=== PATIENT | male | born 1940 | race Caucasian/White ===

== ENCOUNTER 2020-01-05 09:49 | Outpatient (CLI) | payer MEDICARE, BC, SELFPAY ==
--- NOTE | ~2020-01-05 | XR_ITS ---
XR_[id number]_CR DATE: 01/05/2020 11:32 INDICATION: Cervical spondylosis with radiculopathy TECHNIQUE: AP and lateral views COMPARISON: 08/28/2019 MRI cervical spine FINDINGS: There is 3 mm anterolisthesis at C4-5, new finding since 08/28/2019. Moderate loss of interspace height at C3-4. Severe degenerative disc disease at C5-6 Interbody spinal fusion at C6-7. No fracture or prevertebral soft tissue swelling. There is degenerative change at the apophyseal joints throughout the cervical spine and uncovertebral joint spurring in the mid and lower cervical spine. IMPRESSION: New 3 mm anterolisthesis at C4-5 since 08/28/2019 Interbody spinal fusion at C6-7 Degenerative changes, including severe degenerative disc disease at C5-6, moderate degenerative disea se at C3-4, degenerative change at the apophyseal and uncovertebral joints Reviewed, dictated and finalized at Location [facility]. Reviewed, dictated and finalized at location B. IMPRESSION: New 3 mm anterolisthesis at C4-5 since 08/28/2019 Interbody spinal fusion at C6-7 Degenerative changes, including severe degenerative disc disease at C5-6, moder ate degenerative disease at C3-4, degenerative change at the apophyseal and unc overtebral joints
--- NOTE | ~2020-01-05 | XR_ITS ---
XR lumbar spine min 4V DATE: 01/05/2020 11:32 INDICATION: Low back pain. History of multiple surgeries. TECHNIQUE: AP, lateral, bilateral oblique and coned lateral lumbosacral views COMPARISON: 08/08/2017 lumbar spine FINDINGS: Pedicle screws are noted bilaterally at L2-L5. 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 Diffuse osteopenia. No fracture or bone destruction is evident. The sacroiliac joints are intact. Status post bilateral total hip arthroplasty. Extensive calcification of the abdominal aorta and iliac arteries, without evidence of aneurysm. IMPRESSION: No significant change since 08/08/2017 Reviewed, dictated and finalized at location B.
--- NOTE | 2020-01-05 11:00 | NEURO_ITS ---
Patient Number: [id number] Impression: # Complains of right upper extremity pain. # Subtle right Carpal Tunnel Syndrome. # Subtle right ulnar neuropathy across the elbow. # Normal needle/EMG exam. # Clinical correlation recommended. Nerve Conduction Studies Anti Sensory Summary Table Stim Site NR Peak (ms) P-T Amp (?V) Site1 Site2 Delta-P (ms) Dist (cm) Rajan (m/s) Right Median Anti Sensory (2-3nd Digit) Wrist 3.5 20.4 Wrist 2-3nd Digit 3.5 14.0 40 Wrist 3.5 29.5 Wrist 2-3nd Digit 3.5 14.0 40 Right Radial Anti Sensory (Base 1st Digit) Wrist 2.5 17.7 Wrist Base 1st Digit 2.5 0.0 Right Ulnar Anti Sensory (5th Digit) Wrist 2.9 10.5 Wrist 5th Digit 2.9 14.0 48 Motor Summary Table Stim Site NR Onset (ms) O-P Amp (mV) Site1 Site2 Delta-0 (ms) Dist (cm) Rajan (m/s) Right Median Motor (Abd Poll Brev) Wrist 3.7 3.0 Elbow Wrist 4.6 27.0 59 Elbow 8.3 2.7 Right Ulnar Motor (Abd Dig Minimi) Wrist 2.3 8.6 A Elbow Wrist 5.7 29.0 51 A Elbow 8.0 7.0 B Elbow Wrist 4.0 23.0 58 B Elbow 6.3 1.3 F Wave Studies NR F-Lat (ms) L-R F-Lat (ms) Right Median (Mrkrs) (Abd Poll Brev) 25.44 Right Ulnar (Mrkrs) (Abd Dig Min) 24.21 EMG Side Muscle Nerve Root Ins Act Fibs Amp Dur Recrt Comment Right 1stDorInt Ulnar C8-T1 Nml Nml Nml Nml Nml Right Ext Indicis Radial (Post Int) C7-8 Nml Nml Nml Nml Nml Right Ext Digitorum Radial (Post Int) C7-8 Nml Nml Nml Nml Nml Right BrachioRad Radial C5-6 Nml Nml Nml Nml Nml Right PronatorTeres Median C6-7 Nml Nml Nml Nml Nml Right Abd Poll Brev Median C8-T1 Nml Nml Nml Nml Nml MTDD
== END 2020-01-05 09:50 | disposition home or self-care (01) ==
PROVIDERS: PCP Family Medicine; Visit Provider Neurological Surgery
DX: M47.22 Other spondylosis with radiculopathy, cervical region (principal); M43.12 Spondylolisthesis, cervical region; Z98.1 Arthrodesis status; M50.322 Other cervical disc degeneration at C5-C6 level; G56.01 Carpal tunnel syndrome, right upper limb; G56.21 Lesion of ulnar nerve, right upper limb
CPT/HCPCS: 72040; 72110; 95886; 95909

== ENCOUNTER 2020-07-01 04:27 | Inpatient (IN) | payer MEDICARE, BC, SELFPAY ==
[2020-07-01] VITALS (46 sets, daily range): BP systolic 121–167; BP diastolic 57–83; PULSE 72–97; RESP 13–26; TEMP 35.8–36.7; O2SAT 92–100; BMI 33.8
--- NOTE | 2020-07-01 | ECHO_ITS ---
Patient Info Name: Alec Tapia Age: 79 years : 1940 Gender: Male Ht: 66 in Wt: 211 lbs BSA: 2.15 m2 HR: 85 bpm BP: 159 / 77 mmHg Heart Rhythm: Sinus Rhythm Technical Quality: Good Exam Date: 07/01/2020 11:06 AM Exam Location: [facility] Patient Status: Inpatient Admit Date: 07/01/2020 Staff Ordering Physician: Dom Sheikh MD Warehouse Unloader: Stewart Rodriges RDCS Attending Provider: Hiwot Bond PA-C Referring Physician: Aguilar ORTIZ; Exam Type: CA echo doppler color flow Study Info Indications R07.9 - Chest pain, unspecified Complete two-dimensional, color flow and Doppler transthoracic echocardiogram is performed. History/Risk Factors Elevated trops; chest pain, TAVR, anemia, CHF, CAD/OH, CKD3, HTN, DM2. Summary 1. Complete two-dimensional, color flow and Doppler transthoracic echocardiogram is performed. 2. There is moderate concentric increased left ventricular wall thickness. 3. Left ventricular chamber dimension is normal. 4. Biplane ejection fraction 67%. 5. There is no regurgitation of the TAVR aortic valve. 6. TAVR prosthesis appears to be functioning well valve area is 1.7 cm2 by Doppler. 7. Left atrial chamber dimension is moderately enlarged. Left Ventricle Left ventricular chamber dimension is normal. There is moderate concentric increased left ventricular wall thickness. The left ventricular diastolic function is grade I diastolic dysfunction. Biplane ejection fraction 67%. Right Ventricle Right ventricular chamber dimension is normal. Left Atria Left atrial chamber dimension is moderately enlarged. Right Atria Right atrial chamber dimension is normal. Aortic Valve There is no regurgitation of the TAVR aortic valve. TAVR prosthesis appears to be functioning well valve area is 1.7 cm2 by Doppler. Pulmonic Valve The pulmonic valve is not well visualized. Mitral Valve The mitral valve has normal leaflets. There is mild to moderate mitral valve regurgitation. The mitral valve annulus is mildly calcified. Tricuspid Valve The tricuspid valve leaflets are normal. There is mild tricuspid valve regurgitation. Pericardium/Pleural The pericardium appears normal. Aorta The aortic root size at the sinus of Valsalva is normal. Left Ventricular Outflow Tract Name Value Normal LVOT 2D LVOT Diameter 1.9 cm LVOT Doppler LVOT Peak Gradient 9 mmHg LVOT Mean Gradient 6 mmHg LVOT VTI 31 cm LVOT VTI/AV VTI Ratio 0.6 LVOT Stroke Volume 90 ml LVOT CO 7.9 l/min LVOT CI 3.7 l/min/m2 Mitral Valve Name Value Normal MV Doppler MV Peak Gradient 2 mmHg
--- NOTE | ~2020-07-01 | XR_ITS ---
XR chest 2V 07/01/2020 04:47 Indication: Chest pain Procedure: AP and lateral views of the chest Comparison: Comparison to multiple prior studies sequentially, with oldest reviewed study dated 02/02. Findings: Borderline heart size. Bibasilar airspace disease may represent atelectasis and/or pneumoni a. There is a vascular stent overlying the heart. No significant pleural effusion, edema or pneumotho rax. Impression: 1: Bibasilar infiltrates, atelectasis versus pneumonia. Reviewed, dictated and finalized at location A. Impression: 1: Bibasilar infiltrates, atelectasis versus pneumonia.
--- NOTE | ~2020-07-01 | XR_ITS ---
EXAMINATION: XR chest 1V portable EXAM DATE: 07/01/2020 10:53 INDICATION: Shortness of breath. TECHNIQUE: Portable AP frontal chest x-ray was obtained. Comparison is made to prior examination from 07/01/2020. FINDINGS: There is aortic arteriosclerosis. Cardiac valve replacement. Patchy bilateral acute airspac e disease edema or infection. Please clinically correlate. Appearance is not definitely changed nisha red to prior study. There is no pneumothorax suspected. There are no pleural effusions. There are bon y degenerative changes. IMPRESSION: 1. Patchy ill-defined bilateral edema or infection, clinical correlation. Reviewed, dictated and finalized at location B.
--- NOTE | ~2020-07-01 | XR_ITS ---
XR chest 1V portable 07/03/2020 05:56 Indication: Shortness of breath Procedure: AP portable chest Comparison: Comparison to multiple prior studies sequentially, with oldest reviewed study dated 02/2018. Findings: Heart size normal. No focal air space disease, pulmonary edema, pleural effusion or suspect ed pneumothorax. Interval resolution of interstitial edema. Impression: 1: No acute cardiopulmonary disease. Reviewed, dictated and finalized at location A. Impression: 1: No acute cardiopulmonary disease.
--- NOTE | 2020-07-01 04:24 | ED.CHESTPAIN ---
HPI - Chest Pain General Chief Complaint: Chest Pain Stated Complaint: chest pain Source: patient and EMS Mode of arrival: EMS Limitations: no limitations History of Present Illness HPI narrative: Patient is an 79-year-old male with a history of NIDDM, CKD III, aortic valve replacement, OR, 4 stents who presents to the emergency department for evaluation of chest pain. Patient was at home when chest pain awakened him from sleep, described as sharp, stabbing in nature in the center of his chest with radiation to the left shoulder. No ripping or tearing sensation to the flanks. No back pain. No associated nausea or vomiting. Patient did have associated shortness of breath, patient took 2 nitroglycerin at home which resolved his symptoms. Patient was given additional aspirin by EMS, otherwise was transported to our facility hemodynamically stable and asymptomatic. Patient denies any dark or tarry stools at the time of my assessment. I state that he appears pale to me, patient states that he does not have any numbness or weakness. He denies any dark or tarry stools. He denies lightheadedness or dizziness. He is taking aspirin and denies taking any other blood thinning medication. He follows with Dr. Jacobs. Related Data Home Medications Medication Instructions Recorded Confirmed aspirin 81 mg tablet,delayed 81 mg PO DAILY 08/18/19 06/01/20 release blood sugar diagnostic #10 each 08/18/19 06/01/20 cholecalciferol (vitamin D3) 125 5,000 unit PO DAILY 08/18/19 06/01/20 mcg (5,000 unit) tablet cyanocobalamin (vitamin B-12) 50 50 mcg PO DAILY 08/18/19 06/01/20 mcg lozenges lancets 28 gauge #25 each 08/18/19 06/01/20 primidone 50 mg tablet 100 mg PO BID tablet 08/18/19 06/01/20 timolol maleate 0.25 % eye drops 1 drop EACH EYE Q12H 10/28/19 06/01/20 vitamin B complex 1 tablet PO DAILY 10/28/19 06/01/20 Allergies Allergy/AdvReac Type Severity Reaction Status Date / Time acetaminophen Allergy Unknown Other Verified 06/21/20 11:15 MUSCLE RELAXERS Allergy Severe PARALYSES Uncoded 06/21/20 11:15 DIAPHRAGM Contrast Media Allergy Unknown Hives / Uncoded 06/21/20 11:15 Red Face Review of Systems Review of Systems: Narrative: CONSTITUTIONAL: Denies fever, chills, or sweats. CARDIOVASCULAR: Denies current chest pain, palpitations or edema RESPIRATORY: Denies cough or dyspnea. GASTROINTESTINAL: Denies abdominal pain, nausea, vomiting, or diarrhea. GENITOURINARY: Denies dysuria or hematuria. SKIN: Denies rash or itching. MUSCULOSKELETAL: Denies back pain, joint pain, or myalgia. NEUROLOGIC: Denies headache, numbness, or weakness. FOR[facility]LY [facility], [facility] Past Medical History Medical History Afib Anemia Anxiety Atherosclerotic heart disease of [place] coronary artery without angina pectoris Benign prostatic hyperplasia with lower urinary tract symptoms CAD (coronary artery disease) CHF (congestive heart failure) Chronic kidney disease, stage III (moderate) Diverticulosis DM renal manif type II Essential tremor Gallbladder disease Glaucoma Hemorrhoids HLD (hyperlipidemia) Hy ht/kd NOS I-IV w/o hf Hypertensive heart disease without heart failure Idiopathic peripheral neuropathy Insomnia Mixed hyperlipidemia Myocardial infarct Nonrheumatic aortic valve stenosis MARI (obstructive sleep apnea) Pneumonia PVD (peripheral vascular disease) Shingles Skin cancer Sleep apnea Ulcer Surgical History Surgical History (Updated 10/19/19 @ 12:38 by Raquel Stiles) History of appendectomy History of coronary artery stent placement x4 History of hemorrhoidectomy History of lumbar surgery History of tonsillectomy S/P TAVR (transcatheter aortic valve replacement) Status post total hip replacement, bilateral Social History Social History Years smoked: 23 Smoking status: Former smoker Tobacco type: cigarettes and pipe Secon
--- NOTE | 2020-07-01 04:29 | ECG_ITS ---
Measurements Intervals [place] Rate: 97 P: [place]: 0 QRS: 9 QRSD: 104 T: 29 QT: 342 QTc: 435 Interpretive Statements SINUS RHYTHM WITH FIRST DEGREE AV BLOCK BASELINE ARTIFACT- I, II, III, AVR, AVL, AVF, V1-V6 ABNORMAL ECG Electronically Signed On 07-01-2020 7:01:34 CDT by Zachery Curtis D.O.
[2020-07-01 04:43] LABS: Basophils Percent Auto 0.2 % (0.2-1.2); Eosinophils Percent Auto 0.2 % (0-4.4); Hematocrit 22.7 % (42.0-52.0); Immature Granulocyte Absolute 0.05 K/mm3 (0.00-0.031); Immature Granulocyte Percent A 0.6 % (0-0.5); Lymphocytes Absolute Auto 1.15 K/mm3 (0.9-3.2); Lymphocytes Percent Auto 14.1 % (18.3-44.2); Mean Corpuscular HGB Conc 28.6 g/dl (32-36); Mean Corpuscular Hemoglobin 22.6 pg (26-34); Mean Corpuscular Volume 78.8 fl (80-100); Mean Platelet Volume 9.5 fl (7.4-10.4); Monocytes Absolute Auto 0.5 K/mm3 (0.1-0.6); Monocytes Percent Auto 5.9 % (2.6-8.5); Neutrophils Absolute Auto 6.5 K/mm3 (1.3-6.7); Platelet Count Result 344 k/mm3 (150-375); Red Blood Count 2.88 M/mm3 (4.6-6.20); Red Cell Distribution Width 18.4 % (11.5-14.5); White Blood Count 8.2 K/mm3 (4.5-10.0)
[2020-07-01 04:55] LABS: Anion Gap 8 mmol/L (8-16); Blood Urea Nitrogen 57 mg/dL (9-20); Calcium 9.8 mg/dL (8.4-10.2); Carbon Dioxide 25 mmol/L (22-30); Chloride 106 mmol/L (98-107); Estimated Glomerular Filt Rate 42; Glucose 148 mg/dL (75-110); INR 1.1; Potassium 4.9 mmol/L (3.4-5.0); Prothrombin Time 14.1 Seconds (11.1-14.7); Sodium 139 mmol/L (137-145)
[2020-07-01 04:56] LABS: Partial Thromboplastin Time 25.8 SECONDS (22.3-36.8)
[2020-07-01 05:09] LABS: Hemoglobin 6.5 g/dL (14.0-18.0)
[2020-07-01 05:10] LABS: Platelet Estimate Adequate (Adequate)
[2020-07-01 05:11] LABS: Anisocytosis 1+ (NORMAL); Hypochromasia 1+ (NORMAL)
[2020-07-01 05:19] LABS: Troponin I 0.059 ng/mL (0.000-0.034)
[2020-07-01 06:18] LABS: NT Pro B Type Natriuretic Pept 901 PG/ML (5-100)
[2020-07-01] MEDS: SODIUM CHLORIDE 0.9% IV 250 ML 30 ML IV CONT (07:30)
[2020-07-01] MEDS: TUBING, BLOOD SET 1 EACH XX (07:31)
--- NOTE | 2020-07-01 07:57 | PC.NURSE ---
Pt is tolerating blood transfusion well. No reaction noted. VSS.
[2020-07-01 08:00] LABS: Troponin I 0.063 ng/mL (0.000-0.034)
[2020-07-01 08:16] LABS: Iron 29 ug/dL (49-181)
--- NOTE | 2020-07-01 08:18 | ADMGEN ---
This patient, Alec Tapia, was admitted to IMU Room 231-01. Patient/family oriented to hospital policies and general routines including ID bracelet, bed and alarms, visiting hours, pain management, procedures, bathroom and other care routines, personal items, smoking policy, room service/diet, and visiting hours. Valuables list has been completed. Information on how to activate the Rapid Response Team has been discussed. Patient/Family are encouraged to report perceived risks to care and to ask questions if they do not understand what they are told or what they should do.
[2020-07-01 08:25] LABS: Percent Iron Saturation 5 % (20-50)
[2020-07-01 08:32] LABS: Alanine Aminotransferase 20 U/L (4-50); Albumin Level 3.8 g/dL (3.5-5.1); Alkaline Phosphatase 37 U/L (38-126); Anion Gap 7 mmol/L (8-16); Aspartate Amino Transferase 30 U/L (17-59); Bilirubin,Total 0.2 mg/dL (0.2-1.3); Blood Urea Nitrogen 54 mg/dL (9-20); Calcium 9.5 mg/dL (8.4-10.2); Carbon Dioxide 23 mmol/L (22-30); Chloride 108 mmol/L (98-107); Estimated Glomerular Filt Rate 45; Glucose 90 mg/dL (75-110); Lactate Dehydrogenase 462 U/L (313-618); Sodium 138 mmol/L (137-145); Transferrin 361 mg/dL (206-381)
[2020-07-01 08:51] LABS: Ferritin 8.89 ng/mL (11.1-264)
--- NOTE | 2020-07-01 09:22 | PM.CNCAR ---
Assessment and Plan Assessment and plan (1) Elevated troponin: Code(s): R79.89 - Other specified abnormal findings of blood chemistry Status: Acute Assessment and Plan: troponin is likely secondary to severe anemia in the setting of known coronary disease. Will continue to trend troponins. P.r.n. nitroglycerin. Transfuse at least 2 units of packed red blood cells. Repeat H& H at noon. GI consultation is requested and likely going for endoscopy today. 2D echocardiogram Doppler will be ordered. Hold aspirin for now till after endoscopy then resume at 81 mg p.o. daily (2) Chest pain: Qualifiers: Chest pain type: other chest pain Qualified Code(s): R07.89 - Other chest pain Code(s): R07.9 - Chest pain, unspecified Status: Acute Assessment and Plan: This is anginal pain and much worse than his typical stable angina that he has during episodes when she is carrying objects or walking up down steps. Likely exacerbated by his severe anemia. (3) CAD (coronary artery disease): Code(s): I25.10 - Atherosclerotic heart disease of [place] coronary artery without angina pectoris Status: Acute Assessment and Plan: As detailed above. Continue his home drug regimen including statin, Zetia, fenofibrate, furosemide, lisinopril. No beta ryan given his history of complete heart block following TAVR. (4) History of transcatheter aortic valve replacement (TAVR): Code(s): Z95.2 - Presence of prosthetic heart valve Status: Acute Assessment and Plan: previously function normally (5) Anemia: Qualifiers: Anemia type: unspecified type Qualified Code(s): D64.9 - Anemia, unspecified Code(s): D64.9 - Anemia, unspecified Status: Acute Assessment and Plan: severe and of new onset. GI has been consult. will give him a dose of furosemide 20 mg IV x1 after his transfusion History of Present Illness History of Present Illness Consult date/time: 07/01/20 09:22 Requesting physician: Ashely Ratliff MD Consult reason: chest pain Reason For Visit: chest pain,anemia,elevated troponin Narrative: Reason for consultation: Chest pain, elevated troponins Date of service 07/01/2020 History: Patient is a very pleasant 79 year old male patient of Dr. Jacobs who has a history of coronary disease. He sustained a non ST elevation myocardial infarction in 2005 and had stents placed to the LAD and RCA. He had 2 more stents to the RCA and May of 2018 during a workup for severe aortic stenosis. He did undergo a TAVR in July 2018. He was known to have transient complete heart block after his TAVR. He did have a most recent telephone visit with Dr. perea from in January 2015. At that time he describes shortness of breath and slight chest tightness when carrying packages up and down some steps. That is is known stable angina. He states that about a month or so ago he has noticed some black stools. Black stools lasted for 1-2 weeks. His stools at this point are normal in color. Interestingly, he did break on to some hives recently and has been put on some steroids per Dr. Luis. Yesterday morning he developed some chest pain which is typical of his angina but a little worse. It was significant enough for him to take a nitroglycerin. Nitroglycerin resolved his pain. Pain lasted about 5-10 minutes. Yesterday evening had another episode in which he took a nitroglycerin. He went to bed last night but then woke up at about 3-330 this morning with much more significant /severe chest pain. He took 2 sublingual nitroglycerin without relief. EMS was called and he was given some baby aspirin. He was brought to the emergency room and gradually over about a 2 hour time frame his symptoms subsided. In the ER he was found to be severely anemic with a hemoglobin of 6.5. Previous hemoglobin in October of this year shows a hemoglobin above 10. Chest
[2020-07-01] MEDS: FUROSEMIDE INJ 40 MG/4 ML VIAL 20 MG IV PUSH (10:02)
--- NOTE | 2020-07-01 10:10 | PM.IMHP ---
H&P: HPI History of Present Illness Date/Time: 07/01/20 10:10 Chief complaint: chest pain,anemia,elevated troponin Narrative: Alec Tapia is a 79 year old male multiple medical problems including CAD s/p PCI with 4 stents, HfpEF, T2DM, MARI on BiPAP at night, aortic stenosis s/p TAVR 07/2018, BPH, CKD stage III, HLD, HTN, rosacea on chronic doxycycline who presented to the emergency department via EMS for the evaluation of chest pain. He reports that he had one episode of chest pain with activity yesterday morning which was relieved with 1 nitroglycerin. He had another episode earlier in the evening which was relieved with nitroglycerin. Those episodes lasted 5-10 minutes. Later that night, he was awakened from sleep with sharp, stabbing, and heavy chest pain in the mid chest with radiation to the left shoulder and neck. He took 2 nitroglycerin without relief and called EMS. He reports increased dyspnea with exertion over the past several months. He had very dark stool for 1-2 weeks approximately 1 month ago. He was taking iron at that time. He denies recent melena or hematochezia. He has hemorrhoids which bleed intermittently, requiring him to wear pads, but he reports no significant hemorrhoidal bleeding recently. His last colonoscopy was 7 years ago and unremarkable with no polyps or other abnormalities. He reports the onset of hives and itching 10 days ago. He saw his PCP who prescribed medrol dose pack. Itching improved but returned so he started prednisone 2 days ago. He denies abdominal pain, nausea, and vomiting. He denies headaches, dizziness, and lightheadedness. He denies PND and orthopnea. He reports no significant lower extremity edema. He denies hematuria. He has BPH with urinary incontinence. Initial workup in the emergency department included EKG sinus rhythm, 1st degree AV block, and no evidence of acute ischemia, troponin 0.059, 0.063, and 0.068, BNP 901, Hb 6.5, Hct 22.7, RBC 2.88, WBC 8.2, MCV 78.8, Cr 1.5, BUN 54, and CXR with bibasilar infiltrates suggestive of atelectasis vs. pneumonia. I went to reassess the patient and he was in respiratory distress. STAT CXR demonstrated interval development of pulmonary edema following blood transfusion. Troponin was 0.068. EKG was repeated and showed LV hypertrophy and ST-T change. He received IV lasix with excellent urine output and dyspnea improved. Review of Systems Review of Systems: Narrative: Constitutional: Denies fever, chills, fatigue, and appetite change. Reports weight gain since COVID because he has not been as active. Eyes: Denies vision change. No additional eye complaints. ENT: Denies change in hearing, nasal congestion, dysphagia, odynophagia, and sore throat. Cardiovascular: As above. Respiratory: Reports dyspnea with exertion. Denies cough. Gastrointestinal: Denies abdominal pain, nausea, and vomiting. Reports hx of dark stool but no acute melena or hematochezia. Genitourinary: Reports urinary frequency/incontinence, worse at night. Denies hematuria and dysuria. Musculoskeletal: Denies joint pain and swelling. Denies muscle cramps and weakness. Skin: Denies lesions and wounds. Neurologic: Denies focal weakness, paresthesias, confusion, headaches, and speech change. Psychiatric: Reports anxiety and takes diazepam PRN. Hematologic: Denies easy bruising and bleeding. All systems reviewed & are unremarkable except as noted in HPI and below PMFSH Past Medical History Medical History (Updated 07/01/20 @ 14:45 by Hiwot Bond PA-C) Afib Anemia Anxiety Atherosclerotic heart disease of [place] coronary artery without angina pectoris Benign prostatic hyperplasia with lower urinary tract symptoms CAD (coronary artery disease) CHF (congestive heart failure) Chronic kidney disease, stage III (moderate) Diverticulosis DM renal manif type II Essential tremor Gallbladder disease GIB (gastrointestinal bleeding) Glaucoma Hemorrhoids History of transcatheter aortic valve
--- NOTE | 2020-07-01 10:34 | ECG_ITS ---
Measurements Intervals [place] Rate: 83 P: 91 [place]: 257 QRS: -12 QRSD: 125 T: 78 QT: 368 QTc: 433 Interpretive Statements SINUS RHYTHM WITH FIRST DEGREE AV BLOCK LEFT VENTRICULAR HYPERTROPHY AND ST-T CHANGE BASELINE ARTIFACT- V4 ABNORMAL ECG Electronically Signed On 07-01-2020 10:55:48 CDT by Zachery Curtis D.O.
[2020-07-01 10:45] LABS: Vitamin B12 > 1000.0 pg/mL (239-931)
[2020-07-01] MEDS: FUROSEMIDE INJ 40 MG/4 ML VIAL IV PUSH ×2 (10:45→23:02)
[2020-07-01 10:47] LABS: Troponin I 0.068 ng/mL (0.000-0.034)
[2020-07-01] MEDS: ALBUTEROL SULFATE NEB 2.5 MG/0.5 ML INH INHALATION (10:48)
[2020-07-01 10:53] LABS: Alveolar/Arterial O2 Gradient 65.5 mmHg; Fractional Inspired Oxygen 28 %; HCO3 ABG 22.6 mEq/l (22.0-26.0); Oxygen Content ABG 11.2 %vol (16.0-22.0); Oxygen Saturation ABG 95.6 % (95.0-100.0); Oxyhemoglobin 93.4 % THb (90.0-100.0); PCO2 ABG 43.1 mmHg (35.0-45.0); PO2 ABG 83.3 mmHg (80.0-100.0); PO2 FiO2 Ratio Arterial Blood 2.98 %; Total Hemoglobin 8.4 g/dL (12.0-18.0); pH ABG 7.338 (7.350-7.450)
[2020-07-01 10:54] LABS: Device NASAL CANNULA; Modified Allen's Test Pass; Site Drawn RIGHT RADIAL
[2020-07-01 11:01] LABS: Hematocrit 25.8 % (42.0-52.0); Hemoglobin 7.4 g/dL (14.0-18.0)
[2020-07-01 11:47] LABS: Glucose Point of Care 78 (65-105)
--- NOTE | 2020-07-01 12:10 | WPDANESEPPF ---
Anes - Initial Pre Proc Eval Procedure: Operation Date: 07/01/20 14:00 Proposed Procedures p Esophagogastroduodenoscopy - Vamshi Estrada MD Date/Time: 07/01/20 12:10 Surgeon: Hiwot Bond PA-C Pre Op Diagnosis: chest pain,anemia,elevated troponin Patient Data Age: 79 Gender: M Height: 5 ft 6 in Weight: 95.2 kg Last Vital Signs Temp 96.9 F L 07/01/20 08:00 Pulse 83 07/01/20 10:53 Resp 20 07/01/20 10:53 BP 159/77 H 07/01/20 08:00 Pulse Ox 98 07/01/20 10:54 Allergies Allergy/AdvReac Type Severity Reaction Status Date / Time acetaminophen Allergy Unknown Other Verified 07/01/20 08:29 MUSCLE RELAXERS Allergy Severe PARALYSES Uncoded 07/01/20 08:29 DIAPHRAGM Contrast Media Allergy Unknown Hives / Uncoded 07/01/20 08:29 Red Face Home Medications Medication Instructions Recorded Confirmed Type aspirin 81 mg tablet,delayed 81 mg PO DAILY 08/18/19 07/01/20 History release blood sugar diagnostic #10 each 08/18/19 07/01/20 History cholecalciferol (vitamin D3) 125 5,000 unit PO DAILY 08/18/19 07/01/20 History mcg (5,000 unit) tablet furosemide 40 mg tablet 20 mg PO QAM #45 tablet 08/18/19 07/01/20 Rx lancets 28 gauge #25 each 08/18/19 07/01/20 History lisinopril 10 mg tablet 10 mg PO DAILY #90 tablet 08/18/19 07/01/20 Rx potassium citrate 10 mEq (1,080 10 meq PO BID #180 tablet 08/18/19 07/01/20 Rx mg) tablet,extended release primidone 50 mg tablet 50 mg PO BID tablet 08/18/19 07/01/20 History timolol maleate 0.25 % eye drops 1 drop EACH EYE Q12H 10/28/19 07/01/20 History vitamin B complex 1 tablet PO DAILY 10/28/19 07/01/20 History fenofibrate 160 mg tablet 160 mg PO DAILY #90 tablet 11/05/19 07/01/20 Rx ezetimibe 10 mg tablet 10 mg PO DAILY #90 tablet 11/09/19 07/01/20 Rx atorvastatin 40 mg tablet 40 mg PO DAILY #90 tablet 12/25/19 07/01/20 Rx azelastine 0.15 % (205.5 mcg) 2 spray NASAL BID #30 ml 02/04/20 07/01/20 Rx nasal spray doxycycline hyclate 100 mg capsule 100 mg PO DAILY #90 cap 05/19/20 07/01/20 Rx tramadol 50 mg tablet 50 mg PO Q6H PRN #60 tablet 06/03/20 07/01/20 Rx diazepam 10 mg PO DAILY PRN 07/01/20 07/01/20 History diclofenac-lidocaine 1 applic TOPICAL HS 07/01/20 07/01/20 History duloxetine 60 mg PO DAILY 07/01/20 07/01/20 History gabapentin 400 mg PO QID 07/01/20 07/01/20 History glimepiride 0.5 mg PO DAILY 07/01/20 07/01/20 History ketoconazole 1 applic TOPICAL DAILY 07/01/20 07/01/20 History loperamide 2 mg PO Q6H PRN 07/01/20 07/01/20 History melatonin 10 mg PO HS PRN 07/01/20 07/01/20 History tamsulosin 0.4 mg PO DAILY 07/01/20 07/01/20 History trazodone 50 mg PO DAILY 07/01/20 07/01/20 History Laboratory Tests 07/01/20 07/01/20 07/01/20 04:36 04:36 04:36 WBC 8.2 K/mm3 K/mm3 (4.5-10.0) RBC 2.88 M/mm3 L M/mm3 (4.6-6.20) Hgb 6.5 g/dL L* D g/dL (14.0-18.0) Hct 22.7 % L % (42.0-52.0) MCV 78.8 fl L fl (80-100) MCH 22.6 pg L pg (26-34) MCHC 28.6 g/dl L g/dl (32-36) RDW 18.4 % H % (11.5-14.5) Plt Count 344 k/mm3 k/mm3 (150-375) MPV 9.5 fl fl (7.4-10.4) Immature Gran % (Auto) 0.6 % H % (0-0.5) Neut % (Auto) 79.0 % H % (45.5-73.1) Lymph % (Auto) 14.1 % L % (18.3-44.2) Day % (Auto) 5.9 % % (2.6-8.5) Eos % (Auto) 0.2 % % (0-4.4) Baso % (Auto) 0.2 % % (0.2-1.2) Lymph # (Auto) 1.15 K/mm3 K/mm3 (0.9-3.2) Day # (Auto) 0.5 K/mm3 K/mm3 (0.1-0.6) Eos # (Auto) 0.0 K/mm3 K/mm3 (0-0.3) Baso # (Auto) 0.0 K/mm3 K/mm3 (0.0-0.1) Abs Immat Gran (auto) 0.05 K/mm3 H K/mm3 (0.00-0.031) Absolute Neuts (auto) 6.5 K/mm3 K/mm3 (1.3-6.7) Absolute Nucleated RBC 0.0 K/mm3 K/mm3 (0.0-0.012) Nucleated RBC % 0.0 % % (0.0-0.2) Platelet Estimate Adequate (Adequate) Hypochr
[2020-07-01 12:16] LABS: Folic Acid 5.1 ng/mL (2.76->20)
[2020-07-01] MEDS: SODIUM CHLORIDE 0.9% IV 500 ML 30 ML IV CONT (12:21)
--- NOTE | 2020-07-01 12:22 | SUR.PREOP ---
TRANSFERED FROM 231 VIA STRETCHER WITH TELEMETRY TO ENDOSCOPY ROOM 5, NC A 2L/NC, SIDDIQUI DRAINING CLEAR STRAW COLORED URINE TO BEDSIDE DRAIN. PT STATES SOB IS MUCH BETTER, LUNGS SOUND OF FEW CRACKLES, WITH AIR EXCHANGE HEARD IN ALL LOBES.
[2020-07-01] MEDS: BENZOCAINE (*SP) 60 ML SPRAY CAN (HURRICAINE) 1 SPRAY MUCOUS MEM (12:24)
[2020-07-01] MEDS: ATORVASTATIN 40 MG TABLET PO (13:31)
[2020-07-01] MEDS: TAMSULOSIN HCL 0.4 MG CAPSULE PO (13:31)
[2020-07-01] MEDS: CHOLECALCIFEROL 1,000 UNITS TABLET 5000 UNITS PO (13:31)
[2020-07-01] MEDS: VITAMIN B COMPLEX CAPSULE 1 CAP PO (13:31)
[2020-07-01] MEDS: GABAPENTIN 400 MG CAPSULE PO ×3 (13:32→19:46)
[2020-07-01] MEDS: EZETIMIBE 10 MG TABLET PO (13:32)
[2020-07-01] MEDS: DULoxetine HCL 60 MG CAPSULE.DR PO (13:32)
[2020-07-01] MEDS: FENOFIBRATE 160 MG TABLET PO (13:32)
[2020-07-01] MEDS: PRIMIDONE 50 MG TABLET PO ×2 (13:32→19:46)
--- NOTE | 2020-07-01 13:37 | WPDGICN ---
Assessment and Plan Assessment and plan (1) Symptomatic anemia: Code(s): D64.9 - Anemia, unspecified Status: Acute Assessment and Plan: will proceed with EGD, he is not using ppi at home (2) GIB (gastrointestinal bleeding): Code(s): K92.2 - Gastrointestinal hemorrhage, unspecified Status: Acute Assessment and Plan: he mentioned dark stools about 2 weeks ago, ? melena and now with anemia. PPI for now and EGD today (3) Chest pain: Qualifiers: Chest pain type: other chest pain Qualified Code(s): R07.89 - Other chest pain Code(s): R07.9 - Chest pain, unspecified Status: Acute Assessment and Plan: maybe exacerbated by anemia but cardiology on board. (4) Elevated troponin: Code(s): R79.89 - Other specified abnormal findings of blood chemistry Status: Acute (5) Type 2 diabetes, controlled, with neuropathy: Code(s): E11.40 - Type 2 diabetes mellitus with diabetic neuropathy, unspecified Status: Acute (6) CKD (chronic kidney disease) stage 3, GFR 30-59 ml/min: Code(s): N18.3 - Chronic kidney disease, stage 3 (moderate) Status: Acute Assessment and Plan: creatinine at baseline. GI Consult Note Consult date/time: 07/01/20 10:00 Reason for consult: symptomatic anemia HPI: Alec Tapia is a 79 year old male with multiple medical problems CAD s/p PCI with 4 stents not longer taking plavix only baby aspirin,T2DM, MARI on BiPAP at night, aortic stenosis s/p TAVR 07/2018, BPH, CKD stage III, HLD, HTN, rosacea on chronic doxycycline and chronic anemia (last hb ~10) who was brought by EMS for evaluation of new onset of chest pain, stabbing sensation. He took NTG with some relief. About 2 weeks ago had dark stools but now resolved, in fact denies GIB. Blood work found hb 6.5 and admitted to floor, also given one unit of PRBC. No more chest pain. Had troponin 0.06. He had colonoscopy and EGD by Dr Stoner about 7 years ago with no major findings. Review of Systems Constitutional: Constitutional: Denies headache(s) and Denies weakness Eyes: Eyes: Denies blurry vision ENT: Reports Normal hearing present, Denies headache(s) and Denies neck pain Cardiovascular: Cardiovascular: Reports chest pain and Denies dyspnea Respiratory: Respiratory: Reports dyspnea on exertion Gastrointestinal: Gastrointestinal: Reports no additional gastrointestinal complaints and Denies abdominal pain Genitourinary: Genitourinary: Denies dysuria Musculoskeletal: Musculoskeletal: Denies neck pain Integumentary/Breasts: Skin/Breast: Denies dry skin Neurologic: Reports Normal hearing present, Denies headache(s) and Denies weakness Psychiatric: Psychiatric: Denies anxiety Endocrine: Endocrine: Denies change in body appearance Hematologic/Lymphatic: Hematologic/Lymphatic: Denies easy bleeding Allergic/Immunologic: Allergic/Immunologic: Denies urticaria PMFSH Past Medical History Medical History (Updated 07/01/20 @ 13:41 by Vamshi Estrada MD) Afib Anemia Anxiety Atherosclerotic heart disease of [place] coronary artery without angina pectoris Benign prostatic hyperplasia with lower urinary tract symptoms CAD (coronary artery disease) CHF (congestive heart failure) Chronic kidney disease, stage III (moderate) Diverticulosis DM renal manif type II Essential tremor Gallbladder disease GIB (gastrointestinal bleeding) Glaucoma Hemorrhoids History of transcatheter aortic valve replacement (TAVR) HLD (hyperlipidemia) Hy ht/kd NOS I-IV w/o hf Hypertensive heart disease without heart failure Idiopathic peripheral neuropathy Insomnia Mixed hyperlipidemia Myocardial infarct Nonrheumatic aortic valve stenosis MARI (obstructive sleep apnea) Pneumonia PVD (peripheral vascular disease) Shingles Skin cancer Sleep apnea Symptomatic anemia Ulcer Surgical History Surgical History (Reviewed 07/01/20 @ 11:42 by Hiwot Bond
[2020-07-01] MEDS: DOXYCYCLINE HYCLATE 100 MG TABLET PO (14:19)
[2020-07-01] MEDS: lisinopriL 10 MG TABLET PO (14:19)
[2020-07-01 16:35] LABS: Hematocrit 24.6 % (42.0-52.0); Hemoglobin 7.4 g/dL (14.0-18.0)
[2020-07-01] MEDS: AZELASTINE HCL NASAL 0.1% 137 MCG/SPR 30 ML BTL 2 SPRAY NASAL (16:39)
[2020-07-01] MEDS: FERROUS SULFATE 324 MG TABLET PO (16:40)
[2020-07-01] MEDS: POTASSIUM CHLORIDE 10 MEQ TABLET.ER PO (16:41)
[2020-07-01 17:21] LABS: Glucose Point of Care 86 (65-105)
[2020-07-01] MEDS: PANTOPRAZOLE 40 MG TABLET PO (19:46)
[2020-07-01 20:33] LABS: Glucose Point of Care 113 (65-105)
[2020-07-01 23:44] LABS: Hematocrit 28.2 % (42.0-52.0); Hemoglobin 8.7 g/dL (14.0-18.0)
[2020-07-01] MEDS: diazePAM (*CRX) 10 MG TABLET PO (23:57)
[2020-07-01] MEDS: MELATONIN 5 MG TABLET 10 MG PO (23:57)
[2020-07-02] VITALS (20 sets, daily range): BP systolic 86–131; BP diastolic 55–75; PULSE 90–122; RESP 18–20; TEMP 35.5–36.3; O2SAT 97–100
[2020-07-02 03:53] LABS: Basophils Percent Auto 0.3 % (0.2-1.2); Eosinophils Absolute Auto 0.3 K/mm3 (0-0.3); Eosinophils Percent Auto 2.8 % (0-4.4); Hematocrit 31.1 % (42.0-52.0); Hemoglobin 9.5 g/dL (14.0-18.0); Immature Granulocyte Absolute 0.05 K/mm3 (0.00-0.031); Immature Granulocyte Percent A 0.5 % (0-0.5); Lymphocytes Absolute Auto 1.33 K/mm3 (0.9-3.2); Lymphocytes Percent Auto 14.1 % (18.3-44.2); Mean Corpuscular HGB Conc 30.5 g/dl (32-36); Mean Corpuscular Hemoglobin 24.5 pg (26-34); Mean Corpuscular Volume 80.4 fl (80-100); Mean Platelet Volume 9.1 fl (7.4-10.4); Monocytes Absolute Auto 0.8 K/mm3 (0.1-0.6); Monocytes Percent Auto 8.1 % (2.6-8.5); Neutrophils Percent Auto 74.2 % (45.5-73.1); Nucleated Red Blood Cells Perc 0.2 % (0.0-0.2); Platelet Count Result 318 k/mm3 (150-375); Red Blood Count 3.87 M/mm3 (4.6-6.20); Red Cell Distribution Width 18.3 % (11.5-14.5); White Blood Count 9.5 K/mm3 (4.5-10.0)
[2020-07-02 04:10] LABS: Anion Gap 8 mmol/L (8-16); Blood Urea Nitrogen 48 mg/dL (9-20); Calcium 10.2 mg/dL (8.4-10.2); Carbon Dioxide 30 mmol/L (22-30); Chloride 99 mmol/L (98-107); Estimated CRCL calculation 33 ml/min; Estimated Glomerular Filt Rate 39; Glucose 108 mg/dL (75-110); Potassium 4.4 mmol/L (3.4-5.0); Sodium 137 mmol/L (137-145)
[2020-07-02] MEDS: CHOLECALCIFEROL 1,000 UNITS TABLET 5000 UNITS PO (08:19)
[2020-07-02] MEDS: ASPIRIN 81 MG ENTERIC TABLET PO (08:19)
[2020-07-02] MEDS: POTASSIUM CHLORIDE 10 MEQ TABLET.ER PO ×2 (08:19→16:47)
[2020-07-02] MEDS: EZETIMIBE 10 MG TABLET PO (08:19)
[2020-07-02] MEDS: PANTOPRAZOLE 40 MG TABLET PO ×2 (08:19→20:32)
[2020-07-02] MEDS: AZELASTINE HCL NASAL 0.1% 137 MCG/SPR 30 ML BTL 2 SPRAY NASAL ×2 (08:19→16:46)
[2020-07-02] MEDS: GABAPENTIN 400 MG CAPSULE PO ×4 (08:19→20:32)
[2020-07-02] MEDS: FERROUS SULFATE 324 MG TABLET PO ×2 (08:19→16:47)
[2020-07-02] MEDS: FUROSEMIDE INJ 40 MG/4 ML VIAL 20 MG IV PUSH (08:20)
[2020-07-02] MEDS: PRIMIDONE 50 MG TABLET PO ×2 (08:20→20:32)
[2020-07-02] MEDS: DULoxetine HCL 60 MG CAPSULE.DR PO (08:20)
[2020-07-02] MEDS: ATORVASTATIN 40 MG TABLET PO (08:20)
[2020-07-02] MEDS: TAMSULOSIN HCL 0.4 MG CAPSULE PO (08:20)
[2020-07-02] MEDS: lisinopriL 10 MG TABLET PO (08:20)
[2020-07-02] MEDS: FENOFIBRATE 160 MG TABLET PO (08:20)
[2020-07-02] MEDS: VITAMIN B COMPLEX CAPSULE 1 CAP PO (08:20)
[2020-07-02 09:30] LABS: Glucose Point of Care 103 (65-105)
[2020-07-02 09:39] LABS: Hematocrit 31.3 % (42.0-52.0); Hemoglobin 9.6 g/dL (14.0-18.0)
[2020-07-02] MEDS: DOXYCYCLINE HYCLATE 100 MG TABLET PO (09:41)
--- NOTE | 2020-07-02 10:56 | WPDANESPN ---
Anes - Prog Note Post-Op Date/Time: 07/02/20 10:56 Cardiovascular status: normal Respiratory status: normal Airway patency: baseline Mental status: baseline Post-Op hydration status: normal Vital Signs: Last Vital Signs Temp 35.9 C L 07/02/20 07:55 Pulse 122 H 07/02/20 10:06 Resp 20 07/02/20 07:55 BP 113/75 07/02/20 07:55 Pulse Ox 100 07/02/20 07:55 Pain Score (VAS): 0/0 I/O: Intake & Output 07/01/20 07/02/20 07/02/20 23:59 07:59 15:59 Intake Total 920 500 480 Output Total 7129 2740 1100 Balance -3130 -950 -620 Laboratory Tests 07/02/20 09:28 07/02/20 03:41 07/01/20 07/01/20 07/01/20 05:30 07:29 10:44 WBC RBC Hgb 7.4 L Hct 25.8 L MCV MCH MCHC RDW Plt Count MPV Immature Gran % (Auto) Neut % (Auto) Lymph % (Auto) [place] % (Auto) Eos % (Auto) Baso % (Auto) Lymph # (Auto) [place] # (Auto) Eos # (Auto) Baso # (Auto) Abs Immat Gran (auto) Absolute Neuts (auto) Absolute Nucleated RBC Nucleated RBC % Sodium Potassium Chloride Carbon Dioxide Anion Gap BUN Creatinine Estim Creat Clear Calc Estimated GFR Glucose POC Capillary Glucose Calcium Magnesium Folate 5.1 Blood Type B Positive Antibody Screen Negative Crossmatch See Detail 07/01/20 07/01/20 07/01/20 11:45 16:27 16:27 WBC RBC Hgb 7.4 L Hct 24.6 L MCV MCH MCHC RDW Plt Count MPV Immature Gran % (Auto) Neut % (Auto) Lymph % (Auto) [place] % (Auto) Eos % (Auto) Baso % (Auto) Lymph # (Auto) [place] # (Auto) Eos # (Auto) Baso # (Auto) Abs Immat Gran (auto) Absolute Neuts (auto) Absolute Nucleated RBC Nucleated RBC % Sodium Potassium 4.0 Chloride Carbon Dioxide Anion Gap BUN Creatinine Estim Creat Clear Calc Estimated GFR Glucose POC Capillary Glucose 78 Calcium Magnesium Folate Blood Type Antibody Screen Crossmatch 09/07/01/20 07/01/20 16:27 16:43 20:25 WBC RBC Hgb Hct MCV MCH MCHC RDW Plt Count MPV Immature Gran % (Auto) Neut % (Auto) Lymph % (Auto) [place] % (Auto) Eos % (Auto) Baso % (Auto) Lymph # (Auto) [place] # (Auto) Eos # (Auto) Baso # (Auto) Abs Immat Gran (auto) Absolute Neuts (auto) Absolute Nucleated RBC Nucleated RBC % Sodium Potassium Chloride Carbon Dioxide Anion Gap BUN Creatinine Estim Creat Clear Calc Estimated GFR Glucose POC Capillary Glucose 86 113 H Calcium Magnesium 2.0 Folate Blood Type Antibody Screen Crossmatch 07/01/20 07/02/20 07/02/20 23:24 03:41 03:41 WBC 9.5 RBC 3.87 L Hgb 8.7 L 9.5 L Hct 28.2 L 31.1 L MCV 80.4 MCH 24.5 L D MCHC 30.5 L RDW 18.3 H Plt Count 318 MPV 9.1 Immature Gran % (Auto) 0.5 Neut % (Auto) 74.2 H Lymph % (Auto) 14.1 L [place] % (Auto) 8.1 Eos % (Auto) 2.8 Baso % (Auto) 0.3 Lymph # (Auto) 1.33 [place] # (Auto) 0.8 H Eos # (Auto) 0.3 Baso # (Auto) 0.0 Abs Immat Gran (auto) 0.05 H Absolute Neuts (auto) 7.0 H Absolute Nucleated RBC 0.0 Nucleated RBC % 0.2 Sodium 137 Potassium 4.4 Chloride 99 Carbon Dioxide 30 Anion Gap 8 BUN 48 H Creatinine 1.70 H Estim Creat Clear Calc 33 Estimated GFR 39 L Glucose 108 POC Capillary Glucose Calcium 10.2 Magnesium Folate Blood Type Antibody Screen Crossmatch 07/02/20 07/02/20 08:01 09:28 WBC RBC Hgb 9.6 L Hct 31.3 L MCV MCH MCHC RDW Plt Count MPV Immature Gran % (Auto) Neut % (Auto) Lymph % (Auto) [place] % (Auto) Eos % (Auto) Baso % (Auto) Lymph # (Auto) [place] # (Auto) Eos # (Auto) Baso # (Auto) Abs Immat Gran (auto) A
--- NOTE | 2020-07-02 11:39 | PM.IMPN ---
Progress Note: A&P Assessment and Plan (1) Chest pain: Qualifiers: Chest pain type: other chest pain Qualified Code(s): R07.89 - Other chest pain Code(s): R07.9 - Chest pain, unspecified Status: Acute Assessment and Plan: Chest pain is atypical. (2) Microcytic anemia: Code(s): D50.9 - Iron deficiency anemia, unspecified Status: Acute Assessment and Plan: Hb 6.5 and Hct 22.7 Sp blood transfusion SP EGD found to have gastric ulcer. (3) Pulmonary edema: Code(s): J81.1 - Chronic pulmonary edema Status: Acute Assessment and Plan: He developed dyspnea with hypoxia.Did well with IV lasix (4) Elevated troponin: Code(s): R79.89 - Other specified abnormal findings of blood chemistry Status: Acute Assessment and Plan: Cardiology is following. Likely secondary to profound anemia in the setting of known CAD and CKD III. Appreciate cardiology input. likely secondary to CHF excerbation (5) Type 2 diabetes mellitus with chronic kidney disease: Code(s): E11.22 - Type 2 diabetes mellitus with diabetic chronic kidney disease Status: Chronic Assessment and Plan: Blood sugars are well-controlled. Hold glimepiride. Continue ACHS glucose monitoring, hypoglycemia protocol, and low-dose sliding scale insulin. (6) CKD (chronic kidney disease) stage 3, GFR 30-59 ml/min: Code(s): N18.3 - Chronic kidney disease, stage 3 (moderate) Status: Acute Assessment and Plan: Cr is consistent with baseline. (7) CAD (coronary artery disease): Code(s): I25.10 - Atherosclerotic heart disease of [place] coronary artery without angina pectoris Status: Acute Assessment and Plan: Resume ASA EC 81mg following EGD if fine from a GI standpoint. (8) Hypertension: Code(s): I10 - Essential (primary) hypertension Status: Chronic Assessment and Plan: Chronic. Blood pressures were reviewed. (9) CHF (congestive heart failure): Code(s): I50.9 - Heart failure, unspecified Status: Chronic Assessment and Plan: He has known diastolic dysfunction. EF was preserved at 70% 03/04/20. Continue furosemide. F (10) Rosacea: Code(s): L71.9 - Rosacea, unspecified Status: Chronic Assessment and Plan: Chronic. Continue prior to admission doxycycline. (11) Benign prostatic hyperplasia with lower urinary tract symptoms: Code(s): N40.1 - Benign prostatic hyperplasia with lower urinary tract symptoms Status: Chronic Assessment and Plan: Chronic with no acute issues. Continue tamsulosin. (12) Anxiety: Code(s): F41.9 - Anxiety disorder, unspecified Status: Acute Assessment and Plan: Continue diazepam PRN. (13) HLD (hyperlipidemia): Code(s): E78.5 - Hyperlipidemia, unspecified Status: Chronic Assessment and Plan: LFTs were reviewed and are normal. Continue rosuvastatin. Subjective Date/time seen: 07/02/20 11:39 Interval history: 79 year old male multiple medical problems including CAD s/p PCI with 4 stents, HfpEF, T2DM, MARI on BiPAP at night, aortic stenosis s/p TAVR 07/2018, BPH, CKD stage III, HLD, HTN, rosacea on chronic doxycycline who presented to the emergency department via EMS for the evaluation of chest pain. Chest pain was more atypical secondary to severe anaemia, pt has had blood transfusion, and EGD already. Denies chest pain today Denies Abdominal discomfort. Review of Systems Review of Systems: All systems reviewed & are unremarkable except as noted in HPI and below Cardiovascular: Cardiovascular: Denies no additional cardiovascular complaints Respiratory: Respiratory: Denies no additional respiratory complaints Gastrointestinal: Gastrointestinal: Denies no additional gastrointestinal complaints Exam Narrative: Exam Narrative
--- NOTE | 2020-07-02 12:15 | WPDGIPROGNO ---
Progress Note: A&P Assessment and Plan (1) GIB (gastrointestinal bleeding): Code(s): K92.2 - Gastrointestinal hemorrhage, unspecified Status: Acute Assessment and Plan: egd yesterday with small gastric ulcers, non-bleeding. Bessy-test negative for H pylori continue with protonix bid tolerating diet and no more signs of bleeding (2) Symptomatic anemia: Code(s): D64.9 - Anemia, unspecified Status: Acute Assessment and Plan: hb responded after blood transfusion ok to continue with baby aspirin given heart disease and recent mild elevated troponin (3) Gastric ulcer: Code(s): K25.9 - Gastric ulcer, unspecified as acute or chronic, without hemorrhage or perforation Status: Acute (4) Type 2 diabetes, controlled, with neuropathy: Code(s): E11.40 - Type 2 diabetes mellitus with diabetic neuropathy, unspecified Status: Acute (5) CKD (chronic kidney disease) stage 3, GFR 30-59 ml/min: Code(s): N18.3 - Chronic kidney disease, stage 3 (moderate) Status: Acute Assessment and Plan: creatinine at baseline, by primary team (6) CHF (congestive heart failure): Code(s): I50.9 - Heart failure, unspecified Status: Chronic Assessment and Plan: pulmonary edeam resolved after treatment, no more chest pain or sob (7) Elevated troponin: Code(s): R79.89 - Other specified abnormal findings of blood chemistry Status: Acute Assessment and Plan: no more chest pain, cardiology on board (8) History of transcatheter aortic valve replacement (TAVR): Code(s): Z95.2 - Presence of prosthetic heart valve Status: Acute Subjective Date/time seen: 07/02/20 12:15 Interval history: no report of bleeding, doing well and walking in his room. No more chest pain or shortness of breath. Review of Systems Review of Systems: All systems reviewed & are unremarkable except as noted in HPI and below Exam Const: General: comfortable and no acute distress HENMT: General nose exam: Normal nares present Eyes: General: appearance normal, both eyes and all related structures Neck: Neck: no JVD Resp: Auscultation: clear to auscultation bilaterally Cardio: Rate: regular rate Rhythm: regular rhythm GI: Inspection: non-distended GI Palp: Yes Soft to palpation and No Tenderness to palpation present (GI) Auscultation: normal bowel sounds Urinary Catheter: Urinary Catheter: patent and draining and urine clear Skin: General skin exam: pallor Neuro: General: gait normal Speech: normal speech Extrem: General: normal to inspection Psych: Mental Status: mental status grossly normal Objective Data Vital Signs Vital Signs: Vital Signs - 24 hr 07/01/20 12:35 07/01/20 12:45 07/01/20 12:55 Temperature Pulse Rate 84 80 78 Respiratory Rate 16 13 14 Blood Pressure 150/81 H 136/74 152/83 H Pulse Oximetry 94 99 100 07/01/20 13:00 07/01/20 14:24 07/01/20 16:00 Temperature Pulse Rate 77 92 93 Respiratory Rate 16 Blood Pressure 158/81 H Pulse Oximetry 100 07/01/20 16:46 07/01/20 17:40 07/01/20 17:59 Temperature 96.5 F L 97.0 F L 96.7 F L Pulse Rate 88 94 94 Respiratory Rate 16 18 20 Blood Pressure 122/59 L 139/69 121/63 Pulse Oximetry 99 100 99 07/01/20 18:21 07/01/20 19:59 07/01/20 20:00 Temperature 97.2 F L 97.2 F L Pulse Rate 94 95 91 Respiratory Rate 22 H 20 Blood Pressure 133/59 L 133/59 L Pulse Oximetry 99 97 07/01/20 20:59 07/01/20 21:44 07/01/20 21:48 Temperature 97.5 F L 97 F L Pulse Rate 79 80 Respiratory Rate 20 18 Blood Pressure 139/69 137/64 Pulse Oximetry 99 99 97 07/01/20 22:00 07/01/20 23:20 07/02/20 00:00 Temperature 97.3 F L Pulse Rate 93 91 91 Respiratory Rate 20 20 Blood Pressure 143/67 H Pulse Oximetry 97 97 07/02/20 01:58 07/02/20 03:42 07/02/20 04:00 Temperature 97 F L Pulse Rate 92 94 91 Respiratory Rate 18 18 Blood Pressure 131/69
[2020-07-02 13:01] LABS: Glucose Point of Care 124 (65-105)
[2020-07-02 16:43] LABS: Glucose Point of Care 102 (65-105)
[2020-07-02 20:39] LABS: Glucose Point of Care 157 (65-105)
[2020-07-03] VITALS (19 sets, daily range): BP systolic 100–135; BP diastolic 52–69; PULSE 79–115; RESP 16–22; TEMP 35.6–36; O2SAT 97–100
[2020-07-03 05:12] LABS: Hematocrit 30.8 % (42.0-52.0); Hemoglobin 9.5 g/dL (14.0-18.0); Mean Corpuscular HGB Conc 30.8 g/dl (32-36); Mean Corpuscular Hemoglobin 24.6 pg (26-34); Mean Corpuscular Volume 79.8 fl (80-100); Platelet Count Result 314 k/mm3 (150-375); Red Blood Count 3.86 M/mm3 (4.6-6.20); Red Cell Distribution Width 18.9 % (11.5-14.5); White Blood Count 8.1 K/mm3 (4.5-10.0)
[2020-07-03 05:34] LABS: Anion Gap 10 mmol/L (8-16); Blood Urea Nitrogen 64 mg/dL (9-20); Calcium 9.9 mg/dL (8.4-10.2); Carbon Dioxide 31 mmol/L (22-30); Chloride 101 mmol/L (98-107); Estimated CRCL calculation 27 ml/min; Estimated Glomerular Filt Rate 31; Glucose 109 mg/dL (75-110); Potassium 4.6 mmol/L (3.4-5.0); Sodium 142 mmol/L (137-145)
[2020-07-03 07:51] LABS: Glucose Point of Care 110 (65-105)
[2020-07-03] MEDS: AZELASTINE HCL NASAL 0.1% 137 MCG/SPR 30 ML BTL 2 SPRAY NASAL ×2 (08:37→17:29)
[2020-07-03] MEDS: ATORVASTATIN 40 MG TABLET PO (08:37)
[2020-07-03] MEDS: ASPIRIN 81 MG ENTERIC TABLET PO (08:37)
[2020-07-03] MEDS: DULoxetine HCL 60 MG CAPSULE.DR PO (08:38)
[2020-07-03] MEDS: CHOLECALCIFEROL 1,000 UNITS TABLET 5000 UNITS PO (08:38)
[2020-07-03] MEDS: POTASSIUM CHLORIDE 10 MEQ TABLET.ER PO ×2 (08:38→17:29)
[2020-07-03] MEDS: FERROUS SULFATE 324 MG TABLET PO ×2 (08:38→17:29)
[2020-07-03] MEDS: DOXYCYCLINE HYCLATE 100 MG TABLET PO (08:38)
[2020-07-03] MEDS: GABAPENTIN 400 MG CAPSULE PO ×3 (08:39→17:29)
[2020-07-03] MEDS: lisinopriL 10 MG TABLET PO (08:39)
[2020-07-03] MEDS: EZETIMIBE 10 MG TABLET PO (08:39)
[2020-07-03] MEDS: FENOFIBRATE 160 MG TABLET PO (08:39)
[2020-07-03] MEDS: TAMSULOSIN HCL 0.4 MG CAPSULE PO (08:41)
[2020-07-03] MEDS: PANTOPRAZOLE 40 MG TABLET PO (08:41)
[2020-07-03] MEDS: PRIMIDONE 50 MG TABLET PO (08:41)
[2020-07-03] MEDS: VITAMIN B COMPLEX CAPSULE 1 CAP PO (08:41)
--- NOTE | 2020-07-03 10:20 | WPDGIPROGNO ---
Progress Note: A&P Assessment and Plan (1) GIB (gastrointestinal bleeding): Code(s): K92.2 - Gastrointestinal hemorrhage, unspecified Status: Acute Assessment and Plan: small gastric ulcers, non-bleeding. Bessy-test negative for H pylori continue with protonix bid tolerating diet and no more signs of bleeding no objections to discharge by GI standpoint. (2) Symptomatic anemia: Code(s): D64.9 - Anemia, unspecified Status: Acute Assessment and Plan: hb responded after blood transfusion, stable since then ok to continue with baby aspirin given heart disease and recent mild elevated troponin (3) Gastric ulcer: Code(s): K25.9 - Gastric ulcer, unspecified as acute or chronic, without hemorrhage or perforation Status: Acute Assessment and Plan: H pylori negative (4) Type 2 diabetes, controlled, with neuropathy: Code(s): E11.40 - Type 2 diabetes mellitus with diabetic neuropathy, unspecified Status: Acute (5) CKD (chronic kidney disease) stage 3, GFR 30-59 ml/min: Code(s): N18.3 - Chronic kidney disease, stage 3 (moderate) Status: Acute Assessment and Plan: by primary team (6) CHF (congestive heart failure): Code(s): I50.9 - Heart failure, unspecified Status: Chronic Assessment and Plan: pulmonary edema was treated (7) Elevated troponin: Code(s): R79.89 - Other specified abnormal findings of blood chemistry Status: Acute Assessment and Plan: no more chest pain, cardiology on board (8) History of transcatheter aortic valve replacement (TAVR): Code(s): Z95.2 - Presence of prosthetic heart valve Status: Acute Subjective Date/time seen: 07/03/20 10:20 Interval history: tolerating diet, no abdominal pain or signs of bleeding. Review of Systems Review of Systems: All systems reviewed & are unremarkable except as noted in HPI and below Exam Const: General: comfortable and no acute distress HENMT: General nose exam: Normal nares present Eyes: General: appearance normal, both eyes and all related structures Neck: Neck: no JVD Resp: Auscultation: clear to auscultation bilaterally Cardio: Rate: regular rate Rhythm: regular rhythm GI: Inspection: non-distended GI Palp: Yes Soft to palpation and No Tenderness to palpation present (GI) Auscultation: normal bowel sounds Skin: General skin exam: no rashes or lesions noted and pallor Neuro: General: gait normal Speech: normal speech Extrem: General: normal to inspection Psych: Mental Status: mental status grossly normal Objective Data Vital Signs Vital Signs: Vital Signs - 24 hr 07/02/20 11:14 07/02/20 12:00 07/02/20 14:07 Temperature 96.5 F L Pulse Rate 114 H 109 H Respiratory Rate 20 Blood Pressure 113/74 Pulse Oximetry 98 100 07/02/20 16:00 07/02/20 16:33 07/02/20 18:20 Temperature 96.7 F L Pulse Rate 99 96 100 Respiratory Rate 20 Blood Pressure 110/64 Pulse Oximetry 100 07/02/20 19:05 07/02/20 20:00 07/02/20 20:31 Temperature 95.9 F L 97.2 F L Pulse Rate 108 H 97 97 Respiratory Rate 20 20 20 Blood Pressure 86/73 L 130/75 Pulse Oximetry 100 100 100 07/02/20 22:00 07/02/20 23:41 07/03/20 00:00 Temperature 97.3 F L Pulse Rate 109 H 102 H 95 Respiratory Rate 18 Blood Pressure 105/55 L Pulse Oximetry 97 07/03/20 01:45 07/03/20 04:00 07/03/20 06:00 Temperature 96.8 F L Pulse Rate 95 79 91 Respiratory Rate 22 H Blood Pressure 126/57 L Pulse Oximetry 97 07/03/20 08:00 07/03/20 08:29 07/03/20 10:02 Temperature 96.3 F L Pulse Rate 90 96 99 Respiratory Rate 20 Blood Pressure 135/69 Pulse Oximetry 98 Intake/Output Intake/Output: Intake & Output 06/30/20 07/01/20 07/02/20 07/03/20 23:59 23:59 23:59 23:59 Intake Total 1440 3646 240 Output Total 1401 2521 1000 Mmucgxr -4175 -1189 -760 Meds/Results Medications: Active Medicati
[2020-07-03 12:17] LABS: Glucose Point of Care 158 (65-105)
--- NOTE | 2020-07-03 15:22 | PM.IMPN ---
Progress Note: A&P Assessment and Plan (1) Chest pain: Qualifiers: Chest pain type: other chest pain Qualified Code(s): R07.89 - Other chest pain Code(s): R07.9 - Chest pain, unspecified Status: Acute Assessment and Plan: Chest pain is atypical. [place] Dc today after ambulatory walk test (2) Microcytic anemia: Code(s): D50.9 - Iron deficiency anemia, unspecified Status: Acute Assessment and Plan: Hb 6.5 and Hct 22.7 Sp blood transfusion SP EGD found to have gastric ulcer. Hb is 9.5 today (3) Pulmonary edema: Code(s): J81.1 - Chronic pulmonary edema Status: Acute Assessment and Plan: He developed dyspnea with hypoxia.Did well with IV lasix stop iv lasix creat going up (4) Elevated troponin: Code(s): R79.89 - Other specified abnormal findings of blood chemistry Status: Acute Assessment and Plan: Cardiology is following. Likely secondary to profound anemia in the setting of known CAD and CKD III. Appreciate cardiology input. likely secondary to CHF excerbation (5) Type 2 diabetes mellitus with chronic kidney disease: Code(s): E11.22 - Type 2 diabetes mellitus with diabetic chronic kidney disease Status: Chronic Assessment and Plan: Blood sugars are well-controlled. Hold glimepiride. Continue ACHS glucose monitoring, hypoglycemia protocol, and low-dose sliding scale insulin. (6) CKD (chronic kidney disease) stage 3, GFR 30-59 ml/min: Code(s): N18.3 - Chronic kidney disease, stage 3 (moderate) Status: Acute Assessment and Plan: Cr has worsened slightly secondaryto iv diuretics (7) CAD (coronary artery disease): Code(s): I25.10 - Atherosclerotic heart disease of [place] coronary artery without angina pectoris Status: Acute Assessment and Plan: Resume ASA EC 81mg following EGD if fine from a GI standpoint. (8) Hypertension: Code(s): I10 - Essential (primary) hypertension Status: Chronic Assessment and Plan: Chronic. Blood pressures were reviewed. (9) CHF (congestive heart failure): Code(s): I50.9 - Heart failure, unspecified Status: Chronic Assessment and Plan: He has known diastolic dysfunction. EF was preserved at 70% 03/04/20. Continue furosemide orally (10) Rosacea: Code(s): L71.9 - Rosacea, unspecified Status: Chronic Assessment and Plan: Chronic. Continue prior to admission doxycycline. (11) Benign prostatic hyperplasia with lower urinary tract symptoms: Code(s): N40.1 - Benign prostatic hyperplasia with lower urinary tract symptoms Status: Chronic Assessment and Plan: Chronic with no acute issues. Continue tamsulosin. (12) Anxiety: Code(s): F41.9 - Anxiety disorder, unspecified Status: Acute Assessment and Plan: Continue diazepam PRN. (13) HLD (hyperlipidemia): Code(s): E78.5 - Hyperlipidemia, unspecified Status: Chronic Assessment and Plan: LFTs were reviewed and are normal. Continue rosuvastatin. Subjective Date/time seen: 07/03/20 15:22 Interval history: 79 year old male with medical problems including CAD s/p PCI with 4 stents, HfpEF, T2DM, MARI on BiPAP at night, aortic stenosis s/p TAVR 07/2018, BPH, CKD stage III, HLD, HTN, presented to the emergency department for chest pain. Chest pain was more atypical secondary to severe anaemia, pt has had blood transfusion, and EGD already. Denies chest pain today Denies Abdominal discomfort. Pts Bun and creat seems to have worsened ? secondary to diuresis, Hb was 6 on admission. Pt is having some desaturation on walking. Will order ambulatory oxygen test. Review of Systems Review of Systems: All systems reviewed & are unremarkable except as noted in HPI and below Respiratory: Respiratory: Denies chest congestion and Re
--- NOTE | 2020-07-03 16:58 | HOMEO2EVAL ---
Home Oxygen Evaluation RC: Home Oxygen (O2) Evaluation Start: 07/03/20 15:28 Freq: ONCE Status: Active Protocol: RPE Activity Type Activity Date Activity User E-Sign Co-Sign Detail Recorded Client Recorded Date Recorded By Document 07/03/20 16:30 RES [email or web address] 07/03/20 16:51 RES Document 07/03/20 16:33 RES [email or web address] 07/03/20 16:58 RES Document 07/03/20 16:34 RES [email or web address] 07/03/20 16:58 RES Document 07/03/20 16:35 RES [email or web address] 07/03/20 16:58 RES Document 07/03/20 16:37 RES [email or web address] 07/03/20 16:58 RES Document 07/03/20 16:39 RES [email or web address] 07/03/20 16:58 RES Document 07/03/20 16:41 RES [email or web address] 07/03/20 16:58 RES 07/03/20 07/03/20 07/03/20 16:30 16:33 16:34 Home O2 Evaluation Test Phase Resting Resting Exercise Oxygen Delivery Nasal Cannula Room Air Room Air Oxygen Flow Rate (L/min) 2 Fraction of Inspired Oxygen (%) 28 21 21 Pulse Oximetry (90-100 %) 100 100 99 Pulse Rate (60-100 beats/min) 93 95 101 H Activity Tolerance Good Good Good Rate of Perceived Exertion (PE) 6 Very, very 6 Very, very 6 Very, very light light light Home Oxygen Evaluation Comments pt was found on Pt is sitting 2lpm sats of on room air for 100%, pt then 3min. his sats placed on room are 100%. pt air and sats stated he has still 100%. pt not been SOB. stated he has not been SOB. Treatment Charges O2 Evaluation 07/03/20 07/03/20 07/03/20 16:35 16:37 16:39 Home O2 Evaluation Test Phase Exercise Exercise Exercise Oxygen Delivery Room Air Room Air Room Air Oxygen Flow Rate (L/min) Fraction of Inspired Oxygen (%) 21 21 21 Pulse Oximetry (90-100 %) 97 98 97 Pulse Rate (60-100 beats/min) 101 H 108 H 111 H Activity Tolerance Good Good Good Rate of Perceived Exertion (PE) 6 Very, very 6 Very, very 6 Very, very light light light Home Oxygen Evaluation Comments pt stated he pt walked up still feels and down the fine and not hallway 2 times SOB at this and stated he time still feels fine. he is not SOB at this time Treatment Charges 07/03/20 16:41 Home O2 Evaluation Test Phase Resting Oxygen Delivery Room Air Oxygen Flow Rate (L/min) Fraction of Inspired Oxygen (%) 21 Pulse Oximetry (90-100 %) 100 Pulse Rate (60-100 beats/min) 115 H Activity Tolerance Good Rate of Perceived Exertion (PE) 6 Very, very light Home Oxygen Evaluation Comments Treatment Charges
[2020-07-03 16:59] LABS: Glucose Point of Care 91 (65-105)
--- NOTE | 2020-07-03 16:59 | PCRCNOTE ---
PT home O2 eval is complete. Patient does not require home oxygen.
--- NOTE | 2020-07-03 16:59 | PM.DS ---
DS: Admitting Diagnosis Admitting Diagnosis Admitting Diagnosis: chest pain,anemia,elevated troponin 79 year old male with medical problems including CAD s/p PCI with 4 stents, HfpEF, T2DM, MARI on BiPAP at night, aortic stenosis s/p TAVR 07/2018, BPH, CKD stage III, HLD, HTN, presented to the emergency department for chest pain. Chest pain was more atypical secondary to severe anaemia, pt has had blood transfusion, and EGD already. Denies chest pain today Denies Abdominal discomfort. Pts Bun and creat seems to have worsened ? secondary to diuresis, Hb was 6 on admission. Pt is having some desaturation on walking. Will order ambulatory oxygen test. Pt passed oxygen assessment. DS: Discharge Diagnosis Discharge Diagnosis (1) Chest pain: Qualifiers: Chest pain type: other chest pain Qualified Code(s): R07.89 - Other chest pain Code(s): R07.9 - Chest pain, unspecified Status: Acute Assessment and Plan: Chest pain is atypical. Hopegul Dc today after ambulatory walk test (2) Microcytic anemia: Code(s): D50.9 - Iron deficiency anemia, unspecified Status: Acute Assessment and Plan: Hb 6.5 and Hct 22.7 Sp blood transfusion SP EGD found to have gastric ulcer. Hb is 9.5 today (3) Pulmonary edema: Code(s): J81.1 - Chronic pulmonary edema Status: Acute Assessment and Plan: He developed dyspnea with hypoxia.Did well with IV lasix stop iv lasix creat going up (4) Elevated troponin: Code(s): R79.89 - Other specified abnormal findings of blood chemistry Status: Acute Assessment and Plan: Cardiology is following. Likely secondary to profound anemia in the setting of known CAD and CKD III. Appreciate cardiology input. likely secondary to CHF excerbation (5) Type 2 diabetes mellitus with chronic kidney disease: Code(s): E11.22 - Type 2 diabetes mellitus with diabetic chronic kidney disease Status: Chronic Assessment and Plan: Blood sugars are well-controlled. Hold glimepiride. Continue ACHS glucose monitoring, hypoglycemia protocol, and low-dose sliding scale insulin. (6) CKD (chronic kidney disease) stage 3, GFR 30-59 ml/min: Code(s): N18.3 - Chronic kidney disease, stage 3 (moderate) Status: Acute Assessment and Plan: Cr has worsened slightly secondaryto iv diuretics (7) CAD (coronary artery disease): Code(s): I25.10 - Atherosclerotic heart disease of [place] coronary artery without angina pectoris Status: Acute Assessment and Plan: Resume ASA EC 81mg following EGD if fine from a GI standpoint. (8) Hypertension: Code(s): I10 - Essential (primary) hypertension Status: Chronic Assessment and Plan: Chronic. Blood pressures were reviewed. (9) CHF (congestive heart failure): Code(s): I50.9 - Heart failure, unspecified Status: Chronic Assessment and Plan: He has known diastolic dysfunction. EF was preserved at 70% 03/04/20. Continue furosemide orally (10) Rosacea: Code(s): L71.9 - Rosacea, unspecified Status: Chronic Assessment and Plan: Chronic. Continue prior to admission doxycycline. (11) Benign prostatic hyperplasia with lower urinary tract symptoms: Code(s): N40.1 - Benign prostatic hyperplasia with lower urinary tract symptoms Status: Chronic Assessment and Plan: Chronic with no acute issues. Continue tamsulosin. (12) Anxiety: Code(s): F41.9 - Anxiety disorder, unspecified Status: Acute Assessment and Plan: Continue diazepam PRN. (13) HLD (hyperlipidemia): Code(s): E78.5 - Hyperlipidemia, unspecified Status: Chronic Assessment and Plan: LFTs were reviewed and are normal. Continue rosuvastatin. DS: Summary Time Spent with Patient Time attestation: Total time spent providing and/or coordinat
[2020-07-06 14:18] LABS: Haptoglobin 189 mg/dL (43-212)
== END 2020-07-03 18:12 | disposition home or self-care (01) | DRG 812 ==
LOC: ANHED 06:29 → ANHIMU 06:29
PROVIDERS: Internal Medicine Gastroenterology; Physician Assistant; Admitting Provider Family Medicine; Emergency Provider Emergency Medicine; PCP Family Medicine; Visit Provider Family Medicine
PROC: 0DJ08ZZ Inspection of Upper Intestinal Tract, Via Natural or Artificial Opening Endoscopic (ICD-10-PCS; CPT 43235; principal; 2020-07-01 14:00)
DX: D50.9 Iron deficiency anemia, unspecified (principal); I13.0 Hypertensive heart and chronic kidney disease with heart failure and stage 1 through stage 4 chronic kidney disease, or unspecified chronic kidney disease; I50.32 Chronic diastolic (congestive) heart failure; J81.1 Chronic pulmonary edema; K92.2 Gastrointestinal hemorrhage, unspecified; R07.89 Other chest pain; D63.1 Anemia in chronic kidney disease; K25.9 Gastric ulcer, unspecified as acute or chronic, without hemorrhage or perforation; E11.22 Type 2 diabetes mellitus with diabetic chronic kidney disease; N18.3 Chronic kidney disease, stage 3 (moderate); I25.10 Atherosclerotic heart disease of native coronary artery without angina pectoris; F41.9 Anxiety disorder, unspecified; L71.8 Other rosacea; N40.1 Benign prostatic hyperplasia with lower urinary tract symptoms; E78.5 Hyperlipidemia, unspecified; R79.89 Other specified abnormal findings of blood chemistry; R09.02 Hypoxemia; E11.39 Type 2 diabetes mellitus with other diabetic ophthalmic complication; G47.33 Obstructive sleep apnea (adult) (pediatric); E66.9 Obesity, unspecified; H42 Glaucoma in diseases classified elsewhere; E11.51 Type 2 diabetes mellitus with diabetic peripheral angiopathy without gangrene; E11.42 Type 2 diabetes mellitus with diabetic polyneuropathy; Z96.643 Presence of artificial hip joint, bilateral; Z87.891 Personal history of nicotine dependence; Z95.5 Presence of coronary angioplasty implant and graft; Z95.2 Presence of prosthetic heart valve; Z68.32 Body mass index [BMI] 32.0-32.9, adult; I25.2 Old myocardial infarction; Z79.82 Long term (current) use of aspirin; Z85.828 Personal history of other malignant neoplasm of skin
CPT/HCPCS: 36415; 36430; 36600; 71045; 71046; 80048; 80053; 82607; 82728; 82746; 82805; 83010; 83540; 83550; 83615; 83735; 83880; 84132; 84466; 84484; 85014; 85018; 85025; 85027; 85610; 85730; 86850; 86900; 86901; 86920; 87081; 88305; 93005; 93306; 94618; 94640; 96361; 96374; 96376; 99285; A9270; G0378; J1940; J2704; J7040; J7050; P9016

== ENCOUNTER 2020-08-02 15:43 | Outpatient (CLI) | payer MEDICARE, BC, SELFPAY ==
--- NOTE | ~2020-08-02 | XR_ITS ---
XR abdomen/kub 1V 08/02/2020 16:24 Indication: History of kidney stones. Abdominal pain. Procedure: KUB Comparison: 06/25/2008 Findings: There are pedicle screws at L2-L5. There are laminectomy changes at these levels. There are cholecystectomy clips. There are bilateral hip arthroplasties. No definite renal stones are identifi ed. Calcifications in the pelvis are believed to be phleboliths. Nonobstructive bowel gas pattern. Mo derate colonic fecal loading. Impression: 1: No acute abdominal abnormality. Reviewed, dictated and finalized at location A. Impression: 1: No acute abdominal abnormality.
[2020-08-02 16:11] LABS: Basophils Percent Auto 0.5 % (0.2-1.2); Eosinophils Absolute Auto 0.3 K/mm3 (0-0.3); Eosinophils Percent Auto 4.4 % (0-4.4); Hematocrit 32.9 % (42.0-52.0); Hemoglobin 10.1 g/dL (14.0-18.0); Immature Granulocyte Absolute 0.03 K/mm3 (0.00-0.031); Immature Granulocyte Percent A 0.5 % (0-0.5); Lymphocytes Absolute Auto 1.28 K/mm3 (0.9-3.2); Lymphocytes Percent Auto 19.5 % (18.3-44.2); Mean Corpuscular HGB Conc 30.7 g/dl (32-36); Mean Corpuscular Hemoglobin 26.1 pg (26-34); Mean Platelet Volume 9.9 fl (7.4-10.4); Monocytes Absolute Auto 0.7 K/mm3 (0.1-0.6); Monocytes Percent Auto 10.3 % (2.6-8.5); Neutrophils Absolute Auto 4.3 K/mm3 (1.3-6.7); Neutrophils Percent Auto 64.8 % (45.5-73.1); Platelet Count Result 208 k/mm3 (150-375); Red Blood Count 3.87 M/mm3 (4.6-6.20); Red Cell Distribution Width 23.2 % (11.5-14.5); White Blood Count 6.6 K/mm3 (4.5-10.0)
[2020-08-02 16:23] LABS: Alanine Aminotransferase 23 U/L (4-50); Albumin Level 4.4 g/dL (3.5-5.1); Alkaline Phosphatase 50 U/L (38-126); Amylase 109 U/L (30-110); Anion Gap 9 mmol/L (8-16); Aspartate Amino Transferase 43 U/L (17-59); Bilirubin,Total 0.3 mg/dL (0.2-1.3); Blood Urea Nitrogen 50 mg/dL (9-20); Calcium 10.3 mg/dL (8.4-10.2); Carbon Dioxide 28 mmol/L (22-30); Chloride 104 mmol/L (98-107); Estimated Glomerular Filt Rate 42; Glucose 93 mg/dL (75-110); Lipase 365 U/L (23-300); Potassium 4.5 mmol/L (3.4-5.0); Sodium 141 mmol/L (137-145)
[2020-08-02 16:32] LABS: Add Urine Microscopic? YES; Appearance Urine Clear (Clear); Bilirubin Urine Negative (Negative); Blood Urine Negative (Negative); Color Urine Straw (Yellow); Glucose Urine UA Negative (Negative); Ketones Urine Negative (Negative); Leukocyte Esterase Ur Trace LEU/UL (NEGATIVE); Mucus Urine Rare /lpf; Nitrate Urine Negative (Negative); Protein Urine Negative (Negative); RBC Urine 0-2 /hpf (0-2); Specific Grav Ur 1.014 (1.001-1.035); Urobilinogen Urine Negative mg/dL (<2.0); WBC Urine 16-20 /hpf (0-3)
== END 2020-08-02 15:44 | disposition home or self-care (01) ==
PROVIDERS: PCP Family Medicine; Visit Provider Family Medicine
DX: R10.9 Unspecified abdominal pain (principal)
CPT/HCPCS: 36415; 74018; 80053; 81001; 82150; 83690; 85025

== ENCOUNTER 2020-08-08 12:36 | Outpatient (CLI) | payer MEDICARE, BC, SELFPAY ==
[2020-08-08 13:32] LABS: Alanine Aminotransferase 22 U/L (4-50); Albumin Level 4.1 g/dL (3.5-5.1); Alkaline Phosphatase 47 U/L (38-126); Amylase 90 U/L (30-110); Anion Gap 5 mmol/L (8-16); Aspartate Amino Transferase 38 U/L (17-59); Bilirubin,Total 0.2 mg/dL (0.2-1.3); Blood Urea Nitrogen 47 mg/dL (9-20); Calcium 10.4 mg/dL (8.4-10.2); Carbon Dioxide 31 mmol/L (22-30); Chloride 102 mmol/L (98-107); Estimated Glomerular Filt Rate 42; Glucose 94 mg/dL (75-110); Lipase 266 U/L (23-300); Potassium 4.7 mmol/L (3.4-5.0); Sodium 138 mmol/L (137-145)
== END 2020-08-08 12:37 | disposition home or self-care (01) ==
LOC: ANHLAB 12:38
PROVIDERS: PCP Family Medicine; Visit Provider Family Medicine
DX: R10.9 Unspecified abdominal pain (principal)
CPT/HCPCS: 36415; 80053; 82150; 83690

== ENCOUNTER 2020-08-23 02:56 | Outpatient (CLI) | payer MEDICARE, BC, SELFPAY ==
[2020-08-23 19:47] LABS: SARS-CoV-2 RNA PCR Negative
== END 2020-08-23 02:57 | disposition home or self-care (01) ==
LOC: ANHCOVIDDT 02:56
PROVIDERS: PCP Family Medicine; Visit Provider Internal Medicine Gastroenterology
DX: Z01.812 Encounter for preprocedural laboratory examination (principal); Z20.828 Contact with and (suspected) exposure to other viral communicable diseases
CPT/HCPCS: 87635; C9803; U0003

== ENCOUNTER 2020-08-26 04:35 | Day surgery (SDC) | payer MEDICARE, BC, SELFPAY ==
[2020-08-22 14:30] VITALS: BMI 32.3
[2020-08-26] MEDS: LACTATED RINGERS 1,000 ML 150 ML IV CONT (12:27)
[2020-08-26] MEDS: GENTAMICIN 80MG/SOD CHL 50 ML 80 MG/50 ML BAG 100 MG IVPB (12:35)
--- NOTE | 2020-08-26 12:35 | WPDANESEPPF ---
Anes - Initial Pre Proc Eval Procedure: Operation Date: 08/26/20 13:45 Proposed Procedures p Esophagogastroduodenoscopy & Colonoscopy - Vamshi Estrada MD Date/Time: 08/26/20 12:35 Surgeon: Vamshi Estrada MD Pre Op Diagnosis: Gastic Ulcer Patient Data Age: 80 Gender: M Height: 1.68 m Weight: 91 kg Allergies Allergy/AdvReac Type Severity Reaction Status Date / Time acetaminophen Allergy Intermediate Anxiety Verified 08/26/20 12:23 MUSCLE RELAXERS Allergy Severe PARALYSES Uncoded 08/22/20 12:56 DIAPHRAGM Contrast Media Allergy Intermediate Hives / Uncoded 08/22/20 14:18 Red Face Home Medications Medication Instructions Recorded Confirmed Type blood sugar diagnostic #10 each 08/18/19 07/27/20 History cholecalciferol (vitamin D3) 125 5,000 unit PO DAILY 08/18/19 08/22/20 History mcg (5,000 unit) tablet furosemide 40 mg tablet 20 mg PO QAM #45 tablet 08/18/19 08/22/20 Rx lancets 28 gauge #25 each 08/18/19 07/27/20 History lisinopril 10 mg tablet 10 mg PO DAILY #90 tablet 08/18/19 08/22/20 Rx potassium citrate 10 mEq (1,080 10 meq PO BID #180 tablet 08/18/19 08/22/20 Rx mg) tablet,extended release primidone 50 mg tablet 100 mg PO BID tablet 08/18/19 08/22/20 History timolol maleate 0.25 % eye drops 1 drop EACH EYE Q12H 10/28/19 08/22/20 History vitamin B complex 1 tablet PO DAILY 10/28/19 08/22/20 History atorvastatin 40 mg tablet 40 mg PO DAILY #90 tablet 12/25/19 08/22/20 Rx azelastine 0.15 % (205.5 mcg) 2 spray NASAL BID #30 ml 02/04/20 08/22/20 Rx nasal spray duloxetine 20 mg PO BID 07/01/20 08/22/20 History loperamide 2 mg PO Q6H PRN 07/01/20 08/22/20 History melatonin 10 mg PO HS PRN 07/01/20 08/22/20 History tamsulosin 0.4 mg PO DAILY 07/01/20 08/22/20 History trazodone 50 mg PO HS 07/01/20 08/22/20 History diazepam 10 mg tablet 10 mg PO DAILY PRN #30 tablet 08/08/20 08/22/20 Rx tramadol 50 mg tablet 50 mg PO Q6H PRN #60 tablet 08/08/20 08/22/20 Rx clopidogrel 75 mg PO DAILY 08/22/20 08/22/20 History doxycycline hyclate 100 mg PO DAILY 08/22/20 08/22/20 History ezetimibe 10 mg PO DAILY 08/22/20 08/22/20 History fenofibrate 160 mg PO DAILY 08/22/20 08/22/20 History ferrous sulfate 324 mg PO BIDWM 08/22/20 08/22/20 History gabapentin 400 mg PO QID 08/22/20 08/22/20 History glimepiride 1 mg tablet 0.5 mg PO DAILY #45 tablet 08/22/20 08/22/20 Rx Patient hx anesthesia problems: none Family hx anesthesia problems: none PMFSH Past Medical History Medical History Afib Anemia Anxiety Atherosclerotic heart disease of [place] coronary artery without angina pectoris Benign prostatic hyperplasia with lower urinary tract symptoms CAD (coronary artery disease) CHF (congestive heart failure) Chronic kidney disease, stage III (moderate) Diarrhea Diverticulosis DM renal manif type II Essential tremor Gallbladder disease Gastric ulcer GIB (gastrointestinal bleeding) Glaucoma Hemorrhoids History of transcatheter aortic valve replacement (TAVR) HLD (hyperlipidemia) Hy ht/kd NOS I-IV w/o hf Hypertensive heart disease without heart failure Idiopathic peripheral neuropathy Insomnia Mixed hyperlipidemia Myocardial infarct Nonrheumatic aortic valve stenosis MARI (obstructive sleep apnea) Pneumonia PVD (peripheral vascular disease) Shingles Skin cancer Sleep apnea Symptomatic anemia Ulcer Surgical History Surgical History History of appendectomy History of coronary artery stent placement x4 History of hemorrhoidectomy History of lumbar surgery History of tonsillectomy Hx of cholecystectomy S/P TAVR (transcatheter aortic valve replacement) Status post total hip replacement, bilateral Family History Family History Grandparent Family history of tuberculosis Family history of alcoholism Carcinoma of colon F
[2020-08-26 12:48] VITALS: BP 114/58; PULSE 94; RESP 18; TEMP 36.3; O2SAT 98
[2020-08-26 12:54] LABS: Glucose Point of Care 99 (65-105)
[2020-08-26] MEDS: AMPICILLIN 2 GM/NS 100 ML 2 GM/100 ML BAG IVPB (13:00)
--- NOTE | 2020-08-26 13:12 | PM.HPGS ---
History of Present Illness History of Present Illness Consent: Risks, benefits, and alternatives have been discussed and questions answered. Patient agrees to proceed with procedure. Chief complaint: Gastic Ulcer Narrative: Alec Tapia is a 80 year old male with LOIS, abdominal pain and gastric ulcers Review of Systems Constitutional: Constitutional: Denies headache(s) and Denies weakness Eyes: Eyes: Denies blurry vision ENT: Reports Normal hearing present, Denies headache(s) and Denies neck pain Cardiovascular: Cardiovascular: Denies chest pain and Denies dyspnea Respiratory: Respiratory: Denies dyspnea Gastrointestinal: Gastrointestinal: Reports no additional gastrointestinal complaints Genitourinary: Genitourinary: Denies dysuria Musculoskeletal: Musculoskeletal: Denies neck pain Integumentary/Breasts: Skin/Breast: Denies dry skin Neurologic: Reports Normal hearing present, Denies headache(s) and Denies weakness Psychiatric: Psychiatric: Denies anxiety Endocrine: Endocrine: Denies change in body appearance Hematologic/Lymphatic: Hematologic/Lymphatic: Denies easy bleeding Allergic/Immunologic: Allergic/Immunologic: Denies urticaria PMFSH Past Medical History Medical History Afib Anemia Anxiety Atherosclerotic heart disease of [place] coronary artery without angina pectoris Benign prostatic hyperplasia with lower urinary tract symptoms CAD (coronary artery disease) CHF (congestive heart failure) Chronic kidney disease, stage III (moderate) Diarrhea Diverticulosis DM renal manif type II Essential tremor Gallbladder disease Gastric ulcer GIB (gastrointestinal bleeding) Glaucoma Hemorrhoids History of transcatheter aortic valve replacement (TAVR) HLD (hyperlipidemia) Hy ht/kd NOS I-IV w/o hf Hypertensive heart disease without heart failure Idiopathic peripheral neuropathy Insomnia Mixed hyperlipidemia Myocardial infarct Nonrheumatic aortic valve stenosis MARI (obstructive sleep apnea) Pneumonia PVD (peripheral vascular disease) Shingles Skin cancer Sleep apnea Symptomatic anemia Ulcer Surgical History Surgical History History of appendectomy History of coronary artery stent placement x4 History of hemorrhoidectomy History of lumbar surgery History of tonsillectomy Hx of cholecystectomy S/P TAVR (transcatheter aortic valve replacement) Status post total hip replacement, bilateral Family History Family History Grandparent Family history of tuberculosis Family history of alcoholism Carcinoma of colon Family history of dementia Mother Family history of glaucoma, Onset Age: 94 Family history of diabetes mellitus in first degree relative Family history of dementia, Onset Age: 94 Diabetes mellitus, Onset Age: 94 Family history of arthritis, Onset Age: 94 Father Carcinoma of colon Family history of kidney stones, Onset Age: 86 Family history of congestive heart failure, Onset Age: 86 Sibling Family history of kidney stones Family history of diabetes mellitus in first degree relative Family history of pancreatic cancer Other Asthma Family history of cardiovascular disease Family history of hearing loss Family history of osteoporosis Social History Social History Social History: Mr. Tapia lives at home with his in [place], [place]. 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 He wishes to be a full code and has designated his , Rosette Tapia, as his surrogate decision maker. He is a former 23 pack-year smoker and quit smoking in 1984. He reports infrequent social alcohol use and denies other illicit substance use. Smoking packs per day: 1 Smoking cigarettes per day: 20.0 Years smoked: 23 Smoking
[2020-08-26] MEDS: BENZOCAINE (*SP) 60 ML SPRAY CAN (HURRICAINE) 1 SPRAY MUCOUS MEM (13:16)
[2020-08-26 13:48] VITALS: BP 104/45; PULSE 76; RESP 22; O2SAT 100
[2020-08-26 13:58] VITALS: BP 133/61; PULSE 83; RESP 25; O2SAT 100
[2020-08-26 14:08] VITALS: BP 109/55; PULSE 84; RESP 25; O2SAT 100
== END 2020-08-26 14:39 | disposition home or self-care (01) ==
PROVIDERS: PCP Family Medicine; Visit Provider Internal Medicine Gastroenterology
PROC: 0DJ08ZZ Inspection of Upper Intestinal Tract, Via Natural or Artificial Opening Endoscopic (ICD-10-PCS; CPT 43235; principal; 2020-08-26 13:45)
DX: D50.0 Iron deficiency anemia secondary to blood loss (chronic) (principal); D12.2 Benign neoplasm of ascending colon; K57.30 Diverticulosis of large intestine without perforation or abscess without bleeding; K64.8 Other hemorrhoids; K29.50 Unspecified chronic gastritis without bleeding; K26.9 Duodenal ulcer, unspecified as acute or chronic, without hemorrhage or perforation; K29.80 Duodenitis without bleeding; I48.91 Unspecified atrial fibrillation; I13.0 Hypertensive heart and chronic kidney disease with heart failure and stage 1 through stage 4 chronic kidney disease, or unspecified chronic kidney disease; E11.22 Type 2 diabetes mellitus with diabetic chronic kidney disease; N18.30 Chronic kidney disease, stage 3 unspecified; I50.9 Heart failure, unspecified; E11.42 Type 2 diabetes mellitus with diabetic polyneuropathy; E78.5 Hyperlipidemia, unspecified; G47.33 Obstructive sleep apnea (adult) (pediatric); G25.0 Essential tremor; I25.2 Old myocardial infarction; E11.51 Type 2 diabetes mellitus with diabetic peripheral angiopathy without gangrene; N40.1 Benign prostatic hyperplasia with lower urinary tract symptoms; H40.9 Unspecified glaucoma; Z95.5 Presence of coronary angioplasty implant and graft; Z79.02 Long term (current) use of antithrombotics/antiplatelets; Z95.4 Presence of other heart-valve replacement; Z87.891 Personal history of nicotine dependence; E66.9 Obesity, unspecified; Z68.31 Body mass index [BMI] 31.0-31.9, adult; Z79.84 Long term (current) use of oral hypoglycemic drugs
CPT/HCPCS: 45385; 43239; 87081; 88305; J0290; J1580; J2704; J7120

== ENCOUNTER 2020-12-09 07:29 | Outpatient (CLI) | payer MEDICARE, BC, SELFPAY ==
--- NOTE | ~2020-12-09 | CT_ITS ---
EXAMINATION: CT diagnostic chest wo con EXAM DATE: 12/09/2020 07:52 INDICATION: Fracture of clavicle. TECHNIQUE: Spiral CT of the chest without contrast. Axial, coronal and sagittal images were reviewe d. Coronal maximum intensity pixel images of chest reviewed. The dose-length product (DLP) for this examination was 302.45 mGy-cm. The exposure was tailored according to patient size (auto mA exposur e control), and iterative reconstruction (ASIR) was used as additional dose reduction technique. Comp arison is made to prior examination from 12/17/2008. FINDINGS: Several small clusters of right middle lobe, lingular reticular nodular opacities likely p ostinfectious. There is stable 4 mm left lower lobe nodule on image 106, granuloma. Mild emphysema an d hyperinflation. Trace pericardial effusion. No pleural effusions. Tracheobronchial tree is patent . There is no mediastinal, hilar or axillary lymphadenopathy. There is no pneumothorax. Mild ca rdiomegaly.There is aortic valve replacement. There are dense coronary arteries, could be severe nico nary arterial sclerosis and/or coronary artery stent(s), which are difficult to distinguish due to ca rdiac motion on this non-gated exam. Correlate with cardiac history . Upper abdomen is unremarkable. There is thoracic spondylosis without osteoblastic or osteolytic lesions identified. There are n o acute fractures identified. Specifically, the clavicles are unremarkable aside from moderate acromi oclavicular osteoarthritis. IMPRESSION: 1. No acute cardiopulmonary findings or clavicular fracture. 2. Scattered postinfectious residua. 3. Mild emphysema and hyperinflation. Reviewed, dictated and finalized at location A. 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
== END 2020-12-09 07:30 | disposition home or self-care (01) ==
PROVIDERS: PCP Family Medicine; Visit Provider Orthopaedic Surgery
DX: S42.001A Fracture of unspecified part of right clavicle, initial encounter for closed fracture (principal); X58.XXXA Exposure to other specified factors, initial encounter; J43.9 Emphysema, unspecified; R91.8 Other nonspecific abnormal finding of lung field
CPT/HCPCS: 71250

== ENCOUNTER 2020-12-13 10:00 | Outpatient (CLI) | payer MEDICARE, BC, SELFPAY | END 2020-12-13 10:01 | disposition home or self-care (01) | LOC: ANHCOVIDVC 10:00 | PROVIDERS: PCP Family Medicine | DX: Z23 Encounter for immunization (principal) | CPT/HCPCS: 0001A; 91300 ==

== ENCOUNTER 2021-01-03 09:56 | Outpatient (CLI) | payer MEDICARE, BC, SELFPAY | END 2021-01-03 09:57 | disposition home or self-care (01) | LOC: ANHCOVIDVC 09:56 | PROVIDERS: PCP Family Medicine | DX: Z23 Encounter for immunization (principal) | CPT/HCPCS: 0002A; 91300 ==

== ENCOUNTER 2021-10-20 13:52 | Outpatient (CLI) | payer MEDICARE, BC, SELFPAY ==
--- NOTE | ~2021-10-20 | XR_ITS ---
EXAMINATION: XR lumbar spine 2-3V DATE: 10/20/2021 14:35 INDICATION: Right hip pain. Fall. TECHNIQUE: 3 views of lumbar spine were obtained. COMPARISON: Lumbar spine radiographs 08/08/2017, MRI 12/08/2018 FINDINGS: There is 3 degrees dextrocurvature of thoracolumbar spine. There is 3 mm retrolisthesis of L2 on L3 and 3 mm anterolisthesis of L4 on L5. There is mild chronic anterior wedging of L1 vertebral body. There are changes of posterior fusion procedure from L2 to L5 with pedicle screws. There is mi ldly decreased disc height at L1-L2 and L4-L5. There are endplate osteophytes at all levels there are bilateral hip arthroplasties. Surgical clips in the right upper quadrant are likely from cholecystec hua. IMPRESSION: 1. Mild lumbar spondylosis. 2. Posterior fusion procedure from L2 to L5. Reviewed, dictated and finalized at location B. TOSE LOADER
--- NOTE | ~2021-10-20 | XR_ITS ---
EXAMINATION: XR cervical spine 4-5V DATE: 10/20/2021 14:35 INDICATION: Neck pain. TECHNIQUE: 4 views of cervical spine were obtained. COMPARISON: Cervical spine radiograph 01/05/2020 FINDINGS: There is kyphosis of lower cervical spine. There is 14 degrees levoscoliosis of cervicothor acic spine. Vertebral body heights are normal. There is moderately decreased disc height at C3-C4, mi ldly decreased disc height at C4-C5, and severely decreased disc height at C5-C6 and C6-C7. There is interbody fusion at C6-C7. There is multilevel severe facet joint osteoarthritis bilaterally. There i s mild central canal stenosis at C3-C4, C4-C5, and C6-C7. No prevertebral soft tissue swelling. IMPRESSION: 1. Severe cervical spondylosis. 2. Cervicothoracic levoscoliosis. Reviewed, dictated and finalized at location B. ECTION MANAGER
--- NOTE | ~2021-10-20 | XR_ITS ---
EXAMINATION: XR femur RT min 2V DATE: 10/20/2021 14:35 INDICATION: Right hip pain. Fall. TECHNIQUE: 2 views of right femur on 4 radiographs were obtained. COMPARISON: None. FINDINGS: There is a total right hip arthroplasty in near-anatomic alignment. No periprosthetic lucen cy to suggest loosening or infection. There is periosteal reaction at the anterior cortex of proximal right femur. There are dystrophic calcifications in the soft tissues around right hip. There is mild tricompartmental osteoarthritis of right knee. No knee joint effusion. IMPRESSION: 1. Total right hip arthroplasty in near-anatomic alignment. Periosteal reaction of the anterior french x of proximal right femur adjacent to the femoral stem suggests a healing fracture. 2. Mild right knee osteoarthritis. Reviewed, dictated and finalized at location B. 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 Total right hip arthroplasty in near-anatomic alignment. Periosteal reaction of the anterior cortex of proximal right femur adjacent to the femoral stem olivera ggests a healing fracture. 2. Mild right knee osteoarthritis.
--- NOTE | ~2021-10-20 | XR_ITS ---
EXAMINATION: XR hip BI 2V w AP pelvis DATE: 10/20/2021 14:35 INDICATION: Right hip pain. Fall. TECHNIQUE: An anteroposterior view pelvis and 2 views of each hip on a total of 6 radiographs were ob tained. COMPARISON: CT abdomen and pelvis 01/31/2010 FINDINGS: There are bilateral total hip arthroplasties in near-anatomic alignment. No fracture. No pe riprosthetic lucency to suggest loosening or infection. There are dystrophic calcifications in the so ft tissues around right hip. There are changes of posterior fusion procedure in lumbar spine. There i s severe lumbar spondylosis. IMPRESSION: 1. Bilateral total hip arthroplasties in near-anatomic alignment. Reviewed, dictated and finalized at location B. 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
--- NOTE | ~2021-10-20 | XR_ITS ---
EXAMINATION: XR thoracic spine 2V DATE: 10/20/2021 14:34 INDICATION: Neck pain. TECHNIQUE: 2 views of thoracic spine were obtained. COMPARISON: Chest CT 12/09/2020 FINDINGS: There is 4 degrees dextrocurvature of thoracic spine. Vertebral body heights are normal. Th ere is mildly decreased disc height at multiple levels in lower thoracic spine. There are endplate os teophytes at all levels. There are bridging endplate osteophytes at multiple levels in the spine, con sistent with diffuse idiopathic skeletal hyperostosis (DISH). There are changes of aortic valve repla cement. There are changes of posterior fusion procedure in lumbar spine. IMPRESSION: 1. Mild thoracic spondylosis. 2. DISH. Reviewed, dictated and finalized at location B. [facility]
== END 2021-10-20 13:53 | disposition home or self-care (01) ==
PROVIDERS: PCP Family Medicine; Visit Provider Physician Assistant
DX: M25.559 Pain in unspecified hip (principal); R29.6 Repeated falls; M47.896 Other spondylosis, lumbar region; Z98.1 Arthrodesis status; M17.11 Unilateral primary osteoarthritis, right knee; M47.892 Other spondylosis, cervical region; M47.894 Other spondylosis, thoracic region; M48.14 Ankylosing hyperostosis [Forestier], thoracic region
CPT/HCPCS: 72050; 72070; 72100; 73521; 73552

== ENCOUNTER 2021-12-12 09:19 | Outpatient (CLI) | payer MEDICARE, BC, SELFPAY ==
--- NOTE | 2021-12-12 11:00 | NEURO_ITS ---
Impression: # Complains of numbness and balance difficulties. # Asymmetrical motor and sensory neuropathy. # Extra strength stimulation required to obtain the responses. # Neurogenic needle/EMG exam. # Higher involvement cannot be ruled out. Nerve Conduction Studies Anti Sensory Summary Table Stim Site NR Peak (ms) P-T Amp (?V) Site1 Site2 Delta-P (ms) Dist (cm) Rajan (m/s) Left Sup Fibular Anti Sensory (Ant Lat Mall) NO RESPONSE 14 cm NR 14 cm Ant Lat Mall 16.0 Right Sup Fibular Anti Sensory (Ant Lat Mall) 14 cm 3.9 4.3 14 cm Ant Lat Mall 3.9 16.0 41 Left Sural Anti Sensory (Lat Mall) NO RESPONSE Calf NR Right Sural Anti Sensory (Lat Mall) Calf 3.9 37.0 Calf Lat Mall 3.9 16.0 41 Motor Summary Table Stim Site NR Onset (ms) O-P Amp (mV) Site1 Site2 Delta-0 (ms) Dist (cm) Rajan (m/s) Left Peroneal Motor (Vastus Med) Ankle 5.5 1.1 Popit Ankle 7.9 38.0 48 Popit 13.4 1.8 Right Peroneal Motor (Vastus Med) Ankle 6.0 1.8 Popit Ankle 8.2 36.0 44 Popit 14.2 1.2 Left Tibial Motor (Abd Kelly Brev) Ankle 5.1 1.9 Knee Ankle 7.6 39.0 51 Knee 12.7 0.6 Right Tibial Motor (Abd Kelly Brev) Ankle 4.7 1.9 Knee Ankle 10.1 38.0 38 Knee 14.8 2.1 F Wave Studies NR F-Lat (ms) L-R F-Lat (ms) Left Peroneal (Mrkrs) (EDB) 53.09 0.36 Right Peroneal (Mrkrs) (EDB) 52.73 0.36 Left Tibial (Mrkrs) (Abd Hallucis) 54.78 0.39 Right Tibial (Mrkrs) (Abd Hallucis) 54.39 0.39 EMG Side Muscle Nerve Root Ins Act Fibs Amp Dur Recrt Comment Right AntTibialis Dp Br Fibular L4-5 Nml Nml Nml >12ms Reduced Right Gastroc Tibial S1-2 Nml Nml Nml Nml Nml Right Fibularis Long Sup Br Fibular L5-S1 Nml Nml Nml Nml Nml Right Flex Dig Long Tibial L5-S2 Nml Nml Nml Nml Nml Right Ext Dig Brev Dp Br Fibular L5, S1 Nml Nml Nml >12ms Reduced Left AntTibialis Dp Br Fibular L4-5 Nml Nml Nml >12ms Reduced Left Gastroc Tibial S1-2 Nml Nml Nml Nml Nml Left Fibularis Long Sup Br Fibular L5-S1 Nml Nml Nml Nml Nml Left Flex Dig Long Tibial L5-S2 Nml Nml Nml Nml Nml Left Ext Dig Brev Dp Br Fibular L5, S1 Nml Nml Nml >12ms Reduced Right QuadratusFem QuadFemoris L4-5, S1 Nml Nml Nml >12ms Reduced Left QuadratusFem QuadFemoris L4-5, S1 Nml Nml Nml >12ms Reduced MTDD
== END 2021-12-12 09:20 | disposition home or self-care (01) ==
LOC: ANHNEURO 09:20
PROVIDERS: PCP Family Medicine
DX: M48.062 Spinal stenosis, lumbar region with neurogenic claudication (principal); Z96.641 Presence of right artificial hip joint; R20.0 Anesthesia of skin; R20.2 Paresthesia of skin
CPT/HCPCS: 95886; 95910

== ENCOUNTER 2022-01-02 14:06 | Outpatient (CLI) | payer MEDICARE, BC, SELFPAY ==
[2022-01-02 14:52] LABS: Alanine Aminotransferase 20 U/L (4-50); Albumin Level 4.2 g/dL (3.5-5.1); Alkaline Phosphatase 49 U/L (38-126); Anion Gap 5 mmol/L (8-16); Aspartate Amino Transferase 40 U/L (17-59); Bilirubin,Total 0.2 mg/dL (0.2-1.3); Blood Urea Nitrogen 36 mg/dL (9-20); Calcium 9.8 mg/dL (8.4-10.2); Carbon Dioxide 32 mmol/L (22-30); Chloride 105 mmol/L (98-107); Estimated Glomerular Filt Rate 53; Glucose 94 mg/dL (65-110); Potassium 4.4 mmol/L (3.4-5.0); Sodium 142 mmol/L (137-145)
[2022-01-02 15:02] LABS: Erythrocyte Sedimentation Rate 38 mm/hr (0-20)
[2022-01-02 15:13] LABS: Hemoglobin A1C 5.3 % (<5.7)
== END 2022-01-02 14:07 | disposition home or self-care (01) ==
LOC: ANHLAB 14:08
PROVIDERS: PCP Family Medicine; Visit Provider Family Medicine
DX: E11.40 Type 2 diabetes mellitus with diabetic neuropathy, unspecified (principal); R51.9 Headache, unspecified; R53.83 Other fatigue; E11.29 Type 2 diabetes mellitus with other diabetic kidney complication
CPT/HCPCS: 36415; 80053; 83036; 85652

== ENCOUNTER → 2022-06-20 11:53 | Outpatient (CLI) | payer MEDICARE, BC, SELFPAY ==
--- NOTE | ~2022-06-20 | XR_ITS ---
EXAM: XR shoulder RT min 2V DATE: 06/20/2022 12:10 HISTORY: M25.511 - Pain in right shoulder . COMPARISON: None available. FINDINGS: Decreased mineralization. No fracture or dislocation. No lytic or blastic lesion. Moderate AC joint hypertrophy. Moderate glenohumeral osteoarthritis. Calcific tendinitis. Osseous outlet comp romise. No erosion or periosteal change. Soft tissues within normal limits. IMPRESSION: No acute osseous finding in the right shoulder. Degenerative/arthritic changes, detailed above. Reviewed, dictated and finalized at location K. IMPRESSION: No acute osseous finding in the right shoulder. Degenerative/arthri tic changes, detailed above.
== END ==
PROVIDERS: PCP Family Medicine; Visit Provider Family Medicine
DX: M25.511 Pain in right shoulder (principal)
CPT/HCPCS: 73030

== ENCOUNTER → 2022-06-22 11:34 | Outpatient (CLI) | payer MEDICARE, BC, SELFPAY ==
--- NOTE | ~2022-06-22 | MR_ITS ---
EXAMINATION: MR cervical spine wo/w con DATE: 06/22/2022 12:32 INDICATION: Neck pain. TECHNIQUE: Magnetic resonance imaging (MRI) of the cervical spine was performed without and with 15 m L MultiHance intravenous contrast. COMPARISON: Cervical spine MRI 08/28/2019 FINDINGS: There is 8 degrees levocurvature of cervicothoracic spine. There is 2 mm anterolisthesis of C7 on T1 and T1 on T2. There is mild chronic anterior wedging of T1, T2, and T3 vertebral bodies. Th ere is interbody fusion at C6-C7. There is moderately decreased disc height at C3-C4, mildly decrease d disc height at C4-C5, severely decreased disc height at C5-C6, mildly decreased disc height at C7-T 1, and severely decreased disc height at T1-T2 with endplate remodeling. The spinal cord signal inten sity is normal. The following disc levels are specifically discussed: C2-C3: The disc does not extend beyond the endplate margin. There is no uncovertebral joint osteoarth ritis. There is moderate right and severe left facet joint osteoarthritis. There is mild left neural foraminal stenosis. There is no central canal stenosis. C3-C4: The disc is bulging. There is severe bilateral uncovertebral joint osteoarthritis. There is se claudette bilateral facet joint osteoarthritis. There is mild right and moderate left neural foraminal angella nosis. There is mild central canal stenosis. C4-C5: The disc is bulging. There is severe bilateral uncovertebral joint osteoarthritis. There is se claudette bilateral facet joint osteoarthritis. There is moderate right and severe left neural foraminal s tenosis. There is moderate central canal stenosis with ventral and dorsal indentation of the spinal c ord. C5-C6: The disc is bulging. There is severe bilateral uncovertebral joint osteoarthritis. There is se claudette bilateral facet joint osteoarthritis. There is severe bilateral neural foraminal stenosis. There is mild central canal stenosis with ventral indentation of the spinal cord. C6-C7: There is moderate bilateral uncovertebral joint hypertrophy. There is no facet joint osteoarth ritis. There is mild bilateral neural foraminal stenosis. There is no central canal stenosis. C7-T1: There is a central protrusion. There is no uncovertebral joint osteoarthritis. There is severe bilateral facet joint osteoarthritis. There is mild bilateral neural foraminal stenosis. There is no central canal stenosis. IMPRESSION: 1. Severe cervical spondylosis, mildly worsened from 08/28/2019. 2. Anterior fusion at C6-C7. Reviewed, dictated and finalized at location A.
== END ==
PROVIDERS: PCP Family Medicine; Visit Provider Nurse Practitioner Family
DX: M47.892 Other spondylosis, cervical region (principal); Z98.1 Arthrodesis status
CPT/HCPCS: 72156; A9577

== ENCOUNTER 2022-08-09 09:56 | Outpatient (CLI) | payer MEDICARE, BC, SELFPAY ==
--- NOTE | ~2022-08-09 | MR_ITS ---
EXAMINATION: MR lumbar spine wo con DATE: 08/09/2022 10:41 INDICATION: Cauda equina syndrome. Incontinence. TECHNIQUE: Magnetic resonance imaging (MRI) of the lumbar spine was performed without intravenous con trast. Sequences included sagittal T2-weighted FSE, sagittal T2-weighted FS FSE, sagittal T1-weighted FSE, and axial T2-weighted FSE. COMPARISON: Lumbar spine MRI 12/08/18 FINDINGS: There is 7 degrees dextrocurvature of thoracolumbar spine. There is mild chronic anterior w edging of L1 vertebral body. There are Schmorl's nodes at multiple levels. There are changes of poste rior fusion procedure from L2 to L5 with pedicle screws. There is moderately decreased disc height at L1-L2 and mildly decreased disc height at L2-L3. There is moderately decreased disc height at L4-L5 and mildly decreased disc height at L5-S1 with disc calcifications. There are laminectomies from L1 t o L5. There is a chronic 5.2 x 0.9 x 2.0 cm fluid collection in the laminectomy surgical bed, likely a seroma. The distal spinal cord signal intensity is normal. The conus medullaris is at L1. The follo wing disc levels are specifically discussed: L1-L2: The disc is bulging and has an annular fissure. There is severe bilateral facet joint osteoart hritis. There is severe bilateral neural foraminal stenosis. There is mild central canal stenosis. L2-L3: The disc is bulging and has an annular fissure. There is moderate bilateral facet joint hypert rophy. There is moderate bilateral neural foraminal stenosis. There is mild central canal stenosis wi th posterior decompression. L3-L4: The disc is bulging. There is moderate bilateral facet joint hypertrophy. There is mild bilate ral neural foraminal stenosis. There is mild central canal stenosis with posterior decompression. L4-L5: The disc is bulging. There is mild bilateral facet joint hypertrophy. There is mild bilateral neural foraminal stenosis. There is no central canal stenosis. L5-S1: The disc is bulging. There is severe bilateral facet joint osteoarthritis. There is mild bilat eral neural foraminal stenosis. There is no central canal stenosis. IMPRESSION: 1. Moderate lumbar spondylosis, stable from 12/08/18. 2. Posterior fusion procedure from L2 to L5. Reviewed, dictated and finalized at location A.
== END 2022-08-09 09:57 | disposition home or self-care (01) ==
PROVIDERS: PCP Family Medicine; Visit Provider Family Medicine
DX: R15.9 Full incontinence of feces (principal); R32 Unspecified urinary incontinence; M47.896 Other spondylosis, lumbar region; Z98.1 Arthrodesis status
CPT/HCPCS: 72148

== ENCOUNTER 2023-12-04 12:14 | Outpatient (CLI) | payer MEDICARE, BC, SELFPAY ==
--- NOTE | ~2023-12-04 | XR_ITS ---
EXAMINATION: XR shoulder RT min 2V DATE: 12/04/2023 12:28 INDICATION: Right shoulder pain. TECHNIQUE: 4 views of right shoulder were obtained. COMPARISON: Right shoulder radiographs 06/20/2022 FINDINGS: Bone alignment is normal. No fracture. There is severe osteoarthritis of acromioclavicular joint and glenohumeral joint. There are changes of anterior fusion procedure in cervical spine. IMPRESSION: 1. Severe polyarticular osteoarthritis. Reviewed, dictated and finalized at location A. [facility] [employer]IST
== END 2023-12-04 12:15 | disposition home or self-care (01) ==
PROVIDERS: PCP Family Medicine; Visit Provider Physician Assistant
DX: M19.011 Primary osteoarthritis, right shoulder (principal)
CPT/HCPCS: 73030

== ENCOUNTER 2023-12-28 11:01 | Outpatient (CLI) | payer MEDICARE, BC, SELFPAY ==
--- NOTE | ~2023-12-28 | XR_ITS ---
XR abdomen/kub 1V 12/28/2023 11:16 INDICATION: Renal stone TECHNIQUE: KUB COMPARISON: 08/02/2020 FINDINGS: Bowel gas pattern is normal. There are pedicle screws at L2-L5. There are bilateral hip art hroplasties. There is no evidence of free air, mass, organomegaly, ascites or obstruction. No abnorm al calculi are seen. There are pelvic phleboliths. There are cholecystectomy clips. The bones appear intact. IMPRESSION: 1: No acute abdominal abnormality identified. Reviewed, dictated and finalized at location A.
== END 2023-12-28 11:02 | disposition home or self-care (01) ==
PROVIDERS: PCP Family Medicine; Visit Provider Physician Assistant
DX: N20.0 Calculus of kidney (principal)
CPT/HCPCS: 74018

== ENCOUNTER 2024-01-01 11:38 | Outpatient (CLI) | payer MEDICARE, BC, SELFPAY ==
--- NOTE | ~2024-01-01 | CT_ITS ---
EXAMINATION: CT abdomen pelvis wo con DATE: 01/01/2024 11:59 INDICATION: Unspecified left-sided abdominal and groin pain. TECHNIQUE: Computed tomography (CT) of the abdomen and pelvis was performed without intravenous contr ast. Automated exposure control and iterative reconstruction technique were employed. The dose-length product was 782.47 mGy-cm. COMPARISON: Chest CT dated 12/09/[address] abdomen and pelvis dated 01/31/2010 FINDINGS: Again seen are multiple small pulmonary nodules at the bilateral lower lungs, the largest measuring 5 mm in the subpleural left lower lobe and the majority the remainder measuring less than 4 mm and org anized in small regions of tree-in-bud opacity in the lingula and right middle lobe. There is additio nal new region of multiple small nodules and tree-in-bud pattern in the intersegment right upper lobe . No pulmonary edema or pleural effusion. Heart size is normal. Atherosclerotic coronary artery calci fications and likely stenting along the left anterior descending and right coronary arteries. Aortic valve repair. No pericardial effusion. Cholecystectomy clips the gallbladder fossa. Liver, spleen, pancreas and bilateral adrenal glands are normal. There are bilateral renal cysts the largest on the right measuring 3.8 cm. Unchanged 1-2 mm calcification the mid right kidney which could represent nonobstructing renal stones or other splenic calcification of a branch renal artery. There is mild colonic diverticulosis with a sigmoid predomin ance. There is no adjacent inflammatory change to suggest diverticulitis. No bowel obstruction. Ther e are small bilateral fat-containing inguinal hernias. No free intraperitoneal gas or fluid. No patho logically enlarged abdominal or pelvic lymphadenopathy. L1-L4 laminectomies with L2-L5 instrumented p osterior spinal fusion with bilateral vertical felix and pedicle screw fixation. There is dense metalli c streak artifact in the deep pelvis resulting from bilateral total hip arthroplasties. There is prom inent heterotopic ossification in the soft tissues about the right hip. There are also rim calcificat ions associated with fluid collections extending cephalad along the right iliopsoas muscle and right gluteus medius medius muscles. Small amount of heterotopic ossification posterior to the left acetabu lum. IMPRESSION: 1. No acute intra-abdominal/pelvic process. 2. Small bilateral fat-containing inguinal hernias. 3. Scattered regions of tree-in-bud opacity in the bilateral lung bases, several of which are chronic and likely sequela of prior pneumonia including atypical fungal/mycobacterial pneumonia such as Myco bacterium avium intracellulare. 4. Unchanged 1-2 mm calcification at the right kidney which could represent a nonobstructing renal st one or atherosclerotic calcification 5. Mild sigmoid diverticulosis. Reviewed, dictated and finalized at location A. IMPRESSION: 1. No acute intra-abdominal/pelvic process. 2. Small bilateral fat-containing inguinal hernias. 3. Scattered regions of tree-in-bud opacity in the bilateral lung bases, severa l of which are chronic and likely sequela of prior pneumonia including atypical fungal/mycobacterial pneumonia such as Mycobacterium avium intracellulare. 4. Unchanged 1-2 mm calcification at the right kidney which could represent a n onobstructing renal stone or atherosclerotic calcification 5. Mild sigmoid diverticulosis.
== END 2024-01-01 11:39 | disposition home or self-care (01) ==
PROVIDERS: PCP Family Medicine; Visit Provider Physician Assistant
DX: R10.9 Unspecified abdominal pain (principal); K40.20 Bilateral inguinal hernia, without obstruction or gangrene, not specified as recurrent; K57.30 Diverticulosis of large intestine without perforation or abscess without bleeding
CPT/HCPCS: 74176

== ENCOUNTER 2024-01-16 10:23 | Outpatient (CLI) | payer MEDICARE, BC, SELFPAY ==
--- NOTE | ~2024-01-16 | CT_ITS ---
EXAMINATION: CT abdomen pelvis w con DATE: 01/16/2024 11:02 INDICATION: Left lower quadrant abdominal pain. TECHNIQUE: Computed tomography (CT) of the abdomen and pelvis was performed with 100 mL Omnipaque 350 intravenous contrast. Automated exposure control and iterative reconstruction technique were employe d. The dose-length product was 844.89 mGy-cm. COMPARISON: CT abdomen and pelvis 01/01/2024, chest CT 12/09/20 FINDINGS: The visualized portions of the lung bases demonstrate mild atelectasis. There are scattered pulmonary nodules bilaterally predominantly in clusters. The largest nodule measures 7 mm in right u pper lobe. No pleural effusion. The heart size is normal. There are coronary artery calcifications. T here are changes of aortic valve replacement. There is bilateral gynecomastia. The liver is normal. T here are changes of cholecystectomy. The spleen, pancreas, and adrenal glands are normal. There are c ysts in the kidneys measuring up to 3.9 cm on the right. There is a left inguinal hernia containing f at. There is diverticulosis of the colon without evidence of diverticulitis. There are no dilated loo ps of bowel. The appendix is not visualized. There is calcified atherosclerosis of the aorta and many of the other arteries. There are no pathologically enlarged lymph nodes. There is no free intraperit argueta fluid. There are bilateral total hip arthroplasties. There are peripherally calcified masses ar ound the right hip arthroplasty including in the right gluteus medius muscle and right iliopsoas musc le, consistent with chronic hematomas versus granulomatous disease. There is moderate thoracic and brian mbar spondylosis. There are changes of posterior fusion procedure from L2 to L5. IMPRESSION: 1. Bilateral pulmonary nodules with worsening from 12/09/2020, likely chronic infection. 2. Left inguinal hernia containing fat. Reviewed, dictated and finalized at location A. IMPRESSION: 1. Bilateral pulmonary nodules with worsening from 12/09/2020, likely chronic inf ection. 2. Left inguinal hernia containing fat.
[2024-01-16 10:54] LABS: Estimated Glomerular Filt Rate 53
== END 2024-01-16 10:24 | disposition home or self-care (01) ==
PROVIDERS: PCP Family Medicine; Visit Provider Physician Assistant Medical
DX: R10.32 Left lower quadrant pain (principal); K57.30 Diverticulosis of large intestine without perforation or abscess without bleeding; K40.90 Unilateral inguinal hernia, without obstruction or gangrene, not specified as recurrent; R91.8 Other nonspecific abnormal finding of lung field
CPT/HCPCS: 74177; Q9967

== ENCOUNTER 2024-04-15 14:11 | Outpatient (CLI) | payer MEDICARE, BC, SELFPAY ==
--- NOTE | ~2024-04-15 | US_ITS ---
BILATERAL LOWER EXTREMITY VENOUS ULTRASOUND Ordering provider: Sandoval Luis MD History: . R07.89 - Other chest pain . Comparison: None. FINDINGS: RIGHT LOWER EXTREMITY VEINS: --COMMON FEMORAL: Patent and free of thrombus. Normal compressibility, phasic flow and augmentation. --PROXIMAL SUPERFICIAL FEMORAL: Patent and free of thrombus. Normal compressibility, phasic flow and augmentation. --DISTAL SUPERFICIAL FEMORAL: Patent and free of thrombus. Normal compressibility, phasic flow and au gmentation. --POPLITEAL: Patent and free of thrombus. Normal compressibility, phasic flow and augmentation. --POSTERIOR TIBIAL: Patent and free of thrombus. Normal compressibility, phasic flow and augmentation . LEFT LOWER EXTREMITY VEINS: --COMMON FEMORAL: Patent and free of thrombus. Normal compressibility, phasic flow and augmentation. --PROXIMAL SUPERFICIAL FEMORAL: Patent and free of thrombus. Normal compressibility, phasic flow and augmentation. --DISTAL SUPERFICIAL FEMORAL: Patent and free of thrombus. Normal compressibility, phasic flow and au gmentation. --POPLITEAL: Patent and free of thrombus. Normal compressibility, phasic flow and augmentation. --POSTERIOR TIBIAL: Patent and free of thrombus. Normal compressibility, phasic flow and augmentation . IMPRESSION: Negative bilateral lower extremity venous US. No deep vein thrombosis. Reviewed, dictated and finalized at location A.
== END 2024-04-15 14:12 | disposition home or self-care (01) ==
PROVIDERS: PCP Family Medicine; Visit Provider Family Medicine
DX: R07.89 Other chest pain (principal); M79.661 Pain in right lower leg; M79.89 Other specified soft tissue disorders
CPT/HCPCS: 93970

== ENCOUNTER 2024-08-07 13:20 | Outpatient (CLI) | payer MEDICARE, BC, SELFPAY ==
--- NOTE | ~2024-08-07 | XR_ITS ---
XR shoulder RT min 2V DATE: 08/07/2024 13:40 INDICATION: Right shoulder primary osteoarthritis TECHNIQUE: 4 views COMPARISON: 12/04/2023 right shoulder FINDINGS: Osteopenia. There is degenerative spurring at the right acromioclavicular joint. There is severe joint space narrowing in addition to periarticular spurring of the right glenohumeral joint. No fracture, dislocation, periosteal reaction or bone destruction. IMPRESSION: Degenerative change of the right glenohumeral joint Severe right glenohumeral osteoarthritis Osteopenia Reviewed, dictated and finalized at location A.
== END 2024-08-07 13:21 | disposition home or self-care (01) ==
PROVIDERS: PCP Family Medicine; Visit Provider Orthopaedic Surgery
DX: M19.011 Primary osteoarthritis, right shoulder (principal); M85.811 Other specified disorders of bone density and structure, right shoulder
CPT/HCPCS: 73030

== ENCOUNTER 2025-01-19 12:15 | Outpatient (CLI) | payer MEDICARE, BC, SELFPAY ==
--- NOTE | ~2025-01-19 | XR_ITS ---
XR hip BI 2V w AP pelvis Ordering provider: Carlos Kendall PA-C History: . M79.18 - Myalgia, other site . Comparison: October 20, 2021 FINDINGS: BONES: No acute fracture or dislocation. HIP JOINT SPACES: Highly suggestive dislocation of the right hip prosthesis is noted. SACROILIAC JOINT SPACES/LUMBAR SPINE: Bilateral sacroiliitis. Postoperative changes visualized in the lower lumbar spine. PUBIC SYMPHYSIS: Normal. SOFT TISSUES: Normal. IMPRESSION: No acute osseous abnormality. Bilateral hip arthroplasty with possible dislocation on the right side. Reviewed, dictated and finalized at location A.
--- OUTSIDE RECORDS SUMMARY | 2025-01-19 13:18 | XMS_ITS | Encounter Summary ---
Author Organization [facility] Facility Care Team Providers Care Relay Associate Name Role Phone Sandoval Luis MD Primary Care Provider Anna Caballero [facility] Unavailable [phone] Brandt Orellana [facility] Unavailable [phone] Tabby Ortiz DNP Unavailable [phone] Encounter Details Date Type Department Care Team (Latest Contact Info) Description 05/30/2016 Orders Only [facility] ProviderCed MD [address] [place] [id number] Social History Tobacco Use Types Packs/Day Years Used Date Smoking Tobacco: Some Days Cigarettes Last attempted to quit: 10/07/1984 Alcohol Use Standard Drinks/Week Comments Yes 0 (1 standard drink = 0.6 oz pur e alcohol) Sex and Gender Information Value Date Recorded Sex Assigned at Not on file 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 us Historical Provider MD Final Res ult documented in this encounter Visit Diagnoses Not on filedocumented in this encounter Care Teams Relay Associate Relationship Specialty Start Date End Date Sandoval Luis MD [address] [place] [address] PCP - General 11/05/11 Anna Caballero, [facility] [address] [place] [address] Utilization Management Um Nurse 06/16/18 08/13/18 Brandt Orellana, [facility] [address] [place] [address] Utilization Management Um Nurse 06/16/18 08/13/18 Tabby Ortiz, [place] [address] [place] [address] Nurse Practitioner Internal Medicine 06/16/18 08/13/18 documented as of this encounter
--- OUTSIDE RECORDS SUMMARY | 2025-01-19 13:18 | XMS_ITS | Encounter Summary ---
Author Organization [facility] Address [facility] [place] [address] Care Team Providers Care Jack Setter Name Role Phone Sandoval Luis MD Primary Care Provider [phone] Encounter Details Date Type Department Care Team (Late st Contact Info) Description 07/17/2024 Prep for Procedure [facility] Pre-Admission Testing [facility] [place] [id number] Earnest Gonzales MD [address] [place] [address], [address] [place] [id number] Social History Tobacco Use Types Packs/Day Years Used Date Smoking Tobacco: Former Cigarettes Q uit: 1985 Smokeless Tobacco: Never Comments:na Alcohol Use Standard Drinks/Week Comments Not Currently 0 (1 standard drink = 0.6 oz pur e alcohol) occasionally OASIS D0700: Social Isolation Answer Da te Recorded Frequency of experiencing loneliness or isolatio n Never 09/20/2023 OASIS A1250: Transportation Answer Date Recorded Lack of Transportation (Medical) No 09/20/2023 Lack of Transportation (Non-Medical) No 09/20/2023 Patient Unable or Declines to Respond No 09/20/2023 OASIS B1300: Health Literacy Answer Hong e Recorded Frequency of needing help to read materials from doctor or pharmacy Never 09/20/2023 [facility] Utilities Answer Date Recorded In the past 12 months has th e electric, gas, oil, or water company threatened to shut off services in your home? No 08/26/2023 Humiliation, Afraid, Rape, and Kick questionnair e Answer Date Recorded Within the last year, have y ou been afraid of your partner or ex-partner? No 08/26/2023 Within the last year, have y ou been humiliated or emotionally abused in other ways by your partner or ex-partner? No Within the last year, have y ou been kicked, hit, slapped, or otherwise physically hurt by your partner or ex-partner? No 08/26/2023 Within the last year, have y ou been raped or forced to have any kind of sexual activity by your partner or ex-partner? No 08/26/2023 Overall Financial Resource Strain (CARDIA) Answe r Date Recorded How hard is it for you to pa y for the very basics like food, housing, medical care, and heating? Not hard at all 08/26/2023 PHQ-2 Answer Date Recorded PHQ-2 Score - If the patient scores above 3, please move on to questions 3-9 0 08/16/2022 [facility] [place] [facility] - Occupational Stress Questionnaire Answer Date Recorded Do you feel stress - tense, restless, nervous, or anxious, or unable to sleep at night because your mind is troubled all the time - these days? Not at all 07/29/2023 Exercise Vital Sign Answer Date Recorde d On average, how many days pe r week do you engage in moderate to strenuous exercise (like a brisk walk)? 0 days 07/29/2023 On average, how many minutes do you engage in exercise at this level? 0 min 07/29/2023 Hunger Vital Sign Answer Date Recorded Within the past 12 months, y ou worried that your food would run out before you got the money to buy more. Never true 08/26/20 Within the past 12 months, t he food you bought just didn't last and you didn't have money to get more. Never true 08/26/2023 PRAPARE - Transportation Answer Date Re corded In the past 12 months, has l ack of transportation kept you from medical appointments or from getting medications? No 08/08 In the past 12 months, has l ack of transportation kept you from meetings, work, or from getting things needed for daily living? No 08/26/2023 Housing Stability Vital Sign Answer Hong e Recorded In the last 12 months, was t here a time when you were not able to pay the mortgage or rent on time? No 08/26/2023 In the last 12 months, how many places have you lived? 1 08/26/2023 In the last 12 months, was t here a time when you did not have a steady place to sleep or slept in a custodial (including now)? No 08/26/2023 Sex and Gender Information Value Date Recorded Sex Assigned at Male 08/14/2023 3:20 PM AGENT BASED MODELER Legal Sex Male 7:28 PM CDT Gender Identity Male 08/14/2023 3:20 PM AGENT BASED MODELER Sexual Orientation Straight 08/14/2023 3: 20 PM AGENT BASED MODELER documented as of this encounter Functional Status * Question Answer Date of Assessment Author Status Do you have serious difficulty walking or climbing stairs? No 07/17/2024 6:52 PM Melissa Cat RN Ac tive * Question Answer Date of Assessment Author Status Do you have difficulty dressing or bathing? No 07/17/2024 6:52 PM Melissa Cat R N Active Because of a physical, mental, or emotional condition, do you have difficulty doing errands alone such as visiting a doctor's office or shopping? No 07/17/2024 6:52 PM Melissa Cat RN Act reuben * Are you deaf or do you have serious difficulty hearing Answer Date of Assessment Author Status No 07/17/2024 6:53 PM Melissa Cat RN Active * Are you blind or do you have serious difficulty seeing, even when wearing glasses? Answer Date of Assessment Author Status No 07/17/2024 6:52 PM Melissa Cat RN Active * Do you have serious difficulty walking or climbing stairs? Answer Date of Assessment Author Status No 07/17/2024 6:52 PM Melissa Cat RN Active * Do you have difficulty dressing or bathing? Answer Date of Assessment Author Status No 07/17/2024 6:52 PM Melissa Cat RN Active * Because of a physical, mental, or emotional condition, do you have difficulty doing errands alone such as visiting a doctor's office or shopping? Answer Date of Assessment Author Status No 07/17/2024 6:52 PM Melissa Cat RN Active * Question Answer Date of Assessment Author Status Are you deaf or do you have serious difficulty hearing No 07/17/2024 6:53 PM Melissa Cat RN Act reuben Are you blind or do you have serious difficulty seeing, even when wearing glasses? No 07/17/2024 6:52 PM Melissa Cat RN Act reuben * Calculated C-SSRS Risk Score (Lifetime/Recent) Answer Date of Assessment Author Status No Risk Indicated 07/17/2024 9:00 AM Blanca Carrizales RN Active * [place] Suicide Severity Rating Scale (Screener/Recent Self-Report) Question Answer Date of Assessment Author Status 1. Wish to be (Past 1 Month) No 07/17/2024 9:00 AM Blanca Carrizales RN Activ e 2. Non-Specific Active Suicidal Thoughts (Past 1 Month) No 07/17/2024 9:00 AM Blanca Carrizales RN Activ e 6. Suicidal Behavior (Lifetime) No 07/17/2024 9:00 AM Blanca Carrizales RN Activ e documented as of this encounter Mental Status * Question Answer Entry Date Author Status Because of a physical, mental, or emotional condition, do you have serious difficulty concentrating, remembering, or making decisions? No 07/17/2024 6:52 PM Melissa Cat R N Active * Because of a physical, mental, or emotional condition, do you have serious difficulty concentrating, remembering, or making decisions? Answer Entry Date Author Status No 07/17/2024 6:52 PM Melissa Cat RN Active documented in this encounter Plan of Treatment Not on file documented as of this encounter Goals Goal Patient Goal Type Associated Problems Recent Progress Patient-Stated? Author Patient will return to prior living situation and remain independent in ADLs upon discharge from hospital Lifestyle No Tegan Raya RN documented as of this encounter Results * (ABNORMAL) BASIC METABOLIC PANEL (07/17/2024 8:09 AM CDT) [facility] GLUCOSE 114(H) 70 - 99 MG/DL 07/17/2024 8:47 AM CDT [facility] BUN 36(H) 7 - 18 MG/DL 07/17/2024 8:47 AM CDT [facility] CREATININE S/P/B 1.26 0.7 - 1.3 MG/DL 07/17/2024 8:47 AM CDT [facility] SODIUM S/P/B 140 136 - 145 MMOL/L 07/17/2024 8:47 AM CDT [facility] POTASSIUM S/P/B 4.6 3.5 - 5.1 MMOL/L 07/17/2024 8:47 AM CDT [facility] CHLORIDE S/P/B 110 97 - 115 MMOL/L 07/17/2024 8:47 AM CDT [facility] CO2 29.0 21 - 32 MMOL/L 07/17/2024 8:47 AM CDT [facility] CALCIUM S/P/B 9.8 8.5 - 10.1 MG/DL 07/17/2024 8:47 AM CDT [facility] ANION GAP 1.0(L) 2 - 10 MMOL/L 07/17/2024 8:47 AM CDT [facility] BUN CREATININE RATIO 28.6(H) 6 - 26 07/17/2024 8:47 AM T [facility] GFR ESTIMATE 56(L) >90 ML/MIN/1.7 3 M2 07/17/2024 8:47 AM CDT [facility] Comment: NOTE: eGFR is not calculated for patients <18 years of age or gender unknown. This is an estimated GFR calculation using the new CKD EPI creatinine equation without race and so does not require a correction factor for race. This estimated GFR should not be used for calculating drug doses. 07/17/2024 8:09 AM CDT Brigida Shoemaker [facility] Final R esult [facility] [address] [place] [address], * (ABNORMAL) CBC W/DIFF AUTOMATED (07/17/2024 8:09 AM CDT) WBC 4.86 4.5 - 11.0 x10'3/uL 07/17/2024 8:21 AM CDT [facility] RBC 3.44(L) 4.70 - 6.10 x10'6/uL 07/17/2024 8:21 AM CDT [facility] HGB 10.6(L) 14.0 - 18.0 G/DL 07/17/2024 8:21 AM CDT [facility] HCT 33.3(L) 43.0 - 54.0 % 07/17/2024 8:21 AM CDT [facility] MCV 96.8(H) 80.0 - 94.0 FL 07/17/2024 8:21 AM CDT [facility] MCH 30.8 27.0 - 31.0 PG 07/17/2024 8:21 AM CDT [facility] MCHC 31.8(L) 32.0 - 36.0 G/DL 07/17/2024 8:21 AM CDT [facility] RDW 14.7(H) 11.5 - 14.5 % 07/17/2024 8:21 AM CDT [facility] PLT 199 130 - 400 x10'3/uL 07/17/2024 8:21 AM CDT [facility] MPV 9.6 9.3 - 12.2 FL 07/17/2024 8:21 AM CDT [facility] DIFFERENTIAL TYPE AUTOMATED DIFFERENTIAL 07/17/2024 8:21 AM CDT [facility] NEUTROPHILS % 60.3 % 07/17/2024 8:21 AM CDT [facility] LYMPHOCYTES % 22.2 % 07/17/2024 8:21 AM CDT [facility] MONOCYTES % 10.9 % 07/17/2024 8:21 AM T [facility] EOSINOPHILS 6.0 % 07/17/2024 8:21 AM CDT [facility] BASOPHILS 0.4 % 07/17/2024 8:21 AM T [facility] IMMATURE GRANS % 0.2 % 07/17/20 8:21 AM T [facility] ABS. NEUTROPHILS 2.93 1.80 - 7.70 x10'3/uL 07/17/2024 8:21 AM CDT [facility] ABS. LYMPHOCYTES 1.08 1.00 - 4.80 x10'3/uL 07/17/2024 8:21 AM CDT [facility] ABS. MONOCYTES 0.53 0.30 - 0.82 x10'3/uL 07/17/2024 8:21 AM CDT [facility] ABS. EOSINOPHILS 0.29 0.04 - 0.54 x10'3/uL 07/17/2024 8:21 AM CDT [facility] ABS. BASOPHILS 0.02 0.01 - 0.08 x10'3/uL 07/17/2024 8:21 AM CDT [facility] ABS. IMMATURE GRANULOCYTES 0.01 0.00 - 0.49 x10'3/uL 07/17/2024 8:21 AM CDT [facility] 07/17/2024 8:09 AM CDT us Brigida Shoemaker [facility] Final R esult [facility] [address] [place] [address], documented in this encounter Visit Diagnoses Diagnosis Preoperative testing- Primary Preoperative examination, unspecified documented in this encounter Care Teams Jack Setter Relationship Specialty Start Date End Date Sandoval Luis MD [address] [place] [address] PCP - General FAMILY PRACTICE 10/23/19 documented as of this encounter
--- OUTSIDE RECORDS SUMMARY | 2025-01-19 13:18 | XMS_ITS | Encounter Summary ---
Author Organization [facility] Address [address] [facility] [facility] [place] [address] Care Team Providers Care Hand Mold Maker Name Role Phone Stewart Dominguez MD Primary Care Provider Encounter Details Date Type Department Care Team (Late st Contact Info) Description 07/08/2024 Lab Requisition [facility] - DermPath Lab [address] [facility] [place] [phone] Norah Sanchez MD [address] [facility] [address] [place] [address] Social History Tobacco Use Types Packs/Day Years Used Date Smoking Tobacco: Never Assessed Sex and Gender Information Value Date Recorded Sex Assigned at Not on file Legal Sex Male 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 Gender Identity Not on file Sexual Orientation Not on file documented as of this encounter Plan of Treatment Not on file documented as of this encounter Procedures Procedure Name Priority Date/Time Associated Diagnosis Comments DERMATOPATHOLOGY Routine 07/08/2024 1:42 PM CDT documented in this encounter Results * DERMATOPATHOLOGY (07/08/2024 1:42 PM CDT) Case Report Dermatopathology Report Case: [id number] Authorizing Provider: Norah Sanchez MD Collected: 07/08/2024 01:42 PM Ordering Location: [facility] Physician [facility] - Received: 07/09/2024 03:55 PM DermPath Lab Pathologist: Indu Fernandez MD Specimens: A) - Skin, right FH B) - Skin, left distal FH 2:14 PM CDT DERMATOPATHOLOGY LABORATORY Final Diagnosis Specimen A. SKIN, right FH: BASAL CELL CARCINOMA, MICRONODULAR TYPE (C44.319) Specimen B. SKIN, left distal FH: BASAL CELL CARCINOMA, NODULAR TYPE (C44.319) 2:14 PM CDT DERMATOPATHOLOGY LABORATORY Clinical History [place] papule r/o BCC 2:14 PM CDT DERMATOPATHOLOGY LABORATORY Gross Description Specimen A: Received is one formalin filled container labeled with the patient's name and designated right FH. The specimen consists of a shave biopsy measuring 5x5x1 mm. Jar 0. Specimen B: Received is one formalin filled container labeled with the patient's name and designated left distal FH. The specimen consists of a shave biopsy measuring 6x5x1 mm. Jar 0. 2:14 PM CDT DERMATOPATHOLOGY LABORATORY Microscopic Description Specimen A. SKIN, right FH: Within the dermis there are small aggregates of basaloid cells with a high nuclear to cytoplasmic ratio and peripheral palisading of their nuclei. Specimen B. SKIN, left distal FH: Within the dermis there are aggregates of basaloid cells with a high nuclear to cytoplasmic ratio and peripheral palisading. 2:14 PM CDT DERMATOPATHOLOGY LABORATORY Disclaimer An external and internal positive and negative controls are appropriate for the histochemical, immunohistochemical and immunofluorescence stain(s) in this case (if any), except where stated explicitly. The performance characteristics of the stain(s) cited in this report were developed and its performance characteristic determined by the Dermatopathology Laboratory at [facility], directed by Dr. Steven Cao. These tests need not be, and therefore are not, approved by the [place] Food and Drug Administration. The tests are used for clinical purposes. Billing Codes Specimen Charges Stain Charges 22598 03080 1 1 4 2:14 PM CDT DERMATOPATHOLOGY LABORATORY Embedded Images 2:14 PM CDT DERMATOPATHOLOGY LABORATORY Pathology/Cytology TISSUE SPECIMEN FROM SKIN / Unknown 07/08/2024 1:42 PM CDT 07/09/2024 3:55 PM CDT Miscellaneous samples (specimen) TISSUE SPECIMEN FROM SKIN / Unknown 07/08/2024 1:42 PM CDT 07/09/2024 3:55 PM CDT us Norah Sanchez MD LAB - PATHOLOGY/CYTOLOGY ORD ERABLES Final Result DERMATOPATHOLOGY LABORATORY [facility] - Department of Dermatology [address], [address] [phone] documented in this encounter Visit Diagnoses Not on filedocumented in this encounter Care Teams Hand Mold Maker Relationship Specialty Start Date End Date Stewart Dominguez MD [address] [place] [address] PCP - General 04/22/12 documented as of this encounter
--- OUTSIDE RECORDS SUMMARY | 2025-01-19 13:18 | XMS_ITS | Clinical Summary ---
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 Name Role Phone Sandoval Luis MD Primary Care Provider Allergies Active Allergy Reactions Criticality Noted Date Comments Cyclobenzaprine Other (See comments) Low 02/18/2018 All muscle relaxers relax the diaphragm Meloxicam Swelling Medium 06/13/2016 Swelling Medications azelastine-fluti casone (DYMISTA) 137-50 mcg/spray spray,non-aeroso l 0 spray 0 6 Active cholecalciferol (VITAMIN D3) 5,000 unit tablet [The details of the medication are not available because there are pending changes by a home health clinician.] 0 0 6 Active Additional Information Patient taking differently: 5,000 Units, Reported on 11/09/2024 ezetimibe (ZETIA) 10 mg tabletIndication s:hyperlipidemia Take 1 tablet (10 mg total) by mouth nightly Active fenofibrate (TRIGLIDE) 160 mg tablet Take 1 tablet (160 mg total) by mouth nightly Active atorvastatin (LIPITOR) 40 mg tablet Take 1 tablet (40 mg total) by mouth nightly 8 Active timolol (TIMOPTIC) 0.5 % ophthalmic solution Administer 1 drop into both eyes 2 (two) times a day Active primidone (MYSOLINE) 50 mg tabletIndication s:Essential Tremor Take 2 tablets (100 mg total) by mouth 2 (two) times a day rx#[id number] 8 Active doxycycline (VIBRAMYCIN) 100 mg capsule Take 1 tablet/capsule (100 mg total) by mouth every morning rx#[id number] Active tamsulosin (FLOMAX) 0.4 mg extended release capsuleIndicatio ns:with lunch Take 1 capsule (0.4 mg total) by mouth daily with lunch Active cetirizine (ZyrTEC) 10 mg tablet Take 1 tablet (10 mg total) by mouth every morning 1 Active fluocinonide (LIDEX) 0.05 % cream 1 Active carBAMazepine (TEGretol) 200 mg tablet Take 1 tablet (200 mg total) by mouth nightly 1 Active gabapentin (NEURONTIN) 600 mg tablet Take 1 tablet (600 mg total) by mouth 4 (four) times a day 5 2 Active azelastine 205.5 mcg (0.15 %) spray,non-aeroso l Administer into each nostril 2 (two) times a day [address] (CYMBALTA) 60 mg capsuleIndicatio ns:Neuropathic Pain Take by mouth 2 (two) times a day Active nitroglycerin (NITROSTAT) 0.4 mg SL tabletIndication s:Coronary artery disease of [place] artery of [place] heart with stable angina pectoris Place 1 tablet (0.4 mg total) under the tongue every 5 (five) minutes as needed for chest pain 25 tablet 1 3 Active tacrolimus (PROTOPIC) 0.03 % ointment Apply topically 2 (two) times a day Active magnesium oxide (MAG-OX) 400 mg (241.3 mg elemental magnesium) tablet Take 1 tablet (400 mg total) by mouth nightly [address] (ACIPHEX) 20 mg EC tabletIndication s:Stress Ulcer Prophylaxis Take 1 tablet (20 mg total) by mouth 2 (two) times a day 3 Active ferrous sulfate (iron) 325 mg (65 mg of elemental iron) tabletIndication s:Iron Deficiency Anemia Take 1 tablet (325 mg total) by mouth nightly Active ketoconazole (NIZORAL) 2 % shampoo USE WASH DAILY 3 Active triamcinolone (KENALOG) 0.1 % cream Apply topically 2 (two) times a day Active potassium citrate ER (UROCIT-K) 10 mEq (1,080 mg) CR tablet Take 1 tablet (10 mEq total) by mouth 2 (two) times a day with meals 3 Active lisinopriL (PRINIVIL,ZESTRI L) 20 mg tabletIndication s:Chronic diastolic CHF (congestive heart failure) (HCC) Take 1 tablet (20 mg total) by mouth daily 90 tablet 3 4 Active Additional Information Patient taking differently: 10 mgoralEvery morning, Indications: hypertension, Reported on 11/09/2024 fluticasone propionate (FLONASE) 50 mcg/actuation nasal spray Administer 1 spray into each nostril as needed for rhinitis Active ascorbic acid (VITAMIN C ORAL) Take by mouth with lunch Active aspirin 81 mg enteric coated tablet Take 1 tablet (81 mg total) by mouth daily Take baby aspirin 81 mg twice a day for 30 days then resume home daily aspirin 4 04/12/20 25 Active acetaminophen 500 mg capsuleIndicatio ns:Pain Take 2 capsules (1,000 mg total) by mouth every 6 (six) hours 90 tablet 4 Active diazePAM (VALIUM) 10 mg tablet Take 1 tablet (10 mg total) by mouth every 6 (six) hours as needed for anxiety Active semaglutide (Ozempic) 0.25 mg or 0.5 mg(2 mg/1.5 mL) pen injector injection Inject under the skin Active furosemide (LASIX) 40 mg tabletIndication s:Chronic diastolic CHF (congestive heart failure) (HCC) Take 1 tablet by mouth once daily 90 tablet 5 Active Active Problems Problem Noted Date Diagnosed Date Syncope and collapse 11/09/2024 Pre-op examination 04/17/2024 Right hip pain 03/06/2024 Failure of right total hip arthroplasty 11/12/19 24 Assessment & Plan (03/11/2024 3:29 PM CDT): The patient is a 83 y.o. male with PMH of TIA x6, HTN, CAD, CHF, TAVR, Afib, MARI, CKD, DM, lumbar stenosis s/p PSF in 2009 with myelopathy s/p cervical spine fusion 07/2023, L SILVIA in 2015 and R SILVIA 2011 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 since 2022 without signs or symptoms of infection. 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 Normal CRP and negative aspiration cell count and cultures reassuring. He was admitted for I&D and liner exchange on 03/06 and intra-op findings consistent with metallosis. Routine intra-op cultures obtained and 10/09 grew rare P acnes identified on 03/10, discussed with micro and only 1 colony in 1 piece of media was seen. Discussed intra-op findings with Dr. Morgan and no concerns for infection. Given growth pattern, intra-op findings and clinical picture not concerning for infection this likely represents contaminant. No further antibiotics needed from ID standpoint. Discussed with Dr. Morgan who agrees with plan. Dysphagia 07/29/2023 Bilateral knee pain 04/30/2023 COVID-19 03/01/2023 Overview (11/12/2023): Reported that he has COVID-19 and tested positive on 02/28/2023. My doctor is aware that I have COVID-19 Nisha Thapa MSN, BSN, RN 03/01/2023 Abnormal MRI, lumbar spine 02/28/2023 Cervical myelopathy 02/28/2023 History of TIA (transient ischemic attack) 02/04 H/O gastric ulcer 01/30/2021 Hypertensive heart disease w ith chronic diastolic congestive heart failure 01/30/2021 Iron deficiency anemia due to chronic blood loss 07/25/2020 Carpal tunnel syndrome, right 05/10/2020 Chronic pain syndrome 01/20/2020 Greater trochanteric bursitis of left hip 2018 Assessment & Plan (02/03/2019 5:57 PM CDT): We discussed the risks, benefits and alternatives. He is aware that the steroid injection to the greater trochanteric bursal elevated sugars because of his diabetes. He is aware and wants to proceed. History of bilateral total hip arthroplasty 01/07 Assessment & Plan (02/03/2019 5:56 PM CDT): Both hips appear to be stable. Continue progressive range of motion and strengthening per total hip arthroplasty protocol. Primary osteoarthritis of knees, bilateral 02/03 Assessment & Plan (02/03/2019 5:58 PM CDT): We discussed the risks, benefits and alternatives of treatment options for osteoarthritis of the knee. From least invasive to most invasive: The ongoing improvement to slow the progression of osteoarthritis as weight loss. For rebound lost 4 subchondral stress is relieved from the knee. Formal physical therapy to help with flexion, extension, mobility and strength. Unloading braces to unload the affected side. The possibility of focal tenderness. Nonsteroidal anti- inflammatories with the potential of cardiac and GI upset. Steroid and Visco supplement injection. And eventual total knee arthroplasty. After going over the risks, benefits and alternatives will continue treat the neuropathy. Patient is a poor surgical candidate for total knee arthroplasty at this time. Neuropathy 01/09/2019 Assessment & Plan (02/03/2019 5:56 PM CDT): With history of neuropathy, narcotics are not the treatment of choice. He is currently on gabapentin 1400 mg daily. Consider adding an Cymbalta 30 mg daily. Call in 2 weeks if no significant improvement may need to consider increasing to 60 mg daily. S/P TAVR (transcatheter aortic valve replacement ) 01/07/2019 S/P drug eluting coronary stent placement 2018 Severe aortic stenosis 05/20/2018 Overview (05/20/2018): Added automatically from request for surgery [id number] Chronic diastolic CHF (congestive heart failure) 03/17/2018 CKD stage 3 due to type 2 diabetes mellitus 03/08 Assessment & Plan (03/26/2017 5:16 PM CDT): 2017: BUN 46, creatinine 1.68, GFR 39. Type 2 diabetes mellitus 03/16/2016 Overview (01/10/2017): Mixed hyperlipidemia due to type 2 diabetes mellitus Nonrheumatic aortic valve stenosis 03/16/2016 Overview (01/10/2017): Nonrheumatic aortic (valve) stenosis Assessment & Plan (03/26/2017 5:18 PM CDT): Moderate aortic stenosis, very slight progression, no symptoms. F/u in 1 yr, obtain Echo after OV. Coronary artery disease of n ative artery of [place] heart with stable angina pectoris 03/16/2016 Overview (01/11/2017): CAD in [place] artery Assessment & Plan (02/03/2019 5:55 PM CDT): With history of coronary artery disease unable to proceed with any type of nonsteroidal anti-inflammatories. Patient is also on Plavix which is contraindicated Assessment & Plan (03/26/2017 5:19 PM CDT): NSTEMI and stents 2005; stress test 2009 = small fixed infarct. Has been stable for a long time but notices some tightness infrequently which may be angina although somewhat atypical in pattern. Patient will call if his angina progresses Refilled TNG Hypertensive heart disease without congestive he art failure 03/16/2016 Overview (01/11/2017): Hypertensive heart disease without CHF Assessment & Plan (03/26/2017 5:15 PM CDT): Has severe LVH, diastolic dysfunction on some Echos, CARABALLO. BP at goal. Premature atrial contraction 04/18/2015 Overview (01/11/2017): PAC (premature atrial contraction) Degeneration of intervertebral disc of lumbar re gion 12/08/2014 Lumbago 12/08/2014 Obstructive sleep apnea syndrome 03/29/2014 Overview (01/11/2017): MARI on CPAP Assessment & Plan (03/26/2017 5:16 PM CDT): Compliant with CPAP Essential hypertension 02/20/2014 Overview (01/10/2017): HYPERTENSION NOS Multiple-type hyperlipidemia 02/20/2014 Overview (01/11/2017): MIXED HYPERLIPIDEMIA Assessment & Plan (03/26/2017 5:16 PM CDT): January 2017: Cholesterol 141, LDL 73, TG 141, taking atorvastatin, doing well Resolved Problems Problem Noted Date Diagnosed Date Resolved Date Acute gastric ulcer with hemorrhage 07/25/2020 01/30/2021 H/O CHF 07/25/2020 01/23/2022 Coronary artery disease invo lving [place] coronary artery of [place] heart without angina pectoris 05/20/2018 01/07/2019 Overview (05/20/2018): Added automatically from request for surgery [id number] History of placement of sten t for coronary artery disease 03/16/2016 01/07/2019 Overview (01/10/2017): S/P coronary artery stent placement Post percutaneous translumin al coronary angioplasty 04/20/2014 01/07/2019 Overview (01/11/2017): STATUS-POST PTCA Nonrheumatic aortic valve disorder 02/20/2014 01/07/2019 Overview (01/10/2017): AORTIC VALVE DISORDER Abnormal cardiovascular stress test 02/20/2014 03/17/2018 Overview (01/10/2017): Abnormal stress test Encounters Date Type Department Care Team Description 11/12/2024 10:00 AM NURSE AIDE EVALUATOR Ancillary Procedure [facility] at [address] [place] [phone] Syncope and collapse 11/09/2024 11:00 AM NURSE AIDE EVALUATOR Ancillary Procedure [facility] at [address] [place] [phone] Syncope and collapse 11/09/2024 10:30 AM NURSE AIDE EVALUATOR Office Visit [facility] at [address] [place] [phone] Yusuf Barnes MD Syncope and collapse (Primary Dx); Obstructive sleep apnea syndrome; Chronic diastolic CHF (congestive heart failure) (HCC); Coronary artery disease of [place] artery of [place] heart with stable angina pectoris; 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); S/P TAVR (transcatheter aortic valve replacement) 11/09/2024 Orders Only [facility] [address] [place] [address] Provider, MD Ced from Last 3 Months Immunizations Immunization Administration Dates Next Due Influenza, Quadrivalent, Hig h Dose, Preservative Free, Intrr 06/07/2020 Influenza, Split 06/15/2013 Influenza, Trivalent, High D ose, Split, Preservative Free, Intramuscular 07/25/2019,07/15/2018,08/09/2017,07/26,2015 Influenza, Trivalent, Preser vative Free, Intramuscular 07/07/2014 Pneumococcal Conjugate PCV 13 04/16/2017 Pneumococcal Polysaccharide PPV23 03/24/2018 ZOSTER Recombinant 12/03/2019,09/28/2019 Surgical History Surgery Date Site/Laterality Comments CATARACT EXTRACTION, BILATERAL JOINT REPLACEMENT Bilateral hips OTHER SURGICAL HISTORY Transesophageal echocardiogram SKIN CANCER EXCISION APPENDECTOMY CHOLECYSTECTOMY COLONOSCOPY ESOPHAGOSCOPY / EGD FRACTURE SURGERY left leg X's 2, bilateral wrist, elbo TRANSURETHRAL RESECTION OF PROSTATE CYSTOSCOPY SPINE SURGERY Lumbar T12-S1 CARDIAC CATHETERIZATION CARDIAC STENT PLACEMENT CARPAL TUNNEL RELEASE Bilateral ABDOMINAL SURGERY BACK SURGERY SKIN BIOPSY VASCULAR SURGERY EYE SURGERY Bilateral cataract ANGIOPLASTY March 2006, May 2018 CATARACT EXTRACTION September 2011 CARDIAC VALVE REPLACEMENT July 2018 PROSTATE SURGERY TURP KNEE ARTHROSCOPY W/ LATERAL RELEASE LASIK BLADDER SURGERY FLUORO GUIDED ASPIRATION OR INJECTION LARGE JOINT RIGHT 02/04/2024 Right Medical History Medical History Date Comments Hx Other Medical Back Pain Osteoarthritis Osteoarthritis Spinal stenosis Spinal Stenosis Hx Other Medical C spine bulding disc, one disc removed; Comments: ELU 03/29/2014 - Sleep apnea Hypertension NSTEMI (non-ST elevated myocardial infarction) (HCC) Hyperlipidemia Atrial fibrillation (HCC) Aortic stenosis Type 2 diabetes mellitus (HCC) TIA (transient ischemic attack) Anxiety Cancer (HCC) skin Glaucoma History of cataract GERD (gastroesophageal reflu x disease) Kidney stone Neuropathy Rheumatoid arteritis (HCC) Diverticulosis Hernia, abdominal Fatty liver Coronary artery disease History of transfusion 06/2018 Anemia 08/07/2019 Osteoporosis Pelvis Cataract removed Emphysema of lung (HCC) Minute trace of infection and emphysema Aug 2020 Heart disease coronary arteries Neuromuscular disorder (HCC) Neuropathy Stroke (HCC) TIA's Peptic ulceration Controlled with medi cation (raprazole) Mixed conductive and sensorineural hearing loss Wear hearing aids to correct Brain concussion Several times due to falls Migraines Occasionally GI (gastrointestinal bleed) Family History Medical History Relation Name Comments Cancer Brother Luke Tapia Diabetes Brother Luke Tapia Hypertension Brother Luke Tapia Cancer Father Luke Tapia Coronary artery disease Father Luke Tapia Coronary artery disease; Cause of : Coronary artery disease Hearing loss Father Luke Tapia Heart attack Father Luke Tapia Heart disease Father Luke Tapia Alcohol abuse Maternal Grandfather Stew Fofana Arthritis Mother Lorraine Regina Depression Mother Lorrainejosette Tapia Diabetes Mother Lorraine Bhupendrae Memory loss Mother Lorraine Bhupendrae Miscarriages / Stillbirths Mother Lorraine Bhupendrae Other Mother Lorraine Nettience Macular Dege neration , DM; Cause of : Macular Degeneration , DM Vision loss Mother Lorrainejosette Tapia Cancer Paternal Grandfather Andrea Bhupendra Obesity Paternal Grandfather Andrea Bhupendra Alzheimer's disease Paternal Grandmother Padmini Shi mosley Memory loss Paternal Grandmother Padmini Bhupendra Relation Name Status Comments Brother Luke Tapia Father Luke Tapia (Age 86) Maternal Grandfather Stew Fofana Mother Lorraine Tapia (Age 94) Paternal Grandfather Andrea Sheffieldryan Paternal Grandmother Padmini Bhupendra Social History Tobacco Use Types Packs/Day Years Used Date Smoking Tobacco: Former Cigarettes 1 23.1 0 04/06/1962 - 05/07/1985 Pipe Smokeless Tobacco: Never Tobacco Cessation:Counseling Given: Not Answered Comments:Discontinued twice before final termination. Alcohol Use Standard Drinks/Week Comments Yes 0 (1 standard drink = 0.6 oz pur e alcohol) rarely [facility] Utilities Answer Date Recorded In the past 12 months has e electric, gas, oil, or water company threatened to shut off services in your home? No 03/09/2024 Social Connection and Isolat ion Panel [NHANES] Answer Date Recorded In a typical week, how many times do you talk on the phone with family, friends, or neighbors? More than three times a week 03/09/2024 How often do you get togethe r with friends or relatives? Three times a week 03/09/2024 How often do you attend chur ch or scientologist services? More than 4 times per year 03/09/2024 Do you belong to any clubs o r organizations such as caodaism groups, unions, fraternal or athletic groups, or school groups? Yes 03/09/2024 How often do you attend meet ings of the clubs or organizations you belong to? More than 4 times per year 03/09/2024 Are you , , di vorced, , never , or living with a partner? 03/09/2024 Overall Financial Resource Strain (CARDIA) Answe r Date Recorded How hard is it for you to pa y for the very basics like food, housing, medical care, and heating? Somewhat hard 03/09/2024 PHQ-2 Answer Date Recorded PHQ-2 Total Score (If total score is 3 or more points, staff should administer the PHQ-9) 0 03/12/2024 Hunger Vital Sign Answer Date Recorded Within the past 12 months, y ou worried that your food would run out before you got the money to buy more. Never true 03/09/20 24 Within the past 12 months, t he food you bought just didn't last and you didn't have money to get more. Never true 03/09/2024 PRAPARE - Transportation Answer Date Re corded In the past 12 months, has l ack of transportation kept you from medical appointments or from getting medications? No 12/2023 In the past 12 months, has l ack of transportation kept you from meetings, work, or from getting things needed for daily living? No 03/09/2024 Housing Stability Vital Sign Answer Hong e Recorded In the last 12 months, was t here a time when you were not able to pay the mortgage or rent on time? No 03/09/2024 In the past 12 months, how m any times have you moved where you were living? 1 03/09/2024 At any time in the past [facility], were you homeless or living in a prison (including now)? No 03/09/2024 Personal Safety Answer Date Recorded Have you ever been in or are you currently in a harmful physical or emotional relationship or is someone making you feel afraid or unsafe? Denies 03/06/2024 Sex and Gender Information Value Date Recorded Sex Assigned at Not on file Legal Sex Male 10:26 PM NURSE AIDE EVALUATOR Gender Identity Male 01/13/2020 10:39 AM CDT Sexual Orientation Straight 01/13/2020 10 :39 AM CDT Obstetrics History Last Filed Vital Signs Vital Sign Reading Time Taken Comments Blood Pressure 112/70 11/09/2024 10:42 AM NURSE AIDE EVALUATOR Pulse 83 11/09/2024 10:42 AM NURSE AIDE EVALUATOR Temperature 37.3 C (99.1 F) 03/12/2024 3:40 PM CDT Respiratory Rate 18 03/12/2024 3:40 PM CDT Oxygen Saturation 97% 11/09/2024 10:42 AM NURSE AIDE EVALUATOR Inhaled Oxygen Concentration - - Weight 88.5 kg (195 lb) 11/09/2024 10:42 AM NURSE AIDE EVALUATOR Height 167.6 cm (5' 6 ) 11/09/2024 10:42 AM NURSE AIDE EVALUATOR Body Mass Index 31.47 11/09/2024 10:42 AM NURSE AIDE EVALUATOR Plan of Treatment Health Maintenance Due Date Last Done Comments Albumin Creatinine Ratio, Urine 1939 Hemoglobin A1C 1939 Dilated Eye Exam 1939 Foot Exam 1939 DTaP/Tdap/Td Vaccine (1 - Tdap) 1950 Hepatitis B Screening 1957 Well Visit 65+ 2004 Influenza Vaccine (#1) 2024 , 07/25/2019, 07/15/2018, Additional history exists Depression Screening 11/12/2024 11/12/2023 eGFR 03/11/2025 03/11/2024, 06/0 01/2024, 03/09/2024, Additional history exists Fall Risk Assessment 03/12/2025 03/12/2024 Lipid Panel 08/11/2025 08/11/2024, 04/06, 02/13/2023, Additional history exists Pneumococcal vaccine 65+ Completed 03/24/2018, 04/06 Zoster Vaccine Completed 12/03/2019, 09/28/2019 Goals Goal Patient Goal Type Associated Problems Recent Progress Patient-Stated? Author TTW CHF Goal - Patient will improve their knowledge of HF and will be motivated to try to better manage at home TTW Case Management No Anna Caballero MSW Note: Problem: Ability to self-manage CHF Interventions: - Assess ability to self manage: Medication management, daily monitoring for signs/symptoms, adherence to a low sodium diet, routine exercise - Assess for barriers to care and provide education/resources needed - Encourage patient to compare logged results (weight, BP, HR, O2) to the previous day and week - Worsening signs/symptoms to monitor include: increased weight, increased swelling, change in exercise tolerance, breathing status at night (needing more pillows to sleep), dizziness or lightheadedness TTW AMI Goal - Patient will be knowledgeable of red flags for chest pain TTW Case Management No Anna Caballero MSW Note: Problem: Chest Pain Interventions: - Assess details of chest pain: frequency, severity, associated activities, other symptoms present during episode - If patient has nitro, provide education on purpose and ordered dose of Nitro - Provide education on chest pain red flags and when to notify physician or take emergency action TTW AMI Goal - Patient will be knowledgeable of red flags for AMI TTW Case Management No Anna Caballero, SARAH Note: Problem: Worsening Symptoms- AMI Interventions: - Assess for increased SOB, Indegestion, palpitations, nausea/ vomiting, loss of appetite - Determine how long symptoms have been occuring whether patient has sought medical attention - Provide patient with education on symptom relief and when it is appropriate to seek medical attention TTW AMI Goal - Patient will be knowledgeable about issues pertaining to catheterization TTW Case Management No Anna Caballero MSW Note: Problem: Knowledge deficit r/t cath/ stent Interventions: - Assess location of procedure. - Encourage patient to watch the wound site closely and look for discoloration, lumps, or increased pain - Encourage patient to contact OCM or PCP should symptoms worsen TTW Goal - Patient will have no medication-related complications due to new high risk medication usage (anti-platelet dual therapy) TTW Case Management Brandt Vaughn, SHERIFF'S DETECTIVE Note: Problem: High Risk medication - Anti-platelet dual therapy Interventions: - Provide education on reason that patient requires anti-platelet therapy, and possible side effects, including prolonged bleeding time, upset stomach and potential for GI Bleeds - Provide education on potential bleeding sites, including gums, urine, stool, vomit, phlegm and nosebleeds. Encourage patient to notify prescribing provider if continual bleeding is noted - Assess patient for s/s bleeding during each follow-up call TTW Goal - Patient is knowledgeable about condition when worsening and how to respond TTW Case Management No Brandt Orellana MSW Note: Problem: Knowledge deficit related to signs and symptoms of worsening condition Interventions: - Assess patient's level of understanding related to their condition(s), specific medications and self-management of their chronic conditions - Send educational materials to patient related to their chronic condition, including signs and symptoms, self-management actions, and serious symptoms that require urgent medical intervention - Assist patient/provider in developing an action plan for symptom management - Review with patient weekly: s/s worsening condition, self-management actions to take, when to call CM or provider Medical Devices Implanted Type Area Small Stock Facer Device Identifier Shelf Expiration Date Model / Serial / Lot [employer] Simplex P Full Dose Radiopaque Preblend Cement Bone Tobramycin 6197-9-001 - [id number] Implanted:Qty: 1 on 03/06/2024 by Neva Morgan MD at [facility] Bone Cement Right: Hip [facility] [id number] 05/06/2025 6197-9-001 / / [id number] [employer] Simplex P Full Dose Radiopaque Preblend Cement Bone Tobramycin 6197-9-001 - [id number] Implanted:Qty: 1 on 03/06/2024 by Neva Morgan MD at [facility] Bone Cement Right: Hip [facility] [id number] 06/06/2025 6197-9-001 / / [id number] [facility] Simplex P Full Dose Radiopaque Preblend Cement Bone Tobramycin 6197-9-001 - [id number] Implanted:Qty: 1 on 03/06/2024 by Neva Morgan MD at [facility] Bone Cement Right: Hip [facility] [facility] [id number] 05/06/2025 6197-9-001 / / [id number] [employer] Simplex P Full Dose Radiopaque Preblend Cement Bone Tobramycin 6197-9-001 - [id number] Implanted:Qty: 1 on 03/06/2024 by Neva Morgan MD at [facility] Bone Cement Right: Hip [facility] [id number] 05/06/2025 6197-9-001 / / [id number] [employer] [id number] Synergy 3.5mm 32mm 144cm Radiopaque 1 Access Port Inflation Lumen - [id number] Implanted:Qty: 1 on 05/23/2018 by Javier Darden MD at [facility] [employer] 11/19/2018 [id number] / / [id number] [employer] [id number] Synergy 3.5mm 12mm 144cm Radiopaque 1 Access Port Inflation Lumen - [id number] Implanted:Qty: 1 on 05/23/2018 by Javier Darden MD at [facility] [employer] 01/27/2020 [id number] / / [id number] [employer]ig [employer] [id number] Angio-Seal Vip Bondek-Plus 6fr .035in 70cm Hemostatic Latex Free - [id number] Implanted:Qty: 1 on 05/23/2018 by Javier Darden MD at [facility] [employer] 02/03/2019 [id number] / / [id number] [employer] [id number] Commander Garrett 3 Atrion 14fr Transcatheter Introducer Balloon - [id number] Implanted:Qty: 1 on 07/24/2018 by Javier Darden MD at [facility] [employer] 08/23/2019 [id number] / / [employer] 50mm 28mm Cement Constrained Hip 1mm .072in Offset Liner [id number] - [id number] Implanted:Qty: 1 on 03/06/2024 by Neva Morgan MD at [facility] Right: Hip [employer] [id number] 01/04/2025 [id number] / / [id number] [facility] Simplex P Full Dose Radiopaque Preblend Cement Bone Tobramycin 6197-9-001 - [id number] Implanted:Qty: 1 on 03/06/2024 by Neva Morgan MD at [facility] Right: Hip [facility] [id number] 05/06/2025 6197-9-001 / / [id number] [facility] Hip 5mm Offset [place] C Taper Sleeve Adapter Sterile Latex Free t - [id number] Implanted:Qty: 1 on 03/06/2024 by Neva Morgan MD at [facility] Right: Hip [facility] [id number] 01/30/2028-0005T / / [id number] [employer] 28mm Hip [place] Taper Head Femoral Biol[employer] Delta 6519-1-028 - [id number] Implanted:Qty: 1 on 03/06/2024 by Neva Morgan MD at [facility] Right: Hip [facility] [id number] 06/05/2025 6519-1-028 / / [id number] Explanted Type Area Small Stock Facer Device Identifier Shelf Expiration Date Model / Serial / Lot [employer] Trident 42mm 28mm Constrain Hip 0d F Insert Acetabular Uhmwpe [id number] - [id number] Explanted:Qty: 1 on 03/06/2024 at [facility] Right: Hip [facility] [facility] [id number] 09/06/2028 [id number] / / [id number] Synthes 4mm 6mm 55mm Small Hexagonal Socket Cancellous Full Thread Screw 206.055 - [id number] Explanted:Qty: 1 on 03/06/2024 by Neva Morgan MD at [facility] Right: Hip Synthes I 206.055 / / Synthes 4mm 6mm 30mm Small Hexagonal Socket Cancellous Full Thread Screw 206.030 - [id number] Explanted:Qty: 1 on 03/06/2024 by Neva Morgan MD at [facility] Right: Hip Synthes I 206.030 / / [facility] Hip 5mm Offset [place] C Taper Sleeve Adapter Sterile Latex Free -0005t - [id number] Explanted:Qty: 1 on 03/06/2024 at [facility] Right: Hip [facility] [id number] 05/03/2025 19-0005T / / [id number] [facility] 28mm Hip [place] Taper Head Femoral [employer] Delta 6519-1-028 - [id number] Explanted:Qty: 1 on 03/06/2024 at [facility] Right: Hip [facility] [id number] 10/25/2026 6519-1-02 8 [id number] Procedures Procedure Name Priority Date/Time Associated Diagnosis Comments US CAROTIDS DUPLEX BILATERAL Schedule Routine, Read Routine (OP Routine) 11/12/2024 10:16 AM NURSE AIDE EVALUATOR Syncope and collapse EXTENDED/SKILLED NURSING HOLTER PATCH (8 DAYS UP TO 15 DAYS) Routine 11/09/2024 11:02 AM NURSE AIDE EVALUATOR Syncope and collapse LIPID PANEL Routine 08/11/2024 3:56 PM NURSE AIDE EVALUATOR EGFR Routine 03/11/2024 11:31 PM CDT from Last 3 Months or Most Recently Relevant to Health Maintenance Results * US Carotids Duplex Bilateral (11/12/2024 10:16 AM NURSE AIDE EVALUATOR) LV EF % CONS SCIMAGE Anatomical Region Laterality Modality Vascular Bilateral Ultrasound 11/12/2024 9:58 AM NURSE AIDE EVALUATOR Narrative 11/13/2024 11:53 AM NURSE AIDE EVALUATOR [facility] [address] [place] [address] Carotid Duplex Ultrasound Report Patient Name: SATISH TAPIA A : 1940 (84y 3m) Study Date: 11/12/2024 9:58:14 AM Gender: M Celery Cutter: WENDY Location: [facility] Ref Provider: YUSUF BARNES Quality: Adequate Order Provider: YUSUF BARNES PROCEDURES: Carotid Report: Carotid duplex examination of the extracranial arteries was performed using 2D, color and spectral Doppler. INDICATIONS: R55 Syncope and collapse. HISTORY: Hypertension. Hyperlipidemia. Diabetic. Coronary artery disease- WI S/P stents. Congestive heart failure. AO stenosis S/P TAVR. TIA. CKD. Former smoker. COMPARISONS: No change compared to prior study. The previous exam was completed on 07/09/22. MEASUREMENTS: Right Value Left Value RT Prox CCA PSV 99 cm/sec LT Prox CCA PSV 107 cm/sec RT Prox CCA EDV 14 cm/sec LT Prox CCA EDV 15 cm/sec RT Distal CCA PSV 72 cm/sec LT Distal CCA PSV 95 cm/sec RT Distal CCA EDV 17 cm/sec LT Distal CCA EDV 14 cm/sec RT Prox ICA PSV 72 cm/sec LT Prox ICA PSV 91 cm/sec RT Prox ICA EDV 15 cm/sec LT Prox ICA EDV 22 cm/sec RT Mid ICA PSV 89 cm/sec LT Mid ICA PSV 92 cm/sec RT Mid ICA EDV 22 cm/sec LT Mid ICA EDV 23 cm/sec RT Distal ICA PSV 89 cm/sec LT Distal ICA PSV 104 cm/sec RT Distal ICA EDV 28 cm/sec LT Distal ICA EDV 28 cm/sec RT ECA Prx PSV 105 cm/sec LT ECA Prx PSV 123 cm/sec RT ICA/CCA 1.00 ratio LT ICA/CCA 0.96 ratio Rt Vert Dst PSV 54 cm/sec Lt Vert Dst PSV 55 cm/sec - FINDINGS: Rt Common Carotid Artery: Duplex imaging of the right common carotid artery is within normal limits without evidence of atherosclerotic disease. Rt Internal Carotid Artery: The plaque in the right internal carotid artery appears to be heterogeneous and smooth. Atherosclerotic changes of the right internal carotid artery without hemodynamically significant Doppler findings. <50% stenosis. Rt External Carotid Artery: Patent right external carotid artery with evidence of atherosclerotic disease present. Rt Vertebral Artery: The right vertebral artery is patent with antegrade flow. Lt Common Carotid Artery: Duplex imaging of the left common carotid artery is within normal limits without evidence of atherosclerotic disease. Lt Internal Carotid Artery: The plaque in the left internal carotid artery appears to be heterogeneous and smooth. Atherosclerotic changes of the left internal carotid artery without hemodynamically significant Doppler findings. <50% stenosis. Lt External Carotid Artery: The left external carotid artery is patent without evidence of atherosclerotic plaque. Lt Vertebral Artery: The left vertebral artery is patent with antegrade flow. Comments: Brachial artery systolic blood pressure is 142 on the right, 133 on the left. CONCLUSIONS: 1. The right internal carotid artery disease is consistent with a less than 50% stenosis. 2. The left internal carotid artery disease is consistent with a less than 50% stenosis. ATTESTATION: I have reviewed and interpreted the pertinent images and measurements of this study. I attest to the conclusions in the final report that is provided above. Electronically Signed By: Jaison Castro MD 11/13/2024 11:52:46 AM NURSE AIDE EVALUATOR Procedure Note Jaison Castro MD - 11/13/2024 [facility] [address] [place] [address]. [place] [address] Carotid Duplex Ultrasound Report Patient Name: SATISH TAPIA A : 1940 (84y 3m) Study Date: 11/12/2024 9:58:14 AM Gender: M Celery Cutter: WENDY Location: [facility] Ref Provider: YUSUF BARNES Quality: Adequate Order Provider: YUSUF BARNES PROCEDURES: Carotid Report: Carotid duplex examination of the extracranial arterieswas performed using 2D, color and spectral Doppler. INDICATIONS: R55 Syncope and collapse. HISTORY: Hypertension. Hyperlipidemia. Diabetic. Coronary artery disease- [place] S/Pstents. Congestive heart failure. AO stenosis S/P TAVR. TIA. CKD. Former smoker. COMPARISONS: No change compared to prior study. The previous exam was completed on07/09/22. MEASUREMENTS: Right Value Left Value RT Prox CCA PSV 99 cm/sec LT Prox CCA PSV 107 cm/sec RT Prox CCA EDV 14 cm/sec LT Prox CCA EDV 15 cm/sec RT Distal CCA PSV 72 cm/sec LT Distal CCA PSV 95 cm/sec RT Distal CCA EDV 17 cm/sec LT Distal CCA EDV 14 cm/sec RT Prox ICA PSV 72 cm/sec LT Prox ICA PSV 91 cm/sec RT Prox ICA EDV 15 cm/sec LT Prox ICA EDV 22 cm/sec RT Mid ICA PSV 89 cm/sec LT Mid ICA PSV 92 cm/sec RT Mid ICA EDV 22 cm/sec LT Mid ICA EDV 23 cm/sec RT Distal ICA PSV 89 cm/sec LT Distal ICA PSV 104 cm/sec RT Distal ICA EDV 28 cm/sec LT Distal ICA EDV 28 cm/sec RT ECA Prx PSV 105 cm/sec LT ECA Prx PSV 123 cm/sec RT ICA/CCA 1.00 ratio LT ICA/CCA 0.96 ratio Rt Vert Dst PSV 54 cm/sec Lt Vert Dst PSV 55 cm/sec - FINDINGS: Rt Common Carotid Artery: Duplex imaging of the right common carotidartery is within normal limits without evidence of atherosclerotic disease. Rt Internal Carotid Artery: The plaque in the right internal carotidartery appears to be heterogeneous and smooth. Atherosclerotic changes of the right internalcarotid artery without hemodynamically significant Doppler findings. <50% stenosis. Rt External Carotid Artery: Patent right external carotid artery withevidence of atherosclerotic disease present. Rt Vertebral Artery: The right vertebral artery is patent with antegradeflow. Lt Common Carotid Artery: Duplex imaging of the left common carotid arteryis within normal limits without evidence of atherosclerotic disease. Lt Internal Carotid Artery: The plaque in the left internal carotid arteryappears to be heterogeneous and smooth. Atherosclerotic changes of the left internalcarotid artery without hemodynamically significant Doppler findings. <50% stenosis. Lt External Carotid Artery: The left external carotid artery is patentwithout evidence of atherosclerotic plaque. Lt Vertebral Artery: The left vertebral artery is patent with antegradeflow. Comments: Brachial artery systolic blood pressure is 142 on the right, 133on the left. CONCLUSIONS: 1. The right internal carotid artery disease is consistent with a lessthan 50% stenosis. 2. The left internal carotid artery disease is consistent with a less than50% stenosis. ATTESTATION: I have reviewed and interpreted the pertinent images and measurements ofthis study. I attest to the conclusions in the final report that is provided above. Electronically Signed By: Jaison Castro MD 11/13/2024 11:52:46 AM NURSE AIDE EVALUATOR us Yusuf Barnes MD IM US PROCEDURES Final R esult * Extended/Fdc Holter Patch (8 days up to 15 days) (11/09/2024 11:02 AM NURSE AIDE EVALUATOR) Anatomical Region Laterality Modality Electrocardiogra phy Narrative 12/22/2024 3:14 PM CDT AMBULATORY SKEIN TIER REPORT Patient Name: Satish Tapia Date of : 1940 Requesting Physician: Dr. Barnes Date of interpretation: 12/22/24 Type of monitor : 14 day long-term Holter Date of the study/Enrollment period: 11/09/2024 through 11/23/2024 Indication: Syncope and collapse Quality of the study: Good Interpretation: Total of 13 days 23 hours and 32 minutes of diagnostic times analyzed. Sinus rhythm with heart rate variability between 54 and 221 beats per minute with an average heart rate of 84 beats per minute. While in sinus rhythm maximum heart rate was 131 beats per minute. Low frequency ventricular ectopy totaling 8670 beats which is less 1% ectopic burden but there were 11 occurrences of ventricular tachycardia with the fastest episode being at a rate of 221 beats per minute that lasted for 26 beats. There was also 8071 isolated PVCs and 290 beats and ventricular couplet form Occasional supraventricular ectopy totaling 10,880 beats which consisted of 10,339 isolated PACs, 268 beats were in couplet form and 13 runs of supraventricular tachycardia with the longest run being for 1 minute and 14 seconds at a rate of 165 beats per minute. Seven patient triggered events with symptoms of flutter, skipped beat, dizziness, and rapid heartbeat, lightheadedness. These all correlated to sinus rhythm or mild sinus tachycardia and on 3 occasions PVCs. Conclusions: Underlying sinus rhythm average heart rate of 84 beats per minute Low-frequency ventricular ectopy but with 11 runs of nonsustained ventricular tachycardia with the longest run being at a rate of 221 beats per minute and for 26 beats Occasional supraventricular ectopy including short atrial runs, PACs and atrial couplets Symptom events as detailed above Voice recognition software was used to complete this document, therefore, director of student financial services variances may occur. Yusuf Barnes MD, [facility] 12/22/24 us Yusuf Barnes MD [facility] Final Result * Lipid panel (08/11/2024 3:56 PM NURSE AIDE EVALUATOR) SCRIBED Cholesterol, Total 158 0 - 200 EXTERNAL LAB SCRIBED HDL 62 40 - 100 EXTERNAL LAB SCRIBED LDL 77 0 - 100 EXTERNAL LAB SCRIBED Triglycerides 106 0 - 150 EXTERNAL LAB Blood Historical Provider LAB BLOOD ORDERABLES Edit ed Result - Final EXTERNAL LAB * eGFR (03/11/2024 11:31 PM CDT) eGFR 61 >=60 mL/min/1. 73 m2 Comment: Interpretive Data Reference Interval Normal >/= 90 mL/min/1.73m2 Mildly decreased* 60 - 89 mL/min/1.73m2 Mildly to moderately decreased 45 - 59 mL/min/1.73m2 Moderately to severely decreased 30 - 44 mL/min/1.73m2 Severely decreased 15 - 29 mL/min/1.73m2 Kidney Failure < 15 mL/min/1.73m2 *Relative to young adult level Estimated glomerular filtration rate is determined by the 2020 CKD-EPI equation recommended by the National Kidney Foundation (A Unifying Approach to GFR Estimation: Recommendations of the NKF-ASK Task Force on Reassessing the Inclusion of Race in Diagnosing Kidney Disease, JASN 2020). The CKD-EPI equation should not be used for patients with unstable renal function and has not been validated in children and those over 70. Current interpretive data was last reviewed 2021. Blood 03/11/2024 11:3 1 PM CDT 03/12/2024 12:37 AM CDT Neva Morgan MD LAB BLOOD ORDERABLES F inal Result [facility] Department [place] [address] from Last 3 Months or Most Recently Relevant to Health Maintenance Insurance MEDICARE [facility] MEDICARE [facility] MEDICARE [facility] FEDERAL Advance Directives For more information, please contact: [phone] Documents on File Type Date Recorded Patient Clinical Audiologist Expl anation ADVANCE DIRECTIVE 09/11/2013 12:00 AM ELISSA CHOWDHURY WILL ADVANCE DIRECTIVE 09/11/2013 12:00 AM CATIA R OF COVERSTITCH ELASTIC ATTACHER FINANCIAL/MEDICAL * Full Code (Latest Code Status on File) Date Activated Date Inactivated Comments 03/06/2024 5:28 PM 03/12/2024 10:27 PM * Full Code Date Activated Date Inactivated Comments 06/18/2018 2:56 PM 07/24/2018 5:29 AM * Full Code Date Activated Date Inactivated Comments 06/18/2018 10:05 AM 06/19/2018 3:31 PM Care Teams Warehouse Pricing And Inventory Clerk Relationship Specialty Start Date End Date Sandoval Luis MD [address] [address] PCP - General 11/05/11
--- OUTSIDE RECORDS SUMMARY | 2025-01-19 13:18 | XMS_ITS | Encounter Summary ---
Author Organization [facility] Facility Care Team Providers Care Stablehand Name Role Phone Sandoval Luis MD Primary Care Provider Anna Caballero MERCHANDISE FLOW ASSOCIATE Unavailable [phone] Brandt Orellana MERCHANDISE FLOW ASSOCIATE Unavailable [phone] Tabby Ortiz DNP Unavailable [phone] Encounter Details Date Type Department Care Team (Latest Contact Info) Description 05/28/2016 Orders Only [facility] CLINCONV ProviderCed MD [address] [place] [address] Social History Tobacco Use Types Packs/Day Years Used Date Smoking Tobacco: Some Days Cigarettes Last attempted to quit: 10/07/1984 Alcohol Use Standard Drinks/Week Comments Yes 0 (1 standard drink = 0.6 oz pur e alcohol) Sex and Gender Information Value Date Recorded Sex Assigned at Not on file Legal Sex Male 10:26 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 Gender Identity Male 01/13/2020 10:39 AM CDT [...] on filedocumented in this encounter Care Teams Stablehand Relationship Specialty Start Date End Date Sandoval Luis MD [address] [place] [address] PCP - General 11/05/11 Anna Caballero, MERCHANDISE FLOW ASSOCIATE [address] [place] [address] Cell Plasterer 06/16/18 08/13/18 Brandt Orellana, MERCHANDISE FLOW ASSOCIATE [address] [place] [address] Cell Plasterer 06/16/18 08/13/18 Tabby Ortiz, GIDEON [address] [place] [address] Nurse Practitioner Internal Medicine 06/16/18 08/13/18 documented as of this encounter
--- OUTSIDE RECORDS SUMMARY | 2025-01-19 13:18 | XMS_ITS | Clinical Summary ---
Author Organization [facility] Address [address] [place] [address] Care Team Providers Care Copy Center Specialist Name Role Phone Stewart Dominguez MD Primary Care Provider Source Comments [facility],non-owned Affiliates and Associated Physician Practices is amultiple site organization consisting of ambulatory clinics and hospital sitesin [place], [place], [place] and [place]. This disclosure is being madepursuant to the Care Everywhere program and may not contain all information available regarding this patient. Last updated 18.[facility] X-IO Social History Tobacco Use Types Packs/Day Years Used Date Smoking Tobacco: Never Assessed Sex and Gender Information Value Date Recorded Sex Assigned at Not on file Legal Sex Male 5:49 PM FIELD SERVICE REP Gender Identity Not on file Sexual Orientation Not on file Plan of Treatment Health Maintenance Due Date Last Done Comments MEDICARE AWV 12 MONTHS 1940 DTAP/TDAP/TD VACCINES (1 - Tdap) 1958 PNEUMOCOCCAL VACCINE 50+ (1 of 1 - PCV) 1989 ZOSTER VACCINE (1 of 2) 1989 Respiratory Syncytial Virus (RSV) Vaccine Pt: or over 60 yrs (1 - 1-dose 75+ series) 2014 COVID-19 VACCINE ( - 2023-2 5 season) 2024 DEPRESSION SCREENING 10/07/2024 INFLUENZA VACCINE (Season Ended) 2025 HEPATITIS B VACCINE Aged Out No longe r eligible based on patient's age to complete this topic HIB VACCINE Aged Out No longer eligi ble based on patient's age to complete this topic HPV VACCINE Aged Out No longer eligi ble based on patient's age to complete this topic MENINGOCOCCAL (Group B) VACC INE SHARED DECISION-MAKING Aged Out No longer eligibl e based on patient's age to complete this topic MENINGOCOCCAL GROUPS A/C/Y/W VACCINE Aged Out No longer eligible b ased on patient's age to complete this topic Insurance MEDICARE MEDICARE [facility] Care Teams Copy Center Specialist Relationship Specialty Start Date End Date Stewart Dominguez MD [address] [place] [address] [facility] - General 04/22/12
--- OUTSIDE RECORDS SUMMARY | 2025-01-19 13:18 | XMS_ITS | Encounter Summary ---
Author Organization [facility] Facility Care Team Providers Care Director Of Student Services Name Role Phone Sandoval Luis MD Primary Care Provider Anna Caballero ELECTRONIC SYSTEM ENGINEER Unavailable [phone] Brandt Orellana ELECTRONIC SYSTEM ENGINEER Unavailable [phone] Tabby Ortiz DNP Unavailable [phone] Encounter Details Date Type Department Care Team (Latest Contact Info) Description 06/13/2016 Orders Only [facility] CLINCONV ProviderCed MD [address] [place] [address] Social History Tobacco Use Types Packs/Day Years Used Date Smoking Tobacco: Some Days Cigarettes Last attempted to quit: 10/07/1984 Alcohol Use Standard Drinks/Week Comments Yes 0 (1 standard drink = 0.6 oz pur e alcohol) Sex and Gender Information Value Date Recorded Sex Assigned at Not on file Legal Sex Male 10:26 PM DETECTIVE CAPTAIN Gender Identity Male 01/13/2020 10:39 AM CDT [...] on filedocumented in this encounter Care Teams Director Of Student Services Relationship Specialty Start Date End Date Sandoval Luis MD [address] [place] [address] PCP - General 11/05/11 Anna Caballero, ELECTRONIC SYSTEM ENGINEER [address] [place] [address] Refrigerator Mover 06/16/18 08/13/18 Brandt Orellana, ELECTRONIC SYSTEM ENGINEER [address] [address] Refrigerator Mover 06/16/18 08/13/18 Tabby Ortiz, GIDEON [address] [place] [address] Nurse Practitioner Internal Medicine 06/16/18 08/13/18 documented as of this encounter
--- OUTSIDE RECORDS SUMMARY | 2025-01-19 13:18 | XMS_ITS | Encounter Summary ---
Author Organization [facility] Facility Care Team Providers Care Material Loader Name Role Phone Sandoval Luis MD Primary Care Provider Anna Caballero CLIENT DEVELOPMENT DIRECTOR Unavailable [phone] Brandt Orellana CLIENT DEVELOPMENT DIRECTOR Unavailable [phone] Tabby Ortiz DNP Unavailable [phone] Encounter Details Date Type Department Care Team (Latest Contact Info) Description 05/29/2016 Orders Only [facility] CLINCONV ProviderCed MD [address] [place] [address] Social History Tobacco Use Types Packs/Day Years Used Date Smoking Tobacco: Some Days Cigarettes Last attempted to quit: 10/07/1984 Alcohol Use Standard Drinks/Week Comments Yes 0 (1 standard drink = 0.6 oz pur e alcohol) Sex and Gender Information Value Date Recorded Sex Assigned at Not on file Legal Sex Male 10:26 PM CLUSTER BORE OPERATOR Gender Identity Male 01/13/2020 10:39 AM CDT Sexual Orientation Straight 01/13/2020 10 :39 AM CDT documented as of this encounter Plan of Treatment Not on file documented as of this encounter Procedures Procedure Name Priority Date/Time Associated Diagnosis Comments PROCEDURE - RESULT 06/01/2016 12 :00 AM CDT PROCEDURE - RESULT 06/01/2016 12 :00 AM CDT documented in this encounter Results * PROCEDURE - RESULT (06/01/2016 12:00 AM CDT) Narrative 06/01/2016 12:00 AM CDT Ordered by an unspecified provider. us Historical Provider MD Final Res ult * PROCEDURE - RESULT (06/01/2016 12:00 AM CDT) Narrative 06/01/2016 12:00 AM CDT Ordered by an unspecified provider. Historical Provider Final Res ult documented in this encounter Visit Diagnoses Not on filedocumented in this encounter Care Teams Material Loader Relationship Specialty Start Date End Date Sandoval Luis MD [address] [place] [address] PCP - General 11/05/11 Anna Caballero, CLIENT DEVELOPMENT DIRECTOR [address] [place] [address] Fire Protection Inspector 06/16/18 08/13/18 Brandt Orellana, SARAH [address] [place] [address] Fire Protection Inspector 06/16/18 08/13/18 Tabby Ortiz DNP [address] [place] [address] Nurse Practitioner Internal Medicine 06/16/18 08/13/18 documented as of this encounter
--- OUTSIDE RECORDS SUMMARY | 2025-01-19 13:18 | XMS_ITS | Encounter Summary ---
Author Organization [facility] Address [address] [place] [address] Care Team Providers Care Inspector Subassembly Name Role Phone Stewart Dominguez MD Primary Care Provider Encounter Details Date Type Department Care Team (Late st Contact Info) Description 11/04/2018 Lab Requisition [facility] D[facility] Lab [address] [facility] [place] [address] Norah Sanchez MD [address] [facility] [address] [place] [address] Social History Tobacco Use Types Packs/Day Years Used Date Smoking Tobacco: Never Assessed Sex and Gender Information Value Date Recorded Sex Assigned at Not on file Legal Sex Male 5:49 PM LEATHER SOFTENER Gender Identity Not on file Sexual Orientation Not on file documented as of this encounter Plan of Treatment Not on file documented as of this encounter Procedures Procedure Name Priority Date/Time Associated Diagnosis Comments DERMATOPATH TECHNICAL REPORT Routine 11/03/2018 12:00 AM LEATHER SOFTENER documented in this encounter Results * DERMATOPATH TECHNICAL REPORT (11/03/2018 12:00 AM LEATHER SOFTENER) Case Report Dermatopathology Report Case: [id number] Authorizing Provider: Norah Sanchez MD Collected: 11/03/2018 12:00 AM Pathologist: Wei Cao MD Received: 11/04/2018 06:58 AM Specimens: A) - Skin, left nose B) - Skin, right ordoñez 9 5:25 PM LEATHER SOFTENER DERMATOPATHOLOGY LABORATORY Clinical History A: R/O BCC. [place] papule. B: R/O NMSC vs stasis. Crusted pink plaque. 9 5:25 PM LEATHER SOFTENER DERMATOPATHOLOGY LABORATORY Gross Description Specimen A: Received is one formalin filled container labeled with the patient's name and designated left nose. The specimen consists of a shave measuring [id number]. Jar 0. Specimen B: Received is one formalin filled container labeled with the patient's name and designated right ordoñez. The specimen consists of a shave measuring [id number]. Jar 0. [facility] Dermatopathology Laboratory performed the technical component only. 9 5:[address] [facility] DERMATOPATHOLOGY LABORATORY Embedded Images 9 5:[address] [facility] DERMATOPATHOLOGY LABORATORY DISCLAIMER An external and internal positive and negative controls are appropriate for the histochemical, immunohistochemical and immunofluorescence stain(s) in this case (if any), except where stated explicitly. The performance characteristics of the stain(s) cited in this report were developed and its performance characteristic determined by the Dermatopathology Laboratory at [facility], directed by Dr. Steven Cao. These tests need not be, and therefore are not, approved by the [place] Food and Drug Administration. The tests are used for clinical purposes. 9 5:[address] [facility] DERMATOPATHOLOGY LABORATORY Pathology/Cytology TISSUE SPECIMEN FROM SKIN / Unknown 11/03/2018 11/04/2018 6:58 AM LEATHER SOFTENER Miscellaneous samples (specimen) TISSUE SPECIMEN FROM SKIN / Unknown 11/03/2018 11/04/2018 6:58 AM LEATHER SOFTENER us Norah Sanchez MD LAB - PATHOLOGY/CYTOLOGY ORD ERABLES Final Result DERMATOPATHOLOGY LABORATORY [facility] - Department of Dermatology [address] [facility] 5th Floor Lab [address] [place], [place] [id number] [place] [address] documented in this encounter Visit Diagnoses Not on filedocumented in this encounter Care Teams Inspector Subassembly Relationship Specialty Start Date End Date Stewart Dominguez MD [address] [place] [address] PCP - General 04/22/12 documented as of this encounter
--- OUTSIDE RECORDS SUMMARY | 2025-01-19 13:18 | XMS_ITS | Encounter Summary ---
Author Organization [facility] Facility Care Team Providers Care Public Records Researcher Name Role Phone Sandoval Luis MD Primary Care Provider Anna Caballero MARBLE CLEANER Unavailable [phone] Brandt Orellana MARBLE CLEANER Unavailable [phone] Tabby Ortiz DNP Unavailable [phone] Encounter Details Date Type Department Care Team (Latest Contact Info) Description 05/31/2016 Orders Only [facility] CLINCONV ProviderCed MD [address] [place] [id number] Social History Tobacco Use Types Packs/Day Years Used Date Smoking Tobacco: Some Days Cigarettes Last attempted to quit: 10/07/1984 Alcohol Use Standard Drinks/Week Comments Yes 0 (1 standard drink = 0.6 oz pur e alcohol) Sex and Gender Information Value Date Recorded Sex Assigned at Not on file Legal Sex Male 10:26 PM EMERGENCY MANAGEMENT DIRECTOR Gender Identity Male 01/13/2020 10:39 AM CDT Sexual Orientation Straight 01/13/2020 10 :39 AM CDT documented as of this encounter Plan of Treatment Not on file documented as of this encounter Procedures Procedure Name Priority Date/Time Associated Diagnosis Comments PROCEDURE - RESULT 05/31/2016 12 :00 AM CDT PROCEDURE - RESULT 05/31/2016 12 :00 AM CDT documented in this encounter Results * PROCEDURE - RESULT (05/31/2016 12:00 AM CDT) Narrative 05/31/2016 12:00 AM CDT Ordered by an unspecified provider. us Historical Provider MD Final Res ult * PROCEDURE - RESULT (05/31/2016 12:00 AM CDT) Narrative 05/31/2016 12:00 AM CDT Ordered by an unspecified provider. Historical Provider Final Res ult documented in this encounter Visit Diagnoses Not on filedocumented in this encounter Care Teams Public Records Researcher Relationship Specialty Start Date End Date Sandoval Luis MD [address] [place] [address] PCP - General 11/05/11 Anan Caballero, MARBLE CLEANER [address] [place] [address] Music Educator 06/16/18 08/13/18 Brandt Orellana, SARAH [address] [place] [address] Music Educator 06/16/18 08/13/18 Tabby Ortiz DNP [address] [place] [address] Nurse Practitioner Internal Medicine 06/16/18 08/13/18 documented as of this encounter
--- OUTSIDE RECORDS SUMMARY | 2025-01-19 13:18 | XMS_ITS | Clinical Summary ---
Author Organization [facility] [address] [facility] Address [address] [place] [address] Care Team Providers Care Maritime Engineer Name Role Phone Sandoval Luis MD Primary Care Provider [phone] Allergies Active Allergy Reactions Criticality Noted Date Comments Acetaminophen Anxiety,Other (See Comments) High 10/28/2019 Hypertension anxiety Cyclobenzaprine Other (See Comments) Low 02/18/2018 All muscle relaxers relax the diaphragm Iodine And Iodide Containing Products Hives High 10/28/2019 Medications amoxicillin (AMOXIL) 500 mg capsule TAKE FOUR CAPSULES BY MOUTH ONE HOUR BEFORE APPOINTMENT 9 Active aspirin (MICHAEL CHEWABLE) 81 mg Tablet, Chewable Take 81 mg by mouth. 8 Active atorvastatin (LIPITOR) 40 mg tablet Take 1 Tablet by mouth daily at bedtime. 8 Active azelastine (ASTEPRO) 0.15 % (205.5 mcg) nasal spray USE 2 SPRAY(S) IN EACH NOSTRIL TWICE DAILY 9 Active azelastine-flut icasone (Dymista) 137-50 mcg/spray [place], Non-Aerosol [The details of the medication are not available because there are pending changes by a home health clinician.] 6 Active blood sugar diagnostic (FreeStyle Lite Strips) Strip 8 Active cholecalciferol , vitamin D3, 5,000 unit [The details of the medication are not available because there are pending changes by a home health clinician.] 6 Active cyanocobalamin 1,000 mcg Tablet 1,000 mcg. 6 Active diazePAM (VALIUM) 10 mg tablet TAKE 1 TABLET BY MOUTH ONCE DAILY FOR ANXIETY 0 Active docusate sodium (COLACE) 100 mg capsule Take 100 mg by mouth. 8 Active doxycycline hyclate (VIBRAMYCIN) 100 mg capsule TAKE 1 CAPSULE BY MOUTH ONCE DAILY 9 Active ezetimibe (ZETIA) 10 mg tablet TAKE 1 TABLET BY MOUTH ONCE DAILY 9 Active fenofibrate (LOFIBRA) 160 mg Tablet TAKE 1 TABLET BY MOUTH ONCE DAILY 9 Active furosemide (LASIX) 40 mg tablet TAKE 1 2 (ONE HALF) TABLET BY MOUTH ONCE DAILY IN THE MORNING 9 Active gabapentin (NEURONTIN) 400 mg capsule TAKE 1 CAPSULE BY MOUTH 4 TIMES DAILY 9 Active glimepiride (AMARYL) 1 mg tablet TAKE 1 TABLET BY MOUTH ONCE DAILY IN THE MORNING 9 Active lisinopril (PRINIVIL) 10 mg tablet TAKE 1 TABLET BY MOUTH ONCE DAILY 9 Active meclizine (ANTIVERT) 25 mg tablet TAKE 1 TABLET BY MOUTH THREE TIMES DAILY NEEDED FOR DIZZINESS OR VERTIGO 0 Active Multivitamin Capsule Take one by mouth one time per day 9 Active nitroglycerin (NITROSTAT) 0.4 mg Tablet, Sublingual DISSOLVE ONE TABLET UNDER THE TONGUE EVERY 5 MINUTES NEEDED FOR CHEST PAIN. DO NOT EXCEED A TOTAL OF 3 DOSES IN 15 MINUTES 8 Active ondansetron (ZOFRAN ODT) 4 mg Tablet, Rapid Dissolve DISSOLVE 1 TABLET IN MOUTH EVERY 6 HOURS NEEDED FOR NAUSEA AND FOR VOMITING 0 Active potassium citrate (UROCIT-K) 10 mEq (1,080 mg) Extended Release tablet [The details of the medication are not available because there are pending changes by a home health clinician.] 9 Active primidone (MYSOLINE) 50 mg tablet TAKE 2 TABLETS BY MOUTH TWICE DAILY 9 Active tamsulosin (FLOMAX) 0.4 mg capsule TAKE 1 CAPSULE BY MOUTH ONCE DAILY 0 Active timolol maleate (TIMOPTIC) 0.5% solution INSTILL 1 DROP INTO EACH EYE TWICE DAILY DIRECTED 9 Active traMADol (ULTRAM) 50 mg tablet Take 50 mg by mouth every 6 hours as needed. NEEDED FOR PAIN 0 Active traZODone (DESYREL) 50 mg tablet Take 50 mg by mouth daily at bedtime. 0 Active triamcinolone acetonide (KENALOG) 0.1 % Cream APPLY CREAM EXTERNALLY TO BACK ONCE DAILY NEEDED 9 Active zolpidem (AMBIEN) 5 mg tablet TAKE 1 TABLET BY MOUTH EVERY DAY AT BEDTIME NEEDED 9 Active Active Problems Problem Noted Date Diagnosed Date Ulnar neuropathy at elbow, right 05/10/2020 Carpal tunnel syndrome, right 05/10/2020 Postlaminectomy syndrome, lumbar region 05/10/20 20 Cervical spondylosis with radiculopathy 10/27/19 20 Family History Medical History Relation Name Comments Cancer Brother pancreatic canc er Colon Cancer Father Heart Disease Father Dementia Mother Diabetes Mother Glaucoma Mother No Known Problems Sister Relation Name Status Comments Brother Father Mother Sister Social History Tobacco Use Types Packs/Day Years Used Date Smoking Tobacco: Former Cigarettes Q uit: 1985 Alcohol Use Standard Drinks/Week Comments Yes 0 (1 standard drink = 0.6 oz pur e alcohol) rare Sex and Gender Information Value Date Recorded Sex Assigned at Not on file Legal Sex Male 11:09 AM CORPORATE COORDINATOR Gender Identity Not on file Sexual Orientation Not on file Occupation Industry Job Start Date Job End Date Not on file Not on file Not on file Not on file Plan of Treatment Health Maintenance Due Date Last Done Comments DIABETES ANNUAL FOOT EXAM 1957 DIABETES ANNUAL RETINAL EXAM 1957 DIABETES HBA1C Q 6 MONTHS 1957 DIABETES MICROALBUMIN ANNUAL SCREEN 1957 LDL CHOLESTEROL ANNUAL 1957 DTAP/TDAP/TD VACCINES (1 - Tdap) 1958 PNEUMOCOCCAL VACCINE 50+ YEA RS (1 of 2 - PCV) 1958 ZOSTER VACCINE (1 of 2) 1989 RSV VACCINE (60+ or ) (1 - 1-dose 75+ series) 2014 INFLUENZA VACCINE (#1) 2024 06/20/2020, 2013 Care Teams Maritime Engineer Relationship Specialty Start Date End Date Sandoval Luis MD [address] [id number] PCP - General Family Practice 10/21/19
--- OUTSIDE RECORDS SUMMARY | 2025-01-19 13:18 | XMS_ITS | Encounter Summary ---
Author Organization [facility] Address [facility] [place] [address] Care Team Providers Care Senior Data Quality Analyst Name Role Phone Sandoval Luis MD Primary Care Provider [phone] Encounter Details Date Type Department Care Team (Late st Contact Info) Description 07/19/[address] [facility] Pre-Admission Testing [address] [id number] Marshall Jara MD [address] [place], [place] [address] Social History Tobacco Use Types Packs/Day Years Used Date Smoking Tobacco: Former Cigarettes Q uit: 1985 Smokeless Tobacco: Never Comments:na Alcohol Use Standard Drinks/Week Comments Not Currently 0 (1 standard drink = 0.6 oz pur e alcohol) occasionally OASIS D0700: Social Isolation Answer Da te Recorded Frequency of experiencing loneliness or isolatio n Never 05/08/2023 OASIS B1300: Health Literacy Answer Hong e Recorded Frequency of needing help to read materials from doctor or pharmacy Never 05/08/2023 Humiliation, Afraid, Rape, and Kick questionnair e Answer Date Recorded Within the last year, have y ou been afraid of your partner or ex-partner? No 07/23/2023 Within the last year, have y ou been humiliated or emotionally abused in other ways by your partner or ex-partner? No Within the last year, have y ou been kicked, hit, slapped, or otherwise physically hurt by your partner or ex-partner? No 07/23/2023 Within the last year, have y ou been raped or forced to have any kind of sexual activity by your partner or ex-partner? No 07/23/2023 Overall Financial Resource Strain (CARDIA) Answe r Date Recorded How hard is it for you to pa y for the very basics like food, housing, medical care, and heating? Not hard at all 07/23/2023 PHQ-2 Answer Date Recorded PHQ-2 Score - If the patient scores above 3, please move on to questions 3-9 0 08/16/2022 [facility] ional [facility] - Occupational Stress Questionnaire Answer Date Recorded Do you feel stress - tense, restless, nervous, or anxious, or unable to sleep at night because your mind is troubled all the time - these days? Not at all 07/23/2023 Exercise Vital Sign Answer Date Recorde d On average, how many days pe r week do you engage in moderate to strenuous exercise (like a brisk walk)? 0 days 07/23/2023 On average, how many minutes do you engage in exercise at this level? 0 min 07/23/2023 Hunger Vital Sign Answer Date Recorded Within the past 12 months, y ou worried that your food would run out before you got the money to buy more. Never true 07/23/20 23 Within the past 12 months, t he food you bought just didn't last and you didn't have money to get more. Never true 07/23/2023 PRAPARE - Transportation Answer Date Re corded In the past 12 months, has l ack of transportation kept you from medical appointments or from getting medications? No 07/07 In the past 12 months, has l ack of transportation kept you from meetings, work, or from getting things needed for daily living? No 07/23/2023 Housing Stability Vital Sign Answer Hong e Recorded In the last 12 months, was t here a time when you were not able to pay the mortgage or rent on time? No 07/23/2023 In the last 12 months, how many places have you lived? 1 07/23/2023 In the last 12 months, was t here a time when you did not have a steady place to sleep or slept in a snf (including now)? No 07/23/2023 Sex and Gender Information Value Date Recorded Sex Assigned at Male 08/14/2023 3:20 PM MARKETING PROJECT SPECIALIST Legal Sex Male 7:28 PM CDT Gender Identity Male 08/14/2023 3:20 PM MARKETING PROJECT SPECIALIST Sexual Orientation Straight 08/14/2023 3: 20 PM MARKETING PROJECT SPECIALIST documented as of this encounter Functional Status * Are you deaf or do you have serious difficulty hearing Answer Date of Assessment Author Status No 04/15/2023 9:23 AM CDT Indu Bonilla RN Active * Are you blind or do you have serious difficulty seeing, even when wearing glasses? Answer Date of Assessment Author Status No 04/15/2023 9:23 AM DHAVALT Indu Bonilla RN Active * Do you have serious difficulty walking or climbing stairs? Answer Date of Assessment Author Status No 04/15/2023 9:23 AM DHAVALT Indu Bonilla RN Active * Do you have difficulty dressing or bathing? Answer Date of Assessment Author Status No 04/15/2023 9:23 AM DHAVALT Indu Bonilla RN Active * Because of a physical, mental, or emotional condition, do you have difficulty doing errands alone such as visiting a doctor's office or shopping? Answer Date of Assessment Author Status No 04/15/2023 9:23 AM DHAVALT Indu Bonilla RN Active documented as of this encounter Mental Status * Because of a physical, mental, or emotional condition, do you have serious difficulty concentrating, remembering, or making decisions? Answer Entry Date Author Status No 04/15/2023 9:23 AM Indu Luna RN Active documented in this encounter Plan of Treatment Not on file documented as of this encounter Goals Goal Patient Goal Type Associated Problems Recent Progress Patient-Stated? Author Patient will return to prior living situation and remain independent in ADLs upon discharge from hospital Lifestyle No Tegan Raya RN documented as of this encounter Results * URINALYSIS WI REFLEX TO CULTURE (07/11/2023 1:09 PM CDT) COLOR (U) YELLOW 07/11/2023 3:07 PM CDT [facility] TRANSPARENCY CLEAR 07/11/2023 3:07 PM T [facility] SPECIFIC GRAVITY (U) 1.020 1.000 - 1.030 07/11/2023 3:07 PM T [facility] U PH 6.0 5.0 - 9.0 07/11/2023 3:07 PM T [facility] LEUKOCYTES (U) NEGATIVE NEGATIVE 07/11/2023 3:07 PM T [facility] NITRITES NEGATIVE NEGATIVE 07/11/2023 3:07 PM T [facility] PROTEIN RANDOM (U) NEGATIVE NEGATIVE 07/11/2023 3:07 PM T [facility] GLUCOSE (U) NEGATIVE NEGATIVE 07/11/2023 3:07 PM T [facility] KETONES MG/DL (U) NEGATIVE NEGATIVE 07/11/2023 3:07 PM T [facility] BILIRUBIN (U) NEGATIVE NEGATIVE 07/11/2023 3:07 PM T [facility] BLOOD (U) NEGATIVE NEGATIVE 07/11/2023 3:07 PM T [facility] WBC/HPF 0-5 0 - 5 /HPF 07/11/2023 3:07 PM T [facility] RBC/HPF NONE SEEN 0 - 5 /HPF 07/11/2023 3:07 PM T [facility] EPI/HPF RARE /HPF 07/11/2023 3:07 PM [facility] CULTURE & SENSITIVITY INDICATED? SPECIMEN SETUP FOR CULTURE 07/11/2023 3:07 PM [facility] URINE SPECIMEN OBTAINED BY CLEAN CATCH PROCEDURE / Unknown 07/11/2023 1:09 PM CDT Marshall Jara MD URINE ORDERABLES Final Resu lt [facility] [address] [place] [address], documented in this encounter Visit Diagnoses Diagnosis Cervical spondylosis with radiculopathy- Primary Cervical spondylosis with myelopathy Myelopathy ([facility]) Unspecified disease of spinal cord Multiple-type hyperlipidemia Other and unspecified hyperlipidemia Chronic diastolic CHF (congestive heart failure) ([facility]) Chronic diastolic heart failure 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 Essential hypertension Unspecified essential hypertension 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 ([facility]) Nonrheumatic aortic valve stenosis Aortic valve disorders Severe aortic stenosis Aortic valve disorders Premature atrial contraction Supraventricular premature beats S/P drug eluting coronary stent placement S/P TAVR (transcatheter aortic valve replacement) Type 2 diabetes mellitus ([facility]) Type II or unspecified type diabetes mellitus without mention of complication, not stated as uncontrolled Pelvic obliquity Acquired deformity of pelvis CVA (cerebral vascular accident) ([facility]) Unspecified cerebral artery occlusion with cerebral infarction TIA (transient ischemic attack) Unspecified transient cerebral ischemia Stroke ([facility]) Unspecified cerebral artery occlusion with cerebral infarction Spinal stenosis of lumbar region with neurogenic claudication Spinal stenosis, lumbar region, with neurogenic claudication Iron deficiency anemia due to chronic blood loss 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 ([facility]) H/O gastric ulcer Personal history of other diseases of digestive system COVID-19 documented in this encounter Additional Health Concerns Infection Onset Date Last Indicated Resolved Time COVID-19 Rule Out 08/17/2023 08/17/2023 08/17/2023 11:41 AM MARKETING PROJECT SPECIALIST documented as of this encounter Care Teams Senior Data Quality Analyst Relationship Specialty Start Date End Date Sandoval Luis MD [address] [place] [address] PCP - General FAMILY PRACTICE 10/23/19 documented as of this encounter
--- OUTSIDE RECORDS SUMMARY | 2025-01-19 13:18 | XMS_ITS | CONTINUITY OF CARE DOCUMENT ---
Author Name [email or web address] Address Unknown Organization [facility] Address [address] [facility] [address] [place] [address] Phone [phone] Care Team Providers Care Fuselage Framer Name Role Phone Demond PAINTING, Loly Unavailable NATALIO COOPER MD Unavailable [phone] NATALIO COOPER MD Unavailable INSURANCE PROVIDERS Payer name Policy type / Coverage type [place] red democrat ID [facility] Blue [facility] [id number] [place]ICARE PART B Medicare [id number]
--- OUTSIDE RECORDS SUMMARY | 2025-01-19 13:19 | XMS_ITS | Clinical Summary ---
Author Organization [facility] Address [address] [place] [address] Care Team Providers Care Personal Lines Advisor Name Role Phone Sandoval Luis MD Primary Care Provider [phone] Allergies Active Allergy Reactions Criticality Noted Date Comments Cyclobenzaprine Other (see comment) Low 02/18/2018 All muscle relaxers relax the diaphragm All muscle relaxers relax the diaphragm ALL MUSCLE RELAXERS Medications atorvastatin 40 MG tabletIndications:Hy perlipidemia Take 1 tablet (40 mg total) by mouth nightly. Indications: High Amount of Fats in the Blood 04/22/20 23 Active carBAMazepine 200 MG tabletIndications:Ne uropathy Take 1 tablet (200 mg total) by mouth nightly. Indications: Nerve Disease 07/17/20 21 Active cetirizine 10 MG tabletIndications:Se asonal Allergy Take 1 tablet (10 mg total) by mouth daily. Indications: Seasonal Allergy 01/21/20 21 Active diazePAM 10 MG tabletIndications:An xiety Take 1 tablet (10 mg total) by mouth daily as needed. Indications: Feeling Anxious 04/22/20 23 Active doxycycline hyclate 100 MG capsuleIndications:R osacea Take 1 capsule (100 mg total) by mouth daily. Indications: Rosacea 08/15/20 21 Active ezetimibe 10 MG tabletIndications:Hy perlipidemia Take 1 tablet (10 mg total) by mouth nightly at bedtime. Indications: High Amount of Fats in the Blood 04/22/20 23 Active fenofibrate 160 MG tabletIndications:Hy perlipidemia Take 1 tablet (160 mg total) by mouth nightly. Indications: High Amount of Fats in the Blood Active primidone 50 MG tabletIndications:Es sential Tremor Take 2 tablets (100 mg total) by mouth 2 (two) times a day. Indications: Fine to Coarse Slow Tremor Affecting Head, Hands & Voice Take 2 tablets BID 07/04/20 21 Active RABEprazole EC 20 MG tabletIndications:Be nign Gastrointestinal Polyp Take 1 tablet (20 mg total) by mouth 2 (two) times a day. Indications: Benign Polyp of [place] 08/21/20 Active timolol 0.5 % ophthalmic solutionIndications: Glaucoma Place 1 drop into both eyes 2 (two) times daily. Indications: Glaucoma 04/22/20 23 Active B Complex-C Tab tabletIndications:Nu tritional Support Take 1 tablet by mouth daily. Indications: Nutritional Support 04/22/20 23 Active vitamin D3, cholecalciferol, 5000 UNITS capsuleIndications:V itamin D Deficiency Take 1 capsule (125 mcg total) by mouth daily. Indications: Vitamin D Deficiency 04/22/20 23 Active nitroglycerin (NITROSTAT) 0.4 MG SL tabletIndications:Ch est Pain Place 1 tablet (0.4 mg total) under the tongue every 5 (five) minutes as needed for Chest Pain. Indications: Chest Pain 01/24/20 22 Active ketoconazole (NIZORAL) 2 % shampooIndications:D ry Scalp USE WASH DAILY 03/14/20 23 Active DULoxetine (CYMBALTA) 20 MG capsuleIndications:N europathy Take 1 capsule (20 mg total) by mouth 2 (two) times daily. Indications: Nerve Disease 04/02/20 23 Active fluticasone propionate (FLONASE) 50 MCG/ACT nasal sprayIndications:[place] Allergic Rhinitis 1 spray by Each Nostril route 2 (two) times daily. Indications: Hayfever 04/22/20 23 Active potassium citrate CR (UROCIT-K) 10 MEQ (1080 MG) tabletIndications:Hy pokalemia Take 1 tablet (10 mEq total) by mouth 2 (two) times daily. Indications: Low Amount of Potassium in the Blood 04/22/20 23 Active tamsulosin (FLOMAX) 0.4 MG CapIndications:Urina ry retention Take 1 capsule (0.4 mg total) by mouth daily. Indications: Urinary retention Active HYDROcodone-acetamin ophen (NORCO) 5-325 MG tabletIndications:Ac [place] Pain < 7 Day Supply Take 1-2 tablets by mouth every 6 (six) hours as needed for Pain. Indications: Acute Pain < 7 Day Supply 15 tablet 08/08/20 23 Active magnesium oxide (MAG-OX) 400 (240 Mg) MG tabletIndications:Hy pomagnesemia Take 1 tablet (400 mg total) by mouth daily. 30 tablet 08/19/20 23 Active aspirin 81 MG chewable tabletIndications:Pr ophylaxis Chew 1 tablet (81 mg total) by mouth daily. Indications: Preventative Treatment 08/21/20 23 Active gabapentin (NEURONTIN) 600 MG tabletIndications:Pa in Take 1 tablet (600 mg total) by mouth 4 (four) times daily. Indications: Pain 08/21/20 23 Active furosemide (LASIX) 20 MG tabletIndications:Ed logan Take 1 tablet (20 mg total) by mouth daily. Indications: Edema 09/05/20 23 Active vitamin C (ASCORBIC ACID) 250 MG tabletIndications:Nu tritional Support Take 2 tablets (500 mg total) by mouth daily. Indications: Nutritional Support 09/13/20 23 Active ferrous sulfate, 65 mg elemental, 325 (65 FE) MG tabletIndications:An emia Take 1 tablet (325 mg total) by mouth daily with breakfast. Indications: Anemia 09/13/20 23 Active lisinopril (PRINIVIL) 20 MG tablet Take 1 tablet (20 mg total) by mouth daily. 03/08/20 24 Active oxyCODONE immediate release (ROXICODONE) 5 MG immediate release tabletIndications:Ac [place] Pain < 3 Day Supply Take 1 tablet (5 mg total) by mouth every 4 (four) hours as needed for Pain. Indications: Acute Pain < 3 Day Supply 15 tablet 07/17/20 24 Active Active Problems Problem Noted Date Diagnosed Date Hypoxia 07/17/2024 S/P revision of total hip 04/13/2024 Myofascial neck pain 01/10/2024 Recurrent falls 10/08/2023 Hypotension 08/26/2023 UTI (urinary tract infection) due to Enterococcu s 08/14/2023 Dysphagia 07/29/2023 S/P cervical spinal fusion 07/23/2023 Cervical myelopathy ([facility]) 07/23/2023 Bilateral knee pain 04/30/2023 Heterotopic ossification of joint 04/30/2023 Assessment & Plan (04/30/2023 3:48 PM CDT): Stability of acting as a fulcrum for dislocation Pelvic obliquity 04/30/2023 Assessment & Plan (04/30/2023 3:50 PM CDT): There may have been some spinal pelvic obliquity created after the spinal fusion that may contribute to recurrent dislocation COVID-19 03/01/2023 Overview (03/21/2023): Reported that he has COVID-19 and tested positive on 02/28/2023. My doctor is aware that I have COVID-19 Nisha Thapa MSN, BSN, RN 03/01/2023 Abnormal MRI, lumbar spine 02/28/2023 Myelopathy ([facility]) 02/28/2023 Radiculopathy, lumbar region 02/28/2023 Other intervertebral disc degeneration, lumbar r egion 02/28/2023 Falls frequently 02/28/2023 History of lumbar fusion 02/28/2023 History of lumbar laminectomy 02/28/2023 Recurrent posterior dislocation of hip, right Assessment & Plan (04/30/2023 12:30 PM CDT): Recurrent dislocations to the right hip. He has an appointment June 14 at [facility] to review. I would maintain the immobilizer. Continue with his physical therapy. Consider EMG and CV as the last one back in 2019. We reviewed his MRI at a lumbar spine which does show spinal stenosis moderately sever at L2-3. He also apparently has spinal stenosis to the cervical spine which may also cause some issues. He's had multiple falls in the past which may have contributed to the dislocation as well. This is difficult to assess at this time. I look forward to his consultation in [place]. History of TIA (transient ischemic attack) 02/04 Foraminal stenosis of lumbar region 08/19/2022 Assessment & Plan (08/19/2022 7:29 PM TECHNICAL PLANNER): Severe foraminal stenosis noted at the level above the fusion. Bilateral lower extremity pain. Follow-up as needed. Referral to Dr. Jara CVA (cerebral vascular accident) ([facility]/ C) 07/10/2022 Stroke ([facility]) 07/09/2022 TIA (transient ischemic attack) 07/09/2022 Fall in bathtub 10/29/2021 Assessment & Plan (10/29/2021 7:38 PM TECHNICAL PLANNER): Is a latest fall in September but he also fell trimming the [place]bushes and his head hit the house. Starting to feel like he has fair amount of weakness. History of total hip arthroplasty, right 021 Assessment & Plan (08/19/2022 7:29 PM TECHNICAL PLANNER): No evidence of fracture, dislocation or subluxation. Well-seated and well positioned. No evidence of eccentric wear. Moderate heterotopic ossification. No evidence of dislocation or subluxation. Would not recommend heterotopic ossification debridement at this time. I believe most of the pain discomfort is probably coming from his spinal stenosis/foraminal stenosis Assessment & Plan (10/29/2021 7:40 PM TECHNICAL PLANNER): Both total hips appear to be in good position and alignment. Continue with progressive range of motion and strengthening. Doubt that the fracture that was potentially described on an x-ray is renal looks more like heterotopic ossification. Assessment & Plan (09/17/2021 5:22 PM TECHNICAL PLANNER): [address] [place] [address]. Continue with progressive range of motion and strengthening per total hip arthroplasty protocol. Maintain hip precautions. Follow-up on a yearly basis Trochanteric bursitis of right hip 09/17/2021 Assessment & Plan (10/29/2021 7:39 PM TECHNICAL PLANNER): Injections really did not give him the relief that he was looking for. Assessment & Plan (09/17/2021 5:22 PM TECHNICAL PLANNER): We discussed risks, benefits and alternatives. Patient would like to have a steroid injection. Was done in the past at [facility]. 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 He is aware that the steroid injection to the greater trochanteric bursal elevated sugars because of his diabetes. He is aware and wants to proceed. Primary osteoarthritis of knees, bilateral 02/03 Overview (03/21/2023): Last Assessment & Plan: We discussed the risks, benefits and alternatives [...] knee arthroplasty at this time. Neuropathy 01/09/2019 Overview (03/21/2023): Last Assessment & Plan: With history of neuropathy, narcotics are not the treatment of choice. He is currently on gabapentin 1400 mg daily. Consider adding an Cymbalta 30 mg daily. Call in 2 weeks if no significant improvement may need to consider increasing to 60 mg daily. 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 Coronary artery disease of n ative artery of [place] heart with stable angina pectoris 03/16/2016 Overview (03/21/2023): CAD in [place] artery Last Assessment & Plan: With history of coronary artery disease unable to proceed with any type of nonsteroidal anti-inflammatories. Patient is also on Plavix which is contraindicated Nonrheumatic aortic valve stenosis 03/16/2016 Overview (03/21/2023): Nonrheumatic aortic (valve) stenosis Last Assessment & Plan: Moderate aortic stenosis, very slight progression, no symptoms. F/u in 1 yr, obtain Echo after OV. Type 2 diabetes mellitus ([facility]) 03/16 Overview (03/21/2023): Mixed hyperlipidemia due to type 2 diabetes mellitus Premature atrial contraction 04/18/2015 Overview (03/21/2023): PAC (premature atrial contraction) Lumbago 12/08/2014 Obstructive sleep apnea syndrome 03/29/2014 Overview (03/21/2023): MARI on CPAP Last Assessment & Plan: Compliant with CPAP Essential hypertension 02/20/2014 Overview (03/21/2023): HYPERTENSION NOS Multiple-type hyperlipidemia 02/20/2014 Overview (03/21/2023): MIXED HYPERLIPIDEMIA Last Assessment & Plan: January 2017: Cholesterol 141, LDL 73, TG 141, taking atorvastatin, doing well Resolved Problems Problem Noted Date Diagnosed Date Resolved Date Spinal stenosis 10/04/2023 Assessment & Plan (10/29/2021 7:39 PM TECHNICAL PLANNER): Might consider repeat MRI for the lumbar spine at some point in time as well as EMG/NCV. He does have a appointment coming up with his neurologist. This may be better suited for him. Assessment & Plan (09/17/2021 5:24 PM TECHNICAL PLANNER): History of 2 different back surgeries. Possibility of increased stenosis proximal. Encounters Date Type Department Care Team Description 11/05/2024 1:00 PM TECHNICAL PLANNER Office Visit [facility] [place] [address] [place] [address] Armand Garcia, BALDEMARC New Patient (Right Shoulder ) 11/05/2024 Scan [employer] HEALTH INFO SRVCS Scanned, Doc [facility] 11/05/2024 Travel 11/04/2024 9:06 AM TECHNICAL PLANNER - 11/04/2024 10:54 AM TECHNICAL PLANNER Emergency [facility] Emergency Room [address] [place] [address] John Coffey MD Fall Discharge Disposition: Home or Self Care (Routine Discharge) 11/04/2024 Travel from Last 3 Months Family History Medical History Relation Comments Heart Disease Father Dementia Mother Diabetes Mother Relation Status Comments Father Maternal Grandfather Maternal Grandmother Mother Paternal Grandfather Paternal Grandmother Social History Tobacco Use Types Packs/Day Years Used Date Smoking Tobacco: Former Cigarettes Q uit: 1985 Passive Smoke Exposure: Never Smokeless Tobacco: Never Tobacco Cessation:Counseling Given: No Comments:na Alcohol Use Standard Drinks/Week Comments Not [...] materials from doctor or pharmacy Never 09/20/2023 [facility] Utilities Answer Date Recorded In the past 12 months has th e [employer], gas, oil, or water [employer] threatened to shut off services in your [...] move on to questions 3-9 0 08/16/2022 [facility] Occupat ional [facility] - Occupational Stress Questionnaire Answer Date Recorded [...] place to sleep or slept in a care home (including now)? No 08/26/2023 Sex and Gender Information Value Date Recorded Sex Assigned at Male 08/14/2023 3:20 PM TECHNICAL PLANNER Legal Sex Male 7:28 PM CDT Gender Identity Male 08/14/2023 3:20 PM TECHNICAL PLANNER Sexual Orientation Straight 08/14/2023 3: 20 PM TECHNICAL PLANNER Last Filed Vital Signs Vital Sign Reading Time Taken Comments Blood Pressure 105/58 11/05/2024 1:05 PM TECHNICAL PLANNER Pulse 74 11/05/2024 1:05 PM TECHNICAL PLANNER Temperature 37 C (98.6 F) 11/05/2024 1:05 PM TECHNICAL PLANNER Respiratory Rate 18 11/04/2024 10:43 AM TECHNICAL PLANNER Oxygen Saturation 97% 11/05/2024 1:05 PM TECHNICAL PLANNER Inhaled Oxygen Concentration - - Weight 86.8 kg (191 lb 6.4 oz) 11/05/2024 1:05 P M TECHNICAL PLANNER Height 162.6 cm (5' 4 ) 11/05/2024 1:05 PM TECHNICAL PLANNER Body Mass Index 32.85 11/05/2024 1:05 PM TECHNICAL PLANNER Plan of Treatment Health Maintenance Due Date Last Done Comments ASCVD Statin 1940 Kidney Health Evaluation 1940 Diabetes: Retinopathy Eye Exam 1957 Annual Medicare Wellness Visit 2004 RSV Immunization or 60+ Years (1 - 1-dose 75+ series) 2014 Hemoglobin A1C 01/08/2023 07/10/2022 ASCVD LDL 07/10/2023 07/10/2022 COVID-19 Vaccine (4 - 2023-2 5 season) 2024 07/18/2021, 01/03/2021, 12/13/2020 PHQ-2 (Physician [place]) 10/07/2024 Lipid Panel 04/17/2025 04/17/2024, 07/10/2022, 07/31/2021 DTaP, Tdap and Td Vaccines ( 2 - Td or Tdap) 12/28/2031 12/27/2021 Pneumococcal Vaccine: 50+ Years Completed 03/24/2018, 04/16/2017 Zoster Vaccines Completed 12/03/2019, 09/28/2019 Meningococcal B Vaccine Aged Out No l onger eligible based on patient's age to complete this topic Meningococcal Vaccine Aged Out No rizwana vikram eligible based on patient's age to complete this topic RSV Immunizations Under 20 Months Aged Out No longer eligible b ased on patient's age to complete this topic Goals Goal Patient Goal Type Associated Problems Recent Progress Patient-Stated? Author Patient will return to prior living situation and remain independent in ADLs upon discharge from hospital Lifestyle No Tegan Raya RN Medical Devices Implanted Type Area Offset Printing Operator Device Identifier Shelf Expiration Date Model / Serial / Lot Bio Bone Putty Implanted:Qt y: 1 on 07/23/2023 by Marshall Jara MD at [facility] Bone N/A: Spine Cervical 06/13/2024 [id number] / / [id number] Graft Infuse Bone Xsmall - [id number] Implanted:Qt y: 1 on 07/23/2023 by Marshall Jara MD at [facility] Bone N/A: Spine Cervical [employer] 12/04/2024 [id number] / / [id number] Mesh Progrip Self Fixating 15cm X 10cm Lap - [id number] Implanted:Qt y: 1 on 07/17/2024 by Earnest Gonzales MD at [facility] Mesh Left: Inguinal [employer] [id number] 04/05/2027 [id number] / / [id number] Mesh Progrip Self Fixating 15cm X 10cm Lap - [id number] Implanted:Qt y: 1 on 07/17/2024 by Earnest Gonzales MD at [facility] Mesh Right: Inguinal [employer] [id number] 01/04/2027 [id number] / / [id number] 63mm Plate Implanted:Qt y: 1 on 07/23/2023 by Marshall Jara MD at [facility] Plate N/A: Spine Cervical [id number] / / 16 Mm Vst Screws Implanted:Qt y: 8 on 07/23/2023 by Marshall Jara MD at [facility] Screw N/A: Spine Cervical [id number] / / [place] Interbody System 6mm Implanted:Qt y: 1 on 07/23/2023 by Marshall Jara MD at [facility] Spacer N/A: Spine Cervical [id number] 06/15/2028 [id number] / / [id number] [place] Interbody System Cervical Interbody Implanted:Qt y: 1 on 07/23/2023 by Marshall Jara MD at [facility] N/A: Spine Cervical [id number] 08/12/[id number] / / [id number] [place] Interbody System Cervical Interbody Implanted:Qt y: 1 on 07/23/2023 by Marshall Jara MD at [facility] N/A: Spine Cervical [id number] 08/12/20276100- [id number] / / [id number] Explanted Type Area Offset Printing Operator Device Identifier Shelf Expiration Date Model / Serial / Lot Distration Pin 12mm - [id number] Explanted:Qty: 2 on 07/23/2023 by Marshall Jara MD at [facility] Pin N/A: Spine Cervical [facility] [id number] / / Procedures Procedure Name Priority Date/Time Associated Diagnosis Comments XR SHOULDER RT 3V Routine 11/05/2024 1:2 5 PM TECHNICAL PLANNER Right shoulder pain, unspecified chronicity LACERATION REPAIR Routine 11/04/2024 10: [address] CERV SPINE WO CON STAT 11/04/2024 9:[address] HEAD WO CON STAT 11/04/2024 9:24 AM TECHNICAL PLANNER LIPID PANEL Routine 07/10/2022 9:34 AM CDT HEMOGLOBIN, GLYCOSYLATED Routine 07/10/2022 9:34 AM CDT from Last 3 Months or Most Recently Relevant to Health Maintenance Results * XR SHOULDER RT 3V (11/05/2024 1:25 PM TECHNICAL PLANNER) Anatomical Region Laterality Modality Shoulder Radiographic Akila ging 11/05/2024 2:02 PM TECHNICAL PLANNER Impressions 11/05/2024 2:07 PM TECHNICAL PLANNER IMPRESSION: 1. No acute abnormality. 2. Arthritic changes. Ordered By: ARMAND GARCIA Interpreted By: Earnest Ochoa MD, 11/05/2024 2:02 PM Narrative 11/05/2024 2:07 PM TECHNICAL PLANNER Examination: XR SHOULDER RT 3V Exam time: 11/05/2024 1:25 PM Clinical history: Pain Comparison: 11/23/2013 right shoulder Technique: 3 views Findings: Glenohumeral and acromioclavicular joint relationships appear unremarkable. There is moderate to marked arthritic change involving the chromic clavicular joint. There are severe arthritic change involving the glenohumeral joint with marked loss of joint space, subcortical sclerosis, and degenerative cystic changes involving the scapular glenoid and humeral head. No evidence of fracture or acute osseous abnormality. Procedure Note Earnest Ochoa MD - 11/05/2024 Examination: XR SHOULDER RT 3V Exam time: 11/05/2024 1:25 PM Clinical history: Pain Comparison: 11/23/2013 right shoulder Technique: 3 views Findings: Glenohumeral and acromioclavicular joint relationships appearunremarkable. There is moderate to marked arthritic change involving thechromic clavicular joint. There are severe arthritic change involving theglenohumeral joint with marked loss of joint space, subcortical sclerosis,and degenerative cystic changes involving the scapular glenoid and humeralhead. No evidence of fracture or acute osseous abnormality. IMPRESSION: 1. No acute abnormality. 2. Arthritic changes. Ordered By: ARMAND GARCIA Interpreted By: Earnest Ochoa MD, 11/05/2024 2:02 PM us Armand Garcia PA-C GENERAL IMAGING Final Result * Lac Repair (11/04/2024 10:33 AM TECHNICAL PLANNER) Narrative John Coffey MD - 11/04/2024 10:33 AM TECHNICAL PLANNER John Coffey MD 11/04/2024 10:35 AM Lac Repair Date/Time: 11/04/2024 10:33 AM Performed by: John Coffey MD Authorized by: John Coffey MD Consent: Consent obtained: Verbal Consent given by: Patient Risks discussed: Infection and poor wound healing Alternatives discussed: No treatment Seney protocol: Procedure explained and questions answered to patient or proxy's satisfaction: yes Relevant documents present and verified: yes Test results available: yes Imaging studies available: yes Immediately prior to procedure, a time out was called: yes Patient identity confirmed: Verbally with patient and arm band Anesthesia: Anesthesia method: None Laceration details: Location: Scalp Scalp location: L parietal Length (cm): 2.5 Depth (mm): 2 Exploration: Limited defect created (wound extended): no Hemostasis achieved with: Direct pressure Imaging outcome: foreign body not noted Wound exploration: wound explored through full range of motion and entire depth of wound visualized Treatment: Area cleansed with: Shur-Clens Amount of cleaning: Standard Debridement: None Undermining: None Scar revision: no Skin repair: Repair method: Arelis Number of arelis: 4 Approximation: Approximation: Close Repair type: Repair type: Simple Post-procedure details: Dressing: Open (no dressing) us John Coffey MD PROCEDURE/MINOR SURGICAL ORDERAB LES Final Result * CT HEAD WO CON (11/04/2024 9:24 AM TECHNICAL PLANNER) Anatomical Region Laterality Modality Head Computed Tomogra phy 11/04/2024 9:22 AM TECHNICAL PLANNER Impressions 11/04/2024 9:30 AM TECHNICAL PLANNER IMPRESSION: CT HEAD: 1. Left parietal scalp soft tissue edema, in keeping with clinical history. No definite CT evidence of acute intracranial abnormality, as above. 2. Small vessel disease and volume loss. CT CERVICAL SPINE: 1. No definite acute fractures identified in the cervical spine. 2. Postsurgical and multilevel degenerative changes. Ordered By: JOHN COFFEY Interpreted By: Raul Moon MD, 11/04/2024 9:22 AM Narrative 11/04/2024 9:30 AM TECHNICAL PLANNER [facility] [address] [place] [address] DATE: 11/04/2024 9:07 AM EXAMINATION: CT of the head and cervical spine without contrast CLINICAL HISTORY: Fall. Trauma. COMPARISON: 08/26/2023 TECHNIQUE: CT examinations of the head and cervical spine were performed without contrast. Axial and multiplanar images obtained. A dose lowering technique was used for this procedure, which may include, but is not limited to, dose reduction technique, automated exposure control, the use of iterative reconstruction, and ALARA (As Low As Reasonably Achievable) / Image Gently techniques. FINDINGS: CT HEAD: Left parietal scalp soft tissue edema noted, in keeping with clinical history. No acute cranial hemorrhage, extra-axial collections, intracranial mass effect, or midline shift. Patchy foci of hypodensity noted in the hemispheric white matter, likely due to small vessel disease. Intracranial vascular calcifications. No definite CT evidence of acute territorial infarction, though MRI would be more sensitive. Mild to moderate volume loss with enlargement of the ventricles and extra-axial/subarachnoid spaces. No depressed calvarial fractures. Mastoid air cells and paranasal sinuses clear. Bilateral lens replacements. CT CERVICAL SPINE: There are postsurgical changes of multilevel anterior cervical discectomy and fusion from C3 through C6 with partial ankylosis of the disc spaces. Surgical changes of prior C6-C7 discectomy with mature osseous fusion of the C6-C7 disc space. Anterior fixation hardware is intact and without evidence of fracture or loosening. Stable mild chronic anterior wedging deformity of T1. Slight rotation of C1 relative to C2. Slight anterolisthesis of C7 on T1. Otherwise the cervical vertebral alignment, vertebral body heights, and facet alignment are maintained. No definite acute fractures identified in the cervical spine. Multilevel degenerative changes are evident in the cervical spine with disc degeneration, endplate/uncovertebral osteophytes, ligamentum flavum thickening/calcification, and facet hypertrophy noted. Ossification of the nuchal ligament noted. Ligamentous thickening and calcification posterior to the dens. Imaged portions of the neck soft tissues reveal atherosclerotic vascular calcifications. Surgical clip in the right neck, probably along the operative approach. Procedure Note Raul Moon MD - 11/04/2024 [facility] [address] [place] [address] DATE: 11/04/2024 9:07 AM EXAMINATION: CT of the head and cervical spine without contrast CLINICAL HISTORY: Fall. Trauma. COMPARISON: 08/26/2023 TECHNIQUE: CT examinations of the head and cervical spine were performedwithout contrast. Axial and multiplanar images obtained. A dose lowering technique was used for this procedure, which may include,but is not limited to, dose reduction technique, automated exposurecontrol, the use of iterative reconstruction, and ALARA (As Low AsReasonably Achievable) / Image Gently techniques. FINDINGS: CT HEAD: Left parietal scalp soft tissue edema noted, in keeping with clinicalhistory. No acute cranial hemorrhage, extra-axial collections,intracranial mass effect, or midline shift. Patchy foci of hypodensitynoted in the hemispheric white matter, likely due to small vessel disease.Intracranial vascular calcifications. No definite CT evidence of acuteterritorial infarction, though MRI would be more sensitive. Mild tomoderate volume loss with enlargement of the ventricles andextra- axial/subarachnoid spaces. No depressed calvarial fractures. Mastoidair cells and paranasal sinuses clear. Bilateral lens replacements. CT CERVICAL SPINE: There are postsurgical changes of multilevel anterior cervical discectomyand fusion from C3 through C6 with partial ankylosis of the disc spaces.Surgical changes of prior C6-C7 discectomy with mature osseous fusion ofthe C6-C7 disc space. Anterior fixation hardware is intact and withoutevidence of fracture or loosening. Stable mild chronic anterior wedgingdeformity of T1. Slight rotation of C1 relative to C2. Slightanterolisthesis of C7 on T1. Otherwise the cervical vertebral alignment,vertebral body heights, and facet alignment are maintained. No definiteacute fractures identified in the cervical spine. Multilevel degenerativechanges are evident in the cervical spine with disc degeneration,endplate/uncovertebral osteophytes, ligamentum flavumthickening/calcification, and facet hypertrophy noted. Ossification of thenuchal ligament noted. Ligamentous thickening and calcification posteriorto the dens. Imaged portions of the neck soft tissues revealatherosclerotic vascular calcifications. Surgical clip in the right neck,probably along the operative approach. IMPRESSION: CT HEAD: 1. Left parietal scalp soft tissue edema, in keeping with clinicalhistory. No definite CT evidence of acute intracranial abnormality, asabove. 2. Small vessel disease and volume loss. CT CERVICAL SPINE: 1. No definite acute fractures identified in the cervical spine. 2. Postsurgical and multilevel degenerative changes. Ordered By: JOHN COFFEY Interpreted By: Raul Moon MD, 11/04/2024 9:22 AM John Coffey MD CT Final Result * CT CERV SPINE WO CON (11/04/2024 9:24 AM TECHNICAL PLANNER) Anatomical Region Laterality Modality Spine Computed Tomogra phy 11/04/2024 9:22 AM TECHNICAL PLANNER Impressions 11/04/2024 9:30 AM TECHNICAL PLANNER IMPRESSION: CT HEAD: 1. Left parietal scalp soft tissue edema, in keeping with clinical history. No definite CT evidence of acute intracranial abnormality, as above. 2. Small vessel disease and volume loss. CT CERVICAL SPINE: 1. No definite acute fractures identified in the cervical spine. 2. Postsurgical and multilevel degenerative changes. Ordered By: JOHN COFFEY Interpreted By: Raul Moon MD, 11/04/2024 9:22 AM Narrative 11/04/2024 9:30 AM TECHNICAL PLANNER [facility] [address] [facility] [address] [place] [address] DATE: 11/04/2024 9:07 AM EXAMINATION: CT of the head and cervical spine without contrast CLINICAL HISTORY: Fall. Trauma. COMPARISON: 08/26/2023 TECHNIQUE: CT examinations of the head and cervical spine were performed without contrast. Axial and multiplanar images obtained. A dose lowering technique was used for this procedure, which may include, but is not limited to, dose reduction technique, automated exposure control, the use of iterative reconstruction, and ALARA (As Low As Reasonably Achievable) / Image Gently techniques. FINDINGS: CT HEAD: Left parietal scalp soft tissue edema noted, in keeping with clinical history. No acute cranial hemorrhage, extra-axial collections, intracranial mass effect, or midline shift. Patchy foci of hypodensity noted in the hemispheric white matter, likely due to small vessel disease. Intracranial vascular calcifications. No definite CT evidence of acute territorial infarction, though MRI would be more sensitive. Mild to moderate volume loss with enlargement of the ventricles and extra-axial/subarachnoid spaces. No depressed calvarial fractures. Mastoid air cells and paranasal sinuses clear. Bilateral lens replacements. CT CERVICAL SPINE: There are postsurgical changes of multilevel anterior cervical discectomy and fusion from C3 through C6 with partial ankylosis of the disc spaces. Surgical changes of prior C6-C7 discectomy with mature osseous fusion of the C6-C7 disc space. Anterior fixation hardware is intact and without evidence of fracture or loosening. Stable mild chronic anterior wedging deformity of T1. Slight rotation of C1 relative to C2. Slight anterolisthesis of C7 on T1. Otherwise the cervical vertebral alignment, vertebral body heights, and facet alignment are maintained. No definite acute fractures identified in the cervical spine. Multilevel degenerative changes are evident in the cervical spine with disc degeneration, endplate/uncovertebral osteophytes, ligamentum flavum thickening/calcification, and facet hypertrophy noted. Ossification of the nuchal ligament noted. Ligamentous thickening and calcification posterior to the dens. Imaged portions of the neck soft tissues reveal atherosclerotic vascular calcifications. Surgical clip in the right neck, probably along the operative approach. Procedure Note Raul Moon MD - 11/04/2024 [facility] [address] [place] [address] DATE: 11/04/2024 9:07 AM EXAMINATION: CT of the head and cervical spine without contrast CLINICAL HISTORY: Fall. Trauma. COMPARISON: 08/26/2023 TECHNIQUE: CT examinations of the head and cervical spine were performedwithout contrast. Axial and multiplanar images obtained. A dose lowering technique was used for this procedure, which may include,but is not limited to, dose reduction technique, automated exposurecontrol, the use of iterative reconstruction, and ALARA (As Low AsReasonably Achievable) / Image Gently techniques. FINDINGS: CT HEAD: Left parietal scalp soft tissue edema noted, in keeping with clinicalhistory. No acute cranial hemorrhage, extra-axial collections,intracranial mass effect, or midline shift. Patchy foci of hypodensitynoted in the hemispheric white matter, likely due to small vessel disease.Intracranial vascular calcifications. No definite CT evidence of acuteterritorial infarction, though MRI would be more sensitive. Mild tomoderate volume loss with enlargement of the ventricles andextra- axial/subarachnoid spaces. No depressed calvarial fractures. Mastoidair cells and paranasal sinuses clear. Bilateral lens replacements. CT CERVICAL SPINE: There are postsurgical changes of multilevel anterior cervical discectomyand fusion from C3 through C6 with partial ankylosis of the disc spaces.Surgical changes of prior C6-C7 discectomy with mature osseous fusion ofthe C6-C7 disc space. Anterior fixation hardware is intact and withoutevidence of fracture or loosening. Stable mild chronic anterior wedgingdeformity of T1. Slight rotation of C1 relative to C2. Slightanterolisthesis of C7 on T1. Otherwise the cervical vertebral alignment,vertebral body heights, and facet alignment are maintained. No definiteacute fractures identified in the cervical spine. Multilevel degenerativechanges are evident in the cervical spine with disc degeneration,endplate/uncovertebral osteophytes, ligamentum flavumthickening/calcification, and facet hypertrophy noted. Ossification of thenuchal ligament noted. Ligamentous thickening and calcification posteriorto the dens. Imaged portions of the neck soft tissues revealatherosclerotic vascular calcifications. Surgical clip in the right neck,probably along the operative approach. IMPRESSION: CT HEAD: 1. Left parietal scalp soft tissue edema, in keeping with clinicalhistory. No definite CT evidence of acute intracranial abnormality, asabove. 2. Small vessel disease and volume loss. CT CERVICAL SPINE: 1. No definite acute fractures identified in the cervical spine. 2. Postsurgical and multilevel degenerative changes. Ordered By: JOHN COFFEY Interpreted By: Raul Moon MD, 11/04/2024 9:22 AM us John Coffey MD CT Final Result * (ABNORMAL) HEMOGLOBIN, GLYCOSYLATED (07/10/2022 9:34 AM CDT) HGB A1C 6.4(H) <5.7 % 07/10/2022 10:57 AM CDT [facility] Comment: ADA GUIDELINES 2010 5.7 TO 6.4% INCREASED RISK OF DIABETES > OR = 6.5% CONSISTENT WITH DIABETES ESTIMATED AVG GLUCOSE 137 mg/dL 07/10/2022 10:57 AM CDT [facility] 07/10/2022 9:34 AM CDT Michelle Franco MD LABORATORY Final Re sult [facility] [address] [place] [address], [place] [phone] * LIPID PANEL (07/10/2022 9:34 AM CDT) CHOLESTEROL 171 <200 MG/DL 07/10/2022 10:44 AM CDT [facility] TRIGLYCERIDES 102 <150 MG/DL 07/10/2022 10:44 AM CDT [facility] HDL 61 >40.0 MG/DL 07/10/2022 10:44 AM CDT [facility] LDL (CALCULATED) 90 <100 MG/DL 07/10/20 10:44 AM CDT [facility] NON HDL CHOLESTEROL 110 <130 MG/DL 07/10 10:44 AM CDT [facility] CHOL/HDL RATIO 2.8 0.0 - 4.5 07/10/2022 10:44 AM CDT [facility] VLDL CALCULATION 20 5 - 55 MG/DL 07/10/2022 10:44 AM CDT [facility] LIPID INTERPRETATION 07/10/2022 10:44 AM CDT [facility] Comment: [facility] CONCENSUS REPORT RECOMMENDATIONS: ADULT CHILD LOW RISK: CHOLESTEROL <200 <170 TRIGLYCERIDE <150 --- HDL >=60 --- LDL <100 <110 BORDERLINE: CHOLESTEROL 200-239 170-199 TRIGLYCERIDE 150-199 --- HDL 40-59 --- LDL 100-159 110-129 HIGH RISK: CHOLESTEROL >=240 >=200 TRIGLYCERIDE >=200 --- HDL <40 --- LDL >=160 >=130 07/10/2022 9:34 AM CDT Michelle Franco MD LABORATORY Final Re sult [facility] [address] [place] [address], [place] [phone] from Last 3 Months or Most Recently Relevant to Health Maintenance Insurance MEDICARE [facility] Advance Directives * Full Code (Latest Code Status on File) Date Activated Date Inactivated Comments 07/17/2024 7:23 PM 07/19/2024 1:14 PM * Full Code Date Activated Date Inactivated Comments 09/11/2023 2:18 PM 11/23/2023 8:54 PM * Full Code Date Activated Date Inactivated Comments 08/26/2023 4:37 PM 08/27/2023 2:50 PM * Full Code Date Activated Date Inactivated Comments 08/21/2023 4:34 PM 08/23/2023 8:33 AM * Full Code Date Activated Date Inactivated Comments 08/14/2023 10:00 AM 08/18/2023 4:21 PM Care Teams Personal Lines Advisor Relationship Specialty Start Date End Date Sandoval Luis MD [address] [facility] [address] [place] [address] PCP - General FAMILY PRACTICE 10/23/19
--- OUTSIDE RECORDS SUMMARY | 2025-01-19 13:19 | XMS_ITS | Referral Summary ---
Author Organization [facility] [address] [place] [address] Address [address] [facility] [address] [place] [address] Care Team Providers Care Stretcher Drier Operator Name Role Phone Sandoval Luis MD Primary Care Provider Encounters Date Type Department Care Team Description 11/12/2024 10:00 AM MATRIX REPAIRER Ancillary Procedure [facility] Medical Group Vascular and Vein Surgery at [address] [place] [address] Syncope and collapse 11/09/2024 Orders Only [facility] Medical [facility] Cardiology [address] [place] [address] [address] [place] [address] ProviderCed MD 11/09/2024 11:00 AM MATRIX REPAIRER Ancillary Procedure [facility] Medical Group Cardiology at [address] [place] [address] Syncope and collapse 11/09/2024 10:30 AM MATRIX REPAIRER Office Visit [facility] Medical [facility] Cardiology at [address] [place] [address] Yusuf Barnes MD Syncope and collapse (Primary Dx); Obstructive sleep apnea syndrome; Chronic diastolic CHF (congestive heart failure) (HCC); 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 Routine intra-op cultures obtained and 1/3 grew rare P acnes identified on 03/10, [...] doctor is aware that I have COVID-19 Nishasa Thapa MSN, BSN, RN 03/01/2023 Abnormal MRI, [...] (05/20/2018): Added automatically from request for surgery [id number] Chronic diastolic CHF (congestive heart failure) 03/17/2018 [...] artery disease of n ative artery of resighini heart with stable angina pectoris 03/16/2016 Overview (01/11/2017): CAD in resighini artery Assessment & Plan (02/03/2019 5:55 PM [...] 07/25/2020 01/23/2022 Coronary artery disease invo lving resighini coronary artery of resighini heart without angina pectoris 05/20/2018 01/07/2019 Overview (05/20/2018): Added automatically from request for surgery [id number] History of placement of sten t for coronary artery disease 03/16/2016 01/07/2019 Overview (01/10/2017): S/P coronary artery stent placement Post percutaneous translumin al coronary angioplasty 04/20/2014 01/07/2019 Overview (01/11/2017): STATUS-POST PTCA Nonrheumatic aortic valve disorder 02/20/2014 01/07/2019 Overview (01/10/2017): AORTIC VALVE DISORDER Abnormal cardiovascular stress test 02/20/2014 03/17/2018 Overview (01/10/2017): Abnormal stress test Immunizations Immunization Administration Dates Next Due Influenza, Quadrivalent, Hig h Dose, Preservative Free, Intrr 06/07/2020 Influenza, Split 06/15/2013 Influenza, Trivalent, High D ose, Split, Preservative Free, Intramuscular 07/25/2019,07/15/2018,08/09/2017,07/26,2015 Influenza, Trivalent, Preser vative Free, Intramuscular 07/07/2014 Pneumococcal Conjugate PCV 13 04/16/2017 Pneumococcal Polysaccharide PPV23 03/24/2018 ZOSTER Recombinant 12/03/2019,09/28/2019 Social History Tobacco Use Types Packs/Day Years Used Date Smoking Tobacco: Former Cigarettes 1 23.1 0 04/06/1962 - 05/07/1985 Pipe Smokeless Tobacco: Never Tobacco Cessation:Counseling Given: Not Answered Comments:Discontinued twice before final termination. Alcohol Use Standard Drinks/Week Comments Yes 0 (1 standard drink = 0.6 oz pur e alcohol) rarely SimpliFieldities Answer Date Recorded In the past 12 months has Agency [employer], gas, oil, or water [employer] threatened to shut off services in your [...] 03/09/2024 How often do you attend chur or alevism services? More than 4 times per year 03/09/2024 Do you belong to any clubs o r organizations such as judaism groups, unions, fraternal or athletic groups, or [...] any time in the past 12 [facility], were you homeless or living in a [place] health care facility (including now)? No 03/09/2024 Personal Safety Answer Date Recorded Have you ever been in or are you currently in a harmful physical or emotional relationship or is someone making you feel afraid or unsafe? Denies 03/06/2024 Sex and Gender Information Value Date Recorded Sex Assigned at Not on file Legal Sex Male 10:26 PM MATRIX REPAIRER Gender Identity Male 01/13/2020 10:39 AM CDT Sexual Orientation Straight 01/13/2020 10 :39 AM CDT Last Filed Vital Signs Vital Sign Reading Time Taken Comments Blood Pressure 112/70 11/09/2024 10:42 AM MATRIX REPAIRER Pulse 83 11/09/2024 10:42 AM MATRIX REPAIRER Temperature 37.3 C (99.1 F) 03/12/2024 3:40 PM CDT Respiratory Rate 18 03/12/2024 3:40 PM CDT Oxygen Saturation 97% 11/09/2024 10:42 AM MATRIX REPAIRER Inhaled Oxygen Concentration - - Weight 88.5 kg (195 lb) 11/09/2024 10:42 AM MATRIX REPAIRER Height 167.6 cm (5' 6 ) 11/09/2024 10:42 AM MATRIX REPAIRER Body Mass Index 31.47 11/09/2024 10:42 AM MATRIX REPAIRER Plan of Treatment Not on file Goals Goal Patient Goal Type Associated Problems Recent Progress Patient-Stated? Author TTW CHF Goal - Patient will improve their knowledge of HF and will be motivated to try to better manage at home TTW Case Management No Anna Caballero, MANAGER REQUIREMENTS Note: Problem: Ability to self-manage CHF Interventions: [...] pain TTW Case Management No Anna Caballero MANAGER REQUIREMENTS Note: Problem: Chest Pain Interventions: - Assess [...] AMI TTW Case Management No Anna Caballero, MANAGER REQUIREMENTS Note: Problem: Worsening Symptoms- AMI Interventions: - [...] to catheterization TTW Case Management No Anna Caballero, MANAGER REQUIREMENTS Note: Problem: Knowledge deficit r/t cath/ stent Interventions: - Assess location of procedure. - Encourage patient to watch the wound site closely and look for discoloration, lumps, or increased pain - Encourage patient to contact OCM or PCP should symptoms worsen TTW Goal - Patient will have no medication-related complications due to new high risk medication usage (anti-platelet dual therapy) TTW Case Management No Brandt Orellana, MANAGER REQUIREMENTS Note: Problem: High Risk medication - Anti-platelet [...] to respond TTW Case Management No Brandt Orellana, MANAGER REQUIREMENTS Note: Problem: Knowledge deficit related to signs [...] or provider Medical Devices Implanted Type Area Hopper Feeder Device Identifier Shelf Expiration Date Model / Serial / Lot [employer] Simplex P Full Dose Radiopaque Preblend Cement Bone Tobramycin 6197-9-001 - [id number] Implanted:Qty: 1 on 03/06/2024 by Neva Morgan MD at [facility] Bone Cement Right: Hip [employer] [id number] 05/06/2025 6197 / / [id number] [employer] Simplex P Full Dose Radiopaque Preblend Cement Bone Tobramycin 6197-9- - [id number] Implanted:Qty: 1 on 03/06/2024 by Neva Morgan MD at [facility] Bone Cement Right: Hip [employer] [id number] 06/06/2025 6197 / / [id number] [employer] Simplex P Full Dose Radiopaque Preblend Cement Bone Tobramycin 6197-9 - [id number] Implanted:Qty: 1 on 03/06/2024 by Neva Morgan MD at [facility] Bone Cement Right: Hip [employer] [id number] 05/06/202597 / / [id number] [employer] Simplex P Full Dose Radiopaque Preblend Cement Bone Tobramycin 6197-9 - [id number] Implanted:Qty: 1 on 03/06/2024 by Neva Morgan MD at [facility] Bone Cement Right: Hip [employer] [id number] 05/06/202597 / / [id number] [employer] Jonathan [id number] Synergy 3.5mm 32mm 144cm Radiopaque 1 Access Port Inflation Lumen - [id number] Implanted:Qty: 1 on 05/23/2018 by Javier Darden MD at [facility] [employer] 11/19/2018 [id number] / / [id number] [employer] [id number] Synergy 3.5mm 12mm 144cm Radiopaque 1 Access Port Inflation Lumen - [id number] Implanted:Qty: 1 on 05/23/2018 by Javier Darden MD at [facility] [employer] 01/27/2020 [id number] / / [id number] [employer] Jonathan[employer] [id number] Angio-Seal Vip Bondek-Plus 6fr .035in 70cm Hemostatic Latex Free - [id number] Implanted:Qty: 1 on 05/23/2018 by Javier Darden MD at [facility]/[employer] 02/03/2019 [id number] / / [id number] [employer] [id number] Commander Garrett 3 Atrion 14fr Transcatheter Introducer Balloon - [id number] Implanted:Qty: 1 on 07/24/2018 by Javier Darden MD at [facility] [employer] 08/23/2019 [id number] / / [employer] 50mm 28mm Cement Constrained Hip 1mm .072in Offset Liner [id number] - [id number] Implanted:Qty: 1 on 03/06/2024 by Neva Morgan MD at [facility] Right: Hip [employer] [id number] 01/04/2025 [id number] / / [id number] [employer] Simplex P Full Dose Radiopaque Preblend Cement Bone Tobramycin 6197-9-001 - [id number] Implanted:Qty: 1 on 03/06/2024 by eNva Morgan MD at [facility] Right: Hip [employer] [id number] 05/06/2025 6197-9-001 / / [id number] [employer] Hip 5mm Offset [place] C Taper Sleeve Adapter Sterile Latex Free -0005t - [id number] Implanted:Qty: 1 on 03/06/2024 by Neva Morgan MD at [facility] Right: Hip [employer] [id number] 01/30/2028 19-0005T / / [id number] [employer] 28mm Hip [place] Taper Head Femoral Biolox Delta 6519-1-028 - [id number] Implanted:Qty: 1 on 03/06/2024 by Neva Morgan MD at [facility] Right: Hip [employer] [id number] 06/05/2025 6519-1-028 / / [id number] Explanted Type Area Hopper Feeder Device Identifier Shelf Expiration Date Model / Serial / Lot [employer] Trident 42mm 28mm Constrain Hip 0d F Insert Acetabular Uhmwpe [id number] - [id number] Explanted:Qty: 1 on 03/06/2024 at [facility] Right: Hip [employer] [id number] 09/06/2028 [id number] / / [id number] Synthes 4mm 6mm 55mm Small Hexagonal Socket Cancellous Full Thread Screw 206.055 - [id number] Explanted:Qty: 1 on 03/06/2024 by Neva Morgan MD at [facility] Right: Hip Synthes I 206.055 / / Synthes 4mm 6mm 30mm Small Hexagonal Socket Cancellous Full Thread Screw 206.030 - [id number] Explanted:Qty: 1 on 03/06/2024 by Neva Morgan MD at [facility] Right: Hip Synthes I 206.030 / / [employer] Hip 5mm Offset [place] C Taper Sleeve Adapter Sterile Latex Free -0005t - [id number] Explanted:Qty: 1 on 03/06/2024 at [facility] Right: Hip [employer] [id number] 05/03/2025 19-0005T / / [id number] [employer] 28mm Hip [place] Taper Head Femoral [employer] Delta 6519-1-028 - [id number] Explanted:Qty: 1 on 03/06/2024 at [facility] Right: Hip [employer] [id number] 10/25/2026 6519-1-02 [id number] Procedures Procedure Name Priority Date/Time Associated Diagnosis Comments US CAROTIDS DUPLEX BILATERAL Schedule Routine, Read Routine (OP Routine) 11/12/2024 10:16 AM MATRIX REPAIRER Syncope and collapse EXTENDED/SHELTER HOLTER PATCH (8 DAYS UP TO 15 DAYS) Routine 11/09/2024 11:02 AM MATRIX REPAIRER Syncope and collapse LIPID PANEL Routine 08/11/2024 3:56 PM MATRIX REPAIRER EGFR Routine 03/11/2024 11:31 PM CDT from Last 3 Months or Most Recently Relevant to Health Maintenance Results * US Carotids Duplex Bilateral (11/12/2024 10:16 AM MATRIX REPAIRER) LV EF % CONS SCIMAGE Anatomical Region Laterality Modality Vascular Bilateral Ultrasound 11/12/2024 9:58 AM MATRIX REPAIRER Narrative 11/13/2024 11:53 AM MATRIX REPAIRER Vascular & Vein Surgery [address] [facility] [place] [address] Carotid Duplex Ultrasound Report Patient Name: SATISH TAPIA A : 1940 (84y 3m) Study Date: 11/12/2024 9:58:14 AM Gender: M Histology Tech: Location: [facility] Ref Provider: YUSUF BARNES Quality: Adequate Order Provider: YUSUF BARNES PROCEDURES: Carotid Report: Carotid duplex examination of the extracranial arteries was performed using 2D, color and spectral Doppler. INDICATIONS: R55 Syncope and collapse. HISTORY: Hypertension. Hyperlipidemia. Diabetic. Coronary artery disease- MT S/P stents. Congestive heart failure. AO stenosis [...] By: Jaison Castro MD 11/13/2024 11:52:46 AM MATRIX REPAIRER Procedure Note Jaison Castro MD - 11/13/2024 Vascular & Vein Surgery [address] [place] [address]. [place] [address] Carotid Duplex Ultrasound Report Patient Name: SATISH TAPIA A : 1940 (84y 3m) Study Date: 11/12/2024 9:58:14 AM Gender: M Histology Tech: WENDY Location: [facility] Ref Provider: YUSUF BARNES Quality: Adequate Order Provider: YUSUF BARNES PROCEDURES: Carotid Report: Carotid duplex examination of the extracranial arterieswas performed using 2D, color and spectral Doppler. INDICATIONS: R55 Syncope and collapse. HISTORY: Hypertension. Hyperlipidemia. Diabetic. Coronary artery disease- MT S/Pstents. Congestive heart failure. AO stenosis S/P [...] By: Jaison Castro MD 11/13/2024 11:52:46 AM MATRIX REPAIRER Yusuf Barnes MD IMG US PROCEDURES Final R esult * Extended/Detention Holter Patch (8 days up to 15 days) (11/09/2024 11:02 AM MATRIX REPAIRER) Anatomical Region Laterality Modality Electrocardiogra phy Narrative 12/22/2024 3:14 PM CDT AMBULATORY TREE THINNER REPORT Patient Name: Satish Tapia Date of [...] was used to complete this document, therefore, biodiesel engineering manager variances may occur. Yusuf Barnes MD, [facility] 12/22/24 Yusuf Barnes MD [facility] PROCE MARAL Final Result * Lipid panel (08/11/2024 3:56 PM MATRIX REPAIRER) SCRIBED Cholesterol, Total 158 0 - 200 [...] of Race in Diagnosing Kidney Disease, JASN 202). The CKD-EPI equation should not be used for patients with unstable renal function and has not been validated in children and those over 70. Current interpretive data was last reviewed 2021. Blood 03/11/2024 11:3 1 PM CDT 03/12/2024 12:37 AM CDT Neva Morgan MD LAB BLOOD ORDERABLES F inal Result [facility] Department [place] [address] from Last 3 Months or Most Recently Relevant to Health Maintenance Insurance MEDICARE [facility] FEDERAL MEDICARE [facility] MEDICARE [facility] Advance Directives For more information, please contact: [phone] Documents on File Type Date Recorded Patient Sustainable Products Marketing Manager Expl anation ADVANCE DIRECTIVE 09/11/2013 12:00 AM ELISSA NG WILL ADVANCE DIRECTIVE 09/11/2013 12:00 AM CATIA R OF [employer]SEM[employer]ANCIAL/MEDICAL * Full Code (Latest Code Status on File) Date Activated Date Inactivated Comments 03/06/2024 5:28 PM 03/12/2024 10:27 PM * Full Code Date Activated Date Inactivated Comments 06/18/2018 2:56 PM 07/24/2018 5:29 AM * Full Code Date Activated Date Inactivated Comments 06/18/2018 10:05 AM 06/19/2018 3:31 PM Care Teams Stretcher Drier Operator Relationship Specialty Start Date End Date Sandoval Luis MD [address] [place] [id number] PCP - General 11/05/11
== END 2025-01-19 12:16 | disposition home or self-care (01) ==
PROVIDERS: PCP Family Medicine; Visit Provider Physician Assistant
DX: M79.18 Myalgia, other site (principal); Z96.643 Presence of artificial hip joint, bilateral
CPT/HCPCS: 73521

== ENCOUNTER 2025-03-12 14:12 | Outpatient (NON) | payer MEDICARE, BC, SELFPAY ==
--- OUTSIDE RECORDS SUMMARY | 2025-03-12 14:15 | XMS_ITS | Clinical Summary ---
Author Organization [facility] [address] Address [address] [place] [address] Care Team Providers Care Pig Farm Manager Name Role Phone Sandoval Luis MD Primary [...] by mouth 2 (two) times a day rx#[id number] Active doxycycline (VIBRAMYCIN) 100 mg capsule Take 1 tablet/capsule (100 mg total) by mouth every morning rx#[id number] Active tamsulosin (FLOMAX) 0.4 mg extended release [...] mg SL tabletIndication s:Coronary artery disease of [place] artery of [place] heart with stable angina pectoris Place 1 [...] times a day with meals 3 Active fluticasone propionate (FLONASE) 50 mcg/actuation nasal spray [...] mouth once daily 90 tablet 5 Active lisinopriL (PRINIVIL,ZESTRI L) 20 mg tabletIndication s:Chronic diastolic CHF (congestive heart failure) (HCC) Take 1 tablet by mouth once daily 90 tablet 1 5 Active Active Problems Problem Noted Date [...] with metallosis. Routine intra-op cultures obtained and 1/ grew rare P acnes identified on 03/10, [...] (05/20/2018): Added automatically from request for surgery [id number] Chronic diastolic CHF (congestive heart failure) 03/17/2018 [...] artery disease of n ative artery of [place] heart with stable angina pectoris 03/16/2016 Overview (01/11/2017): CAD in [place] artery Assessment & Plan (02/03/2019 5:55 PM [...] 07/25/2020 01/23/2022 Coronary artery disease invo lving [place] coronary artery of [place] heart without angina pectoris 05/20/2018 01/07/2019 Overview (05/20/2018): Added automatically from request for surgery [id number] History of placement of sten t for coronary artery disease 03/16/2016 01/07/2019 Overview (01/10/2017): S/P coronary artery stent placement Post percutaneous translumin al coronary angioplasty 04/20/2014 01/07/2019 Overview (01/11/2017): STATUS-POST PTCA Nonrheumatic aortic valve disorder 02/20/2014 01/07/2019 Overview (01/10/2017): AORTIC VALVE DISORDER Abnormal cardiovascular stress test 02/20/2014 03/17/2018 Overview (01/10/2017): Abnormal stress test Encounters Date Type Department Care Team Description 01/22/2025 9:36 AM CDT - 01/22/2025 11:59 PM CDT Hospital Encounter [facility] [address] [place] [address] Discharge Disposition: Discharge to home or self care 01/22/2025 Telephone [facility] Orthopaedic Surgery [address] [facility] [address] [place] [address] Alana Serrano RN 01/21/2025 Telephone [facility] Orthopaedic Surgery [address] [facility] [address] [place] [address] Alana Serrano RN from Last 3 Months Immunizations Immunization Administration [...] Maternal Grandfather Stew Fofana Arthritis Mother Lorraine Tapia Depression Mother Lorraine Tapia Diabetes Mother Lorraine Tapia Memory loss Mother Lorraine Tapia Miscarriages / Stillbirths Mother Lorraine Tapia Other Mother Lorraine Tapia Macular Dege neration , DM; Cause of : Macular Degeneration , DM Vision loss Mother Lorraine Tapia Cancer Paternal Grandfather Andrea Sheffieldryan Obesity Paternal Grandfather Andrea Sheffieldryan Alzheimer's disease Paternal Grandmother Padmini Shi mosley Memory loss Paternal Grandmother Padmini Sheffieldryan Relation Name Status Comments Brother Luke Tapia Father Luke Tapia (Age 86) Maternal Grandfather Stew Fofana Mother Lorraine Tapia (Age 94) Paternal Grandfather Andrea Huizar Paternal Grandmother Padmini Sheffieldryan Social History Tobacco Use Types Packs/Day Years Used Date Smoking Tobacco: Former Cigarettes 1 23.1 0 04/06/1962 - 05/07/1985 Pipe Smokeless Tobacco: Never Tobacco Cessation:Counseling Given: Not Answered Comments:Discontinued twice before final termination. Alcohol Use Standard Drinks/Week Comments Yes 0 (1 standard drink = 0.6 oz pur e alcohol) rarely NAME'S Online [employer] Store Utilities Answer Date Recorded In the past 12 months has [employer], gas, oil, or water [employer] threatened to shut off services in your [...] How often do you attend chur or judaism services? More than 4 times per year 03/09/2024 Do you belong to any clubs o r organizations such as mosque groups, unions, fraternal or athletic groups, or [...] any time in the past 12 m [facility], were you homeless or living in a residential (including now)? No 03/09/2024 Personal Safety Answer Date Recorded Have you ever been in or are you currently in a harmful physical or emotional relationship or is someone making you feel afraid or unsafe? 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 Gender Identity Male 01/13/2020 10:39 AM CDT Sexual Orientation Straight 01/13/2020 10 :39 AM CDT Obstetrics History Last Filed Vital Signs Vital Sign Reading Time Taken Comments Blood Pressure 112/70 11/09/2024 10:42 AM SALES APPRENTICE Pulse 83 11/09/2024 10:42 AM SALES APPRENTICE Temperature 37.3 C (99.1 F) 03/12/2024 3:40 PM CDT Respiratory Rate 18 03/12/2024 3:40 PM CDT Oxygen Saturation 97% 11/09/2024 10:42 AM SALES APPRENTICE Inhaled Oxygen Concentration - - Weight 88.5 kg (195 lb) 11/09/2024 10:42 AM SALES APPRENTICE Height 167.6 cm (5' 6) 11/09/2024 10:42 AM SALES APPRENTICE Body Mass Index 31.47 11/09/2024 10:42 AM SALES APPRENTICE Plan of Treatment Health Maintenance Due Date Last Done Comments Albumin Creatinine Ratio, Urine 1939 Hemoglobin A1C 1939 Dilated Eye Exam 1939 Foot Exam 1939 DTaP/Tdap/Td Vaccine (1 - Tdap) 1950 Hepatitis B Screening 1957 Well Visit 65+ 2004 Depression Screening 11/12/2024 11/12/2023 eGFR 03/11/2025 03/11/2024, 06/0 01/2024, 03/09/2024, Additional history exists Fall Risk Assessment 03/12/2025 03/12/2024 Influenza Vaccine (Season Ended) 2025 06/07/2020, 07/25/2019, 07/15/2018, Additional history exists Lipid Panel 08/11/2025 08/11/2024, 04/06, 02/13/2023, Additional history exists Pneumococcal vaccine 65+ Completed 03/24/2018, 04/06 Zoster Vaccine Completed 12/03/2019, 09/28/2019 Goals Goal Patient Goal Type Associated Problems Recent Progress Patient-Stated? Author TTW CHF Goal - Patient will improve their knowledge of HF and will be motivated to try to better manage at home TTW Case Management Anna Cardenas, SCALE INSTALLER Note: Problem: Ability to self-manage CHF Interventions: [...] chest pain TTW Case Management No Anna Caballero, SCALE INSTALLER Note: Problem: Chest Pain Interventions: - Assess [...] AMI TTW Case Management No Anna Caballero, SCALE INSTALLER Note: Problem: Worsening Symptoms- AMI Interventions: - [...] catheterization TTW Case Management No Anna Caballero, SCALE INSTALLER Note: Problem: Knowledge deficit r/t cath/ stent [...] therapy) TTW Case Management No Brandt Orellana, SCALE INSTALLER Note: Problem: High Risk medication - Anti-platelet [...] and how to respond TTW Case Management Brandt Vaughn, SCALE INSTALLER Note: Problem: Knowledge deficit related to signs [...] or provider Medical Devices Implanted Type Area Pipe Fitter Apprentice Device Identifier Shelf Expiration Date Model / Serial / Lot [employer] Simplex P Full Dose Radiopaque Preblend Cement Bone Tobramycin 6197-9-001 - [id number] Implanted:Qty: 1 on 03/06/2024 by Neva Morgan MD at [facility] Bone Cement Right: Hip [employer] [id number] 05/06/2025 6197-9-001 / / [id number] [employer] Simplex P Full Dose Radiopaque Preblend Cement Bone Tobramycin 6197-9-001 - [id number] Implanted:Qty: 1 on 03/06/2024 by Neva Morgan MD at [facility] Bone Cement Right: Hip [employer] [id number] 06/06/2025 6197-9-001 / / [id number] [employer] Simplex P Full Dose Radiopaque Preblend Cement Bone Tobramycin 6197-9-001 - [id number] Implanted:Qty: 1 on 03/06/2024 by Neva Morgan MD at [facility] Bone Cement Right: Hip [employer] [id number] 05/06/2025 6197-9-001 / / [id number] [employer] Simplex P Full Dose Radiopaque Preblend Cement Bone Tobramycin 6197-9-001 - [id number] Implanted:Qty: 1 on 03/06/2024 by Neva Morgan MD at [facility] Bone Cement Right: Hip [employer] [id number] 05/06/2025 6197-9-001 / / [id number] [employer] Jonathan [id number] Synergy 3.5mm 32mm 144cm Radiopaque 1 Access Port Inflation Lumen - [id number] Implanted:Qty: 1 on 05/23/2018 by Javier Darden MD at [facility] Scientific Jonathan 11/19/2018 [id number] / / [id number] [employer] Jonathan [id number] Synergy 3.5mm 12mm 144cm Radiopaque 1 Access Port Inflation Lumen - [id number] Implanted:Qty: 1 on 05/23/2018 by Javier Darden MD at [facility] [employer] Jonathan 01/27/2020 [id number] / / [id number] Daig [employer] [id number] Angio-Seal Vip Bondek-Plus 6fr .035in 70cm Hemostatic Latex Free - [id number] Implanted:Qty: 1 on 05/23/2018 by Javier Darden MD at [facility] [employer] 02/03/2019 [id number] / / [id number] [employer] [id number] Commander Garrett 3 Atrion 14fr Transcatheter Introducer Balloon - [id number] Implanted:Qty: 1 on 07/24/2018 by Javier Darden MD at [facility] [employer] 08/23/2019 [id number] / / [employer] 50mm 28mm Cement Constrained Hip 1mm .072in Offset Liner [id number] - [id number] Implanted:Qty: 1 on 03/06/2024 by Neva Morgan MD at [facility] Right: Hip [employer] [id number] 01/04/2025 [id number] / / [id number] [employer] Simplex P Full Dose Radiopaque Preblend Cement Bone Tobramycin 6197-9-001 - [id number] Implanted:Qty: 1 on 03/06/2024 by Neva Morgan MD at [facility] Right: Hip [employer] [id number] 05/06/2025 6197-9-001 / / [id number] [employer] Hip 5mm Offset Craig C Taper Sleeve Adapter Sterile Latex Free -4t - [id number] Implanted:Qty: 1 on 03/06/2024 by Neva Morgan MD at [facility] Right: Hip [employer] [id number] 01/30/2028 19-0005T / / [id number] [employer] 28mm Hip Craig Taper Head Femoral Biolox Delta 6519-1-028 - [id number] Implanted:Qty: 1 on 03/06/2024 by Neva Morgan MD at [facility] Right: Hip [employer] [id number] 06/05/2025 6519-1-028 / / [id number] Explanted Type Area Pipe Fitter Apprentice Device Identifier Shelf Expiration Date Model / Serial / Lot [employer] Trident 42mm 28mm Constrain Hip 0d F Insert Acetabular Uhmwpe [id number] - [id number] Explanted:Qty: 1 on 03/06/[address] [facility] Right: Hip [employer] [id number] 09/06/2028 [id number] / / [id number] Synthes 4mm 6mm 55mm Small Hexagonal Socket Cancellous Full Thread Screw 206.055 - [id number] Explanted:Qty: 1 on 03/06/2024 by Neva Morgan MD at [facility] Right: Hip Synthes I 206.055 / / Synthes 4mm 6mm 30mm Small Hexagonal Socket Cancellous Full Thread Screw 206.030 - [id number] Explanted:Qty: 1 on 03/06/2024 by Neva Morgan MD at [facility] Right: Hip Synthes I 206.030 / / [employer] Hip 5mm Offset Craig C Taper Sleeve Adapter Sterile Latex Free 19-4t - [id number] Explanted:Qty: 1 on 03/06/[address] [facility] Right: Hip [employer] [id number] 05/03/2025 19-0005T / / [id number] [employer] 28mm Hip Craig Taper Head Femoral Biolox Delta 6519-1-028 - [id number] Explanted:Qty: 1 on 03/06/[address] [facility] Right: Hip [employer] [id number] 10/25/2026 6519-1-02 8 / / [id number] Procedures Procedure Name Priority Date/Time Associated Diagnosis Comments XR TRANSFER OF OUTSIDE FILMS Routine 01/22/2025 9:36 AM CDT LIPID PANEL Routine 08/11/2024 3:56 PM SALES APPRENTICE EGFR Routine 03/11/2024 11:31 PM CDT from Last 3 Months or Most Recently Relevant to Health Maintenance Results * XR Outside Reference (01/22/2025 9:36 AM CDT) Impressions [facility] - 01/22/2025 9:36 AM CDT These images are for Reference purposes only and have not been reviewed by [facility] Radiology. There will be no report generated by a [facility] Radiologist. Narrative [facility] - 01/22/2025 9:36 AM CDT EXAMINATION: Images For Reference Purposes Only us Kunal Paniagua MD IMG XR PROCEDURES Fi nal Result [facility] * Lipid panel (08/11/2024 3:56 PM SALES APPRENTICE) SCRIBED Cholesterol, Total 158 0 - 200 EXTERNAL LAB SCRIBED HDL 62 40 - 100 EXTERNAL LAB SCRIBED LDL 77 0 - 100 EXTERNAL LAB SCRIBED Triglycerides 106 0 - 150 EXTERNAL LAB Blood us Historical Provider LAB BLOOD ORDERABLES Edit ed [...] LAB BLOOD ORDERABLES F inal Result [facility] Department [place] [address] from Last 3 Months or Most Recently Relevant to Health Maintenance Insurance [facility] MEDICARE [facility] MEDICARE [facility] FEDERAL Advance Directives For more information, please contact: [phone] Documents on File Type Date Recorded Patient Mold Worker Expl anation ADVANCE DIRECTIVE 09/11/2013 12:00 AM ELISSA CHOWDHURY WILL ADVANCE DIRECTIVE 09/11/2013 12:00 AM CATIA R OF LINEWORKER FINANCIAL/MEDICAL * Full Code (Latest Code Status on File) Date Activated Date Inactivated Comments 03/06/2024 5:28 PM 03/12/2024 10:27 PM * Full Code Date Activated Date Inactivated Comments 06/18/2018 2:56 PM 07/24/2018 5:29 AM * Full Code Date Activated Date Inactivated Comments 06/18/2018 10:05 AM 06/19/2018 3:31 PM Care Teams Pig Farm Manager Relationship Specialty Start Date End Date Sandoval Luis MD [address] [place] [address] PCP - General 11/05/11
--- OUTSIDE RECORDS SUMMARY | 2025-03-12 14:15 | XMS_ITS | Encounter Summary ---
Author Organization [facility] Facility Care Team Providers Care Molecular Biology Professor Name Role Phone Sandoval Luis MD Primary Care Provider Anna Caballero FINISHING AREA SUPERVISOR Unavailable [phone] Brandt Orellana FINISHING AREA SUPERVISOR Unavailable [phone] Tabby Ortiz DNP Unavailable [phone] Encounter Details Date Type Department Care Team (Latest Contact Info) Description 05/31/2016 Orders Only [facility] CLINCONV ProviderCed MD [address] [place] [address] Social History Tobacco Use Types Packs/Day Years Used Date Smoking Tobacco: Some Days Cigarettes Last attempted to quit: 10/07/1984 Alcohol Use Standard Drinks/Week Comments Yes 0 (1 standard drink = 0.6 oz pur e alcohol) Sex and Gender Information Value Date Recorded Sex Assigned at Not on file 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 Gender Identity Male 01/13/2020 10:39 AM CDT [...] on filedocumented in this encounter Care Teams Molecular Biology Professor Relationship Specialty Start Date End Date Sandoval Luis MD [address] [place] [address] PCP - General 11/05/11 Anna Caballero, FINISHING AREA SUPERVISOR [address] [place] [address] Cashiers Bussers Food Runners 06/16/18 08/13/18 Brandt Orellana, SARAH [address] [place] [address] Cashiers Bussers Food Runners 06/16/18 08/13/18 Tabby Ortiz DNP [address] [place] [address] Nurse Practitioner Internal Medicine 06/16/18 08/13/18 documented as of this encounter
--- OUTSIDE RECORDS SUMMARY | 2025-03-12 14:15 | XMS_ITS | Clinical Summary ---
Author Organization [facility] [address] [facility] Address [address] [place] [address] Care Team Providers Care Hot Worker Name Role Phone Sandoval Luis MD Primary Care Provider [phone] Allergies Active Allergy Reactions Criticality Noted Date [...] 9 Active azelastine-flut icasone (Dymista) 137-50 mcg/spray [place], Non-Aerosol [The details of the medication are [...] on file Legal Sex Male 11:09 AM CIVIL ESTIMATOR Gender Identity Not on file Sexual Orientation [...] VACCINE (#1) 2024 06/20/2020, 2013 Care Teams Hot Worker Relationship Specialty Start Date End Date Sandoval Luis MD [address] [id number] PCP - General Family Practice 10/21/19
--- OUTSIDE RECORDS SUMMARY | 2025-03-12 14:15 | XMS_ITS | Encounter Summary ---
Author Organization [facility] Facility Care Team Providers Care Cook Taco Name Role Phone Sandoval Luis MD Primary Care Provider Anna Caballero ROSE GROWER Unavailable [phone] Brandt Orellana ROSE GROWER Unavailable [phone] Tabby Ortiz DNP Unavailable [phone] Encounter Details Date Type Department Care Team (Latest Contact Info) Description 05/30/2016 Orders Only [facility] CLINCONV ProviderCed MD [address] [place] [address] Social History Tobacco Use Types Packs/Day Years Used Date Smoking Tobacco: Some Days Cigarettes Last attempted to quit: 10/07/1984 Alcohol Use Standard Drinks/Week Comments Yes 0 (1 standard drink = 0.6 oz pur e alcohol) Sex and Gender Information Value Date Recorded Sex Assigned at Not on file 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 Gender Identity Male 01/13/2020 10:39 AM CDT [...] on filedocumented in this encounter Care Teams Cook Taco Relationship Specialty Start Date End Date Sandoval Luis MD [address] [place] [address] PCP - General 11/05/11 Anna Caballero, ROSE GROWER [address] [place] [address] Patient Services Technician 06/16/18 08/13/18 Brandt Orellana, ROSE GROWER [address] [place] [address] Patient Services Technician 06/16/18 08/13/18 Tabby Ortiz, GIDEON [address] [place] [address] Nurse Practitioner Internal Medicine 06/16/18 08/13/18 documented as of this encounter
--- OUTSIDE RECORDS SUMMARY | 2025-03-12 14:15 | XMS_ITS | Referral Summary ---
Author Organization [facility] [address] Address [address] [place] [address] Care Team Providers Care Celery Packer Name Role Phone Sandoval Luis MD Primary Care Provider Encounters Date Type Department Care Team Description 01/22/2025 Telephone [facility] Orthopaedic Surgery [address] [facility] Medical Office Building [address] [place] [address] Alana Serrano, JUANIS 01/22/2025 9:36 AM CDT - 01/22/2025 11:59 PM CDT Hospital Encounter [facility] [address] [place] [address] Discharge Disposition: Discharge to home or self care 01/21/2025 Telephone [facility] Orthopaedic Surgery [facility] Medical Office Building [address] [place] [address] Alana Serrano, JUANIS from Last 3 Months Allergies Active Allergy [...] by mouth 2 (two) times a day rx#[id number] 8 Active doxycycline (VIBRAMYCIN) 100 mg capsule Take 1 tablet/capsule (100 mg total) by mouth every morning rx#[id number] Active tamsulosin (FLOMAX) 0.4 mg extended release [...] mg SL tabletIndication s: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 Place 1 [...] (05/20/2018): Added automatically from request for surgery [id number] Chronic diastolic CHF (congestive heart failure) 03/17/2018 [...] artery disease of n ative artery of shoshone-paiute heart with stable angina pectoris 03/16/2016 Overview (01/11/2017): CAD in shoshone-paiute artery Assessment & Plan (02/03/2019 5:55 PM [...] 07/25/2020 01/23/2022 Coronary artery disease invo lving shoshone-paiute coronary artery of shoshone-paiute heart without angina pectoris 05/20/2018 01/07/2019 Overview (05/20/2018): Added automatically from request for surgery [id number] History of placement of sten t for [...] = 0.6 oz pur e alcohol) rarely Scann[employer] Answer Date Recorded In the past 12 months has [employer], [employer], oil, or water [employer] threatened to shut off services in your [...] often do you attend chur ch or hindu services? More than 4 times per year 03/09/2024 Do you belong to any clubs o r organizations such as gnosticist groups, unions, fraternal or athletic groups, or [...] any time in the past 12 m [facility], were you homeless or living in a group home (including now)? No 03/09/2024 Personal Safety Answer Date Recorded Have you ever been in or are you currently in a harmful physical or emotional relationship or is someone making you feel afraid or unsafe? Denies 03/06/2024 Sex and Gender Information Value Date Recorded Sex Assigned at Not on file Legal Sex Male 10:26 PM POWER BALLAST MACHINE OPERATOR Gender Identity Male 01/13/2020 10:39 AM CDT Sexual Orientation Straight 01/13/2020 10 :39 AM CDT Last Filed Vital Signs Vital Sign Reading Time Taken Comments Blood Pressure 112/70 11/09/2024 10:42 AM POWER BALLAST MACHINE OPERATOR Pulse 83 11/09/2024 10:42 AM POWER BALLAST MACHINE OPERATOR Temperature 37.3 C (99.1 F) 03/12/2024 3:40 PM CDT Respiratory Rate 18 03/12/2024 3:40 PM CDT Oxygen Saturation 97% 11/09/2024 10:42 AM POWER BALLAST MACHINE OPERATOR Inhaled Oxygen Concentration - - Weight 88.5 kg (195 lb) 11/09/2024 10:42 AM POWER BALLAST MACHINE OPERATOR Height 167.6 cm (5' 6) 11/09/2024 10:42 AM POWER BALLAST MACHINE OPERATOR Body Mass Index 31.47 11/09/2024 10:42 AM POWER BALLAST MACHINE OPERATOR Plan of Treatment Not on file Goals Goal Patient Goal Type Associated Problems Recent Progress Patient-Stated? Author TTW CHF Goal - Patient will improve their knowledge of HF and will be motivated to try to better manage at home TTW Case Management No Anna Caballero, MD OPHTHALMOLOGIST Note: Problem: Ability to self-manage CHF Interventions: [...] pain TTW Case Management No Anna Caballero, MD OPHTHALMOLOGIST Note: Problem: Chest Pain Interventions: - Assess [...] AMI TTW Case Management No Anna Caballero, MD OPHTHALMOLOGIST Note: Problem: Worsening Symptoms- AMI Interventions: - [...] catheterization TTW Case Management No Anna Caballero, MD OPHTHALMOLOGIST Note: Problem: Knowledge deficit r/t cath/ stent [...] (anti-platelet dual therapy) TTW Case Management Brandt Vaughn MSW Note: Problem: High Risk medication - Anti-platelet [...] how to respond TTW Case Management Brandt Vaughn MSW Note: Problem: Knowledge deficit related to [...] or provider Medical Devices Implanted Type Area Animal Chiropractor Device Identifier Shelf Expiration Date Model / Serial / Lot [employer] Simplex P Full Dose Radiopaque Preblend Cement Bone Tobramycin 6197-9-001 - [id number] Implanted:Qty: 1 on 03/06/2024 by Neva Morgan MD at [facility] Bone Cement Right: Hip [employer] [id number] 05/06/2025 6197-9-001 / / [id number] [employer] Simplex P Full Dose Radiopaque Preblend Cement Bone Tobramycin 6197-9-001 - [id number] Implanted:Qty: 1 on 03/06/2024 by Neva Morgan MD at [facility] Bone Cement Right: Hip [employer] [id number] 06/06/2025 6197-9-001 / / [id number] [employer] Simplex P Full Dose Radiopaque Preblend Cement Bone Tobramycin 6197-9-001 - [id number] Implanted:Qty: 1 on 03/06/2024 by Neva Morgan MD at [facility] Bone Cement Right: Hip [employer] [id number] 05/06/2025 6197-9-001 / / [id number] [employer] Simplex P Full Dose Radiopaque Preblend Cement Bone Tobramycin 6197-9-001 - [id number] Implanted:Qty: 1 on 03/06/2024 by Neva Morgan MD at [facility] Bone Cement Right: Hip [employer] [id number] 05/06/2025 6197-9-001 / / [id number] [employer] Jonathan [id number] Synergy 3.5mm 32mm 144cm Radiopaque 1 Access Port Inflation Lumen - [id number] Implanted:Qty: 1 on 05/23/2018 by Javier Darden MD at [facility] [employer] 11/19/2018 [id number] / / [id number] [employer] [id number] Synergy 3.5mm 12mm 144cm Radiopaque 1 Access Port Inflation Lumen - [id number] Implanted:Qty: 1 on 05/23/2018 by Javier Darden MD at [facility] [employer] 01/27/2020 [id number] / / [id number] Daig Jonathan[employer] [id number] Angio-Seal Vip Bondek-Plus 6fr .035in 70cm Hemostatic Latex Free - [id number] Implanted:Qty: 1 on 05/23/2018 by Javier Darden MD at [facility] [employer]ig [employer] 02/03/2019 [id number] / / [id number] [employer] [id number] Commander Garrett 3 Atrion 14fr Transcatheter Introducer Balloon - [id number] Implanted:Qty: 1 on 07/24/2018 by Javier Darden MD at [facility] [employer] 08/23/2019 [id number] / / [employer] 50mm 28mm Cement Constrained Hip 1mm .072in Offset Liner [id number] - [id number] Implanted:Qty: 1 on 03/06/2024 by Neva Morgan MD at [facility] Right: Hip [employer] [id number] 01/04/2025 [id number] / / [id number] [employer] Simplex P Full Dose Radiopaque Preblend Cement Bone Tobramycin 6197-9-001 - [id number] Implanted:Qty: 1 on 03/06/2024 by Neva Morgan MD at [facility] Right: Hip [employer] [id number] 05/06/2025 6197-9-001 / / [id number] [employer] Hip 5mm Offset Lyons C Taper Sleeve Adapter Sterile Latex Free t - [id number] Implanted:Qty: 1 on 03/06/2024 by Neva Morgan MD at [facility] Right: Hip [employer] [id number] 01/30/2028 19-0005T / / [id number] [employer] 28mm Hip Lyons Taper Head Femoral Biolox Delta 6519-1-028 - [id number] Implanted:Qty: 1 on 03/06/2024 by Neva Morgan MD at [facility] Right: Hip [employer] [id number] 06/05/2025 6519-1-028 / / [id number] Explanted Type Area Animal Chiropractor Device Identifier Shelf Expiration Date Model / Serial / Lot [employer] Trident 42mm 28mm Constrain Hip 0d F Insert Acetabular Uhmwpe [id number] - [id number] Explanted:Qty: 1 on 03/06/2024 at [facility] Right: Hip [employer] [id number] 09/06/2028 [id number] / / [id number] Synthes 4mm 6mm 55mm Small Hexagonal Socket Cancellous Full Thread Screw 206.055 - [id number] Explanted:Qty: 1 on 03/06/2024 by Neva Morgan MD at [facility] Right: Hip Synthes I 206.055 / / Synthes 4mm 6mm 30mm Small Hexagonal Socket Cancellous Full Thread Screw 206.030 - [id number] Explanted:Qty: 1 on 03/06/2024 by Neva Morgan MD at [facility] Right: Hip Synthes I 206.030 / / [employer] Hip 5mm Offset Lyons C Taper Sleeve Adapter Sterile Latex Free -0005t - [id number] Explanted:Qty: 1 on 03/06/2024 at [facility] Right: Hip [employer] [id number] 05/03/2025 19-0005T / / [id number] [employer] 28mm Hip Lyons Taper Head Femoral Biolox Delta 6519-1-028 - [id number] Explanted:Qty: 1 on 03/06/2024 at [facility] Right: Hip [employer] [id number] 10/25/2026 6519-1-02 8 / / [id number] Procedures Procedure Name Priority Date/Time Associated Diagnosis Comments XR TRANSFER OF OUTSIDE FILMS Routine 01/22/2025 9:36 AM CDT LIPID PANEL Routine 08/11/2024 3:56 PM POWER BALLAST MACHINE OPERATOR EGFR Routine 03/11/2024 11:31 PM CDT from Last 3 Months or Most Recently Relevant to Health Maintenance Results * XR Outside Reference (01/22/2025 9:36 AM CDT) Impressions [facility] - 01/22/2025 9:36 AM CDT These images are for Reference purposes only and have not been reviewed by [facility] Radiology. There will be no report generated by a [facility] Radiologist. Narrative [facility] - 01/22/2025 9:36 AM CDT EXAMINATION: Images For Reference Purposes Only us Kunal Paniagua MD IMG XR PROCEDURES Fi nal Result RAD_PACS_[facility] * Lipid panel (08/11/2024 3:56 PM POWER BALLAST MACHINE OPERATOR) SCRIBED Cholesterol, Total 158 0 - 200 EXTERNAL LAB SCRIBED HDL 62 40 - 100 EXTERNAL LAB SCRIBED LDL 77 0 - 100 EXTERNAL LAB SCRIBED Triglycerides 106 0 - 150 EXTERNAL LAB Blood us Historical Provider LAB BLOOD ORDERABLES Edit ed Result - Final Performing Organization Address [facility] Co de Phone Number EXTERNAL LAB * eGFR (03/11/2024 11:31 PM [...] MD LAB BLOOD ORDERABLES F inal Result Performing Organization Address City/[facility] [address]/[facility] Co de Phone Number [facility] Department [place] [address] from Last 3 Months or Most Recently Relevant to Health Maintenance Insurance MEDICARE [facility] MEDICARE [facility] MEDICARE [facility] FEDERAL Advance Directives For more information, please contact: [phone] Documents on File Type Date Recorded Patient Wood Carver Expl anation ADVANCE DIRECTIVE 09/11/2013 12:00 AM ELISSA CHOWDHURY WILL ADVANCE DIRECTIVE 09/11/2013 12:00 AM CATIA R OF MANAGER SECONDARY FINANCIAL/MEDICAL * Full Code (Latest Code Status on File) Date Activated Date Inactivated Comments 03/06/2024 5:28 PM 03/12/2024 10:27 PM * Full Code Date Activated Date Inactivated Comments 06/18/2018 2:56 PM 07/24/2018 5:29 AM * Full Code Date Activated Date Inactivated Comments 06/18/2018 10:05 AM 06/19/2018 3:31 PM Care Teams Celery Packer Relationship Specialty Start Date End Date Sandoval Luis MD [address] [place] [id number] PCP - General 11/05/11
--- OUTSIDE RECORDS SUMMARY | 2025-03-12 14:15 | XMS_ITS | Encounter Summary ---
Author Organization [facility] Facility Care Team Providers Care Powerhouse Engineer Name Role Phone Sandoval Luis MD Primary Care Provider Anna Caballero PLANT PRODUCTION MANAGER Unavailable [phone] Brandt Orellana PLANT PRODUCTION MANAGER Unavailable [phone] Tabby Ortiz DNP Unavailable [phone] Encounter Details Date Type Department Care Team (Latest Contact Info) Description 05/29/2016 Orders Only [facility] CLINCONV ProviderCed MD [address] [place] [address] Social History Tobacco Use Types Packs/Day Years Used Date Smoking Tobacco: Some Days Cigarettes Last attempted to quit: 10/07/1984 Alcohol Use Standard Drinks/Week Comments Yes 0 (1 standard drink = 0.6 oz pur e alcohol) Sex and Gender Information Value Date Recorded Sex Assigned at Not on file Legal Sex Male 10:26 PM PROCESS TREATER Gender Identity Male 01/13/2020 10:39 AM CDT [...] on filedocumented in this encounter Care Teams Powerhouse Engineer Relationship Specialty Start Date End Date Sandoval Luis MD [address] [place] [address] PCP - General 11/05/11 Anna Caballero, PLANT PRODUCTION MANAGER [address] [place] [address] Rn Lactation 06/16/18 08/13/18 Brandt Orellana, SARAH [address] [place] [address] Rn Lactation 06/16/18 08/13/18 Tabby Ortiz DNP [address] [place] [address] Nurse Practitioner Internal Medicine 06/16/18 08/13/18 documented as of this encounter
--- OUTSIDE RECORDS SUMMARY | 2025-03-12 14:15 | XMS_ITS | CONTINUITY OF CARE DOCUMENT ---
Author Name clivejarredlouis Address Unknown Organization [facility] Address [address] [place] [address] Phone [phone] Care Team Providers Care Hotel Guest Service Agent Name Role Phone Demond PAINTING, Loly Unavailable NATALIO COOPER MD Unavailable NATALIO COOPER MD Unavailable [phone] INSURANCE PROVIDERS Payer name Policy type / Coverage type [place] red democrat ID [facility] [id number] [place] MED[place]ARE PART B Medicare [id number]
--- OUTSIDE RECORDS SUMMARY | 2025-03-12 14:15 | XMS_ITS | Encounter Summary ---
Author Organization [facility] Address [address] [place] [address] Care Team Providers Care Asl Interpreter Name Role Phone Stewart Dominguez MD Primary Care Provider [phone] Encounter Details Date Type Department Care Team (Late st Contact Info) Description 07/08/2024 Lab Requisition [facility] - DermPath Lab [address] [facility], [place] [address] Norah Sanchez MD [address] [facility] 3 [place] [address] Social History Tobacco Use Types Packs/Day Years Used Date Smoking Tobacco: Never Assessed Sex and Gender Information Value Date Recorded Sex Assigned at Not on file Legal Sex Male 5:49 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 [employer]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 Gender Identity Not on file Sexual Orientation Not on file documented as of this encounter Plan of Treatment Not on file documented as of this encounter Procedures Procedure Name Priority Date/Time Associated Diagnosis Comments DERMATOPATHOLOGY Routine 07/08/2024 1:42 PM CDT documented in this encounter Results * DERMATOPATHOLOGY (07/08/2024 1:42 PM CDT) Case Report Dermatopathology Report Case: [id number] Authorizing Provider: Norah Sanchez MD Collected: 07/08/2024 01:42 PM Ordering Location: [facility] Physician [facility] - Received: 07/09/2024 03:55 PM DermPath Lab Pathologist: Indu Fernandez MD Specimens: A) - Skin, right FH B) - Skin, left distal FH 2:14 PM CDT DERMATOPATHOLOGY LABORATORY Final Diagnosis Specimen A. SKIN, right FH: BASAL CELL CARCINOMA, MICRONODULAR TYPE (C44.319) Specimen B. SKIN, left distal FH: BASAL CELL CARCINOMA, NODULAR TYPE (C44.319) 2:14 PM CDT DERMATOPATHOLOGY LABORATORY at 1414 CDT Clinical History [place] papule r/o BCC 2:14 PM CDT DERMATOPATHOLOGY [...] by the Dermatopathology Laboratory at [facility], directed by Dr. Steven Cao. These tests need not be, and therefore are not, approved by the [place] Food and Drug Administration. The tests are used for clinical purposes. Billing Codes Specimen Charges Stain Charges 57508 64382 1 1 4 2:14 PM CDT DERMATOPATHOLOGY LABORATORY Embedded Images 2:14 PM CDT DERMATOPATHOLOGY LABORATORY Pathology/Cytology TISSUE SPECIMEN FROM SKIN / Unknown 07/08/2024 1:42 PM CDT 07/09/2024 3:55 PM CDT Miscellaneous samples (specimen) TISSUE SPECIMEN FROM SKIN / Unknown 07/08/2024 1:42 PM CDT 07/09/2024 3:55 PM CDT us Norah Sanchez MD LAB - PATHOLOGY/CYTOLOGY ORD ERABLES Final Result DERMATOPATHOLOGY LABORATORY [facility] - Department of Dermatology [address], [address] [phone] documented in this encounter Visit Diagnoses Not on filedocumented in this encounter Care Teams Asl Interpreter Relationship Specialty Start Date End Date Stewart Dominguez MD [address] [place] [address] PCP - General 04/22/12 documented as of this encounter
--- OUTSIDE RECORDS SUMMARY | 2025-03-12 14:15 | XMS_ITS | Clinical Summary ---
Author Organization [facility] Address [address] [place] [address] Care Team Providers Care Moss Bleacher Name Role Phone Stewart Dominguez MD Primary Care Provider Source Comments [facility],non-owned Affiliates and Associated Physician Practices is amultiple site organization consisting of ambulatory clinics and hospital sitesin [place], [place], [place] and [place]. This disclosure is being madepursuant to the Care Everywhere program and may not contain all information available regarding this patient. Last updated 18.[facility] [employer] Social History Tobacco Use Types Packs/Day Years Used Date Smoking Tobacco: Never Assessed Sex and Gender Information Value Date Recorded Sex Assigned at Not on file Legal Sex Male 5:49 PM LORRY WEIGHER Gender Identity Not on file Sexual Orientation [...] age to complete this topic [place] [address] MEDICARE [facility] Care Teams Moss Bleacher Relationship Specialty Start Date End Date Stewart Dominguez MD [address] [place] [address] [facility] - General 04/22/12
--- OUTSIDE RECORDS SUMMARY | 2025-03-12 14:15 | XMS_ITS | Encounter Summary ---
Author Organization [facility] Address [address] [place] [address] Care Team Providers Care Carbide Powder Processor Name Role Phone Stewart Dominguez MD Primary Care Provider Encounter Details Date Type Department Care Team (Late st Contact Info) Description 11/04/2018 Lab Requisition [facility] Care DermPath Lab [address] [facility] [place] [address] Norah Sanchez MD [address] [facility] [address] [place] [address] Social History Tobacco Use Types Packs/Day Years Used Date Smoking Tobacco: Never Assessed Sex and Gender Information Value Date Recorded Sex Assigned at Not on file Legal Sex Male 5:49 PM LAUNDRY PRICING CLERK Gender Identity Not on file Sexual Orientation Not on file documented as of this encounter Plan of Treatment Not on file documented as of this encounter Procedures Procedure Name Priority Date/Time Associated Diagnosis Comments DERMATOPATH TECHNICAL REPORT Routine 11/03/2018 12:00 AM LAUNDRY PRICING CLERK documented in this encounter Results * DERMATOPATH TECHNICAL REPORT (11/03/2018 12:00 AM LAUNDRY PRICING CLERK) Case Report Dermatopathology Report Case: [id number] Authorizing Provider: Norah Sanchez MD Collected: 11/03/2018 12:00 AM Pathologist: Wei Cao MD Received: 11/04/2018 06:58 AM Specimens: A) - Skin, left nose B) - Skin, right ordoñez 9 5:25 PM LAUNDRY PRICING CLERK DERMATOPATHOLOGY LABORATORY Clinical History A: R/O BCC. [place] papule. B: R/O NMSC vs stasis. Crusted pink plaque. 9 5:25 PM LAUNDRY PRICING CLERK DERMATOPATHOLOGY LABORATORY Gross Description Specimen A: Received is one formalin filled container labeled with the patient's name and designated left nose. The specimen consists of a shave measuring [id number]. Jar 0. Specimen B: Received is one formalin filled container labeled with the patient's name and designated right ordoñez. The specimen consists of a shave measuring 8d3k5ox. Jar 0. [facility] Dermatopathology Laboratory performed the technical component only. 9 5:25 PM [facility] DERMATOPATHOLOGY LABORATORY Embedded Images 9 5:25 PM [facility] DERMATOPATHOLOGY LABORATORY DISCLAIMER An external and internal positive and negative controls are appropriate for the histochemical, immunohistochemical and immunofluorescence stain(s) in this case (if any), except where stated explicitly. The performance characteristics of the stain(s) cited in this report were developed and its performance characteristic determined by the Dermatopathology Laboratory at [facility], directed by Dr. Steven Cao. These tests need not be, and therefore are not, approved by the [place] Food and Drug Administration. The tests are used for clinical purposes. 9 5:25 PM [facility] DERMATOPATHOLOGY LABORATORY at 1725 LAUNDRY PRICING CLERK Pathology/Cytology TISSUE SPECIMEN FROM SKIN / Unknown 11/03/2018 11/04/2018 6:58 AM LAUNDRY PRICING CLERK Miscellaneous samples (specimen) TISSUE SPECIMEN FROM SKIN / Unknown 11/03/2018 11/04/2018 6:58 AM LAUNDRY PRICING CLERK us Norah Sanchez MD LAB - PATHOLOGY/CYTOLOGY ORD ERABLES Final Result DERMATOPATHOLOGY LABORATORY [facility] - Department of Dermatology [address] [facility], 5th Floor Lab [address] [place], [place] [address] [place] [address] documented in this encounter Visit Diagnoses Not on filedocumented in this encounter Care Teams Carbide Powder Processor Relationship Specialty Start Date End Date Stewart Dominguez MD [address] [place] [address] PCP - General 04/22/12 documented as of this encounter
--- OUTSIDE RECORDS SUMMARY | 2025-03-12 14:15 | XMS_ITS | Encounter Summary ---
Author Organization [facility] Facility Care Team Providers Care Explosives Handler Name Role Phone Sandoval Luis MD Primary Care Provider Anna Caballero AMMONIUM NITRATE NEUTRALIZER Unavailable [phone] Brandt Orellana AMMONIUM NITRATE NEUTRALIZER Unavailable [phone] Tabby Ortiz DNP Unavailable [phone] Encounter Details Date Type Department Care Team (Latest Contact Info) Description 06/13/2016 Orders Only [facility] CLINCONV ProviderCed MD [address] [place] [address] Social History Tobacco Use Types Packs/Day Years Used Date Smoking Tobacco: Some Days Cigarettes Last attempted to quit: 10/07/1984 Alcohol Use Standard Drinks/Week Comments Yes 0 (1 standard drink = 0.6 oz pur e alcohol) Sex and Gender Information Value Date Recorded Sex Assigned at Not on file Legal Sex Male 10:26 PM MIX TECHNICIAN Gender Identity Male 01/13/2020 10:39 AM CDT [...] on filedocumented in this encounter Care Teams Explosives Handler Relationship Specialty Start Date End Date Sandoval Luis MD [address] [place] [address] PCP - General 11/05/11 Anna Caballero, AMMONIUM NITRATE NEUTRALIZER [address] [place] [address] Contracts Specialist 06/16/18 08/13/18 Brandt Orellana, AMMONIUM NITRATE NEUTRALIZER [address] [place] [address] Contracts Specialist 06/16/18 08/13/18 Tabby Ortiz, GIDEON [address] [place] [address] Nurse Practitioner Internal Medicine 06/16/18 08/13/18 documented as of this encounter
--- OUTSIDE RECORDS SUMMARY | 2025-03-12 14:15 | XMS_ITS | Encounter Summary ---
Author Organization [facility] Facility Care Team Providers Care Television Antenna Installer Name Role Phone Sandoval Luis MD Primary Care Provider Anna Caballero YARN SALVAGER Unavailable [phone] Brandt Orellana YARN SALVAGER Unavailable [phone] Tabby Ortiz DNP Unavailable [phone] Encounter Details Date Type Department Care Team (Latest Contact Info) Description 05/28/2016 Orders Only [facility] CLINCONV ProviderCed MD [address] [place] [address] Social History Tobacco Use Types Packs/Day Years Used Date Smoking Tobacco: Some Days Cigarettes Last attempted to quit: 10/07/1984 Alcohol Use Standard Drinks/Week Comments Yes 0 (1 standard drink = 0.6 oz pur e alcohol) Sex and Gender Information Value Date Recorded Sex Assigned at Not on file Legal Sex Male 10:26 PM HEMMING AND TACKING MACHINE OPERATOR Gender Identity Male 01/13/2020 10:39 [...] on filedocumented in this encounter Care Teams Television Antenna Installer Relationship Specialty Start Date End Date Sandoval Luis MD [address] [place] [address] PCP - General 11/05/11 Anna Caballero, YARN SALVAGER [address] [place] [address] Mitten Stitcher 06/16/18 08/13/18 Brandt Orellana, YARN SALVAGER [address] [place] [address] Mitten Stitcher 06/16/18 08/13/18 Tabby Ortiz, GIDEON [address] [place] [address] Nurse Practitioner Internal Medicine 06/16/18 08/13/18 documented as of this encounter
== END 2025-03-12 14:13 | disposition home or self-care (01) ==
PROVIDERS: PCP Family Medicine; Visit Provider Nurse Practitioner Family
DX: R19.7 Diarrhea, unspecified (principal)
CPT/HCPCS: 83993; 87045; 87177; 87209; 87269; 87427; 87449

== ENCOUNTER 2025-04-23 12:16 | Outpatient (CLI) | payer MEDICARE, BC, SELFPAY ==
--- NOTE | ~2025-04-23 | XR_ITS ---
Clinical Indication: Dyspnea PA and lateral views of the chest: Comparison: 07/03/2020 Findings: Small right pleural effusion present. Probable minimal bibasilar pulmonary edema. Cardiome diastinal silhouette is stable, status post aortic valve replacement. Bones and soft tissues are unre markable. Impression: Small right pleural effusion and probable minimal bibasilar pulmonary edema. Reviewed, dictated and finalized at location . Impression: Small right pleural effusion and probable minimal bibasilar pulmonary edema.
--- OUTSIDE RECORDS SUMMARY | 2025-04-23 12:20 | XMS_ITS | Clinical Summary ---
Author Organization [facility] Address [address] [place] [address] Care Team Providers Care Aircraft Engine Dismantler Name Role Phone Sandoval Luis MD Primary Care Provider [phone] Allergies Active Allergy Reactions Criticality Noted Date [...] 9 Active azelastine-flut icasone (Dymista) 137-50 mcg/spray [place], Non-Aerosol [The details of the medication are [...] on file Legal Sex Male 11:09 AM ENDOSCOPY SUPPORT SPECIALIST Gender Identity Not on file Sexual Orientation [...] 1-dose 75+ series) 2014 INFLUENZA VACCINE (#1) 2025 06/20/2020, 2013 Care Teams Aircraft Engine Dismantler Relationship Specialty Start Date End Date Sandoval Luis MD [address] [phone] PCP - General Family Practice 10/21/19
--- OUTSIDE RECORDS SUMMARY | 2025-04-23 12:20 | XMS_ITS | Encounter Summary ---
Author Organization [facility] Address [address] [facility] [place] [address] Care Team Providers Care Rear Load Truck Driver Name Role Phone Stewart Dominguez MD Primary Care Provider Encounter Details Date Type Department Care Team (Late st Contact Info) Description 07/08/2024 Lab Requisition [facility] - DermPath Lab [address] [facility], [place] [id number] Norah Sanchez MD [address] [facility] [address] [place] [address] Social History Tobacco Use Types Packs/Day Years Used Date Smoking Tobacco: Never Assessed Sex and Gender Information Value Date Recorded Sex Assigned at Not on file 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 Gender Identity Not on file Sexual Orientation Not on file documented as of this encounter Plan of Treatment Not on file documented as of this encounter Procedures Procedure Name Priority Date/Time Associated Diagnosis Comments DERMATOPATHOLOGY Routine 07/08/2024 1:42 PM CDT documented in this encounter Results * DERMATOPATHOLOGY (07/08/2024 1:42 PM CDT) Case Report Dermatopathology Report Case: [id number] Authorizing Provider: Norah Sanchez MD Collected: 07/08/2024 01:42 PM Ordering Location: [facility] Physician [facility] - Received: 07/09/2024 03:55 PM DermPath Lab Pathologist: Indu Fernandez MD Specimens: A) - Skin, right FH B) - Skin, left distal FH 2:14 PM CDT DERMATOPATHOLOGY LABORATORY Final Diagnosis Specimen A. SKIN, right FH: BASAL CELL CARCINOMA, MICRONODULAR TYPE (C44.319) Specimen B. SKIN, left distal FH: BASAL CELL CARCINOMA, NODULAR TYPE (C44.319) 2:14 PM CDT DERMATOPATHOLOGY LABORATORY at 1414 CDT Clinical History [place] papule r/o BCC 2:14 PM CDT DERMATOPATHOLOGY [...] characteristic determined by the Dermatopathology Laboratory at [facility], directed by Dr. Steven Cao. These tests need not be, and therefore are not, approved by the [place] Food and Drug Administration. The tests are used for clinical purposes. Billing Codes Specimen Charges Stain Charges 50485 41113 1 1 4 2:14 PM CDT DERMATOPATHOLOGY LABORATORY Embedded Images 2:14 PM CDT DERMATOPATHOLOGY LABORATORY Pathology/Cytology TISSUE SPECIMEN FROM SKIN / Unknown 07/08/2024 1:42 PM CDT 07/09/2024 3:55 PM CDT Miscellaneous samples (specimen) TISSUE SPECIMEN FROM SKIN / Unknown 07/08/2024 1:42 PM CDT 07/09/2024 3:55 PM CDT us Norah Sanchez MD LAB - PATHOLOGY/CYTOLOGY ORD ERABLES Final Result DERMATOPATHOLOGY LABORATORY [facility] - Department of Dermatology [address], [address] [phone] documented in this encounter Visit Diagnoses Not on filedocumented in this encounter Care Teams Rear Load Truck Driver Relationship Specialty Start Date End Date Stewart Dominguez MD [address] [place] [address] PCP - General 04/22/12 documented as of this encounter
--- OUTSIDE RECORDS SUMMARY | 2025-04-23 12:20 | XMS_ITS | Encounter Summary ---
Author Organization [facility] Care Team Providers Care Hospice Executive Director Name Role Phone Sandoval Luis MD Primary Care Provider Anna Caballero HEEL COMPRESSOR Unavailable [phone] Brandt Orellana HEEL COMPRESSOR Unavailable [phone] Tabby Ortiz DNP Unavailable [phone] Encounter Details Date Type Department Care Team (Latest Contact Info) Description 05/31/2016 Orders Only [facility] CLINCONV ProviderCed MD [address] [place] [address] Social History Tobacco Use Types Packs/Day Years Used Date Smoking Tobacco: Some Days Cigarettes Last attempted to quit: 10/07/1984 Alcohol Use Standard Drinks/Week Comments Yes 0 (1 standard drink = 0.6 oz pur e alcohol) Sex and Gender Information Value Date Recorded Sex Assigned at Not on file 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 Gender Identity Male 01/13/2020 10:39 AM CDT [...] on filedocumented in this encounter Care Teams Hospice Executive Director Relationship Specialty Start Date End Date Sandoval Luis MD [address] [place] [address] PCP - General 11/05/11 Anna Caballero, HEEL COMPRESSOR [address] [place] [address] Merchandise Appraiser 06/16/18 08/13/18 Brandt Orellana, SARAH [address] [place] [address] Merchandise Appraiser 06/16/18 08/13/18 Tabby Ortiz DNP [id number] [place] [address] Nurse Practitioner Internal Medicine 06/16/18 08/13/18 documented as of this encounter
--- OUTSIDE RECORDS SUMMARY | 2025-04-23 12:20 | XMS_ITS | Encounter Summary ---
Author Organization [facility] Facility Care Team Providers Care Television Schedule Coordinator Name Role Phone Sandoval Luis MD Primary Care Provider Anna Caballero POOLING OPERATOR Unavailable [phone] Brandt Orellana POOLING OPERATOR Unavailable [phone] Tabby Ortiz DNP Unavailable [phone] Encounter Details Date Type Department Care Team (Latest Contact Info) Description 05/30/2016 Orders Only [facility] CLINCONV ProviderCed MD [address] [place] [address] Social History Tobacco Use Types Packs/Day Years Used Date Smoking Tobacco: Some Days Cigarettes Last attempted to quit: 10/07/1984 Alcohol Use Standard Drinks/Week Comments Yes 0 (1 standard drink = 0.6 oz pur e alcohol) Sex and Gender Information Value Date Recorded Sex Assigned at Not on file 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 Gender Identity Male 01/13/2020 10:39 AM [...] filedocumented in this encounter Care Teams Television Schedule Coordinator Relationship Specialty Start Date End Date Sandoval Luis MD [address] [place] [address] PCP - General 11/05/11 Anna Caballero, POOLING OPERATOR [address] [place] [address] Tire Classifier 06/16/18 08/13/18 Brandt Orellana, POOLING OPERATOR [address] [place] [address] Tire Classifier 06/16/18 08/13/18 Tabby Ortiz, GIDEON [address] [place] [address] Nurse Practitioner Internal Medicine 06/16/18 08/13/18 documented as of this encounter
--- OUTSIDE RECORDS SUMMARY | 2025-04-23 12:20 | XMS_ITS | Encounter Summary ---
Author Organization [facility] Facility Care Team Providers Care Mandarin Teacher Name Role Phone Sandoval Luis MD Primary Care Provider Anna Caballero MEDICAL FRONT DESK COORDINATOR Unavailable [phone] Brandt Orellana MEDICAL FRONT DESK COORDINATOR Unavailable [phone] Tabby Ortiz DNP Unavailable [phone] Encounter Details Date Type Department Care Team (Latest Contact Info) Description 06/13/2016 Orders Only [facility] CLINCONV ProviderCed MD [address] [place] [address] Social History Tobacco Use Types Packs/Day Years Used Date Smoking Tobacco: Some Days Cigarettes Last attempted to quit: 10/07/1984 Alcohol Use Standard Drinks/Week Comments Yes 0 (1 standard drink = 0.6 oz pur e alcohol) Sex and Gender Information Value Date Recorded Sex Assigned at Not on file 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 Gender Identity Male 01/13/2020 10:39 AM CDT [...] on filedocumented in this encounter Care Teams Mandarin Teacher Relationship Specialty Start Date End Date Sandoval Luis MD [address] [place] [address] PCP - General 11/05/11 Anna Caballero, MEDICAL FRONT DESK COORDINATOR [address] [place] [address] Sales Representative 06/16/18 08/13/18 Brandt Orellana, MEDICAL FRONT DESK COORDINATOR [address] [place] [address] Sales Representative 06/16/18 08/13/18 Tabby Ortiz, GIDEON [address] [place] [address] Nurse Practitioner Internal Medicine 06/16/18 08/13/18 documented as of this encounter
--- OUTSIDE RECORDS SUMMARY | 2025-04-23 12:20 | XMS_ITS | Clinical Summary ---
Author Organization [facility] Address [address] [place] [address] Care Team Providers Care Visual Training Aide Name Role Phone Stewart Dominguez MD Primary Care Provider Source Comments [facility],non-owned Affiliates and Associated Physician Practices is amultiple site organization consisting of ambulatory clinics and hospital sitesin [place], [place], [place] and [place]. This disclosure is being madepursuant to the Care Everywhere program and may not contain all information available regarding this patient. 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
--- OUTSIDE RECORDS SUMMARY | 2025-04-23 12:20 | XMS_ITS | Encounter Summary ---
Author Organization [facility] Facility Care Team Providers Care Cork Floor Installer Name Role Phone Sandoval Luis MD Primary Care Provider Anna Caballero GAUGE MAKER APPRENTICE Unavailable [phone] Brandt Orellana GAUGE MAKER APPRENTICE Unavailable [phone] Tabby Ortiz DNP Unavailable [phone] Encounter Details Date Type Department Care Team (Latest Contact Info) Description 05/29/2016 Orders Only [facility] CLINCONV ProviderCed MD [address] [place] [address] Social History Tobacco Use Types Packs/Day Years Used Date Smoking Tobacco: Some Days Cigarettes Last attempted to quit: 10/07/1984 Alcohol Use Standard Drinks/Week Comments Yes 0 (1 standard drink = 0.6 oz pur e alcohol) Sex and Gender Information Value Date Recorded Sex Assigned at Not on file 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 Gender Identity Male 01/13/2020 10:39 AM CDT [...] on filedocumented in this encounter Care Teams Cork Floor Installer Relationship Specialty Start Date End Date Sandoval Luis MD [address] [place] [address] PCP - General 11/05/11 Anna Caballero, GAUGE MAKER APPRENTICE [address] [place] [address] Real Estate Officer 06/16/18 08/13/18 Brandt Orellana, SARAH [address] [place] [address] Real Estate Officer 06/16/18 08/13/18 Tabby Ortiz DNP [address] [place] [address] Nurse Practitioner Internal Medicine 06/16/18 08/13/18 documented as of this encounter
--- OUTSIDE RECORDS SUMMARY | 2025-04-23 12:20 | XMS_ITS | Encounter Summary ---
Author Organization [facility] Address [address] [facility] [address] Care Team Providers Care Hydro Generation Supervisor Name Role Phone Stewart Dominguez MD Primary Care Provider Encounter Details Date Type Department Care Team (Late st Contact Info) Description 11/04/2018 Lab Requisition [facility] Care DermPath Lab [address] [facility], [place] [address] Norah Sanchez MD [address] [facility] [address] [place] [address] Social History Tobacco Use Types Packs/Day Years Used Date Smoking Tobacco: Never Assessed Sex and Gender Information Value Date Recorded Sex Assigned at Not on file Legal Sex Male 5:49 PM CUPOLA PATCHER Gender Identity Not on file Sexual Orientation Not on file documented as of this encounter Plan of Treatment Not on file documented as of this encounter Procedures Procedure Name Priority Date/Time Associated Diagnosis Comments DERMATOPATH TECHNICAL REPORT Routine 11/03/2018 12:00 AM CUPOLA PATCHER documented in this encounter Results * DERMATOPATH TECHNICAL REPORT (11/03/2018 12:00 AM CUPOLA PATCHER) Case Report Dermatopathology Report Case: [id number] Authorizing Provider: Norah Sanchez MD Collected: 11/03/2018 12:00 AM Pathologist: Wei Cao MD Received: 11/04/2018 06:58 AM Specimens: A) - Skin, left nose B) - Skin, right ordoñez 9 5:25 PM CUPOLA PATCHER DERMATOPATHOLOGY LABORATORY Clinical History A: R/O BCC. Christ[place] papule. B: R/O NMSC vs stasis. Crusted pink plaque. 9 5:25 PM CUPOLA PATCHER DERMATOPATHOLOGY LABORATORY Gross Description Specimen A: Received is one formalin filled container labeled with the patient's name and designated left nose. The specimen consists of a shave measuring [id number]. Jar 0. Specimen B: Received is one formalin filled container labeled with the patient's name and designated right ordoñez. The specimen consists of a shave measuring [id number]. Jar 0. [facility] Dermatopathology Laboratory performed the technical component only. 9 5:25 PM [facility] DERMATOPATHOLOGY LABORATORY Embedded Images 9 5:25 PM [facility] DERMATOPATHOLOGY LABORATORY DISCLAIMER An external and internal positive and negative controls are appropriate for the histochemical, immunohistochemical and immunofluorescence stain(s) in this case (if any), except where stated explicitly. The performance characteristics of the stain(s) cited in this report were developed and its performance characteristic determined by the Dermatopathology Laboratory at [facility], directed by Dr. Steven Cao. These tests need not be, and therefore are not, approved by the [place] Food and Drug Administration. The tests are used for clinical purposes. 9 5:25 PM [facility] DERMATOPATHOLOGY LABORATORY at [address] CUPOLA PATCHER Pathology/Cytology TISSUE SPECIMEN FROM SKIN / Unknown 11/03/2018 11/04/2018 6:58 AM CUPOLA PATCHER Miscellaneous samples (specimen) TISSUE SPECIMEN FROM SKIN / Unknown 11/03/2018 11/04/2018 6:58 AM CUPOLA PATCHER us Norah Sanchez MD LAB - PATHOLOGY/CYTOLOGY ORD ERABLES Final Result DERMATOPATHOLOGY LABORATORY [facility] - Department of Dermatology [address] [facility], 5th Floor Lab B [place], [place] [address] [place] [address] documented in this encounter Visit Diagnoses Not on filedocumented in this encounter Care Teams Hydro Generation Supervisor Relationship Specialty Start Date End Date Stewart Dominguez MD [address] [place] [address] PCP - General 04/22/12 documented as of this encounter
--- OUTSIDE RECORDS SUMMARY | 2025-04-23 12:20 | XMS_ITS | Encounter Summary ---
Author Organization [facility] Facility Care Team Providers Care Bag Inspector Name Role Phone Sandoval Luis MD Primary Care Provider Anna Caballero CHAINMAN Unavailable [phone] Brandt Orellana CHAINMAN Unavailable [phone] Tabby Ortiz DNP Unavailable [phone] Encounter Details Date Type Department Care Team (Latest Contact Info) Description 05/28/2016 Orders Only [facility] CLINCONV ProviderCed MD [address] [place] [address] Social History Tobacco Use Types Packs/Day Years Used Date Smoking Tobacco: Some Days Cigarettes Last attempted to quit: 10/07/1984 Alcohol Use Standard Drinks/Week Comments Yes 0 (1 standard drink = 0.6 oz pur e alcohol) Sex and Gender Information Value Date Recorded Sex Assigned at Not on file 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 Gender Identity Male 01/13/2020 10:39 AM CDT [...] on filedocumented in this encounter Care Teams Bag Inspector Relationship Specialty Start Date End Date Sandoval Luis MD [address] [place] [address] PCP - General 11/05/11 Anna Caballero, CHAINMAN [address] [place] [address] Director Of People 06/16/18 08/13/18 Brandt Orellana, CHAINMAN [address] [place] [address] Director Of People 06/16/18 08/13/18 Tabby Ortiz, GIDEON [address] [place] [address] Nurse Practitioner Internal Medicine 06/16/18 08/13/18 documented as of this encounter
--- OUTSIDE RECORDS SUMMARY | 2025-04-23 12:21 | XMS_ITS | Referral Summary ---
Author Organization [facility] [address] Address [address] [place] [address] Care Team Providers Care Maintenance And Utilities Supervisor Name Role Phone Sandoval Luis MD Primary Care Provider Encounters Date Type Department Care Team Description 03/18/2025 11:15 AM CDT Office Visit 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; Syncope and collapse; NSVT (nonsustained ventricular tachycardia) (HCC) 01/22/2025 Telephone [facility] Orthopaedic Surgery [facility] Medical Office Building [address] [place] [address] Alana Serrano RN 01/22/2025 9:36 AM CDT - 01/22/2025 11:59 PM CDT Hospital Encounter [facility] [address] [place] [address] Discharge Disposition: Discharge to home or self care from Last 3 Months Allergies Active Allergy [...] Patient taking differently: 5,000 Units, Reported on 03/18/2025 ezetimibe (ZETIA) 10 mg tabletIndication s:hyperlipidemia Take [...] by mouth 2 (two) times a day rx#[id number] 8 Active doxycycline (VIBRAMYCIN) 100 mg capsule Take 1 tablet/capsule (100 mg total) by mouth every morning rx#[id number] Active tamsulosin (FLOMAX) 0.4 mg extended release [...] mg SL tabletIndication s: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 Place 1 [...] times a day with meals 3 Active ascorbic acid (VITAMIN C ORAL) Take by mouth with lunch Active aspirin 81 mg enteric coated tablet Take 1 tablet (81 mg total) by mouth daily Take baby aspirin 81 mg twice a day for 30 days then resume home daily aspirin 4 Active acetaminophen 500 mg capsuleIndicatio ns:Pain Take 2 capsules (1,000 mg total) by mouth every 6 (six) hours 90 tablet 4 Active diazePAM (VALIUM) 10 mg tablet Take 1 tablet (10 mg total) by mouth every 6 (six) hours as needed for anxiety Active lisinopriL (PRINIVIL,ZESTRI L) 20 mg tabletIndication s:Chronic diastolic CHF (congestive heart failure) (HCC) Take 1 tablet by mouth once daily 90 tablet 1 5 Active metoprolol XL (TOPROL-XL) 25 mg extended release tabletIndication s: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),NSVT (nonsustained ventricular tachycardia) (HCC) Take 1 tablet (25 mg total) by mouth daily 90 tablet 3 5 03/18/20 26 Active furosemide (LASIX) 40 mg tabletIndication s:Chronic diastolic CHF (congestive heart failure) (HCC) Take 1 tablet by mouth once daily 90 tablet 3 5 Active Active Problems Problem Noted Date Diagnosed Date NSVT (nonsustained ventricular tachycardia) 03/07 Syncope and collapse 11/09/2024 Pre-op examination 04/17/2024 [...] (05/20/2018): Added automatically from request for surgery [id number] Chronic diastolic CHF (congestive heart failure) 03/17/2018 [...] artery disease of n ative artery of choctaw heart with stable angina pectoris 03/16/2016 Overview (01/11/2017): CAD in choctaw artery Assessment & Plan (02/03/2019 5:55 PM [...] 07/25/2020 01/23/2022 Coronary artery disease invo lving choctaw coronary artery of choctaw heart without angina pectoris 05/20/2018 01/07/2019 Overview (05/20/2018): Added automatically from request for surgery [id number] History of placement of sten t for [...] = 0.6 oz pur e alcohol) rarely Fidelis Answer Date Recorded In the past 12 months has e [employer], gas, oil, or water [place] threatened to shut off services in your [...] often do you attend chur ch or mandaeism services? More than 4 times per year 03/09/2024 Do you belong to any clubs o r organizations such as islam groups, unions, fraternal or athletic groups, or [...] any time in the past 12 m [facility], were you homeless or living in a mcc (including now)? No 03/09/2024 Personal Safety Answer Date Recorded Have you ever been in or are you currently in a harmful physical or emotional relationship or is someone making you feel afraid or unsafe? Denies 03/06/2024 Sex and Gender Information Value Date Recorded Sex Assigned at Not on file Legal Sex Male 10:26 PM HATCHERY MANAGER Gender Identity Male 01/13/2020 10:39 AM CDT Sexual Orientation Straight 01/13/2020 10 :39 AM CDT Last Filed Vital Signs Vital Sign Reading Time Taken Comments Blood Pressure 124/78 03/18/2025 11:27 AM CDT Pulse 80 03/18/2025 11:27 AM CDT Temperature 37.3 C (99.1 F) 03/12/2024 3:40 PM CDT Respiratory Rate 18 03/12/2024 3:40 PM CDT Oxygen Saturation 93% 03/18/2025 11:27 AM CDT Inhaled Oxygen Concentration - - Weight 86.2 kg (190 lb) 03/18/2025 11:27 AM CDT Height 167.6 cm (5' 6) 03/18/2025 11:27 AM CDT Body Mass Index 30.67 03/18/2025 11:27 AM CDT Plan of Treatment Not on file Goals Goal Patient Goal Type Associated Problems Recent Progress Patient-Stated? Author TTW CHF Goal - Patient will improve their knowledge of HF and will be motivated to try to better manage at home TTW Case Management No Anna Caballero, CONSTRUCTION PLUMBER Note: Problem: Ability to self-manage CHF Interventions: [...] pain TTW Case Management No Anna Caballero, SARAH Note: Problem: Chest Pain Interventions: - Assess [...] AMI TTW Case Management No Anna Caballero, CONSTRUCTION PLUMBER Note: Problem: Worsening Symptoms- AMI Interventions: - [...] catheterization TTW Case Management No Anna Caballero CONSTRUCTION PLUMBER Note: Problem: Knowledge deficit r/t cath/ stent [...] dual therapy) TTW Case Management No Brandt Orellana MSW Note: Problem: High Risk medication - [...] or provider Medical Devices Implanted Type Area Short Order Fry Cook Device Identifier Shelf Expiration Date Model / Serial / Lot [employer] Simplex P Full Dose Radiopaque Preblend Cement Bone Tobramycin 6197-9-001 - [id number] Implanted:Qty: 1 on 03/06/2024 by Neva Morgan MD at [facility] Bone Cement Right: Hip [employer] [id number] 05/06/2025 6197-9 / / [id number] [employer] Simplex P Full Dose Radiopaque Preblend Cement Bone Tobramycin 6197-9-001 - [id number] Implanted:Qty: 1 on 03/06/2024 by Neva Morgan MD at [facility] Bone Cement Right: Hip [employer] [id number] 06/06/2025 6197- / / [id number] [employer] Simplex P Full Dose Radiopaque Preblend Cement Bone Tobramycin 6197-9- - [id number] Implanted:Qty: 1 on 03/06/2024 by Neva Morgan MD at [facility] Bone Cement Right: Hip [employer] [id number] 05/06/2025 6197-9 / / [id number] [employer] Simplex P Full Dose Radiopaque Preblend Cement Bone Tobramycin 6197-9-001 - [id number] Implanted:Qty: 1 on 03/06/2024 by Neva Morgan MD at [facility] Bone Cement Right: Hip [employer] [id number] 05/06/2025 6197-9 / / [id number] [employer] Jonathan [id number] Synergy 3.5mm 32mm 144cm Radiopaque 1 Access Port Inflation Lumen - [id number] Implanted:Qty: 1 on 05/23/2018 by Javier Darden MD at [facility] [employer] 11/19/2018 [id number] / / [id number] [employer] Jonathan [id number] Synergy 3.5mm 12mm 144cm Radiopaque 1 Access Port Inflation Lumen - [id number] Implanted:Qty: 1 on 05/23/2018 by Javier Darden MD at [facility] [employer] Jonathan 01/27/2020 [id number] / / [id number] Daig [employer] [id number] Angio-Seal Vip Bondek-Plus 6fr .035in 70cm Hemostatic Latex Free - [id number] Implanted:Qty: 1 on 05/23/2018 by Javier Darden MD at [facility] [employer] 02/03/2019 [id number] / / [id number] [employer] [id number] Commander Garrett 3 Atrion 14fr Transcatheter Introducer Balloon - [id number] Implanted:Qty: 1 on 07/24/2018 by Javier Darden MD at [facility] [employer] 08/23/2019 [id number] / / [employer] 50mm 28mm Cement Constrained Hip 1mm .072in Offset Liner [id number] - [id number] Implanted:Qty: 1 on 03/06/2024 by Neva Morgan MD at [facility] Right: Hip [employer] [id number] 01/04/2025 [id number] / / [id number] [employer] Simplex P Full Dose Radiopaque Preblend Cement Bone Tobramycin 6197-9-001 - [id number] Implanted:Qty: 1 on 03/06/2024 by Neva Morgan MD at [facility] Right: Hip [employer] [id number] 05/06/2025 6197-9-001 / / [id number] [employer] Hip 5mm Offset [place] C Taper Sleeve Adapter Sterile Latex Free -4t - [id number] Implanted:Qty: 1 on 03/06/2024 by Neva Morgan MD at [facility] Right: Hip [employer] [id number] 01/30/2028-0005T / / [id number] [employer] 28mm Hip [place] Taper Head Femoral Biolox Delta 6519-1-028 - [id number] Implanted:Qty: 1 on 03/06/2024 by Neva Morgan MD at [facility] Right: Hip [employer] [id number] 06/05/2025 6519-1-028 / / [id number] Explanted Type Area Short Order Fry Cook Device Identifier Shelf Expiration Date Model / Serial / Lot [employer] Trident 42mm 28mm Constrain Hip 0d F Insert Acetabular Uhmwpe [id number] - [id number] Explanted:Qty: 1 on 03/06/2024 at [facility] Right: Hip [employer] [id number] 09/06/2028 [id number] / / [id number] Synthes 4mm 6mm 55mm Small Hexagonal Socket Cancellous Full Thread Screw 206.055 - [id number] Explanted:Qty: 1 on 03/06/2024 by Neva Morgan MD at [facility] Right: Hip Synthes I 206.055 / / Synthes 4mm 6mm 30mm Small Hexagonal Socket Cancellous Full Thread Screw 206.030 - [id number] Explanted:Qty: 1 on 03/06/2024 by Neva Morgan MD at [facility] Right: Hip Synthes I 206.030 / / [employer] Hip 5mm Offset [place] C Taper Sleeve Adapter Sterile Latex Free 19-0005t - [id number] Explanted:Qty: 1 on 03/06/2024 at [facility] Right: Hip [employer] [id number] 05/03/2025 19-0005T / / [id number] [employer] 28mm Hip [place] Taper Head Femoral Biolox Delta 6519-1-028 - [id number] Explanted:Qty: 1 on 03/06/2024 at [facility] Right: Hip [employer] [id number] 10/25/2026 6519-1-02 8 / / [id number] Procedures Procedure Name Priority Date/Time Associated Diagnosis Comments XR TRANSFER OF OUTSIDE FILMS Routine 01/22/2025 9:36 AM CDT LIPID PANEL Routine 08/11/2024 3:56 PM HATCHERY MANAGER EGFR Routine 03/11/2024 11:31 PM CDT from Last 3 Months or Most Recently Relevant to Health Maintenance Results * XR Outside Reference (01/22/2025 9:36 AM CDT) Impressions [facility] - 01/22/2025 9:36 AM CDT These images are for Reference purposes only and have not been reviewed by [facility] Radiology. There will be no report generated by a [facility] Radiologist. Narrative [facility] - 01/22/2025 9:36 AM CDT EXAMINATION: Images For Reference Purposes Only Kunal Paniagua MD IMG XR PROCEDURES Fi nal Result [facility] * Lipid panel (08/11/2024 3:56 PM HATCHERY MANAGER) SCRIBED Cholesterol, Total 158 0 - 200 EXTERNAL LAB SCRIBED HDL 62 40 - 100 EXTERNAL LAB SCRIBED LDL 77 0 - 100 EXTERNAL LAB SCRIBED Triglycerides 106 0 - 150 EXTERNAL LAB Blood Historical Provider LAB BLOOD ORDERABLES Edit ed Result - Final Performing Organization Address City/[facility] Co de Phone Number EXTERNAL [...] 1 PM CDT 03/12/2024 12:37 AM CDT us Neva Morgan MD LAB BLOOD ORDERABLES F inal Result [facility] Department [place] [address] from Last 3 Months or Most Recently Relevant to Health Maintenance Insurance [facility] MEDICARE [facility] MEDICARE [facility] Advance Directives For more information, please contact: [phone] Documents on File Type Date Recorded Patient Silica Spray Mixer Miya anation ADVANCE DIRECTIVE 09/11/2013 12:00 AM ELISSA CHOWDHURY WILL ADVANCE DIRECTIVE 09/11/2013 12:00 AM CATIA R OF TACTICAL RESPONSE GROUP OFFICER FINANCIAL/MEDICAL * Full Code (Latest Code Status on File) Date Activated Date Inactivated Comments 03/06/2024 5:28 PM 03/12/2024 10:27 PM * Full Code Date Activated Date Inactivated Comments 06/18/2018 2:56 PM 07/24/2018 5:29 AM * Full Code Date Activated Date Inactivated Comments 06/18/2018 10:05 AM 06/19/2018 3:31 PM Care Teams Maintenance And Utilities Supervisor Relationship Specialty Start Date End Date Sandoval Luis MD [address] [facility] [address] [address] PCP - General 11/05/11
--- OUTSIDE RECORDS SUMMARY | 2025-04-23 12:21 | XMS_ITS | Encounter Summary ---
Author Organization [facility] Address [address] [place] [address] Care Team Providers Care Auto Body Mechanic Name Role Phone Sandoval Luis MD Primary Care Provider Anna Caballero WEB PAGE DEVELOPER Unavailable [phone] Brandt Orellana WEB PAGE DEVELOPER Unavailable [phone] Tabby Ortiz DNP Unavailable [phone] Encounter Details Date Type Department Care Team (Late st Contact Info) Description 03/04/2018 Orders Only [facility] Health Information Management [address] [place] [address] Scanning, Provider Social History Tobacco Use Types Packs/Day Years Used Date Smoking Tobacco: Former Smokeless Tobacco: Never Alcohol Use Standard Drinks/Week Comments Yes 0 (1 standard drink = 0.6 oz pur e alcohol) Sex and Gender Information Value Date Recorded Sex Assigned at Not on file Legal Sex Male 10:26 PM VEHICLE REFINISHER Gender Identity Male 01/13/2020 10:39 AM CDT Sexual Orientation Straight 01/13/2020 10 :39 AM CDT documented as of this encounter Plan of Treatment Not on file documented as of this encounter Procedures Procedure Name Priority Date/Time Associated Diagnosis Comments CARDIOLOGY DOCUMENT SCAN 03/04/2018 documented in this encounter Results * Cardiology Document Scan (03/04/2018) Anatomical Region Laterality Modality Other us Provider Scanning CV CARDIAC SERVICES PROCEDURES Final Result documented in this encounter Visit Diagnoses Not on filedocumented in this encounter Care Teams Auto Body Mechanic Relationship Specialty Start Date End Date Sandoval Luis MD [address] [place] [address] PCP - General 11/05/11 Anna Caballero, WEB PAGE DEVELOPER [address] [place] [address] Gis Mapping Technician 06/16/18 08/13/18 Brandt Orellana, WEB PAGE DEVELOPER [address] [facility] [address] [place] [address] Gis Mapping Technician 06/16/18 08/13/18 Tabby Ortiz DNP [address] [facility] [address] [place] [address] Nurse Practitioner Internal Medicine 06/16/18 08/13/18 documented as of this encounter
--- OUTSIDE RECORDS SUMMARY | 2025-04-23 12:21 | XMS_ITS | Encounter Summary ---
Author Organization [facility] Healthcare Address [address] [place] [address] Care Team Providers Care Army Manager Name Role Phone Sandoval Luis MD Primary Care Provider Anna Caballero COMPOUND FINISHER Unavailable [phone] Brandt Orellana COMPOUND FINISHER Unavailable Tabby Ortiz DNP Unavailable [phone] Encounter Details Date Type Department Care Team (Late st Contact Info) Description 01/15/2018 Orders Only [facility] Health Information Management [address] [place] [address] Scanning, Provider Social History Tobacco Use Types Packs/Day Years Used Date Smoking Tobacco: Former Alcohol Use Standard Drinks/Week Comments Yes 0 (1 standard drink = 0.6 oz pur e alcohol) Sex and Gender Information Value Date Recorded Sex Assigned at Not on file Legal Sex Male 10:26 PM HANDBAG STITCHER Gender Identity Male 01/13/2020 10:39 AM CDT Sexual Orientation Straight 01/13/2020 10 :39 AM CDT documented as of this encounter Plan of Treatment Not on file documented as of this encounter Procedures Procedure Name Priority Date/Time Associated Diagnosis Comments SCAN - LABS 01/15/2018 documented in this encounter Results * SCAN - LABS (01/15/2018) us Provider Scanning Final Result documented in this encounter Visit Diagnoses Not on filedocumented in this encounter Care Teams Army Manager Relationship Specialty Start Date End Date Sandoval Luis MD [address] [place] [address] PCP - General 11/05/11 Anna Caballero, COMPOUND FINISHER [address] [place] [address] Bottle Washing Machine Operator 06/16/18 08/13/18 Brandt Orellana, COMPOUND FINISHER [address] [facility] [facility] [address] [place] [address] Bottle Washing Machine Operator 06/16/18 08/13/18 Tabby Ortiz, GIDEON [address] [facility] [address] [place] [address] Nurse Practitioner Internal Medicine 06/16/18 08/13/18 documented as of this encounter
--- OUTSIDE RECORDS SUMMARY | 2025-04-23 12:21 | XMS_ITS | Clinical Summary ---
Author Organization [facility] Address [address] [place] [address] Care Team Providers Care Team Assembler Name Role Phone Sandoval Luis MD Primary Care Provider [phone] Allergies Active Allergy Reactions Criticality Noted Date [...] Active HYDROcodone-acetamin ophen (NORCO) 5-325 MG tabletIndications:Ac galena Pain < 7 Day Supply Take 1-2 [...] release (ROXICODONE) 5 MG immediate release tabletIndications:Ac galena Pain < 3 Day Supply Take 1 [...] S/P cervical spinal fusion 07/23/2023 Cervical myelopathy ([facility]) 07/23/2023 Bilateral knee pain 04/30/2023 Heterotopic ossification [...] 03/01/2023 Abnormal MRI, lumbar spine 02/28/2023 Myelopathy ([facility]) 02/28/2023 Radiculopathy, lumbar region 02/28/2023 Other intervertebral disc degeneration, lumbar r egion 02/28/2023 Falls frequently 02/28/2023 History of lumbar fusion 02/28/2023 History of lumbar laminectomy 02/28/2023 Recurrent posterior dislocation of hip, right Assessment & Plan (04/30/2023 12:30 PM CDT): Recurrent dislocations to the right hip. He has an appointment June 14 at [facility] to review. I would maintain the immobilizer. [...] I look forward to his consultation in [place]. History of TIA (transient ischemic attack) 02/04 Foraminal stenosis of lumbar region 08/19/2022 Assessment & Plan (08/19/2022 7:29 PM PACKAGING MECHANIC): Severe foraminal stenosis noted at the level above the fusion. Bilateral lower extremity pain. Follow-up as needed. Referral to Dr. Jara CVA (cerebral vascular accident) ([facility] HHS/ C) 07/10/2022 Stroke ([facility] HHS/[facility]) 07/09/2022 TIA (transient ischemic attack) 07/09/2022 Fall in bathtub 10/29/2021 Assessment & Plan (10/29/2021 7:38 PM PACKAGING MECHANIC): Is a latest fall in September but he also fell trimming the rosebushes and his head hit the house. Starting to feel like he has fair amount of weakness. History of total hip arthroplasty, right 021 Assessment & Plan (08/19/2022 7:29 PM PACKAGING MECHANIC): No evidence of fracture, dislocation or subluxation. Well-seated and well positioned. No evidence of eccentric wear. Moderate heterotopic ossification. No evidence of dislocation or subluxation. Would not recommend heterotopic ossification debridement at this time. I believe most of the pain discomfort is probably coming from his spinal stenosis/foraminal stenosis Assessment & Plan (10/29/2021 7:40 PM PACKAGING MECHANIC): Both total hips appear to be in good position and alignment. Continue with progressive range of motion and strengthening. Doubt that the fracture that was potentially described on an x-ray is renal looks more like heterotopic ossification. Assessment & Plan (09/17/2021 5:22 PM PACKAGING MECHANIC): [address] [place] [address]. Continue with progressive range of motion and strengthening per total hip arthroplasty protocol. Maintain hip precautions. Follow-up on a yearly basis Trochanteric bursitis of right hip 09/17/2021 Assessment & Plan (10/29/2021 7:39 PM PACKAGING MECHANIC): Injections really did not give him the relief that he was looking for. Assessment & Plan (09/17/2021 5:22 PM PACKAGING MECHANIC): We discussed risks, benefits and alternatives. Patient would like to have a steroid injection. Was done in the past at [facility]. 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 Coronary artery disease of n ative artery of [place] heart with stable angina pectoris 03/16/2016 Overview (03/21/2023): CAD in [place] artery Last Assessment & Plan: With history of coronary artery disease unable to proceed with any type of nonsteroidal anti-inflammatories. Patient is also on Plavix which is contraindicated Nonrheumatic aortic valve stenosis 03/16/2016 Overview (03/21/2023): Nonrheumatic aortic (valve) stenosis Last Assessment & Plan: Moderate aortic stenosis, very slight progression, no symptoms. F/u in 1 yr, obtain Echo after OV. Type 2 diabetes mellitus ([facility]) 03/16 Overview (03/21/2023): Mixed hyperlipidemia due to [...] 10/04/2023 Assessment & Plan (10/29/2021 7:39 PM PACKAGING MECHANIC): Might consider repeat MRI for the lumbar spine at some point in time as well as EMG/NCV. He does have a appointment coming up with his neurologist. This may be better suited for him. Assessment & Plan (09/17/2021 5:24 PM PACKAGING MECHANIC): History of 2 different back surgeries. Possibility of increased stenosis proximal. Encounters Date Type Department Care Team Description 02/25/2025 9:51 AM CDT - 02/25/2025 11:59 PM CDT Hospital En[place] [facility] [address] [place], [place] [id number] El Malloy PA Discharge Disposition: Home or Self Care (Routine Discharge) 02/25/2025 Travel 02/07/2025 7:26 PM CDT - 02/07/2025 11:22 PM CDT Emergency [facility] Emergency Room [address] [place] [address] Boston Butler MD Abdominal Pain Discharge Disposition: Home or Self Care (Routine Discharge) 02/07/2025 Travel from Last 3 Months Family History [...] materials from doctor or pharmacy Never 09/20/2023 [facility] Utilities Answer Date Recorded In the past 12 months has th e [employer], gas, oil, or water [employer]ig[employer] threatened to shut off services in your [...] move on to questions 3-9 0 08/16/2022 [facility] - Occupational Stress Questionnaire Answer Date [...] money to buy more. Never true 08/26/20 23 Within the past 12 months, t [...] Sex Assigned at Male 08/14/2023 3:20 PM PACKAGING MECHANIC Legal Sex Male 7:28 PM CDT Gender Identity Male 08/14/2023 3:20 PM PACKAGING MECHANIC Sexual Orientation Straight 08/14/2023 3: 20 PM PACKAGING MECHANIC Last Filed Vital Signs Vital Sign Reading Time Taken Comments Blood Pressure 162/96 02/07/2025 11:00 PM CDT Pulse 96 02/07/2025 11:00 PM CDT Temperature 36.8 C (98.2 F) 02/07/2025 7:31 PM CDT Respiratory Rate 16 02/07/2025 11:00 PM CDT Oxygen Saturation 92% 02/07/2025 11:00 PM CDT Inhaled Oxygen Concentration - - Weight 86.6 kg (191 lb) 02/07/2025 7:31 PM CDT Height 162.6 cm (5' 4) 02/07/2025 7:31 PM CDT Body Mass Index 32.79 02/07/2025 7:31 PM CDT Plan of Treatment Health Maintenance Due Date Last Done Comments ASCVD Statin 1939 Kidney Health Evaluation 1940 Diabetes: Retinopathy Eye Exam 1957 Annual Medicare Wellness Visit 2004 RSV Immunization or 60+ Years (1 - 1-dose 75+ series) 2014 Hemoglobin A1C 01/08/2023 07/10/2022 ASCVD LDL 07/10/2023 07/10/2022 COVID-19 Vaccine (4 - 2023-2 5 season) 2024 07/18/2021, 01/03/2021, 12/13/2020 PHQ-2 (Physician [place]) 10/07/2024 Lipid Panel 04/17/2025 04/17/2024, 07/10/2022, 07/31/2021 [...] upon discharge from hospital Lifestyle No Tegan Raya, RN Medical Devices Implanted Type Area Title Investigator Device Identifier Shelf Expiration Date Model / Serial / Lot Bio Bone Putty Implanted:Qt y: 1 on 07/23/2023 by Marshall Jara MD at [facility] Bone N/A: Spine Cervical 06/13/2024 [id number] / / [id number] Graft Infuse Bone Xsmall - [id number] Implanted:Qt y: 1 on 07/23/2023 by Marshall Jara MD at [facility] Bone N/A: Spine Cervical [employer] 12/04/2024 [id number] / / [id number] Mesh Progrip Self Fixating 15cm X 10cm Lap - [id number] Implanted:Qt y: 1 on 07/17/2024 by Earnest Gonzales MD at [facility] Mesh Left: Inguinal [employer] [id number] 04/05/2027 [id number] / / [id number] Mesh Progrip Self Fixating 15cm X 10cm Lap - [id number] Implanted:Qt y: 1 on 07/17/2024 by Earnest Gonzales MD at [facility] Mesh Right: Inguinal [employer] [id number] 01/04/2027 [id number] / / [id number] 63mm Plate Implanted:Qt y: 1 on 07/23/2023 by Marshall Jara MD at [facility] Plate N/A: Spine Cervical [id number] / / 16 Mm Vst Screws Implanted:Qt y: 8 on 07/23/2023 by Marshall Jara MD at [facility] Screw N/A: Spine Cervical [id number] / / [place] Interbody System 6mm Implanted:Qt y: 1 on 07/23/2023 by Marshall Jara MD at [facility] Spacer N/A: Spine Cervical [id number] 06/15/2028 [id number] / / [id number] [place] Interbody System Cervical Interbody Implanted:Qt y: 1 on 07/23/2023 by Marshall Jara MD at [facility] N/A: Spine Cervical [id number] 08/12/20276100- [id number] / / [id number] [place] Interbody System Cervical Interbody Implanted:Qt y: 1 on 07/23/2023 by Marshall Jara MD at [facility] N/A: Spine Cervical [id number] 08/12/2027CL7-G2 / / [id number] Explanted Type Area Title Investigator Device Identifier Shelf Expiration Date Model / Serial / Lot Distration Pin 12mm - [id number] Explanted:Qty: 2 on 07/23/2023 by Marshall Jara MD at [facility] Pin N/A: Spine Cervical [employer] [id number] / / Procedures Procedure Name Priority Date/Time Associated Diagnosis Comments CT ABD+PEL W CON Routine 02/25/2025 10:2 2 AM CDT Noninfective gastroenteritis and colitis, unspecified CREATININE W/GFR Routine 02/25/2025 10:0 7 AM CDT URINE BACTERIA CULTURE STAT 02/07/2025 10:04 PM CDT URINALYSIS, AUTO, COMPLETE STAT 02/07/2025 10:[address] ABD+PEL W CON STAT 02/07/2025 9:10 PM CDT LACTIC ACID W REFLEX (SEPSIS) STAT 02/07/2025 7:46 PM CDT MAGNESIUM STAT 02/07/2025 7:46 PM CDT LIPASE STAT 02/07/2025 7:46 PM CDT COMPREHENSIVE METABOLIC PANEL STAT 02/07/2025 7:46 PM CDT CBC W/DIFF AUTOMATED STAT 02/07/2025 7:46 PM CDT LIPID PANEL Routine 07/10/2022 9:34 AM CDT HEMOGLOBIN, GLYCOSYLATED Routine 07/10/2022 9:34 AM CDT from Last 3 Months or Most Recently Relevant to Health Maintenance Results * CT ABD+PEL W CON (02/25/2025 10:22 AM CDT) Only the most recent of2 resultswithin the time period is included. Anatomical Region Laterality Modality Abdomen Computed Tomogra phy 03/01/2025 6:36 PM CDT Impressions 03/01/2025 6:47 PM CDT IMPRESSION: 1. Persistent proximal colonic wall thickening involving the sigmoid colon, which may represent with colitis; underlying colonic lesion is not excluded. A follow-up colonoscopy is recommended following resolution of symptoms. 2. Redemonstration of a intramuscular fluid collection adjacent to the proximal right femur measuring at least 7.6 x 5.4 cm. Orthopedic surgery follow-up is recommended. 3. Multiple bilateral pulmonary nodules at the lung bases measuring up to 6 mm. Continued attention on follow-up chest CT is recommended in 6-12 months. Referred By: EL MALLOY Interpreted By: Jadyn Glover MD, 03/01/2025 6:36 PM Narrative 03/01/2025 6:47 PM CDT [facility] [address] [place] [address] PROCEDURE: CT ABD+PEL W CON HISTORY: Gastroenteritis. TECHNIQUE: Helical CT of the abdomen and pelvis was performed using non-ionic intravenous contrast (Isovue 370, 80 cc). No oral contrast administered. A dose lowering technique was used for this procedure, which may include, but is not limited to, dose reduction technique, automated exposure control, the use of iterative reconstruction, and ALARA (As Low As Reasonably Achievable) / Image Gently techniques. COMPARISON: CT abdomen and pelvis with contrast, 02/07/2025. FINDINGS CT ABDOMEN/PELVIS: Lower thorax: There is subsegmental atelectasis in the lower lobes. There is demonstration of multiple bilateral pulmonary nodules measuring up to 6 mm. The heart is mildly enlarged. Status post aortic valve replacement. There is coronary artery calcific atherosclerosis. Liver: The liver is normal in size. There is no intrahepatic mass. Biliary tree: The patient is post cholecystectomy. Mild intrahepatic biliary ductal dilatation, likely secondary to reservoir effect given cholecystectomy. Spleen: The spleen is normal in size. Pancreas: The pancreas is normal in size and enhances homogenously. Adrenal glands: The adrenal glands are normal in size and shape. Kidneys: There are bilateral symmetric nephrograms without hydronephrosis. Small low density foci in the kidneys are too small to characterize. There are bilateral renal cysts measuring up to 4.1 cm. Lymph nodes: Abdomen: There is no abdominal adenopathy. Pelvis: There is no pelvic adenopathy. Vasculature: There is no abdominal aortic aneurysm. Atherosclerotic calcification is seen. Peritoneum/mesentery/omentum: There is no free fluid or free air. GI tract: There is no bowel obstruction. There is colonic wall thickening involving the proximal sigmoid colon with subtle adjacent fat stranding just represent colitis. The terminal ileum is unremarkable. The appendix is not definitively identified. Nonspecific punctate density within the mid to distal small bowel likely enteric temporary Pelvic urogenital structures:Complete evaluation of the urinary bladder is limited due to streak artifact from the hip arthroplasty hardware. The prostate is obscured by the hip arthroplasty hardware. Body wall: There are degenerative changes in the spine. There is redemonstration of postsurgical changes from prior lumbar fusion at L2- L5. Partially imaged bilateral hip arthroplasty hardware. Redemonstration of a intramuscular fluid collection adjacent to the proximal femur measuring at least 7.6 x 5.4 cm. Nonspecific right iliopsoas calcifications, likely sequela of prior intramuscular hematoma, unchanged. [place]: (S/I) = series number / image number Procedure Note Jadyn Glover MD - 03/01/2025 [facility] [address] [place] [address] PROCEDURE: CT ABD+PEL W CON HISTORY: Gastroenteritis. TECHNIQUE: Helical CT of the abdomen and pelvis was performed usingnon-ionic intravenous contrast (Isovue 370, 80 cc). No oral contrastadministered. A dose lowering technique was used for this procedure, which may include,but is not limited to, dose reduction technique, automated exposurecontrol, the use of iterative reconstruction, and ALARA (As Low AsReasonably Achievable) / Image Gently techniques. COMPARISON: CT abdomen and pelvis with contrast, 02/07/2025. FINDINGS CT ABDOMEN/PELVIS: Lower thorax: There is subsegmental atelectasis in the lower lobes.There is demonstration of multiple bilateral pulmonary nodules measuringup to 6 mm. The heart is mildly enlarged. Status post aortic valvereplacement. There is coronary artery calcific atherosclerosis. Liver: The liver is normal in size. There is no intrahepatic mass. Biliary tree: The patient is post cholecystectomy. Mild intrahepaticbiliary ductal dilatation, likely secondary to reservoir effect givencholecystectomy. Spleen: The spleen is normal in size. Pancreas: The pancreas is normal in size and enhances homogenously. Adrenal glands: The adrenal glands are normal in size and shape. Kidneys: There are bilateral symmetric nephrograms withouthydronephrosis. Small low density foci in the kidneys are too small tocharacterize. There are bilateral renal cysts measuring up to 4.1 cm. Lymph nodes: Abdomen: There is no abdominal adenopathy. Pelvis: There is no pelvic adenopathy. Vasculature: There is no abdominal aortic aneurysm. Atheroscleroticcalcification is seen. Peritoneum/mesentery/omentum: There is no free fluid or free air. GI tract: There is no bowel obstruction. There is colonic wallthickening involving the proximal sigmoid colon with subtle adjacent fatstranding just represent colitis. The terminal ileum is unremarkable.The appendix is not definitively identified. Nonspecific punctate densitywithin the mid to distal small bowel likely enteric temporary Pelvic urogenital structures:Complete evaluation of the urinary bladder islimited due to streak artifact from the hip arthroplasty hardware. Theprostate is obscured by the hip arthroplasty hardware. Body wall: There are degenerative changes in the spine. There isredemonstration of postsurgical changes from prior lumbar fusion at L2-L5.Partially imaged bilateral hip arthroplasty hardware. Redemonstration ofa intramuscular fluid collection adjacent to the proximal femur measuringat least 7.6 x 5.4 cm. Nonspecific right iliopsoas calcifications, likelysequela of prior intramuscular hematoma, unchanged. [place]: (S/I) = series number / image number IMPRESSION: 1. Persistent proximal colonic wall thickening involving the sigmoidcolon, which may represent with colitis; underlying colonic lesion is notexcluded. A follow-up colonoscopy is recommended following resolution ofsymptoms. 2. Redemonstration of a intramuscular fluid collection adjacent to theproximal right femur measuring at least 7.6 x 5.4 cm. Orthopedic surgeryfollow-up is recommended. 3. Multiple bilateral pulmonary nodules at the lung bases measuring up to6 mm. Continued attention on follow-up chest CT is recommended in 6-12months. Referred By: EL MALLOY Interpreted By: Jadyn Glover MD, 03/01/2025 6:[address] Final Result * (ABNORMAL) CREATININE W/GFR (02/25/2025 10:07 AM CDT) CREATININE WHOLE BLOOD 1.5(H) 0.6 - 1.3 mg/dL 02/25/2025 10:21 AM CDT [facility] GFR ESTIMATE 45(L) >90 ml/min/1.7 3 m2 02/25/2025 10:21 AM CDT [facility] 02/25/2025 10:0 7 AM CDT El RAVI POINT OF CARE TEST ORDERABLES F inal Result [facility] [address] [place] [address], [place] [phone] * CULTURE URINE (02/07/2025 10:04 PM CDT) SPEC DESCRIPTION URINE CLEAN CATCH 02/07/2025 10:07 PM CDT [facility] SPECIAL REQUESTS NO SPECIAL REQUEST 02/07/2025 10:07 PM CDT [facility] CULTURE RESULT NO GROWTH 2 DAYS 02/10/2025 7:00 AM CDT [facility] URINE SPECIMEN OBTAINED BY CLEAN CATCH PROCEDURE / Unknown 02/07/2025 10:04 PM CDT 02/07/2025 10:10 PM CDT Boston Butler MD MICROBIOLOGY - GENERAL RADHA POTTER Final Result Performing Organization Address City/State/[facility] Co de Phone Number [facility] [address] [place] [address], [place] [phone] [facility] [address] [place] [address], [place] [phone] * (ABNORMAL) URINALYSIS, AUTO, COMPLETE (02/07/2025 10:04 PM CDT) COLOR (U) YELLOW 02/07/2025 10:52 PM CDT [facility] TRANSPARENCY CLEAR 02/07/2025 10:52 PM CDT [facility] SPECIFIC GRAVITY (U) 1.010 1.000 - 1.030 02/07/2025 10:52 PM CDT [facility] U PH 6.5 5.0 - 9.0 02/07/2025 10:52 PM CDT [facility] LEUKOCYTES (U) NEGATIVE NEGATIVE 02/07/2025 10:52 PM CDT [facility] NITRITES NEGATIVE NEGATIVE 02/07/2025 10:52 PM CDT [facility] PROTEIN RANDOM (U) TRACE(A) NEGATIVE 02/07/2025 10:52 PM CDT [facility] GLUCOSE (U) NEGATIVE NEGATIVE 02/07/2025 10:52 PM CDT [facility] KETONES MG/DL (U) NEGATIVE NEGATIVE 02/07/2025 10:52 PM CDT [facility] BILIRUBIN (U) NEGATIVE NEGATIVE 02/07/2025 10:52 PM CDT [facility] BLOOD (U) NEGATIVE NEGATIVE 02/07/2025 10:52 PM CDT [facility] WBC/HPF 0-5 0 - 5 /HPF 02/07/2025 10:52 PM CDT [facility] RBC/HPF NONE SEEN 0 - 5 /HPF 02/07/2025 10:52 PM CDT [facility] EPI/HPF NONE SEEN /HPF 02/07/2025 10:52 PM CDT [facility] URINE SPECIMEN OBTAINED BY CLEAN CATCH PROCEDURE / Unknown 02/07/2025 10:04 PM CDT us Boston Butler MD URINE ORDERABLES Final Resu lt Performing Organization Address City/[facility]/ZIP Co de Phone Number [facility] [address] [place] [address], [place] [phone] * LACTIC ACID W REFLEX (SEPSIS) (02/07/2025 7:46 PM CDT) LACTIC ACID VENOUS 1.3 0.4 - 2.0 MMOL/L 02/07/2025 8:22 PM CDT [facility] 02/07/2025 7:46 PM CDT us Boston Butler MD LABORATORY Final Resul t Performing Organization Address [facility]/ZIP Co de Phone Number [facility] [address] [place] [address], [place] [phone] * (ABNORMAL) COMPREHENSIVE METABOLIC PANEL (02/07/2025 7:46 PM CDT) [facility] Signature GLUCOSE 112(H) 70 - 99 MG/DL 02/07/2025 8:35 PM T [facility] BUN 26(H) 7 - 18 MG/DL 02/07/2025 8:35 PM T [facility] CREATININE S/P/B 1.14 0.7 - 1.3 MG/DL 02/07/2025 8:35 PM T [facility] SODIUM S/P/B 138 136 - 145 MMOL/L 02/07/2025 8:35 PM T [facility] POTASSIUM S/P/B 4.6 3.5 - 5.1 MMOL/L 02/07/2025 8:35 PM T [facility] CHLORIDE S/P/B 101 100 - 108 MMOL/L 02/07/2025 8:35 PM [facility] CO2 32.5(H) 21 - 32 MMOL/L 02/07/2025 8:35 PM T [facility] CALCIUM S/P/B 10.2(H) 8.5 - 10.1 MG/DL 02/07/2025 8:35 PM T [facility] BILIRUBIN TOTAL S/P/B 0.3 0.2 - 1.2 MG/DL 02/07/2025 8:35 PM T [facility] TOTAL PROTEIN S/P/B 7.1 6.4 - 8.2 G/DL 02/07/2025 8:35 PM T [facility] ALBUMIN S/P/B 3.6 3.4 - 5.0 G/DL 02/07/2025 8:35 PM T [facility] AST 27 15 - 37 U/L 02/07/2025 8:35 PM CDT [facility] ALT 21 16 - 60 U/L 02/07/2025 8:35 PM CDT [facility] ALKALINE PHOSPHATASE S/P/B 51 50 - 136 U/L 02/07/2025 8:35 PM CDT [facility] ANION GAP 4.5(L) 5 - 15 MMOL/L 02/07/2025 8:35 PM CDT [facility] BUN CREATININE RATIO 22.8 6 - 26 02/07/2025 8:35 PM CDT [facility] A/G RATIO 1.0 1.0 - 2.0 RATIO 02/07/2025 8:35 PM T [facility] GFR ESTIMATE 63(L) >90 ML/MIN/1.7 3 M2 02/07/2025 8:35 PM CDT [facility] Comment: NOTE: eGFR is not calculated for patients <18 years of age. This is an estimated GFR calculation using the new CKD EPI creatinine equation without race and so does not require a correction factor for race. This estimated GFR should not be used for calculating drug doses. 02/07/2025 7:46 PM CDT us Boston Butler MD LABORATORY Final Resul t [facility] [address] [place] [address], * (ABNORMAL) CBC W/DIFF AUTOMATED (02/07/2025 7:46 PM CDT) WBC 6.20 4.4 - 11.0 x10'3/uL 02/07/2025 8:02 PM CDT [facility] RBC 3.74(L) 4.50 - 5.90 x10'6/uL 02/07/2025 8:02 PM CDT [facility] HGB 12.0(L) 14.0 - 17.5 G/DL 02/07/2025 8:02 PM T [facility] HCT 36.3(L) 41.5 - 50.4 % 02/07/2025 8:02 PM [facility] MCV 97.1(H) 80.0 - 96.0 FL 02/07/2025 8:02 PM T [facility] MCH 32.1(H) 26.5 - 31.4 PG 02/07/2025 8:02 PM [facility] MCHC 33.1 31.9 - 34.8 G/DL 02/07/2025 8:02 PM [facility] RDW 13.6 12.3 - 14.3 % 02/07/2025 8:02 PM [facility] PLT 218 151 - 353 x10'3/uL 02/07/2025 8:02 PM [facility] MPV 9.7 9.7 - 11.9 FL 02/07/2025 8:02 PM [facility] RBC MORPHOLOGY NORMAL 02/07/2025 8:02 PM [facility] PLT MORPH. NORMAL 02/07/2025 8:02 PM [facility] WBC MORPHOLOGY NORMAL 02/07/2025 8:02 PM [facility] LYMPHOCYTES % 24.4 15.8 - 45.0 % 02/07/2025 8:02 PM [facility] NEUTROPHILS % 62.4 42.1 - 71.9 % 02/07/2025 8:02 PM [facility] MONOCYTES % 9.5 5.7 - 12.5 % 02/07/2025 8:02 PM [facility] EOSINOPHILS 3.2 0.0 - 5.6 % 02/07/2025 8:02 PM CDT [facility] BASOPHILS 0.3 0.0 - 1.3 % 02/07/2025 8:02 PM CDT [facility] ABS. NEUTROPHILS 3.87 1.40 - 6.00 x10'3/uL 02/07/2025 8:02 PM CDT [facility] IMMATURE GRANS % 0.2 0.0 - 0.5 % 02/07/2025 8:02 PM CDT [facility] ABS. LYMPHOCYTES 1.51 0.80 - 4.70 x10'3/uL 02/07/2025 8:02 PM CDT [facility] 02/07/2025 7:46 PM CDT us Boston Butler MD LABORATORY Final Resul t Performing Organization Address [facility]/ZIP Co de Phone Number [facility] [address] [place] [address], [place] [phone] * (ABNORMAL) MAGNESIUM (02/07/2025 7:46 PM CDT) MAGNESIUM 1.4(L) 1.8 - 2.4 MG/DL 02/07/2025 8:35 PM CDT [facility] 02/07/2025 7:46 PM CDT us Boston Butler MD LABORATORY Final Resul t Performing Organization Address City/[facility]/ZIP Co de Phone Number [facility] [address] [place] [address], [place] [phone] * (ABNORMAL) LIPASE (02/07/2025 7:46 PM CDT) LIPASE 79(H) 16 - 77 UNITS/L 02/07/2025 8:35 PM CDT [facility] 02/07/2025 7:46 PM CDT us Boston Butler MD LABORATORY Final Resul t [facility] [address] [place] [address], [place] [phone] * (ABNORMAL) HEMOGLOBIN, GLYCOSYLATED (07/10/2022 9:34 AM CDT) HGB A1C 6.4(H) <5.7 % 07/10/2022 10:57 AM CDT [facility] Comment: ADA GUIDELINES 2010 5.7 TO 6.4% INCREASED RISK OF DIABETES > OR = 6.5% CONSISTENT WITH DIABETES ESTIMATED AVG GLUCOSE 137 mg/dL 07/10/2022 10:57 AM CDT [facility] 07/10/2022 9:34 AM CDT Michelle Franco MD LABORATORY Final Re sult Performing Organization Address City/[facility]/ZIP Co de Phone Number [facility] [address] [place] [address], [place] [phone] * LIPID PANEL (07/10/2022 9:34 AM CDT) CHOLESTEROL 171 <200 MG/DL 07/10/2022 10:44 AM CDT [facility] TRIGLYCERIDES 102 <150 MG/DL 07/10/2022 10:44 AM CDT [facility] HDL 61 >40.0 MG/DL 07/10/2022 10:44 AM CDT [facility] LDL (CALCULATED) 90 <100 MG/DL 07/10/2028 07:44 AM CDT [facility] NON HDL CHOLESTEROL 110 <130 MG/DL 07/10 10:44 AM CDT [facility] CHOL/HDL RATIO 2.8 0.0 - 4.5 07/10/2022 10:44 AM CDT [facility] VLDL CALCULATION 20 5 - 55 MG/DL 07/10/2022 10:44 AM CDT [facility] LIPID INTERPRETATION 07/10/2022 10:44 AM CDT [facility] Comment: NIH CONCENSUS REPORT RECOMMENDATIONS: ADULT CHILD LOW RISK: CHOLESTEROL <200 <170 TRIGLYCERIDE <150 --- HDL >=60 --- LDL <100 <110 BORDERLINE: CHOLESTEROL 200-239 170-199 TRIGLYCERIDE 150-199 --- HDL 40-59 --- LDL 100-159 110-129 HIGH RISK: CHOLESTEROL >=240 >=200 TRIGLYCERIDE >=200 --- HDL <40 --- LDL >=160 >=130 07/10/2022 9:34 AM CDT Michelle Franco MD LABORATORY Final Re sult [facility] [address] [place] [id number], from Last 3 Months or Most Recently Relevant to Health Maintenance Insurance MEDICARE BLUE CROSS BLUE SHIELD Advance Directives * Full Code (Latest Code [...] 10:00 AM 08/18/2023 4:21 PM Care Teams Team Assembler Relationship Specialty Start Date End Date Sandoval Luis MD [address] [facility] [address] [place] [address] PCP - General FAMILY PRACTICE 10/23/19
--- OUTSIDE RECORDS SUMMARY | 2025-04-23 12:21 | XMS_ITS | Encounter Summary ---
Author Organization [facility] Address [facility] [place] [address] Care Team Providers Care Battery Filler Name Role Phone Sandoval Luis MD Primary Care Provider [phone] Encounter Details Date Type Department Care Team (Late st Contact Info) Description 07/19/[address] [facility] Pre-Admission Testing [address] [place] [id number] Marshall Jara MD [address] [place], [place] [id number] Social History Tobacco Use Types Packs/Day Years [...] move on to questions 3-9 0 08/16/2022 [facility] [place] of Occupat ional Health - Occupational Stress [...] place to sleep or slept in a assisted (including now)? No 07/23/2023 Sex and Gender Information Value Date Recorded Sex Assigned at Male 08/14/2023 3:20 PM SLURRY MAN Legal Sex Male 7:28 PM CDT Gender Identity Male 08/14/2023 3:20 PM SLURRY MAN Sexual Orientation Straight 08/14/2023 3: 20 PM SLURRY MAN documented as of this encounter Functional Status [...] upon discharge from hospital Lifestyle No Tegan Raay RN documented as of this encounter Results * URINALYSIS WI REFLEX TO CULTURE (07/11/2023 1:09 PM CDT) COLOR (U) YELLOW 07/11/2023 3:07 PM CDT [facility] TRANSPARENCY CLEAR 07/11/2023 3:07 PM T [facility] SPECIFIC GRAVITY (U) 1.020 1.000 - 1.030 07/11/2023 3:07 PM T [facility] U PH 6.0 5.0 - 9.0 07/11/2023 3:07 PM T [facility] LEUKOCYTES (U) NEGATIVE NEGATIVE 07/11/2023 3:07 PM T [facility] NITRITES NEGATIVE NEGATIVE 07/11/2023 3:07 PM T [facility] PROTEIN RANDOM (U) NEGATIVE NEGATIVE 07/11/2023 3:07 PM T [facility] GLUCOSE (U) NEGATIVE NEGATIVE 07/11/2023 3:07 PM T [facility] KETONES MG/DL (U) NEGATIVE NEGATIVE 07/11/2023 3:07 PM T [facility] BILIRUBIN (U) NEGATIVE NEGATIVE 07/11/2023 3:07 PM T [facility] BLOOD (U) NEGATIVE NEGATIVE 07/11/2023 3:07 PM T [facility] WBC/HPF 0-5 0 - 5 /HPF 07/11/2023 3:07 PM T [facility] RBC/HPF NONE SEEN 0 - 5 /HPF 07/11/2023 3:07 PM T [facility] EPI/HPF RARE /HPF 07/11/2023 3:07 PM [facility] CULTURE & SENSITIVITY INDICATED? SPECIMEN SETUP FOR CULTURE 07/11/2023 3:07 PM [facility] URINE SPECIMEN OBTAINED BY CLEAN CATCH PROCEDURE / Unknown 07/11/2023 1:09 PM CDT Marshall Jara MD URINE ORDERABLES Final Resu lt [facility] [address] [place] [address], documented in this encounter Visit Diagnoses Diagnosis Cervical spondylosis with radiculopathy- Primary Cervical spondylosis with myelopathy Myelopathy ([facility]) Unspecified disease of spinal cord Multiple-type hyperlipidemia Other and unspecified hyperlipidemia Chronic diastolic CHF (congestive heart failure) ([facility]) Chronic diastolic heart failure Coronary artery disease of [place] artery of [place] heart with stable angina pectoris Essential hypertension Unspecified essential hypertension 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 ([facility]) Nonrheumatic aortic valve stenosis Aortic valve disorders Severe aortic stenosis Aortic valve disorders Premature atrial contraction Supraventricular premature beats S/P drug eluting coronary stent placement S/P TAVR (transcatheter aortic valve replacement) Type 2 diabetes mellitus ([facility]) Type II or unspecified type diabetes mellitus without mention of complication, not stated as uncontrolled Pelvic obliquity Acquired deformity of pelvis CVA (cerebral vascular accident) ([facility]) Unspecified cerebral artery occlusion with cerebral infarction TIA (transient ischemic attack) Unspecified transient cerebral ischemia Stroke ([facility]) Unspecified cerebral artery occlusion with cerebral infarction Spinal stenosis of lumbar region with neurogenic claudication Spinal stenosis, lumbar region, with neurogenic claudication Iron deficiency anemia due to chronic blood loss 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 ([facility]) H/O gastric ulcer Personal history of other diseases of digestive system COVID-19 documented in this encounter Additional Health Concerns Infection Onset Date Last Indicated Resolved Time COVID-19 Rule Out 08/17/2023 08/17/2023 08/17/2023 11:41 AM SLURRY MAN documented as of this encounter Care Teams Battery Filler Relationship Specialty Start Date End Date Sandoval Luis MD [address] [place] [address] PCP - General FAMILY PRACTICE 10/23/19 documented as of this encounter
--- OUTSIDE RECORDS SUMMARY | 2025-04-23 12:21 | XMS_ITS | Encounter Summary ---
Author Organization [facility] Address [facility] [place] [address] Care Team Providers Care Developer Trading Systems Name Role Phone Sandoval Luis MD Primary Care Provider [phone] Encounter Details Date Type Department Care Team (Late st Contact Info) Description 07/17/2024 Prep for Procedure [place] Pre-Admission Testing [facility] [place] [id number] Earnest Gonzales MD [address] [place] [address], [address] [place] [id number] Social History Tobacco Use Types Packs/Day [...] materials from doctor or pharmacy Never 09/20/2023 [facility] Utilities Answer Date Recorded In the [...] move on to questions 3-9 0 08/16/2022 [facility] [place] of Occupat ional Health - Occupational Stress [...] place to sleep or slept in a usp (including now)? No 08/26/2023 Sex and Gender Information Value Date Recorded Sex Assigned at Male 08/14/2023 3:20 PM COMMERCIAL TELLER Legal Sex Male 7:28 PM CDT Gender Identity Male 08/14/2023 3:20 PM COMMERCIAL TELLER Sexual Orientation Straight 08/14/2023 3: 20 PM COMMERCIAL TELLER documented as of this encounter Functional Status [...] 9:00 AM Blanca Carrizales RN Active * [place] Suicide Severity Rating Scale (Screener/Recent Self-Report) Question [...] BASIC METABOLIC PANEL (07/17/2024 8:09 AM CDT) [facility] GLUCOSE 114(H) 70 - 99 MG/DL 07/17/2024 8:47 AM CDT [facility] BUN 36(H) 7 - 18 MG/DL 07/17/2024 8:47 AM CDT [facility] CREATININE S/P/B 1.26 0.7 - 1.3 MG/DL 07/17/2024 8:47 AM CDT [facility] SODIUM S/P/B 140 136 - 145 MMOL/L 07/17/2024 8:47 AM CDT [facility] POTASSIUM S/P/B 4.6 3.5 - 5.1 MMOL/L 07/17/2024 8:47 AM CDT [facility] CHLORIDE S/P/B 110 97 - 115 MMOL/L 07/17/2024 8:47 AM CDT [facility] CO2 29.0 21 - 32 MMOL/L 07/17/2024 8:47 AM CDT [facility] CALCIUM S/P/B 9.8 8.5 - 10.1 MG/DL 07/17/2024 8:47 AM CDT [facility] ANION GAP 1.0(L) 2 - 10 MMOL/L 07/17/2024 8:47 AM CDT [facility] BUN CREATININE RATIO 28.6(H) 6 - 26 07/17/2024 8:47 AM T [facility] GFR ESTIMATE 56(L) >90 ML/MIN/1.7 3 M2 07/17/2024 8:47 AM CDT [facility] Comment: NOTE: eGFR is not calculated for patients <18 years of age or gender unknown. This is an estimated GFR calculation using the new CKD EPI creatinine equation without race and so does not require a correction factor for race. This estimated GFR should not be used for calculating drug doses. 07/17/2024 8:09 AM CDT Brigida Shoemaker [facility] Final R esult [facility] [address] [place] [address], * (ABNORMAL) CBC W/DIFF AUTOMATED (07/17/2024 8:09 AM CDT) WBC 4.86 4.5 - 11.0 x10'3/uL 07/17/2024 8:21 AM CDT [facility] RBC 3.44(L) 4.70 - 6.10 x10'6/uL 07/17/2024 8:21 AM CDT [facility] HGB 10.6(L) 14.0 - 18.0 G/DL 07/17/2024 8:21 AM CDT [facility] HCT 33.3(L) 43.0 - 54.0 % 07/17/2024 8:21 AM CDT [facility] MCV 96.8(H) 80.0 - 94.0 FL 07/17/2024 8:21 AM CDT [facility] MCH 30.8 27.0 - 31.0 PG 07/17/2024 8:21 AM CDT [facility] MCHC 31.8(L) 32.0 - 36.0 G/DL 07/17/2024 8:21 AM CDT [facility] RDW 14.7(H) 11.5 - 14.5 % 07/17/2024 8:21 AM CDT [facility] PLT 199 130 - 400 x10'3/uL 07/17/2024 8:21 AM CDT [facility] MPV 9.6 9.3 - 12.2 FL 07/17/2024 8:21 AM CDT [facility] DIFFERENTIAL TYPE AUTOMATED DIFFERENTIAL 07/17/2024 8:21 AM CDT [facility] NEUTROPHILS % 60.3 % 07/17/2024 8:21 AM CDT [facility] LYMPHOCYTES % 22.2 % 07/17/2024 8:21 AM CDT [facility] MONOCYTES % 10.9 % 07/17/2024 8:21 AM T [facility] EOSINOPHILS 6.0 % 07/17/2024 8:21 AM CDT [facility] BASOPHILS 0.4 % 07/17/2024 8:21 AM T [facility] IMMATURE GRANS % 0.2 % 07/17/20 8:21 AM T [facility] ABS. NEUTROPHILS 2.93 1.80 - 7.70 x10'3/uL 07/17/2024 8:21 AM CDT [facility] ABS. LYMPHOCYTES 1.08 1.00 - 4.80 x10'3/uL 07/17/2024 8:21 AM CDT [facility] ABS. MONOCYTES 0.53 0.30 - 0.82 x10'3/uL 07/17/2024 8:21 AM CDT [facility] ABS. EOSINOPHILS 0.29 0.04 - 0.54 x10'3/uL 07/17/2024 8:21 AM CDT [facility] ABS. BASOPHILS 0.02 0.01 - 0.08 x10'3/uL 07/17/2024 8:21 AM CDT [facility] ABS. IMMATURE GRANULOCYTES 0.01 0.00 - 0.49 x10'3/uL 07/17/2024 8:21 AM CDT [facility] 07/17/2024 8:09 AM CDT us Brigida Shoemaker AUDIOVISUAL EQUIPMENT OPERATOR LABORATORY Final R esult [facility] [address] [place] [address], documented in this encounter Visit Diagnoses Diagnosis Preoperative testing- Primary Preoperative examination, unspecified documented in this encounter Care Teams Developer Trading Systems Relationship Specialty Start Date End Date Sandoval Luis MD [address] [place] [address] PCP - General FAMILY PRACTICE 10/23/19 documented as of this encounter
--- OUTSIDE RECORDS SUMMARY | 2025-04-23 12:21 | XMS_ITS | Clinical Summary ---
Author Organization [facility] [address] Address [address] [place] [address] Care Team Providers Care Director Of Neurology Name Role Phone Sandoval Luis MD Primary [...] by mouth 2 (two) times a day rx#[id number] Active doxycycline (VIBRAMYCIN) 100 mg capsule Take 1 tablet/capsule (100 mg total) by mouth every morning rx#[id number] Active tamsulosin (FLOMAX) 0.4 mg extended release [...] mg SL tabletIndication s:Coronary artery disease of [place] artery of [place] heart with stable angina pectoris Place 1 [...] (05/20/2018): Added automatically from request for surgery [id number] Chronic diastolic CHF (congestive heart failure) 03/17/2018 [...] artery disease of n ative artery of [place] heart with stable angina pectoris 03/16/2016 Overview (01/11/2017): CAD in [place] artery Assessment & Plan (02/03/2019 5:55 PM [...] 07/25/2020 01/23/2022 Coronary artery disease invo lving [place] coronary artery of [place] heart without angina pectoris 05/20/2018 01/07/2019 Overview (05/20/2018): Added automatically from request for surgery [id number] History of placement of sten t for [...] Description 03/18/2025 11:15 AM CDT Office Visit [facility] Cardiology at [address] [place] [address] Dom Sheikh MD 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) (Primary Dx); S/P TAVR (transcatheter aortic valve replacement); Multiple-type hyperlipidemia; Coronary artery disease of [place] artery of [place] heart with stable angina pectoris; Syncope and collapse; NSVT (nonsustained ventricular tachycardia) (HCC) 01/22/2025 9:36 AM CDT - 01/22/2025 11:59 PM CDT Hospital Encounter [facility] [address] [place] [address] Discharge Disposition: Discharge to home or self care 01/22/2025 Telephone [facility] Orthopaedic Surgery [address] [facility] Medical Office Building [address] [place] [address] Alana Serrano RN from Last [...] Medical History Relation Name Comments Cancer Brother 1 Luke Tapia Diabetes Brother 1 Luke Tapia Hypertension Brother 1 Luke Tapia Cancer Brother 2 Luke Tapia Diabetes Brother 2 Luke Tapia Hypertension Brother 2 Luke Tapia Cancer Father Luke Tapia Coronary artery disease Father Luke Tapia Coronary artery disease; Cause of : Coronary artery disease Hearing loss Father Luke Tapia Heart attack Father Luke Tapia Heart disease Father Luke Tapia Alcohol abuse Maternal Grandfather Stew Fofana Arthritis Mother Lorraine Regina Depression Mother Lorrainejosette Tapia Diabetes Mother Lorraine Nettience Memory loss Mother Lorraine Bhupendrae Miscarriages / Stillbirths Mother Lorraine Bhupendrae Other Mother Lorraine Bhupendrae Macular Dege neration , DM; Cause of : Macular Degeneration , DM Vision loss Mother Lorraine Huizare Cancer Paternal Grandfather Andrea Bhupendra Obesity Paternal Grandfather Andrea Bhupendra Alzheimer's disease Paternal Grandmother Padmini Shi mosley Memory loss Paternal Grandmother Padmini Bhupendra Relation Name Status Comments Brother 1 Luke Tapia Brother 2 Luke Tapia Alive Father Luke Tapia (Age 86) Maternal Grandfather Stew Fofana Mother Lorraine Tapia (Age 94) Paternal Grandfather Andrea Sheffieldryan Paternal Grandmother Padmini Sheffieldryan Alive Social History Tobacco Use Types Packs/Day Years Used Date Smoking Tobacco: Former Cigarettes 1 23.1 0 04/06/1962 - 05/07/1985 Pipe Smokeless Tobacco: Never Tobacco Cessation:Counseling Given: Not Answered Comments:Discontinued twice before final termination. Alcohol Use Standard Drinks/Week Comments Yes 0 (1 standard drink = 0.6 oz pur e alcohol) rarely [facility] Utilities Answer Date Recorded In the past 12 months has e [employer], gas, oil, or water [employer] threatened to shut off services in your [...] often do you attend chur ch or hinduism services? More than 4 times per year 03/09/2024 Do you belong to any clubs o r organizations such as mandaen groups, unions, fraternal or athletic groups, or [...] any time in the past 12 [facility], were you homeless or living in a long term (including now)? No 03/09/2024 Personal Safety Answer Date Recorded Have you ever been in or are you currently in a harmful physical or emotional relationship or is someone making you feel afraid or unsafe? Denies 03/06/2024 Sex and Gender Information Value Date Recorded Sex Assigned at Not on file Legal Sex Male 10:26 PM FITNESS DIRECTOR Gender Identity Male 01/13/2020 10:39 AM [...] 03/18/2025 11:27 AM CDT Plan of Treatment Health Maintenance Due Date Last Done Comments Albumin Creatinine Ratio, Urine 1939 Hemoglobin A1C 1939 Dilated Eye Exam 1939 Foot Exam 1939 DTaP/Tdap/Td Vaccine (1 - Tdap) 1950 Hepatitis B Screening 1957 Well Visit 65+ 2004 Depression Screening 11/12/2024 11/12/2023 eGFR 03/11/2025 03/11/2024, 06/0 01/2024, 03/09/2024, Additional history exists Fall Risk Assessment 03/12/2025 03/12/2024 Influenza Vaccine (#1) 2025 , 07/25/2019, 07/15/2018, Additional history exists Lipid Panel 08/11/2025 08/11/2024, 07/1 11/2023, 02/13/2023, Additional history exists Pneumococcal vaccine 65+ Completed 03/24/2018, 04/06 Zoster Vaccine Completed 12/03/2019, 09/28/2019 Goals Goal Patient Goal Type Associated Problems Recent Progress Patient-Stated? Author TTW CHF Goal - Patient will improve their knowledge of HF and will be motivated to try to better manage at home TTW Case Management No Anna Caballero, SHEET FOLDER Note: Problem: Ability to self-manage CHF Interventions: [...] pain TTW Case Management No Anna Caballero, SHEET FOLDER Note: Problem: Chest Pain Interventions: - Assess [...] AMI TTW Case Management No Anna Caballero, SHEET FOLDER Note: Problem: Worsening Symptoms- AMI Interventions: - [...] catheterization TTW Case Management No Anna Caballero, SHEET FOLDER Note: Problem: Knowledge deficit r/t cath/ stent [...] to respond TTW Case Management Brandt Vaughn, SARAH Note: Problem: Knowledge deficit related to signs [...] or provider Medical Devices Implanted Type Area Automotive Mechanical Engineer Device Identifier Shelf Expiration Date Model / Serial / Lot [employer] Simplex P Full Dose Radiopaque Preblend Cement Bone Tobramycin 6197-9-001 - [id number] Implanted:Qty: 1 on 03/06/2024 by Neva Morgan MD at [facility] Bone Cement Right: Hip [employer] [id number] 05/06/2025 6197-9-001 / / [id number] [employer] Simplex P Full Dose Radiopaque Preblend Cement Bone Tobramycin 6197-9-001 - [id number] Implanted:Qty: 1 on 03/06/2024 by Neva Morgan MD at [facility] Bone Cement Right: Hip [employer] [id number] 06/06/2025 6197-9-001 / / [id number] [employer] Simplex P Full Dose Radiopaque Preblend Cement Bone Tobramycin 6197-9-001 - [id number] Implanted:Qty: 1 on 03/06/2024 by Neva Morgan MD at [facility] Bone Cement Right: Hip [employer] [id number] 05/06/2025 6197-9-001 / / [id number] [employer] Simplex P Full Dose Radiopaque Preblend Cement Bone Tobramycin 6197-9-001 - [id number] Implanted:Qty: 1 on 03/06/2024 by Neva Morgan MD at [facility] Bone Cement Right: Hip [employer] [id number] 05/06/2025 6197-9-001 / / [id number] [place] [employer] [id number] Synergy 3.5mm 32mm 144cm Radiopaque 1 Access Port Inflation Lumen - [id number] Implanted:Qty: 1 on 05/23/2018 by Javier Darden MD at [facility] [place] [employer] 11/19/2018 [id number] / / [id number] [place] [employer] [id number] Synergy 3.5mm 12mm 144cm Radiopaque 1 Access Port Inflation Lumen - [id number] Implanted:Qty: 1 on 05/23/2018 by Javier Darden MD at [facility] [place] [employer] 01/27/2020 [id number] / / [id number] Daig [employer] [id number] Angio-Seal Vip Bondek-Plus 6fr .035in 70cm Hemostatic Latex Free - [id number] Implanted:Qty: 1 on 05/23/2018 by Javier Darden MD at [facility] [employer] 02/03/2019 [id number] / / [id number] [employer] [id number] Commander Garrett 3 Atrion 14fr Transcatheter Introducer Balloon - [id number] Implanted:Qty: 1 on 07/24/2018 by Javier Darden MD at [facility] [employer] 08/23/2019 [id number] / / [employer] 50mm 28mm Cement Constrained Hip 1mm .072in Offset Liner [id number] - [id number] Implanted:Qty: 1 on 03/06/2024 by Neva Morgan MD at [facility] Right: Hip [employer] [id number] 01/04/2025 [id number] / / [id number] [employer] Simplex P Full Dose Radiopaque Preblend Cement Bone Tobramycin 6197-9-001 - [id number] Implanted:Qty: 1 on 03/06/2024 by Neva Morgan MD at [facility] Right: Hip [employer] [id number] 05/06/2025 6197-9-001 / / [id number] [employer] Hip 5mm Offset Carey C Taper Sleeve Adapter Sterile Latex Free t - [id number] Implanted:Qty: 1 on 03/06/2024 by Neva Morgan MD at [facility] Right: Hip [employer] [id number] 01/30/2028 19-0005T / / [id number] [employer] 28mm Hip Carey Taper Head Femoral Biolox Delta 6519-1-028 - [id number] Implanted:Qty: 1 on 03/06/2024 by Neva Morgan MD at [facility] Right: Hip [employer] [id number] 06/05/2025 6519-1-028 / / [id number] Explanted Type Area Automotive Mechanical Engineer Device Identifier Shelf Expiration Date Model / Serial / Lot [employer] Trident 42mm 28mm Constrain Hip 0d F Insert Acetabular Uhmwpe [id number] - [id number] Explanted:Qty: 1 on 03/06/2024 at [facility] Right: Hip [employer] [id number] 09/06/2028 [id number] / / [id number] Synthes 4mm 6mm 55mm Small Hexagonal Socket Cancellous Full Thread Screw 206.055 - [id number] Explanted:Qty: 1 on 03/06/2024 by Neva Morgan MD at [facility] Right: Hip Synthes I 206.055 / / Synthes 4mm 6mm 30mm Small Hexagonal Socket Cancellous Full Thread Screw 206.030 - [id number] Explanted:Qty: 1 on 03/06/2024 by Neva Morgan MD at [facility] Right: Hip Synthes I 206.030 / / [employer] Hip 5mm Offset Carey C Taper Sleeve Adapter Sterile Latex Free -4t - [id number] Explanted:Qty: 1 on 03/06/2024 at [facility] Right: Hip [employer] [id number] 05/03/2025 19-0005T / / [id number] [employer] 28mm Hip Carey Taper Head Femoral Biolox Delta 6519-1-028 - [id number] Explanted:Qty: 1 on 03/06/2024 at [facility] Right: Hip [employer] [id number] 10/25/2026 6519-1-02 8 / / [id number] Procedures Procedure Name Priority Date/Time Associated Diagnosis Comments XR TRANSFER OF OUTSIDE FILMS Routine 01/22/2025 9:36 AM CDT LIPID PANEL Routine 08/11/2024 3:56 PM FITNESS DIRECTOR EGFR Routine 03/11/2024 11:31 PM CDT from Last 3 Months or Most Recently Relevant to Health Maintenance Results * XR Outside Reference (01/22/2025 9:36 AM CDT) Impressions [facility] - 01/22/2025 9:36 AM CDT These images are for Reference purposes only and have not been reviewed by [facility] Radiology. There will be no report generated by a [facility] Radiologist. Narrative [facility] - 01/22/2025 9:36 AM CDT EXAMINATION: Images For Reference Purposes Only us Kunal Paniagua MD IMG XR PROCEDURES Fi nal Result RAD_PACS_[facility] * Lipid panel (08/11/2024 3:56 PM FITNESS DIRECTOR) SCRIBED Cholesterol, Total 158 0 - 200 EXTERNAL LAB SCRIBED HDL 62 40 - 100 EXTERNAL LAB SCRIBED LDL 77 0 - 100 EXTERNAL LAB SCRIBED Triglycerides 106 0 - 150 EXTERNAL LAB Blood us Historical Provider LAB BLOOD ORDERABLES Edit ed Result - Final Performing Organization Address [facility] Co de Phone Number EXTERNAL [...] ORDERABLES F inal Result Performing Organization Address [facility] Co de Phone Number [facility] Department [place] [address] from Last 3 Months or Most Recently Relevant to Health Maintenance Insurance MEDICARE [facility] MEDICARE [facility] MEDICARE [facility] Advance Directives For more information, please contact: [phone] Documents on File Type Date Recorded Patient Scanning Coordinator Expl anation ADVANCE DIRECTIVE 09/11/2013 12:00 AM ELISSA CHOWDHURY WILL ADVANCE DIRECTIVE 09/11/2013 12:00 AM [employer] * Full Code (Latest Code Status on File) Date Activated Date Inactivated Comments 03/06/2024 5:28 PM 03/12/2024 10:27 PM * Full Code Date Activated Date Inactivated Comments 06/18/2018 2:56 PM 07/24/2018 5:29 AM * Full Code Date Activated Date Inactivated Comments 06/18/2018 10:05 AM 06/19/2018 3:31 PM Care Teams Director Of Neurology Relationship Specialty Start Date End Date Sandoval Luis MD [address] [address] PCP - General 11/05/11
== END 2025-04-23 12:17 | disposition home or self-care (01) ==
PROVIDERS: PCP Family Medicine; Visit Provider Nurse Practitioner Family
DX: J90 Pleural effusion, not elsewhere classified (principal)
CPT/HCPCS: 71046

== ENCOUNTER 2025-05-07 01:32 | Day surgery (SDC) | payer MEDICARE, BC, SELFPAY ==
[2025-04-26 14:52] VITALS: BMI 34.4
--- NOTE | 2025-05-03 16:58 | PC.NURSE ---
04/30/25 LATE ENTRY- Pt was having sob and activity intolerance when seeing Sam Matos NEGATIVE RETOUCHER in pulmonary off. on 04/21/25- cxr ordered on 04/23/25- pulm. edema- Sam Matos First Cook increased patients lasix from 40mg daily to 60mg and to resume 40mg after 5 days. Clearance sent to office for EGD/COLON. Spoke with MA in office and she said pt states he is feeling some better-able to manuel. a little more activity. They had forwarded the clearance to office. I called and spoke with Ma in Dr. Byers office he is currently out of office on vacation to return this next week, she states she will have Dr. Martinez who is covering review. Received clearance from Dr. Byers office wanting pt to be seen by cardiology first. I spoke with Gardenia OLIVAREZ in Dr. Sheikh's office and they will try to work pt in to be see. I spoke with pt. and he is sched. to see NEGATIVE RETOUCHER in DR. Dorman off. on 05/04/25 at 3:30pm.
--- OUTSIDE RECORDS SUMMARY | 2025-05-07 01:43 | XMS_ITS | Encounter Summary ---
Author Organization [facility] Care Team Providers Care Vacuum Truck Driver Name Role Phone Sandoval Luis MD Primary Care Provider Anna Caballero FLOWER MACHINE OPERATOR Unavailable [phone] Brandt Orellana FLOWER MACHINE OPERATOR Unavailable [phone] Tabby Ortiz DNP Unavailable [phone] Encounter Details Date Type Department Care Team (Latest Contact Info) Description 06/13/2016 Orders Only [facility] CLINCONV ProviderCed MD [address] [place] [address] Social History Tobacco Use Types Packs/Day Years Used Date Smoking Tobacco: Some Days Cigarettes Last attempted to quit: 10/07/1984 Alcohol Use Standard Drinks/Week Comments Yes 0 (1 standard drink = 0.6 oz pur e alcohol) Sex and Gender Information Value Date Recorded Sex Assigned at Not on file Legal Sex Male 10:26 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 Gender Identity Male 01/13/2020 10:39 AM [...] on filedocumented in this encounter Care Teams Vacuum Truck Driver Relationship Specialty Start Date End Date Sandoval Luis MD [address] [place] [address] PCP - General 11/05/11 Anna Caballero, FLOWER MACHINE OPERATOR [address] [place] [address] Resin Painter 06/16/18 08/13/18 Brandt Orellana, FLOWER MACHINE OPERATOR [address] [place] [address] Resin Painter 06/16/18 08/13/18 Tabby Ortiz, GIDEON [address] [place] [address] Nurse Practitioner Internal Medicine 06/16/18 08/13/18 documented as of this encounter
--- OUTSIDE RECORDS SUMMARY | 2025-05-07 01:43 | XMS_ITS | Encounter Summary ---
Author Organization [facility] Care Team Providers Care Fabric Worker Foreman Name Role Phone Sandoval Luis MD Primary Care Provider Anna Caballero RELASTER Unavailable [phone] Brandt Orellana RELASTER Unavailable [phone] Tabby Ortiz DNP Unavailable [phone] Encounter Details Date Type Department Care Team (Latest Contact Info) Description 05/31/2016 Orders Only [facility] CLINCONV ProviderCed MD [address] [place] [address] Social History Tobacco Use Types Packs/Day Years Used Date Smoking Tobacco: Some Days Cigarettes Last attempted to quit: 10/07/1984 Alcohol Use Standard Drinks/Week Comments Yes 0 (1 standard drink = 0.6 oz pur e alcohol) Sex and Gender Information Value Date Recorded Sex Assigned at Not on file Legal Sex Male 10:26 PM 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 SUPERVISOR Gender Identity Male 01/13/2020 10:39 AM CDT [...] on filedocumented in this encounter Care Teams Fabric Worker Foreman Relationship Specialty Start Date End Date Sandoval Luis MD [address] [place] [address] PCP - General 11/05/11 Anna Caballero, RELASTER [address] [place] [address] Food Technician 06/16/18 08/13/18 Brandt Orellana, SARAH [address] [place] [address] Food Technician 06/16/18 08/13/18 Tabby Ortiz DNP [address] [place] [address] Nurse Practitioner Internal Medicine 06/16/18 08/13/18 documented as of this encounter
--- OUTSIDE RECORDS SUMMARY | 2025-05-07 01:43 | XMS_ITS | Clinical Summary ---
Author Organization [facility] [address] [facility] Address [address] [place] [address] Care Team Providers Care Securities Clerk Name Role Phone Sandoval Luis MD Primary Care Provider [phone] Allergies Active Allergy Reactions Criticality Noted Date [...] 9 Active azelastine-flut icasone (Dymista) 137-50 mcg/spray [place], Non-Aerosol [The details of the medication are [...] on file Legal Sex Male 11:09 AM ENGINEER STEAM Gender Identity Not on file Sexual Orientation [...] VACCINE (#1) 2025 06/20/2020, 2013 Care Teams Securities Clerk Relationship Specialty Start Date End Date Sandoval Luis MD [address] [id number] PCP - General Family Practice 10/21/19
--- OUTSIDE RECORDS SUMMARY | 2025-05-07 01:43 | XMS_ITS | Clinical Summary ---
Author Organization [facility] Address [address] [place] [address] Care Team Providers Care Maintenance Department Manager Name Role Phone Stewart Dominguez MD Primary Care Provider Source Comments [facility],non-owned Affiliates and Associated Physician Practices is amultiple site organization consisting of ambulatory clinics and hospital sitesin [place], [place], [place]. This disclosure is being madepursuant to the Care Everywhere program and may not contain all information available regarding this patient. Last updated 18.[facility] [employer] Social History Tobacco Use Types Packs/Day Years Used Date Smoking Tobacco: Never Assessed Sex and Gender Information Value Date Recorded Sex Assigned at Not on file Legal Sex Male 5:49 PM MEDICINAL CHEMIST Gender Identity Not on file Sexual Orientation [...] to complete this topic Insurance MEDICARE MEDICARE [facility] Care Teams Maintenance Department Manager Relationship Specialty Start Date End Date Stewart Dominguez MD [address] [place] [address] [facility] - General 04/22/12
--- OUTSIDE RECORDS SUMMARY | 2025-05-07 01:43 | XMS_ITS | Encounter Summary ---
Author Organization [facility] Healthcare Address [address] [place] [address] Care Team Providers Care Hospital Pharmacy Director Name Role Phone Sandoval Luis MD Primary Care Provider Encounter Details Date Type Department Care Team (Late st Contact Info) Description 04/30/2025 Telephone [facility] Medical Group Cardiology [address] [place] [address] Dom Sheikh MD [address] [facility] [address] [facility] [address], [address] [place] [address] Social History Tobacco Use Types Packs/Day Years Used Date Smoking Tobacco: Former Cigarettes 1 23.1 0 04/06/1962 - 05/07/1985 Pipe Smokeless Tobacco: Never Comments:Discontinued twice before final termination. Alcohol Use Standard Drinks/Week Comments Yes 0 (1 standard drink = 0.6 oz pur e alcohol) rarely [facility] Utilities Answer Date Recorded In the past 12 months has [employer], gas, oil, or water [employer] threatened to shut off services in your [...] week 03/09/2024 How often do you attend [facility] or baptism services? More than 4 times per year 03/09/2024 Do you belong to any clubs o r organizations such as adventism groups, unions, fraternal or athletic groups, or [...] in the past 12 m [facility], were you homeless or living in a retirement (including now)? No 03/09/2024 Personal Safety Answer Date Recorded Have you ever been in or are you currently in a harmful physical or emotional relationship or is someone making you feel afraid or unsafe? 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 Appt scheduled * Telephone Encounter - Gardenia Sylvester, JUANIS - 04/30/2025 1:30 PM CDT LM on VM for Mickie in ENDO to callback to discuss if procedures are urgent or can be rescheduled toa later date. * Telephone Encounter - Karen Cartagena - 04/30/2025 1:12 PM CDT Mickie with [facility] states she received cardiac clearance from our office on 04/27. Pt wasrecently seen by pulmonary for sleep apnea and they had him do a test on 04/23. The test showed pulmonary edema and they increased Lasix. She faxed a clearance request to pulmonary, they faxed it to Dr. Luis office (PCP), and PCP faxed it back to her stating pt needs to be seen by try out person. Pt is scheduled for procedure on Monday 05/07. MAF, CK, or CT do not have any openings prior to 05/07. Contact: documented in this encounter Plan of Treatment Not on file documented as of this encounter Goals Goal Patient Goal Type Associated Problems Recent Progress Patient-Stated? Author TTW CHF Goal - Patient will improve their knowledge of HF and will be motivated to try to better manage at home TTW Case Management Anna Cardenas, GATE WATCH Note: Problem: Ability to self-manage CHF Interventions: [...] pain TTW Case Management No Anna Caballero, GATE WATCH Note: Problem: Chest Pain Interventions: - Assess [...] catheterization TTW Case Management No Anna Caballero, GATE WATCH Note: Problem: Knowledge deficit r/t cath/ stent [...] therapy) TTW Case Management No Brandt Orellana, SARAH Note: Problem: High Risk medication - Anti-platelet [...] to respond TTW Case Management Brandt Vaughn, GATE WATCH Note: Problem: Knowledge deficit related to signs [...] take, when to call CM or provider documented as of this encounter Visit Diagnoses Not on filedocumented in this encounter Care Teams Hospital Pharmacy Director Relationship Specialty Start Date End Date Sandoval Luis MD [address] [facility] [facility] [address] [address] PCP - General 11/05/11 documented as of this encounter
--- OUTSIDE RECORDS SUMMARY | 2025-05-07 01:43 | XMS_ITS | Encounter Summary ---
Author Organization [facility] Address [address] [facility] [place] [address] Care Team Providers Care Meeting Manager Name Role Phone Stewart Dominguez MD Primary Care Provider Encounter Details Date Type Department Care Team (Late st Contact Info) Description 07/08/2024 Lab Requisition [facility] - DermPath Lab [address] [facility], [place] [id number] Norah Sanchez MD [address] [facility] [address] [place] [address] Social History Tobacco Use Types Packs/Day Years Used Date Smoking Tobacco: Never Assessed Sex and Gender Information Value Date Recorded Sex Assigned at Not on file Legal Sex Male 5:49 PM PROGRAM LEAD Gender Identity Not on file Sexual Orientation Not on file documented as of this encounter Plan of Treatment Not on file documented as of this encounter Procedures Procedure Name Priority Date/Time Associated Diagnosis Comments DERMATOPATHOLOGY Routine 07/08/2024 1:42 PM CDT documented in this encounter Results * DERMATOPATHOLOGY (07/08/2024 1:42 PM CDT) Case Report Dermatopathology Report Case: [id number] Authorizing Provider: Norah Sanchez MD Collected: 07/08/2024 01:42 PM Ordering Location: [facility] Physician [facility] - Received: 07/09/2024 03:55 PM [...] DERMATOPATHOLOGY LABORATORY at 1414 CDT Clinical History [facility] papule r/o BCC 2:14 PM CDT DERMATOPATHOLOGY [...] characteristic determined by the Dermatopathology Laboratory at [facility], directed by Dr. Steven Cao. These tests need not be, and therefore are not, approved by the [place] Food and Drug Administration. The tests are used for clinical purposes. Billing Codes Specimen Charges Stain Charges 20751 66469 1 1 4 2:14 PM CDT DERMATOPATHOLOGY LABORATORY Embedded Images 2:14 PM CDT DERMATOPATHOLOGY LABORATORY Pathology/Cytology TISSUE SPECIMEN FROM SKIN / Unknown 07/08/2024 1:42 PM CDT 07/09/2024 3:55 PM CDT Miscellaneous samples (specimen) TISSUE SPECIMEN FROM SKIN / Unknown 07/08/2024 1:42 PM CDT 07/09/2024 3:55 PM CDT us Norah Sanchez MD LAB - PATHOLOGY/CYTOLOGY ORD ERABLES Final Result DERMATOPATHOLOGY LABORATORY [facility] - Department of Dermatology [address], [address] [phone] documented in this encounter Visit Diagnoses Not on filedocumented in this encounter Care Teams Meeting Manager Relationship Specialty Start Date End Date Stewart Dominguez MD [address] [place] [address] PCP - General 04/22/12 documented as of this encounter
--- OUTSIDE RECORDS SUMMARY | 2025-05-07 01:43 | XMS_ITS | Encounter Summary ---
Author Organization [facility] Address [address] [facility] [place] [address] Care Team Providers Care Neon Sign Installer Name Role Phone Stewart Dominguez MD Primary Care Provider Encounter Details Date Type Department Care Team (Late st Contact Info) Description 11/04/2018 Lab Requisition [facility] Care DermPath Lab [address] [facility], [place] [address] Norah Sanchez MD [address] [facility] [address] [place] [address] Social History Tobacco Use Types Packs/Day Years Used Date Smoking Tobacco: Never Assessed Sex and Gender Information Value Date Recorded Sex Assigned at Not on file Legal Sex Male 5:49 PM DESIGN ENGINEERING INTERN Gender Identity Not on file Sexual Orientation Not on file documented as of this encounter Plan of Treatment Not on file documented as of this encounter Procedures Procedure Name Priority Date/Time Associated Diagnosis Comments DERMATOPATH TECHNICAL REPORT Routine 11/03/2018 12:00 AM DESIGN ENGINEERING INTERN documented in this encounter Results * DERMATOPATH TECHNICAL REPORT (11/03/2018 12:00 AM DESIGN ENGINEERING INTERN) Case Report Dermatopathology Report Case: [id number] Authorizing Provider: Norah Sanchez MD Collected: 11/03/2018 12:00 AM Pathologist: Wei Cao MD Received: 11/04/2018 06:58 AM Specimens: A) - Skin, left nose B) - Skin, right ordoñez 9 5:25 PM DESIGN ENGINEERING INTERN DERMATOPATHOLOGY LABORATORY Clinical History A: R/O BCC. Gann papule. B: R/O NMSC vs stasis. Crusted pink plaque. 9 5:25 PM DESIGN ENGINEERING INTERN DERMATOPATHOLOGY LABORATORY Gross Description Specimen A: Received is one formalin filled container labeled with the patient's name and designated left nose. The specimen consists of a shave measuring [id number]. Jar 0. Specimen B: Received is one formalin filled container labeled with the patient's name and designated right ordoñez. The specimen consists of a shave measuring [id number]. Jar 0. [facility] Dermatopathology Laboratory performed the technical component only. 9 5:25 PM [facility] DERMATOPATHOLOGY LABORATORY Embedded Images 9 5:25 PM [facility] DERMATOPATHOLOGY LABORATORY DISCLAIMER An external and internal positive and negative controls are appropriate for the histochemical, immunohistochemical and immunofluorescence stain(s) in this case (if any), except where stated explicitly. The performance characteristics of the stain(s) cited in this report were developed and its performance characteristic determined by the Dermatopathology Laboratory at [facility], directed by Dr. Steven Cao. These tests need not be, and therefore are not, approved by the [place] Food and Drug Administration. The tests are used for clinical purposes. 9 5:25 PM [facility] DERMATOPATHOLOGY LABORATORY at [address] DESIGN ENGINEERING INTERN Pathology/Cytology TISSUE SPECIMEN FROM SKIN / Unknown 11/03/2018 11/04/2018 6:58 AM DESIGN ENGINEERING INTERN Miscellaneous samples (specimen) TISSUE SPECIMEN FROM SKIN / Unknown 11/03/2018 11/04/2018 6:58 AM DESIGN ENGINEERING INTERN us Norah Sanchez MD LAB - PATHOLOGY/CYTOLOGY ORD ERABLES Final Result DERMATOPATHOLOGY LABORATORY [facility] - Department of Dermatology [address] [facility], 5th Floor Lab [address] [place], [place] [address] [place] [address] documented in this encounter Visit Diagnoses Not on filedocumented in this encounter Care Teams Neon Sign Installer Relationship Specialty Start Date End Date Stewart Dominguez MD [address] [place] [address] PCP - General 04/22/12 documented as of this encounter
--- OUTSIDE RECORDS SUMMARY | 2025-05-07 01:43 | XMS_ITS | Encounter Summary ---
Author Organization [facility] Facility Care Team Providers Care Credit Or Loans Officer Name Role Phone Sandoval Luis MD Primary Care Provider Anna Caballero PERMIT TECHNICIAN Unavailable [phone] Brandt Orellana PERMIT TECHNICIAN Unavailable [phone] Tabby Ortiz DNP Unavailable [phone] Encounter Details Date Type Department Care Team (Latest Contact Info) Description 05/28/2016 Orders Only [facility]INCON[facility] ProviderCed MD [address] [place] [address] Social History Tobacco Use Types Packs/Day Years Used Date Smoking Tobacco: Some Days Cigarettes Last attempted to quit: 10/07/1984 Alcohol Use Standard Drinks/Week Comments Yes 0 (1 standard drink = 0.6 oz pur e alcohol) Sex and Gender Information Value Date Recorded Sex Assigned at Not on file Legal Sex Male 10:26 PM CRIME PREVENTION POLICE OFFICER Gender Identity Male 01/13/2020 10:39 AM CDT [...] on filedocumented in this encounter Care Teams Credit Or Loans Officer Relationship Specialty Start Date End Date Sandoval Luis MD [address] [place] [address] PCP - General 11/05/11 Anna Caballero, PERMIT TECHNICIAN [address] [place] [address] Pump Operator Byproducts 06/16/18 08/13/18 Brandt Orellana, PERMIT TECHNICIAN [address] [place] [address] Pump Operator Byproducts 06/16/18 08/13/18 Tabby Ortiz, GIDEON [address] [place] [address] Nurse Practitioner Internal Medicine 06/16/18 08/13/18 documented as of this encounter
--- OUTSIDE RECORDS SUMMARY | 2025-05-07 01:43 | XMS_ITS | Encounter Summary ---
Author Organization [facility] Facility Care Team Providers Care Detasseler Name Role Phone Sandoval Luis MD Primary Care Provider Anna Caballero COMMERCIAL REPRESENTATIVE Unavailable [phone] Brandt Orellana COMMERCIAL REPRESENTATIVE Unavailable [phone] Tabby Ortiz DNP Unavailable [phone] Encounter Details Date Type Department Care Team (Latest Contact Info) Description 05/30/2016 Orders Only [facility] CLINCONV ProviderCed MD [address] [place] [address] Social History Tobacco Use Types Packs/Day Years Used Date Smoking Tobacco: Some Days Cigarettes Last attempted to quit: 10/07/1984 Alcohol Use Standard Drinks/Week Comments Yes 0 (1 standard drink = 0.6 oz pur e alcohol) Sex and Gender Information Value Date Recorded Sex Assigned at Not on file Legal Sex Male 10:26 PM RISK COMPLIANCE MANAGER Gender Identity Male 01/13/2020 10:39 AM [...] on filedocumented in this encounter Care Teams Detasseler Relationship Specialty Start Date End Date Sandoval Luis MD [address] [place] [address] PCP - General 11/05/11 Anna Caballero, COMMERCIAL REPRESENTATIVE [address] [place] [address] Ribbon Lap Machine Tender 06/16/18 08/13/18 Brandt Orellana, COMMERCIAL REPRESENTATIVE [address] [place] [address] Ribbon Lap Machine Tender 06/16/18 08/13/18 Tabby Ortiz, GIDEON [address] [place] [address] Nurse Practitioner Internal Medicine 06/16/18 08/13/18 documented as of this encounter
--- OUTSIDE RECORDS SUMMARY | 2025-05-07 01:43 | XMS_ITS | Encounter Summary ---
Author Organization [facility] Facility Care Team Providers Care Deicer Inspector Electric Name Role Phone Sandoval Luis MD Primary Care Provider Anna Caballero GEM TECHNICIAN Unavailable [phone] Brandt Orellana GEM TECHNICIAN Unavailable [phone] Tabby Ortiz DNP Unavailable [phone] Encounter Details Date Type Department Care Team (Latest Contact Info) Description 05/29/2016 Orders Only [facility] CLINCONV ProviderCed MD [address] [place] [address] Social History Tobacco Use Types Packs/Day Years Used Date Smoking Tobacco: Some Days Cigarettes Last attempted to quit: 10/07/1984 Alcohol Use Standard Drinks/Week Comments Yes 0 (1 standard drink = 0.6 oz pur e alcohol) Sex and Gender Information Value Date Recorded Sex Assigned at Not on file Legal Sex Male 10:26 PM EXPANDED DUTY DENTAL ASSISTANT Gender Identity Male 01/13/2020 10:39 AM CDT [...] on filedocumented in this encounter Care Teams Deicer Inspector Electric Relationship Specialty Start Date End Date Sandoval Luis MD [address] [place] [address] PCP - General 11/05/11 Anna Caballero, GEM TECHNICIAN [address] [place] [address] Metalizing Supervisor 06/16/18 08/13/18 Brandt Orellana, SARAH [address] [place] [address] Metalizing Supervisor 06/16/18 08/13/18 Tabby Ortiz DNP [address] [place] [address] Nurse Practitioner Internal Medicine 06/16/18 08/13/18 documented as of this encounter
--- OUTSIDE RECORDS SUMMARY | 2025-05-07 01:44 | XMS_ITS | Encounter Summary ---
Author Organization [facility] Healthcare Address [address] [place] [address] Care Team Providers Care Geological E Logger Name Role Phone Sandoval Luis MD Primary Care Provider Anna Caballero SURVEY WORKER Unavailable [phone] Brandt Orellana SURVEY WORKER Unavailable [phone] Tabby Ortiz DNP Unavailable [phone] Encounter Details Date Type Department Care Team (Late st Contact Info) Description 03/04/2018 Orders Only [facility] Information Management [address] [place] [address] Scanning, Provider Social History Tobacco Use Types Packs/Day Years Used Date Smoking Tobacco: Former Smokeless Tobacco: Never Alcohol Use Standard Drinks/Week Comments Yes 0 (1 standard drink = 0.6 oz pur e alcohol) Sex and Gender Information Value Date Recorded Sex Assigned at Not on file Legal Sex Male 10:26 PM GEOSCIENTIST Gender Identity Male 01/13/2020 10:39 AM CDT [...] on filedocumented in this encounter Care Teams Geological E Logger Relationship Specialty Start Date End Date Sandoval Luis MD [address] [place] [address] PCP - General 11/05/11 Anna Caballero, SURVEY WORKER [address] [place] [address] Braze Operator 06/16/18 08/13/18 Brandt Orellana, SURVEY WORKER [address] [facility] [address] [place] [address] Braze Operator 06/16/18 08/13/18 Tabby Ortiz DNP [address] [facility] [address] [place] [address] Nurse Practitioner Internal Medicine 06/16/18 08/13/18 documented as of this encounter
--- OUTSIDE RECORDS SUMMARY | 2025-05-07 01:44 | XMS_ITS | Referral Summary ---
Author Organization [facility] [place] [address] [place] [address] Address [address] [address] [place] [address] Care Team Providers Care Market Risk Manager Name Role Phone Sandoval Luis MD Primary Care Provider Encounters Date Type Department Care Team Description 05/04/2025 2:00 PM CDT Office Visit [facility] Cardiology [address] [place] [address] Bindu Valerio NP Chronic diastolic CHF (congestive heart failure) (HCC) (Primary Dx); Preoperative cardiovascular examination 04/30/2025 Telephone [facility] Cardiology [address] [place] [address] Dom Sheikh MD 04/29/2025 2:02 PM CDT - 04/29/2025 11:59 PM CDT Hospital Encounter [facility] Radiology at [facility] [address] [place] [address] Instability of right hip joint Discharge Disposition: Discharge to home or self care 04/29/2025 2:00 PM CDT Office Visit [facility] Orthopaedic Surgery [address] [facility] 1st Floor [address] [place] [address] Neva Morgan MD Instability of right hip joint (Primary Dx) 03/18/2025 11:15 AM CDT Office Visit [facility] Medical [facility] Cardiology at [address] [place] [address] Dom Sheikh MD 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) (Primary Dx); S/P TAVR (transcatheter aortic valve replacement); Multiple-type hyperlipidemia; Coronary artery disease of [place] artery of [place] heart with stable angina pectoris; Syncope and collapse; NSVT (nonsustained ventricular tachycardia) ([facility]) from Last 3 Months Allergies Active Allergy Reactions Criticality Noted Date Comments Cyclobenzaprine Other (See comments) Low 02/18/2018 All muscle relaxers relax the diaphragm Meloxicam Swelling Medium 06/13/2016 Swelling Medications cholecalciferol (VITAMIN D3) 5,000 unit tablet take 1 by Oral route once 0 0 6 Active ezetimibe (ZETIA) 10 mg tabletIndicatio ns:hyperlipidem ia Take 1 tablet (10 mg total) by mouth nightly Active fenofibrate (TRIGLIDE) 160 mg tablet Take 1 tablet (160 mg total) by mouth nightly Active atorvastatin (LIPITOR) 40 mg tablet Take 1 tablet (40 mg total) by mouth nightly 8 Active timolol (TIMOPTIC) 0.5 % ophthalmic solution Administer 1 drop into both eyes 2 (two) times a day Active primidone (MYSOLINE) 50 mg tabletIndicatio ns:Essential Tremor Take 2 tablets (100 mg total) by mouth 2 (two) times a day rx#[id number] 8 Active doxycycline (VIBRAMYCIN) 100 mg capsule Take 1 tablet/capsule (100 mg total) by mouth every morning rx#[id number] Active tamsulosin (FLOMAX) 0.4 mg extended release capsuleIndicati ons:with lunch Take 1 capsule (0.4 mg total) [...] 2 Active azelastine 205.5 mcg (0.15 %) spray,non-aeros ol Administer into each nostril 2 (two) times a day [address] (CYMBALTA) 60 mg capsuleIndicati ons:Neuropathic Pain Take by mouth 2 (two) times a day Active nitroglycerin (NITROSTAT) 0.4 mg SL tabletIndicatio ns:Coronary artery disease of [place] artery of [place] heart with stable angina pectoris Place 1 [...] Active RABEprazole DR (ACIPHEX) 20 mg EC tabletIndicatio ns:Stress Ulcer Prophylaxis Take 1 tablet (20 mg total) by mouth 2 (two) times a day 3 Active ferrous sulfate (iron) 325 mg (65 mg of elemental iron) tabletIndicatio ns:Iron Deficiency Anemia Take 1 tablet (325 mg [...] daily aspirin 4 Active acetaminophen 500 mg capsuleIndicati ons:Pain Take 2 capsules (1,000 mg total) by mouth every 6 (six) hours 90 tablet 4 Active diazePAM (VALIUM) 10 mg tablet Take 1 tablet (10 mg total) by mouth every 6 (six) hours as needed for anxiety Active lisinopriL (PRINIVIL,ZESTR IL) 20 mg tabletIndicatio ns:Chronic diastolic CHF (congestive heart failure) (HCC) Take 1 tablet by mouth once daily 90 tablet 1 5 Active metoprolol XL (TOPROL-XL) 25 mg extended release tabletIndicatio ns: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),NSVT (nonsustained ventricular tachycardia) (HCC) Take 1 tablet (25 mg total) by mouth daily 90 tablet 3 5 03/18/20 26 Active furosemide (LASIX) 40 mg tabletIndicatio ns:Chronic diastolic CHF (congestive heart failure) (HCC) Take 1 tablet by mouth once daily 90 tablet 3 5 Active azelastine-flut icasone (DYMISTA) 137-50 mcg/spray spray,non-aeros ol 0 spray 0 6 05/04/20 25 Discontin ued(Dupli cely order) Active Problems Problem Noted Date Diagnosed Date NSVT (nonsustained ventricular tachycardia) 03/07 Syncope and collapse 11/09/2024 Hypoxia 07/17/2024 Pre-op examination 04/17/2024 S/P revision of total hip 04/13/2024 Right hip pain 03/06/2024 Myofascial neck pain 01/10/2024 Failure of right total hip arthroplasty 11/12/19 [...] (05/20/2018): Added automatically from request for surgery [id number] Chronic diastolic CHF (congestive heart failure) 03/17/2018 [...] artery disease of n ative artery of [place] heart with stable angina pectoris 03/16/2016 Overview (01/11/2017): CAD in [place] artery Assessment & Plan (02/03/2019 5:55 PM [...] 07/25/2020 01/23/2022 Coronary artery disease invo lving [place] coronary artery of [place] heart without angina pectoris 05/20/2018 01/07/2019 Overview (05/20/2018): Added automatically from request for surgery [id number] History of placement of sten t for [...] = 0.6 oz pur e alcohol) rarely [facility] Utilities Answer Date Recorded In the past 12 months has e [employer], gas, oil, or water company threatened to [...] often do you attend chur ch or religion services? More than 4 times per year 03/09/2024 Do you belong to any clubs o r organizations such as pentecostalism groups, unions, fraternal or athletic groups, or [...] were you homeless or living in a fdc (including now)? No 03/09/2024 Personal Safety Answer Date Recorded Have you ever been in or are you currently in a harmful physical or emotional relationship or is someone making you feel afraid or unsafe? Denies 03/06/2024 Sex and Gender Information Value Date Recorded Sex Assigned at Not on file Legal Sex Male 10:26 PM HAT BRIM CURLER Gender Identity Male 01/13/2020 10:39 AM CDT Sexual Orientation Straight 01/13/2020 10 :39 AM CDT Last Filed Vital Signs Vital Sign Reading Time Taken Comments Blood Pressure 100/52 05/04/2025 2:05 PM CDT Pulse 75 05/04/2025 2:05 PM CDT Temperature 37.3 C (99.1 F) 03/12/2024 3:40 PM CDT Respiratory Rate 18 03/12/2024 3:40 PM CDT Oxygen Saturation 96% 05/04/2025 2:05 PM CDT Inhaled Oxygen Concentration - - Weight 85.7 kg (189 lb) 05/04/2025 2:05 PM CDT Height 167.6 cm (5' 6) 05/04/2025 2:05 PM CDT Body Mass Index 30.51 05/04/2025 2:05 PM CDT Plan of Treatment Not on file Goals Goal Patient Goal Type Associated Problems Recent Progress Patient-Stated? Author TTW CHF Goal - Patient will improve their knowledge of HF and will be motivated to try to better manage at home TTW Case Management No Anna Caballero, GLUE REEL OPERATOR Note: Problem: Ability to self-manage CHF Interventions: [...] pain TTW Case Management No Anna Caballero, GLUE REEL OPERATOR Note: Problem: Chest Pain Interventions: - Assess [...] for AMI TTW Case Management No Anna Caballero MSW Note: Problem: Worsening Symptoms- AMI Interventions: - [...] or provider Medical Devices Implanted Type Area Brush Holder Assembler Device Identifier Shelf Expiration Date Model / Serial / Lot [employer] Simplex P Full Dose Radiopaque Preblend Cement Bone Tobramycin 6197-9-001 - [id number] Implanted:Qty: 1 on 03/06/2024 by Neva Morgan MD at [facility] Bone Cement Right: Hip [employer] [id number] 05/06/2025 6197-9-001 / / [id number] [employer] Simplex P Full Dose Radiopaque Preblend Cement Bone Tobramycin 6197-9-001 - [id number] Implanted:Qty: 1 on 03/06/2024 by Neva Morgan MD at [facility] Bone Cement Right: Hip [employer] [id number] 06/06/2025 6197-9-001 / / [id number] [employer] Simplex P Full Dose Radiopaque Preblend Cement Bone Tobramycin 6197-9-001 - [id number] Implanted:Qty: 1 on 03/06/2024 by Neva Morgan MD at [facility] Bone Cement Right: Hip [employer] [id number] 05/06/2025 6197-9- / / [id number] [employer] Simplex P Full Dose Radiopaque Preblend Cement Bone Tobramycin 6197-9-001 - [id number] Implanted:Qty: 1 on 03/06/2024 by Neva Morgan MD at [facility] Bone Cement Right: Hip [employer] [id number] 05/06/202597-9- / / [id number] Jaco [employer] Jonathan [id number] Synergy 3.5mm 32mm 144cm Radiopaque 1 Access Port Inflation Lumen - [id number] Implanted:Qty: 1 on 05/23/2018 by Javier Darden MD at [facility] [employer] Jonathan 11/19/2018 [id number] / / [id number] [employer] Jonathan [id number] Synergy 3.5mm 12mm 144cm Radiopaque 1 Access Port Inflation Lumen - [id number] Implanted:Qty: 1 on 05/23/2018 by Javier Darden MD at [facility] Copyright Agent Jonathan 01/27/2020 [id number] / / [id number] Daig [facility] [employer] [id number] Angio-Seal Vip Bondek-Plus 6fr .035in 70cm Hemostatic Latex Free - [id number] Implanted:Qty: 1 on 05/23/2018 [facility] [employer] 02/03/2019 [id number] / / [id number] [employer] [id number] Commander Garrett 3 Atrion 14fr Transcatheter Introducer Balloon - [id number] Implanted:Qty: 1 on 07/24/2018 by Javier Darden MD at [facility] [employer] 08/23/2019 [id number] / / [employer] 50mm 28mm Cement Constrained Hip 1mm .072in Offset Liner [id number] - [id number] Implanted:Qty: 1 on 03/06/2024 by Neva Morgan MD at [facility] Right: Hip [employer] [id number] 01/04/2025 [id number] / / [id number] [employer] Simplex P Full Dose Radiopaque Preblend Cement Bone Tobramycin 6197-9-001 - [id number] Implanted:Qty: 1 on 03/06/2024 by Neva Morgan MD at [facility] Right: Hip [employer] [id number] 05/06/2025 6197-9-001 / / [id number] [employer] Hip 5mm Offset [place] C Taper Sleeve Adapter Sterile Latex Free 19-0005t - [id number] Implanted:Qty: 1 on 03/06/2024 by Neva Morgan MD at [facility] Right: Hip [employer] [id number] 01/30/2028 19-0005T / / [id number] [employer] 28mm Hip [place] Taper Head Femoral Biolox Delta 6519-1-028 - [id number] Implanted:Qty: 1 on 03/06/2024 by Neva Morgan MD at [facility] Right: Hip [employer] [id number] 06/05/2025 6519-1-028 / / [id number] Explanted Type Area Brush Holder Assembler Device Identifier Shelf Expiration Date Model / Serial / Lot [employer] Trident 42mm 28mm Constrain Hip 0d F Insert Acetabular Uhmwpe [id number] - [id number] Explanted:Qty: 1 on 03/06/2024 at [facility] Right: Hip [employer] [id number] 09/06/2028 [id number] / / [id number] Synthes 4mm 6mm 55mm Small Hexagonal Socket Cancellous Full Thread Screw 206.055 - [id number] Explanted:Qty: 1 on 03/06/2024 by Neva Morgan MD at [facility] Right: Hip Synthes I 206.055 / / Synthes 4mm 6mm 30mm Small Hexagonal Socket Cancellous Full Thread Screw 206.030 - [id number] Explanted:Qty: 1 on 03/06/2024 by Neva Morgan MD at [facility] Right: Hip Synthes I 206.030 / / [employer] Hip 5mm Offset [place] C Taper Sleeve Adapter Sterile Latex Free -4t - [id number] Explanted:Qty: 1 on 03/06/2024 at [facility] Right: Hip [employer] [id number] 05/03/2025-0005T / / [id number] [employer] 28mm Hip [place] Taper Head Femoral [employer] Delta 6519-1-028 - [id number] Explanted:Qty: 1 on 03/06/2024 at [facility] Right: Hip [employer] [id number] 10/25/2026 6519-1 [id number] Procedures Procedure Name Priority Date/Time Associated Diagnosis Comments XR HIP RIGHT W PELVIS 2 OR 3 VIEWS Schedule Routine, Read Routine (OP Routine) 04/29/2025 2:09 PM CDT Instability of right hip joint LIPID PANEL Routine 08/11/2024 3:56 PM HAT BRIM CURLER EGFR Routine 03/11/2024 11:31 PM CDT from Last 3 Months or Most Recently Relevant to Health Maintenance Results * XR Hip Right 2 or 3 Views W Pelvis (04/29/2025 2:09 PM CDT) Anatomical Region Laterality Modality Lower Extremities, Hip, Pelvis Right C omputed Radiography 04/29/2025 3:11 PM CDT Impressions 04/29/2025 3:11 PM CDT Unchanged constrained right total hip arthroplasty in expected position. Electronically signed by: Jose Juan Bailey M.D. Narrative 04/29/2025 3:11 PM CDT XR HIP RIGHT 2 OR 3 VIEWS W PELVIS HISTORY: Right hip pain. FINDINGS: 2 views of the pelvis and right hip are obtained and compared with 01/19/2025. There is unchanged right total hip arthroplasty with constrainment ring. Orthopedic components are in expected position. There is no periprosthetic fracture or osteolysis. Unchanged heterotopic ossification lateral to the proximal femur. Alignment and soft tissues are normal. Unchanged left total hip arthroplasty. Unchanged pedicle screws within the lumbar vertebrae. Procedure Note Jose Juan Bailey MD - 04/29/2025 XR HIP RIGHT 2 OR 3 VIEWS W PELVIS HISTORY: Right hip pain. FINDINGS: 2 views of the pelvis and right hip are obtained and compared with 01/19/2025. There is unchanged right total hip arthroplasty with constrainment ring. Orthopedic components are in expected position. There is no periprosthetic fracture or osteolysis. Unchanged heterotopic ossification lateral to the proximal femur. Alignment and soft tissues are normal. Unchanged left total hip arthroplasty. Unchanged pedicle screws within the lumbar vertebrae. IMPRESSION: Unchanged constrained right total hip arthroplasty in expected position. Electronically signed by: Jose Juan Bailey M.D. Neva Morgan MD IMG XR PROCEDURES Karol l Result * Lipid panel (08/11/2024 3:56 PM HAT BRIM CURLER) SCRIBED Cholesterol, Total 158 0 - 200 [...] MD LAB BLOOD ORDERABLES F inal Result [facility] Department [place] [address] from Last 3 Months or Most Recently Relevant to Health Maintenance Insurance MEDICARE [facility] MEDICARE [facility] MEDICARE [facility] FEDERAL Advance Directives For more information, please contact: [phone] Documents on File Type Date Recorded Patient Channel Worker Expl anation ADVANCE DIRECTIVE 09/11/2013 12:00 AM ELISSA CHOWDHURY WILL ADVANCE DIRECTIVE 09/11/2013 12:00 AM CATIA R OF DISPATCHER MOTOR VEHICLE FINANCIAL/MEDICAL * Full Code (Latest Code Status on File) Date Activated Date Inactivated Comments 03/06/2024 5:28 PM 03/12/2024 10:27 PM * Full Code Date Activated Date Inactivated Comments 06/18/2018 2:56 PM 07/24/2018 5:29 AM * Full Code Date Activated Date Inactivated Comments 06/18/2018 10:05 AM 06/19/2018 3:31 PM Care Teams Market Risk Manager Relationship Specialty Start Date End Date Sandoval Luis MD [address] [place] [id number] PCP - General 11/05/11
--- OUTSIDE RECORDS SUMMARY | 2025-05-07 01:44 | XMS_ITS | Encounter Summary ---
Author Organization [facility] Healthcare Address [address] [place] [address] Care Team Providers Care Earth Burner Name Role Phone Sadnoval Luis MD Primary Care Provider Anna Caballero SAFETY AIDE Unavailable [phone] Brandt Orellana SAFETY AIDE Unavailable [phone] Tabby Ortiz DNP Unavailable [phone] Encounter Details Date Type Department Care Team (Late st Contact Info) Description 01/15/2018 Orders Only [facility] Health Information Management [address] [place] [id number] Scanning, Provider Social History Tobacco Use Types Packs/Day Years Used Date Smoking Tobacco: Former Alcohol Use Standard Drinks/Week Comments Yes 0 (1 standard drink = 0.6 oz pur e alcohol) Sex and Gender Information Value Date Recorded Sex Assigned at Not on file Legal Sex Male 10:26 PM PHARMACOMETRICIAN Gender Identity Male 01/13/2020 10:39 AM CDT [...] on filedocumented in this encounter Care Teams Earth Burner Relationship Specialty Start Date End Date Sandoval Luis MD [address] [place] [address] PCP - General 11/05/11 Anna Caballero, SAFETY AIDE [address] [place] [address] Party Supply Specialist 06/16/18 08/13/18 Brandt Orellana, SAFETY AIDE [address] [email or web address] [address] [place] [address] Party Supply Specialist 06/16/18 08/13/18 Tabby Ortiz, GIDEON [address] [facility] [[email or web address] [address] [place] [address] Nurse Practitioner Internal Medicine 06/16/18 08/13/18 documented as of this encounter
--- OUTSIDE RECORDS SUMMARY | 2025-05-07 01:44 | XMS_ITS | Encounter Summary ---
Author Organization [facility] Address [facility] [place] [address] Care Team Providers Care Information Technology Administrator Name Role Phone Sandoval Luis MD Primary Care Provider [phone] Encounter Details Date Type Department Care Team (Late st Contact Info) Description 07/17/2024 Prep for Procedure [place] Pre-Admission Testing [facility] [place] [id number] Earnest Gonzales MD [address] [place] [address], [address] [place] [id number] Social History Tobacco Use Types Packs/Day [...] materials from doctor or pharmacy Never 09/20/2023 [facility] Utilities Answer Date Recorded In the [...] move on to questions 3-9 0 08/16/2022 [facility] of Occupat ional Health - Occupational Stress [...] place to sleep or slept in a mcc (including now)? No 08/26/2023 Sex and Gender Information Value Date Recorded Sex Assigned at Male 08/14/2023 3:20 PM INTERNATIONAL MARKETING COORDINATOR Legal Sex Male 7:28 PM CDT Gender Identity Male 08/14/2023 3:20 PM INTERNATIONAL MARKETING COORDINATOR Sexual Orientation Straight 08/14/2023 3: 20 PM INTERNATIONAL MARKETING COORDINATOR documented as of this encounter Functional Status [...] 9:00 AM Blanca Carrizales RN Active * Milo Suicide Severity Rating Scale (Screener/Recent Self-Report) Question [...] BASIC METABOLIC PANEL (07/17/2024 8:09 AM CDT) [facility] GLUCOSE 114(H) 70 - 99 MG/DL 07/17/2024 8:47 AM CDT [facility] BUN 36(H) 7 - 18 MG/DL 07/17/2024 8:47 AM CDT [facility] CREATININE S/P/B 1.26 0.7 - 1.3 MG/DL 07/17/2024 8:47 AM CDT [facility] SODIUM S/P/B 140 136 - 145 MMOL/L 07/17/2024 8:47 AM CDT [facility] POTASSIUM S/P/B 4.6 3.5 - 5.1 MMOL/L 07/17/2024 8:47 AM CDT [facility] CHLORIDE S/P/B 110 97 - 115 MMOL/L 07/17/2024 8:47 AM CDT [facility] CO2 29.0 21 - 32 MMOL/L 07/17/2024 8:47 AM CDT [facility] CALCIUM S/P/B 9.8 8.5 - 10.1 MG/DL 07/17/2024 8:47 AM CDT [facility] ANION GAP 1.0(L) 2 - 10 MMOL/L 07/17/2024 8:47 AM CDT [facility] BUN CREATININE RATIO 28.6(H) 6 - 26 07/17/2024 8:47 AM T [facility] GFR ESTIMATE 56(L) >90 ML/MIN/1.7 3 M2 07/17/2024 8:47 AM CDT [facility] Comment: NOTE: eGFR is not calculated for patients <18 years of age or gender unknown. This is an estimated GFR calculation using the new CKD EPI creatinine equation without race and so does not require a correction factor for race. This estimated GFR should not be used for calculating drug doses. 07/17/2024 8:09 AM CDT Brigida Shoemaker [facility] Final R esult [facility] [address] [place] [address], * (ABNORMAL) CBC W/DIFF AUTOMATED (07/17/2024 8:09 AM CDT) WBC 4.86 4.5 - 11.0 x10'3/uL 07/17/2024 8:21 AM CDT [facility] RBC 3.44(L) 4.70 - 6.10 x10'6/uL 07/17/2024 8:21 AM CDT [facility] HGB 10.6(L) 14.0 - 18.0 G/DL 07/17/2024 8:21 AM CDT [facility] HCT 33.3(L) 43.0 - 54.0 % 07/17/2024 8:21 AM CDT [facility] MCV 96.8(H) 80.0 - 94.0 FL 07/17/2024 8:21 AM CDT [facility] MCH 30.8 27.0 - 31.0 PG 07/17/2024 8:21 AM CDT [facility] MCHC 31.8(L) 32.0 - 36.0 G/DL 07/17/2024 8:21 AM CDT [facility] RDW 14.7(H) 11.5 - 14.5 % 07/17/2024 8:21 AM CDT [facility] PLT 199 130 - 400 x10'3/uL 07/17/2024 8:21 AM CDT [facility] MPV 9.6 9.3 - 12.2 FL 07/17/2024 8:21 AM CDT [facility] DIFFERENTIAL TYPE AUTOMATED DIFFERENTIAL 07/17/2024 8:21 AM CDT [facility] NEUTROPHILS % 60.3 % 07/17/2024 8:21 AM CDT [facility] LYMPHOCYTES % 22.2 % 07/17/2024 8:21 AM CDT [facility] MONOCYTES % 10.9 % 07/17/2024 8:21 AM T [facility] EOSINOPHILS 6.0 % 07/17/2024 8:21 AM CDT [facility] BASOPHILS 0.4 % 07/17/2024 8:21 AM T [facility] IMMATURE GRANS % 0.2 % 07/17/20 8:21 AM T [facility] ABS. NEUTROPHILS 2.93 1.80 - 7.70 x10'3/uL 07/17/2024 8:21 AM CDT [facility] ABS. LYMPHOCYTES 1.08 1.00 - 4.80 x10'3/uL 07/17/2024 8:21 AM CDT [facility] ABS. MONOCYTES 0.53 0.30 - 0.82 x10'3/uL 07/17/2024 8:21 AM CDT [facility] ABS. EOSINOPHILS 0.29 0.04 - 0.54 x10'3/uL 07/17/2024 8:21 AM CDT [facility] ABS. BASOPHILS 0.02 0.01 - 0.08 x10'3/uL 07/17/2024 8:21 AM CDT [facility] ABS. IMMATURE GRANULOCYTES 0.01 0.00 - 0.49 x10'3/uL 07/17/2024 8:21 AM CDT [facility] 07/17/2024 8:09 AM CDT us Brigida Shoemaker [facility] Final R esult [facility] [address] [place] [address], documented in this encounter Visit Diagnoses Diagnosis Preoperative testing- Primary Preoperative examination, unspecified documented in this encounter Care Teams Information Technology Administrator Relationship Specialty Start Date End Date Sandoval Luis MD [address] [place] [address] PCP - General FAMILY PRACTICE 10/23/19 documented as of this encounter
--- OUTSIDE RECORDS SUMMARY | 2025-05-07 01:44 | XMS_ITS | Clinical Summary ---
Author Organization [facility] [address] Address [address] [place] [address] Care Team Providers Care Mortgage Loan Assistant Name Role Phone Sandoval Luis MD Primary [...] by mouth 2 (two) times a day rx#[id number] Active doxycycline (VIBRAMYCIN) 100 mg capsule Take 1 tablet/capsule (100 mg total) by mouth every morning rx#[id number] Active tamsulosin (FLOMAX) 0.4 mg extended release [...] mg SL tabletIndicatio ns:Coronary artery disease of [place] artery of [place] heart with stable angina pectoris Place 1 [...] (05/20/2018): Added automatically from request for surgery [id number] Chronic diastolic CHF (congestive heart failure) 03/17/2018 [...] artery disease of n ative artery of [place] heart with stable angina pectoris 03/16/2016 Overview (01/11/2017): CAD in [place] artery Assessment & Plan (02/03/2019 5:55 PM [...] 07/25/2020 01/23/2022 Coronary artery disease invo lving [place] coronary artery of [place] heart without angina pectoris 05/20/2018 01/07/2019 Overview (05/20/2018): Added automatically from request for surgery [id number] History of placement of sten t for [...] Description 05/04/2025 2:00 PM CDT Office Visit [facility] Cardiology [address] [place] [address] Bindu Valerio NP Chronic diastolic CHF (congestive heart failure) (HCC) (Primary Dx); Preoperative cardiovascular examination 04/30/2025 Telephone [facility] Medical [facility] Cardiology [address] [place] [address] Dom Sheikh MD 04/29/2025 2:02 PM CDT - 04/29/2025 11:59 PM CDT Hospital Encounter [facility] Radiology at [facility] [address] [place] [address] Instability of right hip joint Discharge Disposition: Discharge to home or self care 04/29/2025 2:00 PM CDT Office Visit [facility] Orthopa[facility] [address] [facility] 1st Floor [address] [place] [address] Neva Morgan MD Instability of right hip joint (Primary Dx) 03/18/2025 11:15 AM CDT Office Visit [facility] Cardiology at [address] [place] [address] Dom Sheikh MD 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) (Primary Dx); S/P TAVR (transcatheter aortic valve replacement); Multiple-type hyperlipidemia; Coronary artery disease of [place] artery of [place] heart with stable angina pectoris; Syncope and collapse; NSVT (nonsustained ventricular tachycardia) ([facility]) from Last 3 Months Immunizations Immunization Administration [...] Maternal Grandfather Stew Fofana Arthritis Mother Lorraine Morence Depression Mother Lorrainejosette Huizare Diabetes Mother Lorrainejosette Huizare Memory loss Mother Lorrainejosette Huizare Miscarriages / Stillbirths Mother Lorraine Bhupendrae Other Mother Lorraine Bhupendrae Macular Dege neration , DM; Cause of : Macular Degeneration , DM Vision loss Mother Lorraine Tapia Cancer Paternal Grandfather Andrea Sheffieldryan Obesity Paternal Grandfather Andrea Bhupendra Alzheimer's disease Paternal Grandmother Padmini Shi mosley Memory loss Paternal Grandmother Padmini Bhupendra Relation Name Status Comments Brother 1 Luke Tapia Brother 2 Luke Tapia Alive Father Luke Tapia (Age 86) Maternal Grandfather Stew Fofana Mother Lorraine Tapia (Age 94) Paternal Grandfather Andrea Huizar Paternal Grandmother Padmini Huizar Alive Social History Tobacco Use Types Packs/Day Years Used Date Smoking Tobacco: Former Cigarettes 1 23.1 0 04/06/1962 - 05/07/1985 Pipe Smokeless Tobacco: Never Tobacco Cessation:Counseling Given: Not Answered Comments:Discontinued twice before final termination. Alcohol Use Standard Drinks/Week Comments Yes 0 (1 standard drink = 0.6 oz pur e alcohol) rarely [facility] Utilities Answer Date Recorded In the [...] often do you attend chur ch or bahai services? More than 4 times per year 03/09/2024 Do you belong to any clubs o r organizations such as restorationism groups, unions, fraternal or athletic groups, or [...] time in the past 12 m [facility], were you homeless or living in a residential (including now)? No 03/09/2024 Personal Safety Answer Date Recorded Have you ever been in or are you currently in a harmful physical or emotional relationship or is someone making you feel afraid or unsafe? Denies 03/06/2024 Sex and Gender Information Value Date Recorded Sex Assigned at Not on file Legal Sex Male 10:26 PM INSECTICIDE MAKER Gender Identity Male 01/13/2020 10:39 AM CDT [...] 05/04/2025 2:05 PM CDT Plan of Treatment Health Maintenance [...] home TTW Case Management No Anna Caballero, EYEGLASS CUTTER Note: Problem: Ability to self-manage CHF Interventions: [...] pain TTW Case Management No Anna Caballero, EYEGLASS CUTTER Note: Problem: Chest Pain Interventions: - Assess [...] AMI TTW Case Management No Anna Caballero, EYEGLASS CUTTER Note: Problem: Worsening Symptoms- AMI Interventions: - [...] catheterization TTW Case Management No Anna Caballero, EYEGLASS CUTTER Note: Problem: Knowledge deficit r/t cath/ stent [...] respond TTW Case Management No Brandt Orellana, SARAH Note: Problem: Knowledge deficit related to [...] or provider Medical Devices Implanted Type Area Residential Pest Control Technician Device Identifier Shelf Expiration Date Model / Serial / Lot [employer] Simplex P Full Dose Radiopaque Preblend Cement Bone Tobramycin 6197-9-001 - [id number] Implanted:Qty: 1 on 03/06/2024 by Neva Morgan MD at [facility] Bone Cement Right: Hip [employer] [id number] 05/06/2025 6197-9-001 / / [id number] [employer] Simplex P Full Dose Radiopaque Preblend Cement Bone Tobramycin 6197-9-001 - [id number] Implanted:Qty: 1 on 03/06/2024 by Neva Morgan MD at [facility] Bone Cement Right: Hip [employer] [id number] 06/06/2025 6197-9-001 / / [id number] [employer] Simplex P Full Dose Radiopaque Preblend Cement Bone Tobramycin 6197-9-001 - [id number] Implanted:Qty: 1 on 03/06/2024 by Neva Morgan MD at [facility] Bone Cement Right: Hip [employer] [id number] 05/06/2025 6197-9-001 / / [id number] [employer] Simplex P Full Dose Radiopaque Preblend Cement Bone Tobramycin 6197-9-001 - [id number] Implanted:Qty: 1 on 03/06/2024 by Neva Morgan MD at [facility] Bone Cement Right: Hip [employer] [id number] 05/06/2025 6197-9-001 / / [id number] [employer] [employer] Jonathan [id number] Synergy 3.5mm 32mm 144cm Radiopaque 1 Access Port Inflation Lumen - [id number] Implanted:Qty: 1 on 05/23/2018 by Javier Darden MD at [facility] [employer] Jonathan 11/19/2018 [id number] / / [id number] [employer] [place] [id number] Synergy 3.5mm 12mm 144cm Radiopaque 1 Access Port Inflation Lumen - [id number] Implanted:Qty: 1 on 05/23/2018 by Javier Darden MD at [facility] [employer] 01/27/2020 [id number] / / [id number] [employer] [id number] Angio-Seal Vip [place]-Plus 6fr .035in 70cm Hemostatic Latex Free - [id number] Implanted:Qty: 1 on 05/23/2018 by Javier Darden MD at [facility] [employer] 02/03/2019 [id number] / / [id number] [employer] [id number] Commander Garrett 3 Atrion 14fr Transcatheter Introducer Balloon - [id number] Implanted:Qty: 1 on 07/24/2018 by Javier Darden MD at [facility] [employer] 08/23/2019 [id number] / / [employer] 50mm 28mm Cement Constrained Hip 1mm .072in Offset Liner [id number] - [id number] Implanted:Qty: 1 on 03/06/2024 by Neva Morgan MD at [facility] Right: Hip [employer] [id number] 01/04/2025 [id number] / / [id number] [employer] Simplex P Full Dose Radiopaque Preblend Cement Bone Tobramycin 6197-9-001 - [id number] Implanted:Qty: 1 on 03/06/2024 by Neva Morgan MD at [facility] Right: Hip [employer] [id number] 05/06/2025 6197-9-001 / / [id number] [employer] Hip 5mm Offset [place] C Taper Sleeve Adapter Sterile Latex Free -4t - [id number] Implanted:Qty: 1 on 03/06/2024 by Neva Morgan MD at [facility] Right: Hip [employer] [id number] 01/30/2028 19-0005T / / [id number] [employer] 28mm Hip [place] Taper Head Femoral Biolox Delta 6519-1-028 - [id number] Implanted:Qty: 1 on 03/06/2024 by Neva Morgan MD at [facility] Right: Hip [employer] [id number] 06/05/2025 6519-1-028 / / [id number] Explanted Type Area Residential Pest Control Technician Device Identifier Shelf Expiration Date Model / Serial / Lot [employer] Trident 42mm 28mm Constrain Hip 0d F Insert Acetabular Uhmwpe [id number] - [id number] Explanted:Qty: 1 on 03/06/2024 at [facility] Right: Hip [employer] [id number] 09/06/2028 [id number] / / [id number] Synthes 4mm 6mm 55mm Small Hexagonal Socket Cancellous Full Thread Screw 206.055 - [id number] Explanted:Qty: 1 on 03/06/2024 by Neva Morgan MD at [facility] Right: Hip Synthes I 206.055 / / Synthes 4mm 6mm 30mm Small Hexagonal Socket Cancellous Full Thread Screw 206.030 - [id number] Explanted:Qty: 1 on 03/06/2024 by Neva Morgan MD at [facility] Right: Hip Synthes I 206.030 / / [employer] Hip 5mm Offset [place] C Taper Sleeve Adapter Sterile Latex Free -0005t - [id number] Explanted:Qty: 1 on 03/06/2024 at [facility] Right: Hip [employer] [id number] 05/03/2025 19-0005T / / [id number] [employer] 28mm Hip [place] Taper Head Femoral [employer] Delta 6519-1-028 - [id number] Explanted:Qty: 1 on 03/06/2024 at [facility] Right: Hip [employer] [id number] 10/25/2026 6519-1-02 8 [id number] Procedures Procedure Name Priority Date/Time Associated Diagnosis Comments XR HIP RIGHT W PELVIS 2 OR 3 VIEWS Schedule Routine, Read Routine (OP Routine) 04/29/2025 2:09 PM CDT Instability of right hip joint LIPID PANEL Routine 08/11/2024 3:56 PM INSECTICIDE MAKER EGFR Routine 03/11/2024 11:31 PM CDT from [...] Result * Lipid panel (08/11/2024 3:56 PM INSECTICIDE MAKER) SCRIBED Cholesterol, Total 158 0 - 200 [...] LAB BLOOD ORDERABLES F inal Result [facility] [place] [address] from Last 3 Months or Most Recently Relevant to Health Maintenance Insurance MEDICARE [facility] MEDICARE [facility] MEDICARE [facility] Address: [address] [place] [address] Advance Directives For more information, please contact: [phone] Documents on File Type Date Recorded Patient Medical Imaging Technologist Expl anation ADVANCE DIRECTIVE 09/11/2013 12:00 AM ELISSA CHOWDHURY WILL ADVANCE DIRECTIVE 09/11/2013 12:00 AM CATIA R OF DIGITAL SALES MANAGER FINANCIAL/MEDICAL * Full Code (Latest Code Status on File) Date Activated Date Inactivated Comments 03/06/2024 5:28 PM 03/12/2024 10:27 PM * Full Code Date Activated Date Inactivated Comments 06/18/2018 2:56 PM 07/24/2018 5:29 AM * Full Code Date Activated Date Inactivated Comments 06/18/2018 10:05 AM 06/19/2018 3:31 PM Care Teams Mortgage Loan Assistant Relationship Specialty Start Date End Date Sandoval Luis MD [address] [facility] [address] [place] [address] PCP - General 11/05/11
--- OUTSIDE RECORDS SUMMARY | 2025-05-07 01:44 | XMS_ITS | Clinical Summary ---
Author Organization [facility] Address [address] [place] [address] Care Team Providers Care Tile And Marble Setter Name Role Phone Sandoval Luis MD Primary Care Provider [phone] Allergies Active Allergy Reactions Criticality Noted Date [...] Active HYDROcodone-acetamin ophen (NORCO) 5-325 MG tabletIndications:Ac chitimacha Pain < 7 Day Supply Take 1-2 [...] release (ROXICODONE) 5 MG immediate release tabletIndications:Ac chitimacha Pain < 3 Day Supply Take 1 [...] S/P cervical spinal fusion 07/23/2023 Cervical myelopathy ([facility]) 07/23/2023 Bilateral knee pain 04/30/2023 [...] 03/01/2023 Abnormal MRI, lumbar spine 02/28/2023 Myelopathy ([facility]) 02/28/2023 Radiculopathy, lumbar region 02/28/2023 Other intervertebral disc degeneration, lumbar r egion 02/28/2023 Falls frequently 02/28/2023 History of lumbar fusion 02/28/2023 History of lumbar laminectomy 02/28/2023 Recurrent posterior dislocation of hip, right Assessment & Plan (04/30/2023 12:30 PM CDT): Recurrent dislocations to the right hip. He has an appointment June 14 at [facility] to review. I would maintain the immobilizer. [...] I look forward to his consultation in [place]. History of TIA (transient ischemic attack) 02/04 Foraminal stenosis of lumbar region 08/19/2022 Assessment & Plan (08/19/2022 7:29 PM PHOTOGRAPHIC RESTORER): Severe foraminal stenosis noted at the level above the fusion. Bilateral lower extremity pain. Follow-up as needed. Referral to Dr. Jara CVA (cerebral vascular accident) ([facility] HHS/ C) 07/10/2022 Stroke ([facility] HHS/[facility]) 07/09/2022 TIA (transient ischemic attack) 07/09/2022 Fall in bathtub 10/29/2021 Assessment & Plan (10/29/2021 7:38 PM PHOTOGRAPHIC RESTORER): Is a latest fall in September but he also fell trimming the rosebushes and his head hit the house. Starting to feel like he has fair amount of weakness. History of total hip arthroplasty, right 021 Assessment & Plan (08/19/2022 7:29 PM PHOTOGRAPHIC RESTORER): No evidence of fracture, dislocation or subluxation. Well-seated and well positioned. No evidence of eccentric wear. Moderate heterotopic ossification. No evidence of dislocation or subluxation. Would not recommend heterotopic ossification debridement at this time. I believe most of the pain discomfort is probably coming from his spinal stenosis/foraminal stenosis Assessment & Plan (10/29/2021 7:40 PM PHOTOGRAPHIC RESTORER): Both total hips appear to be in good position and alignment. Continue with progressive range of motion and strengthening. Doubt that the fracture that was potentially described on an x-ray is renal looks more like heterotopic ossification. Assessment & Plan (09/17/2021 5:22 PM PHOTOGRAPHIC RESTORER): [address] [place] [address]. Continue with progressive range of motion and strengthening per total hip arthroplasty protocol. Maintain hip precautions. Follow-up on a yearly basis Trochanteric bursitis of right hip 09/17/2021 Assessment & Plan (10/29/2021 7:39 PM PHOTOGRAPHIC RESTORER): Injections really did not give him the relief that he was looking for. Assessment & Plan (09/17/2021 5:22 PM PHOTOGRAPHIC RESTORER): We discussed risks, benefits and alternatives. Patient would like to have a steroid injection. Was done in the past at [facility]. 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 Patient is also on Plavix which is contraindicated Nonrheumatic aortic valve stenosis 03/16/2016 Overview (03/21/2023): Nonrheumatic aortic (valve) stenosis Last Assessment & Plan: Moderate aortic stenosis, very slight progression, no symptoms. F/u in 1 yr, obtain Echo after OV. Type 2 diabetes mellitus ([facility]) 03/16 Overview (03/21/2023): Mixed hyperlipidemia [...] 10/04/2023 Assessment & Plan (10/29/2021 7:39 PM PHOTOGRAPHIC RESTORER): Might consider repeat MRI for the lumbar spine at some point in time as well as EMG/NCV. He does have a appointment coming up with his neurologist. This may be better suited for him. Assessment & Plan (09/17/2021 5:24 PM PHOTOGRAPHIC RESTORER): History of 2 different back surgeries. Possibility of increased stenosis proximal. Encounters Date Type Department Care Team Description 02/25/2025 9:51 AM CDT - 02/25/2025 11:59 PM CDT Hospital [place] [address] [place], [place] [id number] El Malloy PA Discharge Disposition: Home or Self Care (Routine Discharge) 02/25/2025 Travel 02/07/2025 7:26 PM CDT - 02/07/2025 11:22 PM CDT Emergency [facility] Emergency Room [address] [place] [address] Boston Butler MD Abdominal Pain Discharge Disposition: [...] materials from doctor or pharmacy Never 09/20/2023 [facility] Utilities Answer Date Recorded In the past 12 months has th e [employer], gas, oil, or water [employer] threatened to shut off services in your [...] move on to questions 3-9 0 08/16/2022 [facility] replaced by [facility] - Occupational Stress Questionnaire Answer Date Recorded [...] place to sleep or slept in a senior care (including now)? No 08/26/2023 Sex and Gender Information Value Date Recorded Sex Assigned at Male 08/14/2023 3:20 PM PHOTOGRAPHIC RESTORER Legal Sex Male 7:28 PM CDT Gender Identity Male 08/14/2023 3:20 PM PHOTOGRAPHIC RESTORER Sexual Orientation Straight 08/14/2023 3: 20 PM PHOTOGRAPHIC RESTORER Last Filed Vital Signs Vital Sign Reading [...] season) 2024 07/18/2021, 01/03/2021, 12/13/2020 PHQ-2 (Physician [place]) 10/07/2024 Lipid Panel 04/17/2025 04/17/2024, 07/10/2022, 07/31/2021 [...] Raya, RN Medical Devices Implanted Type Area Detective Investigator Device Identifier Shelf Expiration Date Model / Serial / Lot Bio Bone Putty Implanted:Qt y: 1 on 07/23/2023 by Marshall Jara MD at [facility] Bone N/A: Spine Cervical 06/13/2024 [id number] / / [id number] Graft Infuse Bone Xsmall - [id number] Implanted:Qt y: 1 on 07/23/2023 by Marshall Jara MD at [facility] Bone N/A: Spine Cervical [employer] 12/04/2024 [id number] / / [id number] Mesh Progrip Self Fixating 15cm X 10cm Lap - [id number] Implanted:Qt y: 1 on 07/17/2024 by Earnest Gonzales MD at [facility] Mesh Left: Inguinal [employer] [id number] 04/05/2027 [id number] / / [id number] Mesh Progrip Self Fixating 15cm X 10cm Lap - [id number] Implanted:Qt y: 1 on 07/17/2024 by Earnest Gonzales MD at [facility] Mesh Right: Inguinal [employer] [id number] 01/04/2027 [id number] / / [id number] 63mm Plate Implanted:Qt y: 1 on 07/23/2023 by Marshall Jara MD at [facility] Plate N/A: Spine Cervical [id number] / / 16 Mm Vst Screws Implanted:Qt y: 8 on 07/23/2023 by Marshall Jara MD at [facility] Screw N/A: Spine Cervical [id number] / / [place] Interbody System 6mm Implanted:Qt y: 1 on 07/23/2023 by Marshall Jara MD at [facility] Spacer N/A: Spine Cervical [id number] 06/15/2028 [id number] / / [id number] [place] Interbody System Cervical Interbody Implanted:Qt y: 1 on 07/23/2023 by Marshall Jara MD at [facility] N/A: Spine Cervical [id number] 08/12/20276100- [id number] / / [id number] [place] Interbody System Cervical Interbody Implanted:Qt y: 1 on 07/23/2023 by Marshall Jara MD at [facility] N/A: Spine Cervical [id number] 08/12/2027CL7-G2 / / [id number] Explanted Type Area Detective Investigator Device Identifier Shelf Expiration Date Model / Serial / Lot Distration Pin 12mm - [id number] Explanted:Qty: 2 on 07/23/2023 by Marshall Jara MD at [facility] Pin N/A: Spine Cervical [employer] [...] 6:36 PM Narrative 03/01/2025 6:47 PM CDT [facility] [address] [place] [address] PROCEDURE: CT ABD+PEL W CON HISTORY: Gastroenteritis. [...] Procedure Note Jadyn Glover MD - 03/01/2025 [facility] [address] [place] [address] PROCEDURE: CT ABD+PEL W CON HISTORY: Gastroenteritis. [...] - 1.3 mg/dL 02/25/2025 10:[address] [facility] GFR ESTIMATE 45(L) >90 ml/min/1.7 3 m2 02/25/2025 10:[address] [facility] 02/25/2025 10:0 7 AM CDT El RAVI POINT OF CARE TEST ORDERABLES F inal Result [facility] [address] [place] [address], [place] [phone] * CULTURE URINE (02/07/2025 10:04 PM CDT) SPEC DESCRIPTION URINE CLEAN CATCH 02/07/2025 10:[address] [facility] SPECIAL REQUESTS NO SPECIAL REQUEST 02/07/2025 10:[address] [facility] CULTURE RESULT NO GROWTH 2 DAYS 02/10/2025 7:00 AM CDT [facility] URINE SPECIMEN OBTAINED BY CLEAN CATCH PROCEDURE / Unknown 02/07/2025 10:04 PM CDT 02/07/2025 10:10 PM CDT Boston Butler MD MICROBIOLOGY - GENERAL RADHA POTTER Final Result Performing Organization Address City/State/[facility] Co de Phone Number [facility] [address] [place] [address], [place] [phone] [facility] [address] [place] [address], [place] [phone] * (ABNORMAL) URINALYSIS, AUTO, COMPLETE (02/07/2025 10:04 PM CDT) COLOR (U) YELLOW 02/07/2025 10:[address] [facility] TRANSPARENCY CLEAR 02/07/2025 10:[address] [facility] SPECIFIC GRAVITY (U) 1.010 1.000 - 1.030 02/07/2025 10:[address] [facility] U PH 6.5 5.0 - 9.0 02/07/2025 10:[address] [facility] LEUKOCYTES (U) NEGATIVE NEGATIVE 02/07/2025 10:[address] [facility] NITRITES NEGATIVE NEGATIVE 02/07/2025 10:[address] [facility] PROTEIN RANDOM (U) TRACE(A) NEGATIVE 02/07/2025 10:[address] [facility] GLUCOSE (U) NEGATIVE NEGATIVE 02/07/2025 10:[address] [facility] KETONES MG/DL (U) NEGATIVE NEGATIVE 02/07/2025 10:[address] [facility] BILIRUBIN (U) NEGATIVE NEGATIVE 02/07/2025 10:[address] [facility] BLOOD (U) NEGATIVE NEGATIVE 02/07/2025 10:[address] [facility] WBC/HPF 0-5 0 - 5 /HPF 02/07/2025 10:[address] [facility] RBC/HPF NONE SEEN 0 - 5 /HPF 02/07/2025 10:[address] [facility] EPI/HPF NONE SEEN /HPF 02/07/2025 10:[address] [facility] URINE SPECIMEN OBTAINED BY CLEAN CATCH PROCEDURE / Unknown 02/07/2025 10:04 PM CDT us Boston Butler MD URINE ORDERABLES Final Resu lt Performing Organization Address City/[facility]/ZIP Co de Phone Number [facility] [address] [place] [address], [place] [phone] * LACTIC ACID W REFLEX (SEPSIS) (02/07/2025 7:46 PM CDT) LACTIC ACID VENOUS 1.3 0.4 - 2.0 MMOL/L 02/07/2025 8:[address] [facility] 02/07/2025 7:46 PM CDT us Boston Butler MD LABORATORY Final Resul t Performing Organization Address [facility]/ZIP Co de Phone Number [facility] [address] [place] [address], [place] [phone] * (ABNORMAL) COMPREHENSIVE METABOLIC PANEL (02/07/2025 7:46 PM CDT) [facility] Signature GLUCOSE 112(H) 70 - 99 MG/DL 02/07/2025 8:[address] [facility] BUN 26(H) 7 - 18 MG/DL 02/07/2025 8:[address] [facility] CREATININE S/P/B 1.14 0.7 - 1.3 MG/DL 02/07/2025 8:[address] [facility] SODIUM S/P/B 138 136 - 145 MMOL/L 02/07/2025 8:[address] [facility] POTASSIUM S/P/B 4.6 3.5 - 5.1 MMOL/L 02/07/2025 8:[address] [facility] CHLORIDE S/P/B 101 100 - 108 MMOL/L 02/07/2025 8:35 PM [facility] CO2 32.5(H) 21 - 32 MMOL/L 02/07/2025 8:[address] [facility] CALCIUM S/P/B 10.2(H) 8.5 - 10.1 MG/DL 02/07/2025 8:[address] [facility] BILIRUBIN TOTAL S/P/B 0.3 0.2 - 1.2 MG/DL 02/07/2025 8:[address] [facility] TOTAL PROTEIN S/P/B 7.1 6.4 - 8.2 G/DL 02/07/2025 8:[address] [facility] ALBUMIN S/P/B 3.6 3.4 - 5.0 G/DL 02/07/2025 8:[address] [facility] AST 27 15 - 37 U/L 02/07/2025 8:[address] [facility] ALT 21 16 - 60 U/L 02/07/2025 8:[address] [facility] ALKALINE PHOSPHATASE S/P/B 51 50 - 136 U/L 02/07/2025 8:[address] [facility] ANION GAP 4.5(L) 5 - 15 MMOL/L 02/07/2025 8:[address] [facility] BUN CREATININE RATIO 22.8 6 - 26 02/07/2025 8:[address] [facility] A/G RATIO 1.0 1.0 - 2.0 RATIO 02/07/2025 8:[address] [facility] GFR ESTIMATE 63(L) >90 ML/MIN/1.7 3 M2 02/07/2025 8:[address] [facility] Comment: NOTE: eGFR is not calculated for patients <18 years of age. This is an estimated GFR calculation using the new CKD EPI creatinine equation without race and so does not require a correction factor for race. This estimated GFR should not be used for calculating drug doses. 02/07/2025 7:46 PM CDT us Boston Butler MD LABORATORY Final Resul t [facility] [address] [place] [address], * (ABNORMAL) CBC W/DIFF AUTOMATED (02/07/2025 7:46 PM CDT) WBC 6.20 4.4 - 11.0 x10'3/uL 02/07/2025 8:[address] [facility] RBC 3.74(L) 4.50 - 5.90 x10'6/uL 02/07/2025 8:[address] [facility] HGB 12.0(L) 14.0 - 17.5 G/DL 02/07/2025 8:[address] [facility] HCT 36.3(L) 41.5 - 50.4 % 02/07/2025 8:02 PM [facility] MCV 97.1(H) 80.0 - 96.0 FL 02/07/2025 8:[address] [facility] MCH 32.1(H) 26.5 - 31.4 PG 02/07/2025 8:02 PM [facility] MCHC 33.1 31.9 - 34.8 G/DL 02/07/2025 8:02 PM [facility] RDW 13.6 12.3 - 14.3 % 02/07/2025 8:02 PM [facility] PLT 218 151 - 353 x10'3/uL 02/07/2025 8:02 PM [facility] MPV 9.7 9.7 - 11.9 FL 02/07/2025 8:02 PM [facility] RBC MORPHOLOGY NORMAL 02/07/2025 8:02 PM [facility] PLT MORPH. NORMAL 02/07/2025 8:02 PM [facility] WBC MORPHOLOGY NORMAL 02/07/2025 8:02 PM [facility] LYMPHOCYTES % 24.4 15.8 - 45.0 % 02/07/2025 8:02 PM [facility] NEUTROPHILS % 62.4 42.1 - 71.9 % 02/07/2025 8:02 PM [facility] MONOCYTES % 9.5 5.7 - 12.5 % 02/07/2025 8:02 PM [facility] EOSINOPHILS 3.2 0.0 - 5.6 % 02/07/2025 8:[address] [facility] BASOPHILS 0.3 0.0 - 1.3 % 02/07/2025 8:[address] [facility] ABS. NEUTROPHILS 3.87 1.40 - 6.00 x10'3/uL 02/07/2025 8:[address] [facility] IMMATURE GRANS % 0.2 0.0 - 0.5 % 02/07/2025 8:[address] [facility] ABS. LYMPHOCYTES 1.51 0.80 - 4.70 x10'3/uL 02/07/2025 8:[address] [facility] 02/07/2025 7:46 PM CDT us Boston Butler MD LABORATORY Final Resul t Performing Organization Address [facility]/ZIP Co de Phone Number [facility] [address] [place] [address], [place] [phone] * (ABNORMAL) MAGNESIUM (02/07/2025 7:46 PM CDT) MAGNESIUM 1.4(L) 1.8 - 2.4 MG/DL 02/07/2025 8:[address] [facility] 02/07/2025 7:46 PM CDT us Boston Butler MD LABORATORY Final Resul t Performing Organization Address City/[facility]/ZIP Co de Phone Number [facility] [address] [place] [address], [place] [phone] * (ABNORMAL) LIPASE (02/07/2025 7:46 PM CDT) LIPASE 79(H) 16 - 77 UNITS/L 02/07/2025 8:[address] [facility] 02/07/2025 7:46 PM CDT us Boston Butler MD LABORATORY Final Resul t [facility] [address] [place] [address], [place] [phone] * (ABNORMAL) HEMOGLOBIN, GLYCOSYLATED (07/10/2022 9:34 AM CDT) HGB A1C 6.4(H) <5.7 % 07/10/2022 10:57 AM CDT [facility] Comment: ADA GUIDELINES 2010 5.7 TO 6.4% INCREASED RISK OF DIABETES > OR = 6.5% CONSISTENT WITH DIABETES ESTIMATED AVG GLUCOSE 137 mg/dL 07/10/2022 10:57 AM CDT [facility] 07/10/2022 9:34 AM CDT Michelle Franco MD LABORATORY Final Re sult Performing Organization Address City/[facility]/ZIP Co de Phone Number [facility] [address] [place] [address], [place] [phone] * LIPID PANEL (07/10/2022 9:34 AM CDT) CHOLESTEROL 171 <200 MG/DL 07/10/2022 10:44 AM CDT [facility] TRIGLYCERIDES 102 <150 MG/DL 07/10/2022 10:44 AM CDT [facility] HDL 61 >40.0 MG/DL 07/10/2022 10:44 AM CDT [facility] LDL (CALCULATED) 90 <100 MG/DL 07/10/2028 07:44 AM CDT [facility] NON HDL CHOLESTEROL 110 <130 MG/DL 07/10 10:44 AM CDT [facility] CHOL/HDL RATIO 2.8 0.0 - 4.5 07/10/2022 10:44 AM CDT [facility] VLDL CALCULATION 20 5 - 55 MG/DL 07/10/2022 10:44 AM CDT [facility] LIPID INTERPRETATION 07/10/2022 10:44 AM CDT [facility] Comment: NIH CONCENSUS REPORT RECOMMENDATIONS: ADULT CHILD LOW RISK: CHOLESTEROL <200 <170 TRIGLYCERIDE <150 --- HDL >=60 --- LDL <100 <110 BORDERLINE: CHOLESTEROL 200-239 170-199 TRIGLYCERIDE 150-199 --- HDL 40-59 --- LDL 100-159 110-129 HIGH RISK: CHOLESTEROL >=240 >=200 TRIGLYCERIDE >=200 --- HDL <40 --- LDL >=160 >=130 07/10/2022 9:34 AM CDT Michelle Franco MD LABORATORY Final Re sult [facility] [address] [place] [id number], from Last 3 Months or Most Recently [...] 10:00 AM 08/18/2023 4:21 PM Care Teams Tile And Marble Setter Relationship Specialty Start Date End Date Sandoval Luis MD [address] [facility] [address] [place] [address] PCP - General FAMILY PRACTICE 10/23/19
--- OUTSIDE RECORDS SUMMARY | 2025-05-07 01:44 | XMS_ITS | Encounter Summary ---
Author Organization [facility] Address [facility] access hospital[address] [place] [address] Care Team Providers Care Flight Engineer Name Role Phone Sandoval Luis MD Primary Care Provider [phone] Encounter Details Date Type Department Care Team (Late st Contact Info) Description 07/19/2023 Prep for Procedure [facility] Pre-Admission Testing [address] [id number] Marshall Jara MD [address] [place], [place] [address] Social History Tobacco Use Types Packs/Day Years [...] move on to questions 3-9 0 08/16/2022 [facility] [place] [facility] - Occupational Stress [...] place to sleep or slept in a fpc (including now)? No 07/23/2023 Sex and Gender Information Value Date Recorded Sex Assigned at Male 08/14/2023 3:20 PM VISUAL MERCHANDISING MANAGER Legal Sex Male 7:28 PM CDT Gender Identity Male 08/14/2023 3:20 PM VISUAL MERCHANDISING MANAGER Sexual Orientation Straight 08/14/2023 3: 20 PM VISUAL MERCHANDISING MANAGER documented as of this encounter Functional Status [...] COLOR (U) YELLOW 07/11/2023 3:07 PM CDT [facility] TRANSPARENCY CLEAR 07/11/2023 3:07 PM T [facility] SPECIFIC GRAVITY (U) 1.020 1.000 - 1.030 07/11/2023 3:07 PM T [facility] U PH 6.0 5.0 - 9.0 07/11/2023 3:07 PM T [facility] LEUKOCYTES (U) NEGATIVE NEGATIVE 07/11/2023 3:07 PM T [facility] NITRITES NEGATIVE NEGATIVE 07/11/2023 3:07 PM T [facility] PROTEIN RANDOM (U) NEGATIVE NEGATIVE 07/11/2023 3:07 PM T [facility] GLUCOSE (U) NEGATIVE NEGATIVE 07/11/2023 3:07 PM T [facility] KETONES MG/DL (U) NEGATIVE NEGATIVE 07/11/2023 3:07 PM T [facility] BILIRUBIN (U) NEGATIVE NEGATIVE 07/11/2023 3:07 PM T [facility] BLOOD (U) NEGATIVE NEGATIVE 07/11/2023 3:07 PM T [facility] WBC/HPF 0-5 0 - 5 /HPF 07/11/2023 3:07 PM T [facility] RBC/HPF NONE SEEN 0 - 5 /HPF 07/11/2023 3:07 PM T [facility] EPI/HPF RARE /HPF 07/11/2023 3:07 PM [facility] CULTURE & SENSITIVITY INDICATED? SPECIMEN SETUP FOR CULTURE 07/11/2023 3:07 PM [facility] URINE SPECIMEN OBTAINED BY CLEAN CATCH PROCEDURE / Unknown 07/11/2023 1:09 PM CDT Marshall Jara MD URINE ORDERABLES Final Resu lt [facility] [address] [place] [address], documented in this encounter Visit Diagnoses Diagnosis Cervical spondylosis with radiculopathy- Primary Cervical spondylosis with myelopathy Myelopathy ([facility]) Unspecified disease of spinal cord Multiple-type hyperlipidemia Other and unspecified hyperlipidemia Chronic diastolic CHF (congestive heart failure) ([facility]) Chronic diastolic heart failure Coronary artery disease of nenana artery of [place]ana heart with stable angina pectoris Essential hypertension Unspecified essential hypertension 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 ([facility]) Nonrheumatic aortic valve stenosis Aortic valve disorders Severe aortic stenosis Aortic valve disorders Premature atrial contraction Supraventricular premature beats S/P drug eluting coronary stent placement S/P TAVR (transcatheter aortic valve replacement) Type 2 diabetes mellitus ([facility]) Type II or unspecified type diabetes mellitus without mention of complication, not stated as uncontrolled Pelvic obliquity Acquired deformity of pelvis CVA (cerebral vascular accident) ([facility]) Unspecified cerebral artery occlusion with cerebral infarction TIA (transient ischemic attack) Unspecified transient cerebral ischemia Stroke ([facility]) Unspecified cerebral artery occlusion with cerebral infarction Spinal stenosis of lumbar region with neurogenic claudication Spinal stenosis, lumbar region, with neurogenic claudication Iron deficiency anemia due to chronic blood loss 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 ([facility]) H/O gastric ulcer Personal history of other diseases of digestive system COVID-19 documented in this encounter Additional Health Concerns Infection Onset Date Last Indicated Resolved Time COVID-19 Rule Out 08/17/2023 08/17/2023 08/17/2023 11:41 AM VISUAL [employer]CH[employer]GER documented as of this encounter Care Teams Flight Engineer Relationship Specialty Start Date End Date Sandoval Luis MD [address] [place] [address] PCP - General FAMILY PRACTICE 10/23/19 documented as of this encounter
[2025-05-07 09:00] VITALS: BP 96/65; PULSE 80; RESP 18; TEMP 36.2; O2SAT 97
[2025-05-07] MEDS: LACTATED RINGERS 1,000 ML 150 ML IV CONT (09:14)
[2025-05-07] MEDS: GENTAMICIN 80MG/SOD CHL 50 ML 80 MG/50 ML BAG 100 MG IVPB (09:22)
[2025-05-07] MEDS: AMPICILLIN SODIUM 2 GM in SODIUM CHLORIDE 0.9% IV 100 ML 200 ML IVPB (09:26)
--- NOTE | 2025-05-07 09:28 | P.PNAN_ITS ---
Anes - Initial Pre Proc Eval Procedure: Operation Date: 05/07/25 10:00 Proposed Procedures p EGD & Diagnostic Colonoscopy - Vamshi Estrada MD Date/Time: 05/07/25 09:28 Surgeon: Vamshi Estrada MD Pre Op Diagnosis: Abnormal findings on diagnostic imaging of other a Patient Data Age: 84 Gender: M Height: 1.63 m Weight: 83.5 kg Last Vital Signs Temp 36.2 C L 05/07/25 09:00 Pulse 80 05/07/25 09:00 Resp 18 05/07/25 09:00 BP 96/65 L 05/07/25 09:00 Pulse Ox 97 05/07/25 09:00 O2 Del Method Room Air 05/07/25 09:00 Allergies Allergy/AdvReac Type Severity Reaction Status Date / Time MUSCLE RELAXERS Allergy Severe PARALYSES Uncoded 05/07/25 08:57 DIAPHRAGM Home Medications ?Medication ?Instructions ?Recorded ?Confirmed ?Type cholecalciferol (vitamin D3) 125 5,000 unit PO DAILY 08/18/19 05/07/25 History mcg (5,000 unit) tablet timolol maleate 0.25 % eye drops 1 drop ophthalmic (eye) Q12H 10/28/19 05/07/25 History vitamin B complex (B 1 tablet PO DAILY 10/28/19 05/07/25 History Complex-Vitamin B12 tablet) aspirin 81 mg tablet,delayed 81 mg PO DAILY 06/05/21 05/07/25 History release tacrolimus 0.1 % topical ointment 1 applic topical DAILY 01/09/22 05/07/25 History triamcinolone acetonide 0.1 % 1 applic topical DAILY 01/09/22 05/07/25 History topical cream cetirizine 10 mg tablet (Zyrtec) 10 mg PO DAILY PRN allergy 09/17/22 05/07/25 Rx symptoms #90 tabs lisinopril 10 mg tablet See Rx Instructions .Route 04/08/23 05/07/25 Rx .COMPLEX #90 tabs rabeprazole 20 mg tablet,delayed See Rx Instructions .Route 05/04/24 05/07/25 Rx release .COMPLEX #180 tabs gabapentin 600 mg tablet See Rx Instructions .Route 06/30/24 05/07/25 Rx .COMPLEX #360 tabs primidone 50 mg tablet See Rx Instructions .Route 06/30/24 05/07/25 Rx .COMPLEX #360 tabs fenofibrate 160 mg tablet See Rx Instructions .Route 07/06/24 05/07/25 Rx .COMPLEX #90 tabs carbamazepine 200 mg tablet See Rx Instructions .Route 08/25/24 05/07/25 Rx (Epitol) .COMPLEX #90 tabs duloxetine 20 mg capsule,delayed 20 mg PO BID #180 caps 08/31/24 05/07/25 Rx release ezetimibe 10 mg tablet 10 mg PO DAILY #90 tabs 10/19/24 05/07/25 Rx tamsulosin 0.4 mg capsule See Rx Instructions .Route 10/21/24 05/07/25 Rx .COMPLEX #90 caps atorvastatin 40 mg tablet See Rx Instructions .Route 11/24/24 05/07/25 Rx .COMPLEX #90 tabs magnesium oxide 400 mg (241.3 mg 400 mg PO DAILY #30 tabs 12/14/24 05/07/25 Rx magnesium) tablet doxycycline hyclate 100 mg capsule 100 mg PO DAILY #90 caps 01/21/25 05/07/25 Rx diazepam 10 mg tablet 10 mg PO DAILY PRN anxiety #30 tabs 03/09/25 04/26/25 Rx potassium citrate 10 mEq (1,080 See Rx Instructions .Route 03/16/25 05/07/25 Rx mg) tablet,extended release .COMPLEX #180 tabs hydrocodone 10 mg-acetaminophen 1 tablet PO Q6H PRN pain #60 tabs 04/14/25 04/26/25 Rx 325 mg tablet ipratropium bromide 21 mcg (0.03 1 - 2 spray intranasal BID #30 mL 04/21/25 05/07/25 Rx %) nasal spray ferrous sulfate, dried 160 mg (50 320 mg PO DAILY 04/26/25 05/07/25 History mg iron) tablet,extended release furosemide 40 mg tablet 40 mg PO DAILY 04/26/25 05/07/25 History Patient hx anesthesia problems: none Family hx anesthesia problems: none Results Review: All pre-operative results and documents have been reviewed as part of the pre- operative evaluation. 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 Lumbar spondylosis Transient ischemic attack BCC (basal cell carcinoma of skin) Stage 3 chronic kidney disease Complex sleep apnea syndrome Adenomatous colon polyp Peptic ulcer disease Diarrhea Gastric ulcer GIB (gastrointestinal bleeding) Symptomatic anemia History of transcatheter aortic valve replacement (TAVR) Essential tremor Anxiety Skin cancer Shingles Gallbladder disease Hemorrhoids Ulcer Diverticulosis Pneumonia Sleep apnea Afib HLD (hyperlipidemia) PVD (peripheral vascular disease) CAD (coronary artery disease) CHF (congestive heart failure) Myocardial infarct Anemia Atherosclerotic heart disease of [place] coronary artery without angina pectoris Benign prostatic hyperplasia with lower urinary tract symptoms Chronic kidney disease, stage III (moderate) DM renal manif type II Glaucoma Hy ht/kd NOS I-IV w/o hf Hypertensive heart disease without heart failure Idiopathic peripheral neuropathy Insomnia Mixed hyperlipidemia Nonrheumatic aortic valve stenosis MARI (obstructive sleep apnea) Surgical History Surgical History H/O bilateral inguinal hernia repair 07/2024 Dr. Earnest Gonzales History of revision of total replacement of right hip joint (~03/12/24) H/O lumbosacral spine surgery H/O neck surgery C3-4, C4-5, C5-6 anterior cervical discectomy, decompression of spinal cord and nerve roots, C3-6 fusion Status post surgical removal of malignant neoplasm of skin Hx of cholecystectomy History of lumbar surgery History of hemorrhoidectomy History of appendectomy History of tonsillectomy Status post total hip replacement, bilateral History of coronary artery stent placement x4 S/P TAVR (transcatheter aortic valve replacement) Family History Family History Grandparent Family history of tuberculosis Family history of alcoholism Carcinoma of colon Family history of dementia Mother Family history of glaucoma, Onset Age: 94 Family history of diabetes mellitus in first degree relative Family history of dementia, Onset Age: 94 Diabetes mellitus, Onset Age: 94 Family history of arthritis, Onset Age: 94 Father Carcinoma of colon Family history of kidney stones, Onset Age: 86 Family history of congestive heart failure, Onset Age: 86 Sibling Family history of kidney stones Family history of diabetes mellitus in first degree relative Family history of pancreatic cancer Other Asthma Family history of cardiovascular disease Family history of hearing loss Family history of osteoporosis Social History Social History Social History: Mr. Tapia lives at home with his in [place], [place]. 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 He wishes to be a full code and has designated his , Rosette Tapia, as his surrogate decision maker. He is a former 23 pack-year smoker and quit smoking in 1984. He reports infrequent social alcohol use and denies other illicit substance use. Smoking packs per day: 1 Smoking cigarettes per day: 20.0 Years smoked: 23 Smoking pack-years: 23.00 Smoking status: Former smoker Tobacco type: cigarettes and pipe Second hand tobacco smoke exposure: No Smoking end date: 10/07/84 Alcohol intake: never Alcohol use details: one or two a month Substance use: never Substance use type: does not use Do You Feel Safe in your Home?: Yes Lack of Transportation: YES Lack of Food: Never True Current Housing: Decline to Answer Concerned About Future Housing: Decline to Answer Difficulty Paying Gas/Electric Bills: Decline to Answer Difficulty Paying for Meds: Decline to Answer Currently Unemployed: Decline to Answer Education: Decline to Answer Difficulty w/ Childcare or Family Care: Decline to Answer Living arrangements: with family Occupation/Education: retired Gender identity (if verbalized by the patient): Male Sexual Orientation (if Verbalized by the Patient): Straight or Heterosexual Spiritual care concerns: No Anes - Eval Final PreProcedure Day of Procedure 05/07/25 09:28 Patient weight: obese Heart: regular rate and rhythm Lungs: decreased breath sounds Airway: Mallampati scale class II Neurological: alert and oriented Last oral intake: >/= 8 hours ASA classification: IV Emergent: no Anesthetic plan: proceed Anesthesia type and monitoring: general GIVS and standard monitoring Results Review: All pre-operative results and documents have been reviewed as part of the pre- operative evaluation. Informed Consent: The patient's anesthetic plan and its attendant risks and benefits were discussed with the patient/family/POA. Questions were solicited and answers provided to the satisfaction of the patient/family/POA.
--- NOTE | 2025-05-07 10:10 | P.HP_ITS ---
History of Present Illness History of Present Illness Consent: Risks, benefits, and alternatives have been discussed and questions answered. Patient agrees to proceed with procedure. 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 Lumbar spondylosis Transient ischemic attack BCC (basal cell carcinoma of skin) Stage 3 chronic kidney disease Complex sleep apnea syndrome Adenomatous colon polyp Peptic ulcer disease Diarrhea Gastric ulcer GIB (gastrointestinal bleeding) Symptomatic anemia History of transcatheter aortic valve replacement (TAVR) Essential tremor Anxiety Skin cancer Shingles Gallbladder disease Hemorrhoids Ulcer Diverticulosis Pneumonia Sleep apnea Afib HLD (hyperlipidemia) PVD (peripheral vascular disease) CAD (coronary artery disease) CHF (congestive heart failure) Myocardial infarct Anemia Atherosclerotic heart disease of [place] coronary artery without angina pectoris Benign prostatic hyperplasia with lower urinary tract symptoms Chronic kidney disease, stage III (moderate) DM renal manif type II Glaucoma Hy ht/kd NOS I-IV w/o hf Hypertensive heart disease without heart failure Idiopathic peripheral neuropathy Insomnia Mixed hyperlipidemia Nonrheumatic aortic valve stenosis MARI (obstructive sleep apnea) Surgical History Surgical History H/O bilateral inguinal hernia repair 07/2024 Dr. Earnest Gonzales History of revision of total replacement of right hip joint (~03/12/24) H/O lumbosacral spine surgery H/O neck surgery C3-4, C4-5, C5-6 anterior cervical discectomy, decompression of spinal cord and nerve roots, C3-6 fusion Status post surgical removal of malignant neoplasm of skin Hx of cholecystectomy History of lumbar surgery History of hemorrhoidectomy History of appendectomy History of tonsillectomy Status post total hip replacement, bilateral History of coronary artery stent placement x4 S/P TAVR (transcatheter aortic valve replacement) Family History Family History Grandparent Family history of tuberculosis Family history of alcoholism Carcinoma of colon Family history of dementia Mother Family history of glaucoma, Onset Age: 94 Family history of diabetes mellitus in first degree relative Family history of dementia, Onset Age: 94 Diabetes mellitus, Onset Age: 94 Family history of arthritis, Onset Age: 94 Father Carcinoma of colon Family history of kidney stones, Onset Age: 86 Family history of congestive heart failure, Onset Age: 86 Sibling Family history of kidney stones Family history of diabetes mellitus in first degree relative Family history of pancreatic cancer Other Asthma Family history of cardiovascular disease Family history of hearing loss Family history of osteoporosis Social History Social History Social History: Mr. Tapia lives at home with his in [place], [place]. 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 He wishes to be a full code and has designated his , Rosette Tapia, as his surrogate decision maker. He is a former 23 pack-year smoker and quit smoking in 1984. He reports infrequent social alcohol use and denies other illicit substance use. Smoking packs per day: 1 Smoking cigarettes per day: 20.0 Years smoked: 23 Smoking pack-years: 23.00 Smoking status: Former smoker Tobacco type: cigarettes and pipe Second hand tobacco smoke exposure: No Smoking end date: 10/07/84 Alcohol intake: never Alcohol use details: one or two a month Substance use: never Substance use type: does not use Do You Feel Safe in your Home?: Yes Lack of Transportation: YES Lack of Food: Never True Current Housing: Decline to Answer Concerned About Future Housing: Decline to Answer Difficulty Paying Gas/Electric Bills: Decline to Answer Difficulty Paying for Meds: Decline to Answer Currently Unemployed: Decline to Answer Education: Decline to Answer Difficulty w/ Childcare or Family Care: Decline to Answer Living arrangements: with family Occupation/Education: retired Gender identity (if verbalized by the patient): Male Sexual Orientation (if Verbalized by the Patient): Straight or Heterosexual Spiritual care concerns: No Meds Home Medications and Allergies Home Medications ?Medication ?Instructions ?Recorded ?Confirmed ?Type cholecalciferol (vitamin D3) 125 5,000 unit PO DAILY 08/18/19 05/07/25 History mcg (5,000 unit) tablet timolol maleate 0.25 % eye drops 1 drop ophthalmic (eye) Q12H 10/28/19 05/07/25 History vitamin B complex (B 1 tablet PO DAILY 10/28/19 05/07/25 History Complex-Vitamin B12 tablet) aspirin 81 mg tablet,delayed 81 mg PO DAILY 06/05/21 05/07/25 History release tacrolimus 0.1 % topical ointment 1 applic topical DAILY 01/09/22 05/07/25 History triamcinolone acetonide 0.1 % 1 applic topical DAILY 01/09/22 05/07/25 History topical cream cetirizine 10 mg tablet (Zyrtec) 10 mg PO DAILY PRN allergy 09/17/22 05/07/25 Rx symptoms #90 tabs lisinopril 10 mg tablet See Rx Instructions .Route 04/08/23 05/07/25 Rx .COMPLEX #90 tabs rabeprazole 20 mg tablet,delayed See Rx Instructions .Route 05/04/24 05/07/25 Rx release .COMPLEX #180 tabs gabapentin 600 mg tablet See Rx Instructions .Route 06/30/24 05/07/25 Rx .COMPLEX #360 tabs primidone 50 mg tablet See Rx Instructions .Route 06/30/24 05/07/25 Rx .COMPLEX #360 tabs fenofibrate 160 mg tablet See Rx Instructions .Route 07/06/24 05/07/25 Rx .COMPLEX #90 tabs carbamazepine 200 mg tablet See Rx Instructions .Route 08/25/24 05/07/25 Rx (Epitol) .COMPLEX #90 tabs duloxetine 20 mg capsule,delayed 20 mg PO BID #180 caps 08/31/24 05/07/25 Rx release ezetimibe 10 mg tablet 10 mg PO DAILY #90 tabs 10/19/24 05/07/25 Rx tamsulosin 0.4 mg capsule See Rx Instructions .Route 10/21/24 05/07/25 Rx .COMPLEX #90 caps atorvastatin 40 mg tablet See Rx Instructions .Route 11/24/24 05/07/25 Rx .COMPLEX #90 tabs magnesium oxide 400 mg (241.3 mg 400 mg PO DAILY #30 tabs 12/14/24 05/07/25 Rx magnesium) tablet doxycycline hyclate 100 mg capsule 100 mg PO DAILY #90 caps 01/21/25 05/07/25 Rx diazepam 10 mg tablet 10 mg PO DAILY PRN anxiety #30 tabs 03/09/25 04/26/25 Rx potassium citrate 10 mEq (1,080 See Rx Instructions .Route 03/16/25 05/07/25 Rx mg) tablet,extended release .COMPLEX #180 tabs hydrocodone 10 mg-acetaminophen 1 tablet PO Q6H PRN pain #60 tabs 04/14/25 04/26/25 Rx 325 mg tablet ipratropium bromide 21 mcg (0.03 1 - 2 spray intranasal BID #30 mL 04/21/25 05/07/25 Rx %) nasal spray ferrous sulfate, dried 160 mg (50 320 mg PO DAILY 04/26/25 05/07/25 History mg iron) tablet,extended release furosemide 40 mg tablet 40 mg PO DAILY 04/26/25 05/07/25 History Allergies Allergy/AdvReac Type Severity Reaction Status Date / Time MUSCLE RELAXERS Allergy Severe PARALYSES Uncoded 05/07/25 08:57 DIAPHRAGM Vital Signs Vital Signs - 24 hr 05/07/25 09:00 Temperature 97.2 F L Pulse Rate 80 Respiratory Rate 18 Blood Pressure 96/65 L Pulse Oximetry 97 Oxygen Delivery Room Air Exam Const: General: comfortable and no acute distress HENMT: Face/Nose/Sinus: Normal nares present Eyes: General: appearance normal, both eyes and all related structures Neck: Neck: no JVD Resp: Auscultation: clear to auscultation bilaterally Cardio: Rate: regular rate Rhythm: regular rhythm GI: Inspection: non-distended GI Palp: Yes Soft to palpation Skin: General skin exam: normal color Neuro: Speech: normal speech Extrem: General: normal to inspection Psych: Mental Status: mental status grossly normal Assessment and Plan Assessment and plan (1) Colitis: Code(s): K52.9 - Noninfective gastroenteritis and colitis, unspecified Status: Acute Assessment and Plan: colonoscopy (2) Peptic ulcer disease: Code(s): K27.9 - Peptic ulcer, site unspecified, unspecified as acute or chronic, without hemorrhage or perforation Status: Acute Assessment and Plan: egd
--- NOTE | 2025-05-07 10:20 | S_PTH ---
PATIENT: Alec Tapia LOC: [facility]#:[id number] AGE/SX: 84/M ROOM: RE05/07/[address]: Vamshi Estrada MD : 1940 BED: DIS: 05/07/2025 SPEC #: [id number] RECD: 05/07/25 11:43 STATUS: COURTNEY REArcadio #: [id number] JUDY: 05/07/25 10:[address]: Vamshi Estrada DEPT: [facility] Surgical RECD BY: Lilian Bundy ENTERED: 05/07/25 11:43 SP TYPE: Surgical OTHR DR: Sandoval Luis MD Tissues: A - Gastric Biopsy B - Colon Polypectomy Procedures: Hematoxylin and Eosin Stain Gross and Microscopic Level 4
--- NOTE | 2025-05-07 10:24 | SUR.OPER ---
EGD: end 1020, COLON: start 1024
[2025-05-07 10:34] VITALS: BP 96/53; PULSE 75; RESP 15; O2SAT 98
[2025-05-07 10:44] VITALS: BP 108/60; PULSE 71; RESP 16; O2SAT 98
[2025-05-07 10:54] VITALS: BP 122/69; PULSE 75; RESP 20; O2SAT 98
== END 2025-05-07 11:10 | disposition home or self-care (01) ==
PROVIDERS: PCP Family Medicine; Referring Provider Nurse Practitioner Family; Visit Provider Internal Medicine Gastroenterology
PROC: 0DJ08ZZ Inspection of Upper Intestinal Tract, Via Natural or Artificial Opening Endoscopic (ICD-10-PCS; CPT 45378; principal; 2025-05-07 10:00)
DX: D12.2 Benign neoplasm of ascending colon (principal); K57.30 Diverticulosis of large intestine without perforation or abscess without bleeding; K64.8 Other hemorrhoids; I13.0 Hypertensive heart and chronic kidney disease with heart failure and stage 1 through stage 4 chronic kidney disease, or unspecified chronic kidney disease; I50.9 Heart failure, unspecified; E11.22 Type 2 diabetes mellitus with diabetic chronic kidney disease; N18.30 Chronic kidney disease, stage 3 unspecified; E66.9 Obesity, unspecified; Z68.31 Body mass index [BMI] 31.0-31.9, adult; Z87.891 Personal history of nicotine dependence
CPT/HCPCS: 43239; 45385; 82948; 88305; J0290; J1580; J2704; J7120

== ENCOUNTER 2025-07-16 14:04 | Outpatient (CLI) | payer MEDICARE, BC, SELFPAY ==
--- NOTE | ~2025-07-16 | US_ITS ---
EXAMINATION: US carotid duplex BI . DATE: 07/16/2025 15:01 INDICATION: Carotid atherosclerosis and stenosis. Syncopal episode. Dizziness and giddiness. TECHNIQUE: Grayscale, color Doppler, and pulsed Doppler images of the cervical carotid arteries were obtained. The degree of vessel stenosis is placed in one of the following categories: normal, <50%, 50-69%, >=70% but less than near- occlusion, near-occlusion, or total occlusion. Note that percent stenosis relative to normal distal artery lumen diameter is indirectly measured from velocity measurements as described by Moisés, et al. Radiology 2003; 229:340-346. COMPARISON: 08/28/2019 FINDINGS: RIGHT: The right common carotid artery (CCA) peak systolic velocity (PSV) is 72 cm/s. The right internal carotid artery (ICA) PSV is 78 cm/s. The right ICA end- diastolic velocity (EDV) is 23 cm/s. The right ICA/CCA PSV ratio is 1.1. Grayscale and color Doppler images yield an estimate of <50% diameter reduction from plaque in the ICA. The external carotid artery (ECA) PSV is 144 cm/s. There is antegrade flow in the right vertebral artery. LEFT: The left CCA PSV is 91 cm/s. The left ICA PSV is 93 cm/s. The left ICA EDV is 14 cm/s. The left ICA/CCA PSV ratio is 1.0. Grayscale and color Doppler images yield an estimate of <50% diameter reduction from plaque in the ICA. The ECA PSV is 93 cm/s. There is antegrade flow in the left vertebral artery. IMPRESSION: 1. <50% stenosis in the right internal carotid artery. 2. <50% stenosis in the left internal carotid artery. Reviewed, dictated and finalized at location A.
--- NOTE | ~2025-07-16 | CT_ITS ---
CT diagnostic chest wo con HISTORY:1 month repeat from 05/16/25 CTA chest COMPARISON: 12/09/2020. TECHNIQUE: Axial images of the chest were obtained without infusion of intravenous contrast. Dose optimization technique was utilized. FINDINGS: The examination demonstrates airspace consolidation with air bronchogram within the posterior right upper lobe suggestive of pneumonia. Cardiac size and mediastinal configuration are normal in appearance. No hilar or mediastinal lymphadenopathy is seen. The thoracic aorta is normal in caliber. Osseous structures are intact. IMPRESSION: Right upper lobe consolidation is atherosclerotic echogram suggestive of pneumonia. Bilateral renal cysts. All CT scans at this facility are performed using low dose modulation techniques as appropriate to perform exam including the following: automated exposure control; use of iterative reconstruction technique; adjustment of the mA and/or kV according to patient size (this includes techniques or standardized protocols for targeted exams where dose is matched to indication/reason for exam). Reviewed, dictated and finalized at location S. IMPRESSION: Right upper lobe consolidation is atherosclerotic echogram suggestive of pneumo liat. Bilateral renal cysts. All CT scans at this facility are performed using low dose modulation techniqu es as appropriate to perform exam including the following: automated exposure c ontrol; use of iterative reconstruction technique; adjustment of the mA and/or kV according to patient size (this includes techniques or standardized protocol s for targeted exams where dose is matched to indication/reason for exam).
== END 2025-07-16 14:05 | disposition home or self-care (01) ==
PROVIDERS: PCP Family Medicine; Visit Provider Physician Assistant Medical
DX: J98.4 Other disorders of lung (principal); N28.1 Cyst of kidney, acquired; I65.23 Occlusion and stenosis of bilateral carotid arteries
CPT/HCPCS: 71250; 93880

== ENCOUNTER 2025-08-03 08:40 | Outpatient (CLI) | payer MEDICARE, BC, SELFPAY ==
--- OUTSIDE RECORDS SUMMARY | 2025-08-03 09:02 | XMS_ITS | Encounter Summary ---
Author Organization [facility] Care Team Providers Care Payment Analyst Name Role Phone Sandoval Luis MD Primary Care Provider Anna Caballero STRATEGIC SOURCING SPECIALIST Unavailable [phone] Brandt Orellana SCALE MODEL MAKER Unavailable [phone] Tabby Ortiz DNP Unavailable [phone] Encounter Details Date Type Department Care Team (Latest Contact Info) Description 05/29/2016 Orders Only [facility]INCON[facility] ProviderCed MD [address] [place] [id number] Social History Tobacco Use Types Packs/Day Years Used Date Smoking Tobacco: Some Days Cigarettes Last attempted to quit: 10/07/1984 Alcohol Use Standard Drinks/Week Comments Yes 0 (1 standard drink = 0.6 oz pur e alcohol) Sex and Gender Information Value Date Recorded Sex Assigned at Not on file 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 Gender Identity Male 01/13/2020 10:39 AM CDT [...] on filedocumented in this encounter Care Teams Payment Analyst Relationship Specialty Start Date End Date Sandoval Luis MD [address] [place] [address] PCP - General 11/05/11 Anna Caballero, [facility] [address] [place] [address] Unix Engineer 06/16/18 08/13/18 Brandt Orellana, SARAH [address] [facility] [address] [place] [address] Unix Engineer 06/16/18 08/13/18 Tabby Ortiz DNP [id number] [place] [address] Nurse Practitioner Internal Medicine 06/16/18 08/13/18 documented as of this encounter
--- OUTSIDE RECORDS SUMMARY | 2025-08-03 09:02 | XMS_ITS | Clinical Summary ---
Author Organization [facility] [address] Address [address] [place] [address] Care Team Providers Care Sewer Pipe Press Operator Name Role Phone Sandoval Luis MD Primary Care Provider Allergies Active Allergy Reactions Criticality Noted Date Comments Cyclobenzaprine Other (See comments) Low 02/18/2018 All muscle relaxers relax the diaphragm Meloxicam Swelling Medium 06/13/2016 Swelling Medications cholecalciferol (VITAMIN D3) 5,000 unit tablet take 1 by Oral route once 0 0 03/15/20 16 Active ezetimibe (ZETIA) 10 mg tabletIndicatio ns:hyperlipidem ia Take 1 tablet (10 mg total) by mouth nightly Active fenofibrate (TRIGLIDE) 160 mg tablet Take 1 tablet (160 mg total) by mouth nightly Active atorvastatin (LIPITOR) 40 mg tablet Take 1 tablet (40 mg total) by mouth nightly 12/10/19 18 Active timolol (TIMOPTIC) 0.5 % ophthalmic solution Administer 1 drop into both eyes 2 (two) times a day Active primidone (MYSOLINE) 50 mg tabletIndicatio ns:Essential Tremor Take 2 tablets (100 mg total) by mouth 2 (two) times a day rx#[id number] 06/20/20 18 Active doxycycline (VIBRAMYCIN) 100 mg capsule Take 1 tablet/capsule (100 mg total) by mouth every morning rx#[id number] Active tamsulosin (FLOMAX) 0.4 mg extended release capsuleIndicati ons:with lunch Take 1 capsule (0.4 mg total) by mouth daily with lunch Active cetirizine (ZyrTEC) 10 mg tablet Take 1 tablet (10 mg total) by mouth every morning 01/21/20 21 Active fluocinonide (LIDEX) 0.05 % cream 01/22/20 21 Active carBAMazepine (TEGretol) 200 mg tablet Take 1 tablet (200 mg total) by mouth nightly 07/17/20 21 Active gabapentin (NEURONTIN) 600 mg tablet Take 1 tablet (600 mg total) by mouth 4 (four) times a day 5 07/17/20 22 Active azelastine 205.5 mcg (0.15 %) spray,non-aeros ol Administer into each nostril 2 (two) times a day 08/11/[address] (CYMBALTA) 60 mg capsuleIndicati ons:Neuropathic Pain Take by mouth 2 (two) times a day Active nitroglycerin (NITROSTAT) 0.4 mg SL tabletIndicatio ns: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 Place 1 tablet (0.4 mg total) under the tongue every 5 (five) minutes as needed for chest pain 25 tablet 1 02/05/20 23 Active tacrolimus (PROTOPIC) 0.03 % ointment Apply topically 2 (two) times a day Active magnesium oxide (MAG-OX) 400 mg (241.3 mg elemental magnesium) tablet Take 1 tablet (400 mg total) by mouth nightly 08/18/[address] (ACIPHEX) 20 mg EC tabletIndicatio ns:Stress Ulcer Prophylaxis Take 1 tablet (20 mg total) by mouth 2 (two) times a day 06/29/20 23 Active ferrous sulfate (iron) 325 mg (65 mg of elemental iron) tabletIndicatio ns:Iron Deficiency Anemia Take 1 tablet (325 mg total) by mouth nightly Active ketoconazole (NIZORAL) 2 % shampoo USE WASH DAILY 09/06/20 23 Active triamcinolone (KENALOG) 0.1 % cream Apply topically 2 (two) times a day Active potassium citrate ER (UROCIT-K) 10 mEq (1,080 mg) CR tablet Take 1 tablet (10 mEq total) by mouth 2 (two) times a day with meals 09/13/20 23 Active ascorbic acid (VITAMIN C ORAL) Take by mouth with lunch Active aspirin 81 mg enteric coated tablet Take 1 tablet (81 mg total) by mouth daily Take baby aspirin 81 mg twice a day for 30 days then resume home daily aspirin 04/12/20 24 Active acetaminophen 500 mg capsuleIndicati ons:Pain Take 2 capsules (1,000 mg total) by mouth every 6 (six) hours 90 tablet 03/13/20 24 Active diazePAM (VALIUM) 10 mg tablet Take 1 tablet (10 mg total) by mouth every 6 (six) hours as needed for anxiety Active metoprolol XL (TOPROL-XL) 25 mg extended release tabletIndicatio ns: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),NSVT (nonsustained ventricular tachycardia) (HCC) Take 1 tablet (25 mg total) by mouth daily 90 tablet 3 03/18/20 25 026 Active furosemide (LASIX) 40 mg tabletIndicatio ns:Chronic diastolic CHF (congestive heart failure) (HCC) Take 1 tablet by mouth once daily 90 tablet 3 03/23/20 25 Active lisinopriL (PRINIVIL,ZESTR [place]) 20 mg tabletIndicatio ns:Chronic diastolic CHF (congestive heart failure) (HCC) Take 1 tablet by mouth once daily 90 tablet 1 07/20/20 25 Active lisinopriL (PRINIVIL,ZESTR IL) 20 mg tabletIndicatio ns:Chronic diastolic CHF (congestive heart failure) (HCC) Take 1 tablet by mouth once daily 90 tablet 1 01/27/20 25 025 Discontinued Active Problems Problem Noted Date Diagnosed Date [...] L SILVIA in 2015 and R SILVIA 2012 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 [...] (05/20/2018): Added automatically from request for surgery [id number] Chronic diastolic CHF (congestive heart failure) 03/17/2018 [...] artery disease of n ative artery of little shell tribe heart with stable angina pectoris 03/16/2016 Overview (01/11/2017): CAD in little shell tribe artery Assessment & Plan (02/03/2019 5:55 PM [...] 07/25/2020 01/23/2022 Coronary artery disease invo lving little shell tribe coronary artery of little shell tribe heart without angina pectoris 05/20/2018 01/07/2019 Overview (05/20/2018): Added automatically from request for surgery [id number] History of placement of sten t for [...] Cardiology [address] [place] [address] Bindu Valerio NP Chronic diastolic CHF (congestive heart failure) (HCC) (Primary Dx); Preoperative cardiovascular examination from Last 3 Months Immunizations Immunization Administration [...] (HCC) Aortic stenosis Type 2 diabetes mellitus TIA (transient ischemic attack) Anxiety Cancer (HCC) skin Glaucoma History of cataract GERD (gastroesophageal reflu x disease) Kidney stone Neuropathy Rheumatoid arteritis (HCC) Diverticulosis Hernia, abdominal Fatty liver Coronary artery disease History of transfusion 06/2018 Anemia 08/07/2019 Osteoporosis Pelvis Cataract removed Emphysema of lung Minute trace of infe ction and emphysema Aug 2020 Heart disease coronary arteries Neuromuscular disorder Neuropathy Stroke (HCC) TIA's Peptic ulceration Controlled with medi cation (raprazole) Mixed conductive and sensorineural hearing loss Wear hearing aids to correct Brain concussion Several times due to falls Migraines Occasionally GI (gastrointestinal bleed) Family History Medical History Relation Name Comments Cancer Brother 1 Luke Sheffieldlizbeth Diabetes Brother 1 Luke SchneiderClarice Nettielizbeth Hypertension Brother 1 Luke SchneiderClarice Nettielizbeth Cancer Brother 2 Luke Sheffieldlizbeth Diabetes Brother 2 Luke SchneiderClarice Tapia Hypertension Brother 2 Luke Tapia Cancer [...] Andrea Sheffieldryan Alzheimer's disease Paternal Grandmother Padmini Sheffieldmissael c Memory loss Paternal Grandmother Padmini Huizar Relation Name Status Comments Brother 1 Luke Tapia Brother 2 Luke Tapia Alive Father Luke Tapia (Age 86) Maternal Grandfather Stew Fofana Mother Lorraine Tapia (Age 94) Paternal Grandfather Adnrea Huizar Paternal Grandmother Padmini Huizar Alive Social History Tobacco Use Types Packs/Day Years Used Date Smoking Tobacco: Former Cigarettes 1 23.1 0 04/06/1962 - 05/07/1985 Pipe Smokeless Tobacco: Never Tobacco Cessation:Counseling Given: Not Answered Comments:Discontinued twice before final termination. Alcohol Use Standard Drinks/Week Comments Yes 0 (1 standard drink = 0.6 oz pur e alcohol) rarely [facility] Utilities Answer Date Recorded In the past 12 months has [employer], gas, oil, or water [employer] threatened to shut off services in your home? No 03/09/2024 Social Connection and Isolation Panel Answer Date Recorded In a typical week, how many times do you talk on the phone with family, friends, or neighbors? More than three times a week 03/09/2024 How often do you get togethe r with friends or relatives? Three times a week 03/09/2024 How often do you attend chur ch or buddhist services? More than 4 times per year 03/09/2024 Do you belong to any clubs o r organizations such as zoroastrianism groups, unions, fraternal or athletic groups, or [...] any time in the past 12 m [facility], were you homeless or living in a chcf (including now)? No 03/09/2024 Personal Safety Answer Date Recorded Have you ever been in or are you currently in a harmful physical or emotional relationship or is someone making you feel afraid or unsafe? Denies 03/06/2024 Sex and Gender Information Value Date Recorded Sex Assigned at Not on file Legal Sex Male 10:26 PM STATISTICAL DEVELOPER Gender Identity Male 01/13/2020 10:39 AM CDT [...] Depression Screening 11/12/2024 11/12/2023 eGFR 03/11/2025 03/11/2024, 0601/2024, 03/09/2024, Additional history exists Fall Risk Assessment [...] at home TTW Case Management Anna Cardenas, ROVING CAN TENDER Note: Problem: Ability to self-manage CHF Interventions: [...] pain TTW Case Management No Anna Caballero, ROVING CAN TENDER Note: Problem: Chest Pain Interventions: - Assess [...] AMI TTW Case Management No Anna Caballero, ROVING CAN TENDER Note: Problem: Worsening Symptoms- AMI Interventions: - [...] catheterization TTW Case Management No Anna Caballero, ROVING CAN TENDER Note: Problem: Knowledge deficit r/t cath/ stent [...] therapy) TTW Case Management No Brandt Orellana, BOAT FINISHER Note: Problem: High Risk medication - Anti-platelet [...] to respond TTW Case Management Brandt Vaughn, BOAT FINISHER Note: Problem: Knowledge deficit related to signs [...] or provider Medical Devices Implanted Type Area Recreational Aide Device Identifier Shelf Expiration Date Model / Serial / Lot [employer] Simplex P Full Dose Radiopaque Preblend Cement Bone Tobramycin 6197-9-001 - [id number] Implanted:Qty: 1 on 03/06/2024 by Neva Morgan MD at [facility] Bone Cement Right: Hip [employer] [id number] 05/06/2025 6197-9-001 / / [id number] [employer] Simplex P Full Dose Radiopaque Preblend Cement Bone Tobramycin 6197-9-001 - [id number] Implanted:Qty: 1 on 03/06/2024 by Neva Morgan MD at [facility] Bone Cement Right: Hip [employer] [id number] 06/06/2025 6197-9-001 / / [id number] [employer] Simplex P Full Dose Radiopaque Preblend Cement Bone Tobramycin 6197-9-001 - [id number] Implanted:Qty: 1 on 03/06/2024 by Neva Morgan MD at [facility] Bone Cement Right: Hip [employer] [id number] 05/06/2025 6197-9-001 / / [id number] [employer] Simplex P Full Dose Radiopaque Preblend Cement Bone Tobramycin 6197-9-001 - [id number] Implanted:Qty: 1 on 03/06/2024 by Neva Morgan MD at [facility] Bone Cement Right: Hip [employer] [id number] 05/06/2025 6197-9-001 / / [id number] [employer] Jonathan [id number] Synergy 3.5mm 32mm 144cm Radiopaque 1 Access Port Inflation Lumen - [id number] Implanted:Qty: 1 on 05/23/2018 by Javier Darden MD at [facility] Scientific Jonathan 11/19/2018 [id number] / / [id number] [employer] Jonathan [id number] Synergy 3.5mm 12mm 144cm Radiopaque 1 Access Port Inflation Lumen - [id number] Implanted:Qty: 1 on 05/23/2018 by Javier Darden MD at [facility] [facility] 01/27/2020 [id number] / / [id number] Daig Jonathan[employer] [id number] Angio-Seal Vip Bondek-Plus 6fr .035in 70cm Hemostatic Latex Free - [id number] Implanted:Qty: 1 on 05/23/2018 by Javier Darden MD at [facility] Daig [employer] 02/03/2019 [id number] / / [id number] [employer] [id number] Commander Garrett 3 Atrion 14fr Transcatheter Introducer Balloon - [id number] Implanted:Qty: 1 on 07/24/2018 by Javier Darden MD at [facility] [employer] 08/23/2019 [id number] / / [employer] 50mm 28mm Cement Constrained Hip 1mm .072in Offset Liner [id number] - [id number] Implanted:Qty: 1 on 03/06/2024 by Neva Morgan MD at [facility] Right: Hip [employer] [id number] 01/04/2025 [id number] / / [id number] Mark [employer] Simplex P Full Dose Radiopaque Preblend Cement Bone Tobramycin 6197-9-001 - [id number] Implanted:Qty: 1 on 03/06/2024 by Neva Morgan MD at [facility] Right: Hip [employer] [id number] 05/06/2025 6197-9-001 / / [id number] [employer] Hip 5mm Offset [place] C Taper Sleeve Adapter Sterile Latex Free -0005t - [id number] Implanted:Qty: 1 on 03/06/2024 by Neva Morgan MD at [facility] Right: Hip [employer] [id number] 01/30/2028 19-0005T / / [id number] [employer] 28mm Hip [place] Taper Head Femoral Biolox Delta 6519-1-028 - [id number] Implanted:Qty: 1 on 03/06/2024 by Neva Morgan MD at [facility] Right: Hip [employer] [id number] 06/05/2025 6519-1-028 / / [id number] Explanted Type Area Recreational Aide Device Identifier Shelf Expiration Date Model / Serial / Lot [employer] Trident 42mm 28mm Constrain Hip 0d F Insert Acetabular Uhmwpe [id number] - [id number] Explanted:Qty: 1 on 03/06/2024 at [facility] Right: Hip [employer] [id number] 09/06/2028 [id number] / / [id number] Synthes 4mm 6mm 55mm Small Hexagonal Socket Cancellous Full Thread Screw 206.055 - [id number] Explanted:Qty: 1 on 03/06/2024 by Neva Morgan MD at [facility] Right: Hip Synthes I 206.055 / / Synthes 4mm 6mm 30mm Small Hexagonal Socket Cancellous Full Thread Screw 206.030 - [id number] Explanted:Qty: 1 on 03/06/2024 by Neva Morgan MD at [facility] Right: Hip Synthes I 206.030 / / [employer] Hip 5mm Offset [place] C Taper Sleeve Adapter Sterile Latex Free 19-4t - [id number] Explanted:Qty: 1 on 03/06/2024 at [facility] Right: Hip [employer] [id number] 05/03/2025 19-0005T / / [id number] [employer] 28mm Hip [place] Taper Head Femoral Biolox Delta 6519-1-028 - [id number] Explanted:Qty: 1 on 03/06/2024 at [facility] Right: Hip [employer] [id number] 10/25/2026 6519-1-02 8 / / [id number] Procedures Procedure Name Priority Date/Time Associated Diagnosis Comments LIPID PANEL Routine 08/11/2024 3:56 PM STATISTICAL DEVELOPER EGFR Routine 03/11/2024 11:31 PM CDT from Last 3 Months or Most Recently Relevant to Health Maintenance Results * Lipid panel (08/11/2024 3:56 PM STATISTICAL DEVELOPER) SCRIBED Cholesterol, Total 158 0 - 200 [...] LAB BLOOD ORDERABLES F inal Result [facility] Department [place] [address] from Last 3 Months or Most Recently Relevant to Health Maintenance Insurance MEDICARE [facility] MEDICARE [facility] MEDICARE [facility] Advance Directives For more information, please contact: [phone] Documents on File Type Date Recorded Patient Histology Supervisor Expl anation ADVANCE DIRECTIVE 09/11/2013 12:00 AM ELISSA NG WILL ADVANCE DIRECTIVE 09/11/2013 12:00 AM CATIA R OF CEMENT FINISHER FINANCIAL/MEDICAL * Full Code (Latest Code Status on File) Date Activated Date Inactivated Comments 03/06/2024 5:28 PM 03/12/2024 10:27 PM * Full Code Date Activated Date Inactivated Comments 06/18/2018 2:56 PM 07/24/2018 5:29 AM * Full Code Date Activated Date Inactivated Comments 06/18/2018 10:05 AM 06/19/2018 3:31 PM Care Teams Sewer Pipe Press Operator Relationship Specialty Start Date End Date Sandoval Luis MD [address] [facility] [address] [place] [address] PCP - General 11/05/11
--- OUTSIDE RECORDS SUMMARY | 2025-08-03 09:02 | XMS_ITS | Encounter Summary ---
Author Organization [facility] Address [address] [place] [address] Care Team Providers Care Inspector Materials And Processes Name Role Phone Stewart Dominguez MD Primary Care Provider Encounter Details Date Type Department Care Team (Late st Contact Info) Description 11/04/2018 Lab Requisition [facility] Care DermPath Lab [address] [facility], [place] [address] Norah Sanchez MD [address] [facility] [address] [place] [address] Social History Tobacco Use Types Packs/Day Years Used Date Smoking Tobacco: Never Assessed Sex and Gender Information Value Date Recorded Sex Assigned at Not on file Legal Sex Male 5:49 PM TEST PREPARATION TUTOR Gender Identity Not on file Sexual Orientation Not on file documented as of this encounter Plan of Treatment Not on file documented as of this encounter Procedures Procedure Name Priority Date/Time Associated Diagnosis Comments DERMATOPATH TECHNICAL REPORT Routine 11/03/2018 12:00 AM TEST PREPARATION TUTOR documented in this encounter Results * DERMATOPATH TECHNICAL REPORT (11/03/2018 12:00 AM TEST PREPARATION TUTOR) Case Report Dermatopathology Report Case: [id number] Authorizing Provider: Norah Sanchez MD Collected: 11/03/2018 12:00 AM Pathologist: Wei Cao MD Received: 11/04/2018 06:58 AM Specimens: A) - Skin, left nose B) - Skin, right ordoñez 9 5:25 PM TEST PREPARATION TUTOR DERMATOPATHOLOGY LABORATORY Clinical History A: R/O BCC. [place] papule. B: R/O NMSC vs stasis. Crusted pink plaque. 9 5:25 PM TEST PREPARATION TUTOR DERMATOPATHOLOGY LABORATORY Gross Description Specimen A: Received is one formalin filled container labeled with the patient's name and designated left nose. The specimen consists of a shave measuring [id number]. Jar 0. Specimen B: Received is one formalin filled container labeled with the patient's name and designated right ordoñez. The specimen consists of a shave measuring [id number]. Jar 0. [facility] Dermatopathology Laboratory performed the technical component only. 9 5:25 PM [facility] DERMATOPATHOLOGY [facility]ORATORY Embedded Images 5:25 PM [facility] DERMATOPATHOLOGY LABORATORY DISCLAIMER An external and internal positive and negative controls are appropriate for the histochemical, immunohistochemical and immunofluorescence stain(s) in this case (if any), except where stated explicitly. The performance characteristics of the stain(s) cited in this report were developed and its performance characteristic determined by the Dermatopathology Laboratory at [facility], directed by Dr. Steven Cao. These tests need not be, and therefore are not, approved by the [place] Food and Drug Administration. The tests are used for clinical purposes. 9 5:25 PM [facility] DERMATOPATHOLOGY LABORATORY at [address] TEST PREPARATION TUTOR Pathology/Cytology TISSUE SPECIMEN FROM SKIN / Unknown 11/03/2018 11/04/2018 6:58 AM TEST PREPARATION TUTOR Miscellaneous samples (specimen) TISSUE SPECIMEN FROM SKIN / Unknown 11/03/2018 11/04/2018 6:58 AM TEST PREPARATION TUTOR us Norah Sanchez MD LAB - PATHOLOGY/CYTOLOGY ORD ERABLES Final Result DERMATOPATHOLOGY LABORATORY [facility] - Department of Dermatology [address] [facility], 5th [place] [address], [facility] [phone] documented in this encounter Visit Diagnoses Not on filedocumented in this encounter Care Teams Inspector Materials And Processes Relationship Specialty Start Date End Date Stewart Dominguez MD [address] [place] [address] PCP - General 04/22/12 documented as of this encounter
--- OUTSIDE RECORDS SUMMARY | 2025-08-03 09:02 | XMS_ITS | Clinical Summary ---
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
--- OUTSIDE RECORDS SUMMARY | 2025-08-03 09:02 | XMS_ITS | Encounter Summary ---
Author Organization [facility] Address [address] [place] [address] Care Team Providers Care Charrer Name Role Phone Sandoval Luis MD Primary Care Provider Anna Caballero BOWLING ALLEY REFINISHER Unavailable [phone] Brandt Orellana SWITCHBOARD INSTALLER Unavailable [phone] Tabby Ortiz DNP Unavailable [phone] Encounter Details Date Type Department Care Team (Late st Contact Info) Description 01/15/2018 Orders Only [facility] Health Information Management [address] [place] [address] Scanning, Provider Social History Tobacco Use Types Packs/Day Years Used Date Smoking Tobacco: Former Alcohol Use Standard Drinks/Week Comments Yes 0 (1 standard drink = 0.6 oz pur e alcohol) Sex and Gender Information Value Date Recorded Sex Assigned at Not on file Legal Sex Male 10:26 PM SECURITY SYSTEMS INTEGRATOR Gender Identity Male 01/13/2020 10:39 AM CDT [...] on filedocumented in this encounter Care Teams Charrer Relationship Specialty Start Date End Date Sandoval Luis MD [address] [place] [address] PCP - General 11/05/11 Anna Caballero, [facility] [address] [place] [address] R D Engineer 06/16/18 08/13/18 Brandt Orellana, SWITCHBOARD INSTALLER [address] [facility] [address] [place] [address] R D Engineer 06/16/18 08/13/18 Tabby Ortiz, [place] [address] [facility] [address] [place] [address] Nurse Practitioner Internal Medicine 06/16/18 08/13/18 documented as of this encounter
--- OUTSIDE RECORDS SUMMARY | 2025-08-03 09:02 | XMS_ITS | Clinical Summary ---
Author Organization [facility] Address [address] [place] [address] Care Team Providers Care Drag Car Racer Name Role Phone Stewart Dominguez MD Primary Care Provider Source Comments [facility],non-owned Affiliates and Associated Physician Practices is amultiple site organization consisting of ambulatory clinics and hospital sitesin [place], [place], [place] and [place]. This disclosure is being madepursuant to the Care Everywhere program and may not contain all information available regarding this patient. Last updated 18.[facility] [facility] Social History Tobacco Use Types Packs/Day Years Used Date Smoking Tobacco: Never Assessed Sex and Gender Information Value Date Recorded Sex Assigned at Not on file Legal Sex Male 5:49 PM HOT HEADER OPERATOR Gender Identity Not on file Sexual Orientation Not on file Plan of Treatment Health Maintenance Due Date Last Done Comments MEDICARE AWV 12 MONTHS 1939 DTAP/TDAP/TD VACCINES (1 - Tdap) 1958 PNEUMOCOCCAL VACCINE 50+ (1 of 1 - PCV) 1989 ZOSTER VACCINE (1 of 2) 1989 Respiratory Syncytial Virus (RSV) Vaccine Pt: or over 60 yrs (1 - 1-dose 75+ series) 2014 DEPRESSION SCREENING 10/07/2024 COVID-19 VACCINE (1 - 2023-2 5 season) 2025 INFLUENZA VACCINE (#1) 2025 HEPATITIS B VACCINE [...] to complete this topic Insurance MEDICARE MEDICARE [facility] SELF PAY NO INSURANCE Member Subscriber Plan / Payer (Ef fective for All Dates) Name:Satish Tapia Member ID:Not on file Relation to Subscriber:Not on file Name:SATISH TAPIA Subscriber ID:Not on file (Home) Address: [address] [place] [id number] Payer ID:Not on file Group ID:Not on file Type:Self Pay Address: [facility] Care Teams Drag Car Racer Relationship Specialty Start Date End Date Stewart Dominguez MD [address] [place] [address] PCP - General 04/22/12
--- OUTSIDE RECORDS SUMMARY | 2025-08-03 09:02 | XMS_ITS | Encounter Summary ---
Author Organization [facility] Facility Care Team Providers Care Audit Control Clerk Name Role Phone Sandoval Luis MD Primary Care Provider Anna Caballero MANAGER MBA Unavailable [phone] Brandt Orellana DIRECTOR OF EXHIBITS Unavailable [phone] Tabby Ortiz DNP Unavailable [phone] Encounter Details Date Type Department Care Team (Latest Contact Info) Description 05/28/2016 Orders Only [facility]IN[facility] ProviderCed MD [address] [place] [id number] Social History Tobacco Use Types Packs/Day Years Used Date Smoking Tobacco: Some Days Cigarettes Last attempted to quit: 10/07/1984 Alcohol Use Standard Drinks/Week Comments Yes 0 (1 standard drink = 0.6 oz pur e alcohol) Sex and Gender Information Value Date Recorded Sex Assigned at Not on file Legal Sex Male 10:26 PM TROLLEY WORKER Gender Identity Male 01/13/2020 10:39 AM CDT [...] on filedocumented in this encounter Care Teams Audit Control Clerk Relationship Specialty Start Date End Date Sandoval Luis MD [address] [place] [address] PCP - General 11/05/11 Anna Caballero, [facility] [address] [place] [address] Scrap Charger 06/16/18 08/13/18 Brandt Orellana, DIRECTOR OF EXHIBITS [address] [place] [address] Scrap Charger 06/16/18 08/13/18 Tabby Ortiz, [place] [address] [place] [address] Nurse Practitioner Internal Medicine 06/16/18 08/13/18 documented as of this encounter
--- OUTSIDE RECORDS SUMMARY | 2025-08-03 09:02 | XMS_ITS | Encounter Summary ---
Author Organization [facility] Facility Care Team Providers Care Child Development Director Name Role Phone Sandoval Luis MD Primary Care Provider Anna Caballero PERFORATOR LOADER Unavailable [phone] Brandt Orellana QUILTER FIXER Unavailable [phone] Tabby Ortiz DNP Unavailable [phone] Encounter Details Date Type Department Care Team (Latest Contact Info) Description 05/30/2016 Orders Only [facility] CLINCONV ProviderCed MD [address] [place] [address] Social History Tobacco Use Types Packs/Day Years Used Date Smoking Tobacco: Some Days Cigarettes Last attempted to quit: 10/07/1984 Alcohol Use Standard Drinks/Week Comments Yes 0 (1 standard drink = 0.6 oz pur e alcohol) Sex and Gender Information Value Date Recorded Sex Assigned at Not on file 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 Gender Identity Male 01/13/2020 10:39 AM CDT [...] on filedocumented in this encounter Care Teams Child Development Director Relationship Specialty Start Date End Date Sandoval Luis MD [address] [place] [address] PCP - General 11/05/11 Anna Caballero, [facility] [address] [place] [address] Vehicle Delivery Worker 06/16/18 08/13/18 Brandt Orellana, QUILTER FIXER [address] [place] [address] Vehicle Delivery Worker 06/16/18 08/13/18 Tabby Ortiz, [place] [address] [place] [address] Nurse Practitioner Internal Medicine 06/16/18 08/13/18 documented as of this encounter
--- OUTSIDE RECORDS SUMMARY | 2025-08-03 09:02 | XMS_ITS | Encounter Summary ---
Author Organization [facility] Address [address] [facility] [facility] [place] [address] Care Team Providers Care Finish Specialist Name Role Phone Stewart Dominguez MD Primary Care Provider [phone] Encounter Details Date Type Department Care Team (Late st Contact [facility]) Description 07/08/2024 Lab Requisition [facility] - DermPath Lab [address] [facility], [place] [id number] Norah Sanchez MD [address] [facility] [address] [place] [address] Social History Tobacco Use Types Packs/Day Years Used Date Smoking Tobacco: Never Assessed Sex and Gender Information Value Date Recorded Sex Assigned at Not on file 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 Gender Identity Not on file Sexual Orientation Not on file documented as of this encounter Plan of Treatment Not on file documented as of this encounter Procedures Procedure Name Priority Date/Time Associated Diagnosis Comments DERMATOPATHOLOGY Routine 07/08/2024 1:42 PM CDT documented in this encounter Results * DERMATOPATHOLOGY (07/08/2024 1:42 PM CDT) Case Report Dermatopathology Report Case: [id number] Authorizing Provider: Norah Sanchez MD Collected: 07/08/2024 01:42 PM Ordering Location: [facility] Physician [facility] - Received: 07/09/2024 03:55 PM DermPath [...] DERMATOPATHOLOGY LABORATORY at 1414 CDT Clinical History [place] papule r/o BCC 2:14 PM CDT DERMATOPATHOLOGY [...] characteristic determined by the Dermatopathology Laboratory at [facility], directed by Dr. Steven Cao. These tests need not be, and therefore are not, approved by the [place] Food and Drug Administration. The tests are used for clinical purposes. Billing Codes Specimen Charges Stain Charges 34621 03259 1 1 2:14 PM CDT DERMATOPATHOLOGY LABORATORY Embedded Images 2:14 PM CDT DERMATOPATHOLOGY LABORATORY Pathology/Cytology TISSUE SPECIMEN FROM SKIN / Unknown 07/08/2024 1:42 PM CDT 07/09/2024 3:55 PM CDT Miscellaneous samples (specimen) TISSUE SPECIMEN FROM SKIN / Unknown 07/08/2024 1:42 PM CDT 07/09/2024 3:55 PM CDT us Norah Sanchez MD LAB - PATHOLOGY/CYTOLOGY ORD ERABLES Final Result DERMATOPATHOLOGY LABORATORY [facility] - Department of Dermatology [facility] Medicine [address] [place] [address], [address] [phone] documented in this encounter Visit Diagnoses Not on filedocumented in this encounter Care Teams Finish Specialist Relationship Specialty Start Date End Date Stewart Dominguez MD [address] [place] [address] PCP - General 04/22/12 documented as of this encounter
--- OUTSIDE RECORDS SUMMARY | 2025-08-03 09:02 | XMS_ITS | Encounter Summary ---
Author Organization [facility] Healthcare Address [address] [place] [address] Care Team Providers Care Cafe Server Name Role Phone Sandoval Luis MD Primary Care Provider Anna Caballero PLACEMENT DIRECTOR Unavailable [phone] Brandt Orellana LAND DEPARTMENT HEAD Unavailable Tabby Ortiz DNP Unavailable [phone] Encounter Details Date Type Department Care Team (Late st Contact Info) Description 03/04/2018 Orders Only [facility] Health Information Management [address] [place] [address] Scanning, Provider Social History Tobacco Use Types Packs/Day Years Used Date Smoking Tobacco: Former Smokeless Tobacco: Never Alcohol Use Standard Drinks/Week Comments Yes 0 (1 standard drink = 0.6 oz pur e alcohol) Sex and Gender Information Value Date Recorded Sex Assigned at Not on file 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 Gender Identity Male 01/13/2020 10:39 AM CDT [...] on filedocumented in this encounter Care Teams Cafe Server Relationship Specialty Start Date End Date Sandoval Luis MD [address] [place] [address] PCP - General 11/05/11 Anna Caballero, [facility] [address] [place] [address] Jar Filler 06/16/18 08/13/18 Brandt Orellana, LAND DEPARTMENT HEAD [address] [facility] [address] [place] [address] Jar Filler 06/16/18 08/13/18 Tabby Ortiz, [place] [address] [facility] [address] [place] [address] Nurse Practitioner Internal Medicine 06/16/18 08/13/18 documented as of this encounter
--- OUTSIDE RECORDS SUMMARY | 2025-08-03 09:02 | XMS_ITS | Encounter Summary ---
Author Organization [facility] Facility Care Team Providers Care Lap Cutter Name Role Phone Sandoval Luis MD Primary Care Provider Anna Caballero POISING INSPECTOR Unavailable [phone] Brandt Orellana DRIVER MANAGER Unavailable [phone] Tabby Ortiz DNP Unavailable [phone] Encounter Details Date Type Department Care Team (Latest Contact Info) Description 06/13/2016 Orders Only [facility] CLINCONV ProviderCed MD [address] [place] [address] Social History Tobacco Use Types Packs/Day Years Used Date Smoking Tobacco: Some Days Cigarettes Last attempted to quit: 10/07/1984 Alcohol Use Standard Drinks/Week Comments Yes 0 (1 standard drink = 0.6 oz pur e alcohol) Sex and Gender Information Value Date Recorded Sex Assigned at Not on file 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 Gender Identity Male 01/13/2020 10:39 AM CDT [...] on filedocumented in this encounter Care Teams Lap Cutter Relationship Specialty Start Date End Date Sandoval Luis MD [address] [place] [address] PCP - General 11/05/11 Anna Caballero, [facility] [address] [place] [address] Floor Coverer Apprentice 06/16/18 08/13/18 Brandt Orellana, DRIVER MANAGER [address] [place] [address] Floor Coverer Apprentice 06/16/18 08/13/18 Tabby Ortiz, [place] [address] [place] [address] Nurse Practitioner Internal Medicine 06/16/18 08/13/18 documented as of this encounter
--- OUTSIDE RECORDS SUMMARY | 2025-08-03 09:02 | XMS_ITS | Encounter Summary ---
Author Organization [facility] Facility Care Team Providers Care Supervisor Real Estate Office Name Role Phone Sandoval Luis MD Primary Care Provider Anna Caballero RECRUITMENT INTERN Unavailable [phone] Brandt Orellana PRINCIPAL ANDROID DEVELOPER Unavailable [phone] Tabby Ortiz DNP Unavailable [phone] Encounter Details Date Type Department Care Team (Latest Contact Info) Description 05/31/2016 Orders Only [facility] CLINCONV ProviderCed MD [address] [place] [address] Social History Tobacco Use Types Packs/Day Years Used Date Smoking Tobacco: Some Days Cigarettes Last attempted to quit: 10/07/1984 Alcohol Use Standard Drinks/Week Comments Yes 0 (1 standard drink = 0.6 oz pur e alcohol) Sex and Gender Information Value Date Recorded Sex Assigned at Not on file 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 Gender Identity Male 01/13/2020 10:39 AM CDT [...] on filedocumented in this encounter Care Teams Supervisor Real Estate Office Relationship Specialty Start Date End Date Sandoval Luis MD [address] [place] [address] PCP - General 11/05/11 Anna Caballero, [facility] [address] [place] [address] Crm Marketing Executive 06/16/18 08/13/18 Brandt Orellana, SARAH [address] [facility] [address] [place] [address] Crm Marketing Executive 06/16/18 08/13/18 Tabby [place]iz DNP [address] [place] [address] Nurse Practitioner Internal Medicine 06/16/18 08/13/18 documented as of this encounter
[2025-08-03 09:36] LABS: Hematocrit 30.9 % (42.0-52.0); Hemoglobin 9.7 g/dL (14.0-18.0); Mean Corpuscular HGB Conc 31.4 g/dl (32-36); Mean Corpuscular Hemoglobin 31.9 pg (26-34); Mean Corpuscular Volume 101.6 fl (80-100); Platelet Count Result 191 k/mm3 (150-375); Red Blood Count 3.04 M/mm3 (4.6-6.20); White Blood Count 8.0 K/mm3 (4.5-10.0)
[2025-08-03 09:56] LABS: Hemoglobin A1C 5.2 % (<5.7)
[2025-08-03 10:00] LABS: Alanine Aminotransferase 24 U/L (6-50); Albumin Level 4.2 g/dL (3.5-5.1); Alkaline Phosphatase 57 U/L (38-126); Anion Gap 9 mmol/L (4-12); Aspartate Amino Transferase 36 U/L (17-59); Bilirubin,Total 0.4 mg/dL (0.2-1.3); Blood Urea Nitrogen 56 mg/dL (9-20); Calcium 9.9 mg/dL (8.4-10.2); Carbon Dioxide 26 mmol/L (22-30); Chloride 103 mmol/L (98-107); Cholesterol 161 mg/dL (0-200); Estimated Glomerular Filt Rate 43; Glucose 106 mg/dL (65-110); HDL Direct 54 mg/dL; Sodium 138 mmol/L (137-145); Total Protein 7.4 g/dL (6.3-8.2); Triglycerides 146 mg/dL (<150)
[2025-08-03 10:03] LABS: MALB Creatinine Ratio 83.5 mg/g (0-30)
[2025-08-03 10:08] LABS: Potassium 5.0 mmol/L (3.4-5.0)
[2025-08-03 10:32] LABS: Thyroid Stimulating Hormone 2.900 uIU/mL (0.465-4.680)
[2025-08-03 10:39] LABS: Add Urine Microscopic? YES; Appearance Urine Clear (Clear); Glucose Urine UA Negative (Negative); Leukocyte Esterase Ur Trace LEU/UL (Negative); Nitrate Urine Negative (Negative); Non Pathogenic Casts 0-2; Specific Grav Ur 1.017 (1.001-1.035)
== END 2025-08-03 08:41 | disposition home or self-care (01) ==
PROVIDERS: PCP Family Medicine; Visit Provider Family Medicine
DX: E78.5 Hyperlipidemia, unspecified (principal); E11.29 Type 2 diabetes mellitus with other diabetic kidney complication; I13.0 Hypertensive heart and chronic kidney disease with heart failure and stage 1 through stage 4 chronic kidney disease, or unspecified chronic kidney disease; I50.9 Heart failure, unspecified; N18.30 Chronic kidney disease, stage 3 unspecified; Z00.00 Encounter for general adult medical examination without abnormal findings
CPT/HCPCS: 36415; 80053; 80061; 81001; 82043; 83036; 84443; 85027

== ENCOUNTER 2025-08-13 13:21 | Emergency (ER) | payer MEDICARE, BC, SELFPAY ==
--- NOTE | ~2025-08-13 | CT_ITS ---
EXAMINATION: CT cervical spine wo con DATE: 08/13/2025 16:32 INDICATION: Fall TECHNIQUE: Computed tomography (CT) of the cervical spine was performed without intravenous contrast. The dose-length product was 442.68 mGy-cm. COMPARISON: None FINDINGS: Bones appear osteopenic. Predental space is unremarkable. No prevertebral soft tissue swelling. Anterior spinal fusion of C2, C3, C4 and C5. Interbody fusion devices at the C3- C4, C4-C5 and C5-C6 levels. Evaluation of the spinal canal contents and bilateral neural foramen is limited due to CT technique. No compression fracture in the cervical spine. Degenerative change scattered throughout the cervical spine. IMPRESSION: 1. No compression fracture in the cervical spine. 2 .Anterior spinal fusion of C2, C3, C4 and C5. Interbody fusion devices at the C3-C4, C4-C5 and C5-C6 levels. 3. Limited study as above. If symptoms persist or worsen, an MRI of the cervical spine is recommended. Reviewed, dictated and finalized at location Q. R AND REGULATOR SHOP SUPERVISOR
--- NOTE | ~2025-08-13 | CT_ITS ---
EXAMINATION: CT brain wo con DATE: 08/13/2025 16:33 ENVIRONMENTAL SCIENCE PROGRAM DIRECTOR INDICATION: Fall. COMPARISON: 01/24/2018 TECHNIQUE: Computed tomographic angiography (CTA) of the head was performed without and with 100 mL Omnipaque-350 intravenous contrast. The dose-length product was 605.33 mGy-cm. Volume-rendered and maximum intensity projection 3D reconstructions of the intracranial arteries were created by the technologist on a separate workstation. COMPARISON: None. FINDINGS: No acute intracranial hemorrhage. No mass effect. No midline shift. No hydrocephalus. No skull fracture. Visualized paranasal sinuses mastoid air cells are clear. There are several low density regions scattered throughout the periventricular and deep white matter which are favored to represent chronic ischemic white matter change. IMPRESSION: 1. No acute intracranial hemorrhage. No mass effect. 2. Probable chronic ischemic white matter disease. Reviewed, dictated and finalized at location Q. RONMENTAL SCIENCE PROGRAM DIRECTOR
--- NOTE | ~2025-08-13 | CT_ITS ---
EXAMINATION:CT diagnostic chest w con DATE: 08/13/2025 16:33 INDICATION: Right chest wall pain TECHNIQUE: Computed tomography (CT) of the chest was performed with intravenous contrast. The dose-length product (DLP) was 487.57 mGy-cm. COMPARISON: July 16, 2025 FINDINGS: Fractures involving the right posterior ribs 4 5 and 6 are slightly displaced and appear minimally comminuted. Seventh posterior rib may be fractured as well. No other fracture seen. No pneumothorax, effusion or pneumothorax. Subsegmental right basilar atelectatic changes present, as well as mild atelectatic changes in the mid and upper lung caballero. Consolidative process in the right upper lobe has largely resolved. Heart and great vessels appear stable with no evidence of aortic injury or mediastinal hematoma. No acute process seen in the visualized upper abdomen. Several cystic masses in the kidneys noted. IMPRESSION: 1. Minimally displaced slightly comminuted comminuted fractures of posterior right ribs 4, 5, and 6 with possible nondisplaced fracture of rib 7. 2. Atelectatic changes but no hemothorax or pneumothorax. Reviewed, dictated and finalized at location A. NMENT MECHANIC IMPRESSION: 1. Minimally displaced slightly comminuted comminuted fractures of posterior ri ght ribs 4, 5, and 6 with possible nondisplaced fracture of rib 7. 2. Atelectatic changes but no hemothorax or pneumothorax.
--- OUTSIDE RECORDS SUMMARY | 2025-08-13 11:00 | XMS_ITS | Encounter Summary ---
Author Organization [facility] Address [address] [place] [address] Care Team Providers Care Vault Person Name Role Phone Sandoval Luis MD Primary Care Provider [phone] Reason for Visit * Reason Comments Achilles Tendonitis New pt left Achilles tenden * Consultation/Treatment (Routine) - Authorized Specialty Diagnoses / Procedures Referred By Audrey webster Referred To Contact PODIATRY Diagnoses Tendonitis, Achilles, left Procedures OFFICE/OUTPATIENT NEW LOW MDM 30-44 MINUTES Referral, Self Malachi Garcia DPM [address] [place] [address] Phone: tel: fax: Referral ID Status Reason Start Date Expiration Date Visits Requested Visits Authorized [id number] Authorized Consultatio n 08/03/2025 08/03/2026 10 10 Encounter Details Date Type Department Care Team (Late st Contact Info) Description 08/13/2025 11:00 AM LAMINATOR PREFORMS Office Visit [facility] - [address] [phone] Malachi Garcia DPM [address] [place] [address] Achilles Tendonitis (New pt left Achilles tenden/) Social History Tobacco Use Types Packs/Day Years Used Date Smoking Tobacco: Former Cigarettes Q uit: 1985 Passive Smoke Exposure: Never Smokeless Tobacco: Never Comments:na Alcohol Use Standard [...] materials from doctor or pharmacy Never 09/20/2023 [id number] Health Literacy Answer Date Recor ded How often do you need to hav e someone help you when you read instructions, pamphlets, or other written material from your doctor or pharmacy? Sometimes 05/16/2025 [email or web address] Utilities Answer Date Recorded In the past 12 months has [facility] [employer], oil, or water [employer] threatened to shut off services in your home? No 05/16/2025 Humiliation, Afraid, Rape, and Kick questionnair e Answer Date Recorded Within the last year, have y ou been afraid of your partner or ex-partner? No 05/16/2025 Within the last year, have y ou been humiliated or emotionally abused in other ways by your partner or ex-partner? No Within the last year, have y ou been kicked, hit, slapped, or otherwise physically hurt by your partner or ex-partner? No 05/16/2025 Within the last year, have y ou been raped or forced to have any kind of sexual activity by your partner or ex-partner? No 05/16/2025 Social Connection and Isolation Panel Answer Date Recorded In a typical week, how many times do you talk on the phone with family, friends, or neighbors? More than three times a week 05/16/2025 How often do you get togethe r with friends or relatives? Once a week 05/16/2025 How often do you attend [facility] or lutheran services? More than 4 times per year 05/16/2025 Do you belong to any clubs o r organizations such as orthodoxy groups, unions, fraternal or athletic groups, or school groups? Yes 05/16/2025 How often do you attend meet ings of the clubs or organizations you belong to? 1 to 4 times per year 05/16/2025 Are you , , di vorced, , never , or living with a partner? 05/16/2025 AUDIT-C Answer Date Recorded Q1: How often do you have a drink containing alc ohol? Monthly or less 05/16/2025 Q2: How many drinks containi ng alcohol do you have on a typical day when you are drinking? 1 or 2 05/16/2025 Q3: How often do you have si x or more drinks on one occasion? Never 05/16/2025 Overall Financial Resource Strain (CARDIA) Answe r Date Recorded How hard is it for you to pa y for the very basics like food, housing, medical care, and heating? Not hard at all 05/16/2025 PHQ-2 Answer Date Recorded PHQ-2 Score - If the patient scores above 3, please move on to questions 3-9 0 08/16/2022 [facility] - Occupational Stress Questionnaire Answer Date Recorded Do you feel stress - tense, restless, nervous, or anxious, or unable to sleep at night because your mind is troubled all the time - these days? To some extent 05/16/2025 Exercise Vital Sign Answer Date Recorde d On average, how many days pe r week do you engage in moderate to strenuous exercise (like a brisk walk)? 5 days 05/16/2025 On average, how many minutes do you engage in exercise at this level? 60 min 05/16/2025 Hunger Vital Sign Answer Date Recorded Within the past 12 months, y ou worried that your food would run out before you got the money to buy more. Never true 05/16/20 25 Within the past 12 months, t he food you bought just didn't last and you didn't have money to get more. Never true 05/16/2025 PRAPARE - Transportation Answer Date Re corded In the past 12 months, has l ack of transportation kept you from medical appointments or from getting medications? No 05/07 In the past 12 months, has l ack of transportation kept you from meetings, work, or from getting things needed for daily living? No 05/16/2025 Housing Stability Vital Sign Answer Hong e [...] place to sleep or slept in a fdc (including now)? No 08/26/2023 Housing Stability Vital Sign Answer Hong e Recorded In the last 12 months, was t here a time when you were not able to pay the mortgage or rent on time? No 05/16/2025 In the past 12 months, how m any times have you moved where you were living? 1 05/16/2025 At any time in the past 12 m [facility], were you homeless or living in a fdc (including now)? No 05/16/2025 Sex and Gender Information Value Date Recorded Sex Assigned at Male 08/14/2023 3:20 PM LAMINATOR PREFORMS Legal Sex Male 7:28 PM CDT Gender Identity Male 08/14/2023 3:20 PM LAMINATOR PREFORMS Sexual Orientation Straight 08/14/2023 3: 20 PM LAMINATOR PREFORMS documented as of this encounter Last Filed Vital Signs Vital Sign Reading Time Taken Comments Blood Pressure 125/77 08/13/2025 10:34 AM LAMINATOR PREFORMS Pulse 86 08/13/2025 10:34 AM LAMINATOR PREFORMS Temperature - - Respiratory Rate 18 08/13/2025 10:34 AM LAMINATOR PREFORMS Oxygen Saturation 98% 08/13/2025 10:34 AM LAMINATOR PREFORMS Inhaled Oxygen Concentration - - Weight 89.4 kg (197 lb) 08/13/2025 10:34 AM LAMINATOR PREFORMS Height 162.6 cm (5' 4) 08/13/2025 10:34 AM LAMINATOR PREFORMS Body Mass Index 33.81 08/13/2025 10:34 AM LAMINATOR PREFORMS documented in this encounter Functional Status * Are you deaf or do you have serious difficulty hearing Answer Date of Assessment Author Status No 05/16/2025 5:03 AM CDT Lucho Meyer R N Active * Are you blind or do you have serious difficulty seeing, even when wearing glasses? Answer Date of Assessment Author Status Yes 05/16/2025 5:03 AM CDT Lucho Meyer R N Active * Do you have serious difficulty walking or climbing stairs? Answer Date of Assessment Author Status Yes 05/16/2025 5:03 AM CDT Lucho Meyer R N Active * Do you have difficulty dressing or bathing? Answer Date of Assessment Author Status No 05/16/2025 5:03 AM CDT Lucho Meyer R N Active * Because of a physical, mental, or emotional condition, do you have difficulty doing errands alone such as visiting a doctor's office or shopping? Answer Date of Assessment Author Status No 05/16/2025 5:03 AM Lucho Haas R N Active documented as of this encounter Mental Status * Because of a physical, mental, or emotional condition, do you have serious difficulty concentrating, remembering, or making decisions? Answer Entry Date Author Status No 05/16/2025 5:03 AM Lucho Haas R N Active documented in this encounter Progress Notes * Malachi Garcia DPM - 08/13/2025 11:00 AM CST New Patient Note CC: Achilles Tendonitis (New pt left Achilles tenden/) Patient: Alec Tapia Visit date: 08/13/[address](R) 1. Achilles tendinitis of left lower extremity LEFT ACHILLES TENDINITIS 2. Short Achilles tendon (acquired), left ankle ACQUIRED SHORT LEFT ACHILLES TENDON Plan: Patient was seen and evaluated in clinic today. Reviewed MRI obtained and discussed findings with patient his understanding. Reviewed treatment plan from prior provider and agreed that physicaltherapy for 4 to 6 weeks is warranted for stretching strengthening and deep tissue massage to breakup scar tissue. Written instruction dispensed regarding PT activities. Recommended against meloxicam due to patient's GFR, recommended against oral steroids due to diabetic condition and a lack of benefit in the past, as well as recommended against steroid injection to the area locally and risk of rupturing the tendon. Dispensed felt heel lifts instructed appropriate use to offload the Achilles while weightbearing. Advised against any aggressive measures to be taken at this time. Next visit in 6 weeks upon completion of physical therapy we will consider medicated compression wrap if pain persists to decrease inflammation. The only potential surgical intervention warranted for his condition would be a limited Tenex minimally invasive debridement to the area of concern but will attempt to avoid due to risks. Subjective: Alec Tapia is a 85-year-old male presenting to the clinic with a history of left Achilles pain ongoing for weeks to months and he was seen by another provider who offered physical therapy and referred to our office today for a second opinion. Patient has been undergoing physical therapy and states that his pain has improved from a 5 out of 10 down to a 2 out of 10. Although it hasnot changed the structure of his posterior Achilles, he feels more comfortable with weightbearing with utilization of his walker. He is concerned to be nonweightbearing or utilizing a boot due to hisright hip and instability and he prefers to remain balanced with bilateral weightbearing if possible. He understands that he is very high risk for any aggressive measures due to his congestive heart failure, type 2 diabetes and other relevant history. He would like to discuss treatment options moving forward today. Objective: Vascular: Faintly palpable pulses to the dorsalis pedis and posterior tibial arteries bilaterally. Absent pedal hair growth to the forefoot. Capillary refill less than 3 seconds to all digits. Derm: There are no wounds present. No lacerations, skin lesions, or abrasions. Skin is intact throughout. There are no local signs of infection. Musculoskeletal: Pain is present on palpation of the left Achilles at the mid substance with a palpable thickening with soft tissue edema overlying approximately 5 cm superior to the insertion site. Patient has adequate function in the Achilles regarding plantarflexion for activities of daily living. There is discomfort on dorsiflexion with limited range of motion with the knee extended and flexed. Neurologic: Light touch sensation intact to the digits bilaterally. Gross sensation intact throughout bilateral lower extremities. Proprioception intact. Negative for paresthesias. PAST MEDICAL HISTORY: Past Medical History[1] PAST SURGICAL HISTORY: Past Surgical History[2] ALLERGIES: Review of patient's allergies indicates: Cyclobenzaprine SOCIAL HISTORY: Social History[3] MEDICATIONS: Current Outpatient Medications Medication Sig Dispense Refill aspirin 81 MG chewable tablet Chew 1 tablet (81 mg total) by mouth daily. Indications: PreventativeTreatment atorvastatin 40 MG tablet Take 1 tablet (40 mg total) by mouth nightly. Indications: High Amount ofFats in the Blood B Complex-C Tab tablet Take 1 tablet by mouth daily. Indications: Nutritional Support carBAMazepine 200 MG tablet Take 1 tablet (200 mg total) by mouth nightly. Indications: Nerve Disease cetirizine 10 MG tablet Take 1 tablet (10 mg total) by mouth daily. Indications: Seasonal Allergy diazePAM 10 MG tablet Take 1 tablet (10 mg total) by mouth daily as needed. Indications: Feeling Anxious doxycycline hyclate 100 MG capsule Take 1 capsule (100 mg total) by mouth daily. Indications: Rosacea DULoxetine (CYMBALTA) 20 MG capsule Take 1 capsule (20 mg total) by mouth 2 (two) times daily. Indications: Nerve Disease ezetimibe 10 MG tablet Take 1 tablet (10 mg total) by mouth daily. Indications: High Amount of Fatsin the Blood fenofibrate 160 MG tablet Take 1 tablet (160 mg total) by mouth nightly. Indications: High Amount of Fats in the Blood ferrous sulfate, 65 mg elemental, 325 (65 FE) MG tablet Take 1 tablet (325 mg total) by mouth dailywith breakfast. Indications: Anemia fluticasone propionate (FLONASE) 50 MCG/ACT nasal spray 1 spray by Each Nostril route 2 (two) timesdaily. Indications: Hayfever furosemide (LASIX) 20 MG tablet Take 1 tablet (20 mg total) by mouth daily. 30 tablet 0 gabapentin (NEURONTIN) 600 MG tablet Take 1 tablet (600 mg total) by mouth 4 (four) times daily. Indications: Pain HYDROcodone-acetaminophen (NORCO) 10-325 MG tablet Take 1 tablet by mouth every 6 (six) hours as needed for Pain. ketoconazole (NIZORAL) 2 % shampoo USE WASH DAILY lisinopril (PRINIVIL) 20 MG tablet Take 1 tablet (20 mg total) by mouth daily. magnesium oxide (MAG-OX) 400 (240 Mg) MG tablet Take 1 tablet (400 mg total) by mouth daily. 30 tablet 0 metoprolol succinate ER (TOPROL-XL) 25 MG 24 hr tablet Take 1 tablet (25 mg total) by mouth daily. nitroglycerin (NITROSTAT) 0.[address] 1 tablet (0.4 mg total) under the tongue every 5 (five) minutes as needed for Chest Pain. Indications: Chest Pain primidone 50 MG tablet Take 2 tablets (100 mg total) by mouth 2 (two) times a day. Indications: Fine to Coarse Slow Tremor Affecting Head, Hands & Voice Take 2 tablets BID tamsulosin (FLOMAX) 0.4 MG Cap Take 1 capsule (0.4 mg total) by mouth daily. Indications: Urinary retention timolol 0.5 % ophthalmic solution Place 1 drop into both eyes 2 (two) times daily. Indications: Glaucoma vitamin C (ASCORBIC ACID) 250 MG tablet Take 2 tablets (500 mg total) by mouth daily. Indications: Nutritional Support vitamin D3, cholecalciferol, 5000 UNITS capsule Take 1 capsule (125 mcg total) by mouth daily. Indications: Vitamin D Deficiency No current facility-administered medications for this visit. Malachi Garcia DPM [1] Past Medical History: Diagnosis Date Anemia, unspecified Anxiety Aortic stenosis BPH (benign prostatic hyperplasia) Bursitis CAD (coronary artery disease) CHF (congestive heart failure) ([facility]) chronic diastolic Chronic kidney disease (CKD), stage III (moderate) ([facility]) Diabetes ([facility]) Glaucoma Gout, unspecified History of stomach ulcers Hyperlipidemia Hypertension Myocardial infarct ([facility]) 2005, 1984 Neuropathy Obesity, unspecified MARI (obstructive sleep apnea) Osteoarthritis Pancreatitis ([facility]) 2/2 gallstones Polymyalgia ([facility]) polymyalgia rheumatica Rheumatoid arthritis, unspecified ([facility]) Skin cancer Spinal stenosis TIA (transient ischemic attack) 07/2022 x2, all s/s resolved Vertigo [2] Past Surgical History: Procedure Laterality Date APPENDECTOMY 12/25/1971 BACK SURGERY C7 discectomy CARDIAC CATHETERIZATION 03/14/2018 05/23/2018 with stent CARPAL TUNNEL RELEASE Bilateral 06/14/2000 CATARACT EXTRACTION Bilateral 09/23/2012 CHOLECYSTECTOMY 04/30/2013 CLOSED REDUCTION HIP DISLOCATION 04/14/[address] Torres - this is the 4 or 5th time COLONOSCOPY FLX DX W/COLLJ SPEC WHEN PFRMD 11/01/2008 COLONOSCOPY FLX DX W/COLLJ SPEC WHEN PFRMD 08/21/2007 COLONOSCOPY FLX DX W/COLLJ SPEC WHEN PFRMD 03/12/2004 COLONOSCOPY/EGD 08/26/2020 COLONOSCOPY/EGD 01/01/2013 COLONOSCOPY/EGD 03/15/2001 CORONARY ANGIOPLASTY 04/01/2006 CYSTOSCOPY 03/28/2011 EGD 12/26/2009 EGD 08/21/2007 10/31/2007, 01/30/2008 EGD 07/01/2020 HC TONSIL W/ADENOIDECTOMY 06/15/1945 HEMORRHOIDECTOMY 1972 LAMINECTOMY 11/01/2015 LAMINECTOMY 09/16/2001 L4-L5 PC HEMMORRHOID LIGATION INTERNAL SINGLE 03/19/2005 REPLACEMENT OF AORTIC VALVE 07/2018 porcine per pt SKIN TISSUE PROCEDURE UNLISTED skin CA removed TOOTH EXTRACTION 08/11/1968 [place] teeth TOTAL HIP ARTHROPLASTY Right 06/04/2012 TOTAL HIP ARTHROPLASTY Left 06/13/2016 TURP / TRANSURETHRAL INCISION / DRAINAGE PROSTATE 04/15/2012 [3] Social History Socioeconomic History Marital status: Number of children: 7 Tobacco Use Smoking status: Former Current packs/day: 0.00 Types: Cigarettes Quit date: 1984 Years since quittin.8 Passive exposure: Never Smokeless tobacco: Never Tobacco comments: na Vaping Use Vaping status: Never Used Substance and Sexual Activity Alcohol use: Not Currently Comment: occasionally Drug use: Never Comment: na Social Drivers of Health Financial Resource Strain: Low Risk (05/16/2025) Overall Financial Resource Strain (CARDIA) Difficulty of Paying Living Expenses: Not hard at all Food Insecurity: No Food Insecurity (05/16/2025) Hunger Vital Sign Worried About Running Out of Food in the Last Year: Never true Ran Out of Food in the Last Year: Never true Transportation Needs: No Transportation Needs (05/16/2025) PRAPARE - Transportation Lack of Transportation (Medical): No Lack of Transportation (Non-Medical): No Physical Activity: Sufficiently Active (05/16/2025) Exercise Vital Sign Days of Exercise per Week: 5 days Minutes of Exercise per Session: 60 min Stress: Stress Concern Present (05/16/2025) [facility] - Occupational Stress Questionnaire Feeling of Stress : To some extent Social Connections: Socially Integrated (05/16/2025) Social Connection and Isolation Panel Frequency of Communication with Friends and Family: More than three times a week Frequency of Social Gatherings with Friends and Family: Once a week Attends Mandaen Services: More than 4 times per year Active Member of Clubs or Organizations: Yes Attends Club or Organization Meetings: 1 to 4 times per year Marital Status: Intimate Partner Violence: Not At Risk (05/16/2025) Humiliation, Afraid, Rape, and Kick questionnaire Fear of Current or Ex-Partner: No Emotionally Abused: No Physically Abused: No Sexually Abused: No Housing Stability: Low Risk (05/16/2025) Housing Stability Vital Sign Unable to Pay for Housing in the Last Year: No Number of Times Moved in the Last Year: 1 Homeless in the Last Year: No NATOR PREFORMS documented in this encounter Plan of Treatment Upcoming Encounters Date Type Department Care Team (Late st Contact Info) Description 08/16/2025 1:45 PM LAMINATOR PREFORMS Appointment [facility] [address] [place] [address] Bekah Mosley DPT [address] [place] [address] Hazel Joseph DPM [address] [place] [address] 08/19/2025 2:00 PM LAMINATOR PREFORMS Appointment [facility] [address] [place] [address] Bekah Mosley DPT [address] [place] [address] Hazel Joseph DPM [address] [place] [address] 08/23/2025 1:00 PM LAMINATOR PREFORMS Appointment [facility] [address] [place] [address] Bekah Mosley DPT [address] [place] [address] Hazel Joseph DPM [address] [place] [address] 08/26/2025 1:00 PM LAMINATOR PREFORMS Appointment [facility] [address] [place] [address] Hazel Joseph, DPM [address] [place] [address] Katty Haley, BIOLOGICAL CHEMIST 08/31/2025 11:15 AM LAMINATOR PREFORMS [facility]oint[address] [facility] [address] [place] [address] Bekah Mosley DPT [address] [place] [address] Hazel Joesph, DPM [address] [place] [address] 09/06/2025 10:00 AM LAMINATOR PREFORMS Office Visit [facility] Orthopedic Surgery [facility] [address] [address] [place] [address] [place] [address] 09/06/2025 11:00 AM LAMINATOR PREFORMS Appointment [facility] [address] [place] [address] Bekah Mosley DPT [address] [place] [address] Eniomirtha Hazel, DPM [address] [place] [address] 09/09/2025 11:00 AM LAMINATOR PREFORMS Appointment [facility] [address] [place] [address] Bekah Mosley, DPT [address] [place] [address] Hazel Joseph, DPWei [address] [place] [address] 09/14/2025 11:15 AM LAMINATOR PREFORMS Appointment [facility] [address] [place] [address] Bekah Mosley, DPT [address] [place] [address] Hazel Joseph, DPWei [address] [place] [address] 09/17/2025 11:15 AM LAMINATOR PREFORMS Appointment [facility] [address] [place] [address] Hazel Joseph, DPM [address] [place] [address] Bekah Mosley, DPT [address] [place] [address] 09/27/2025 10:15 AM LAMINATOR PREFORMS Office Visit [facility] - [address] [phone] Malachi Garcia [facility] [address] [place] [address] documented as of this encounter Goals Goal Patient Goal Type Associated Problems Recent Progress Patient-Stated? Author Patient will return to prior living situation and remain independent in ADLs upon discharge from hospital Lifestyle No Elver, Tegan K, RN documented as of this encounter Visit Diagnoses Diagnosis Achilles tendinitis of left lower extremity- Primary Achilles bursitis or tendinitis Short Achilles tendon (acquired), left ankle documented in this encounter Care Teams Vault Person Relationship Specialty Start Date End Date Sandoval Luis MD [address] [place] [address] PCP - General FAMILY PRACTICE 10/23/19 documented as of this encounter
--- OUTSIDE RECORDS SUMMARY | 2025-08-13 13:26 | XMS_ITS | Encounter Summary ---
Author Organization [facility] Facility Care Team Providers Care Financial Aids Officer Name Role Phone Sandoval Luis MD Primary Care Provider Anna Caballero CARBON PAPER COATING SUPERVISOR Unavailable [phone] Brandt Orellana SAFETY DEPOSIT BOXES CUSTODIAN Unavailable [phone] Tabby Ortiz DNP Unavailable [phone] Encounter Details Date Type Department Care Team (Latest Contact Info) Description 05/28/2016 Orders Only [facility] CLINCONV ProviderCed MD [address] [place] [address] Social History Tobacco Use Types Packs/Day Years Used Date Smoking Tobacco: Some Days Cigarettes Last attempted to quit: 10/07/1984 Alcohol Use Standard Drinks/Week Comments Yes 0 (1 standard drink = 0.6 oz pur e alcohol) Sex and Gender Information Value Date Recorded Sex Assigned at Not on file Legal Sex Male 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 Gender Identity Male 01/13/2020 10:39 AM CDT [...] on filedocumented in this encounter Care Teams Financial Aids Officer Relationship Specialty Start Date End Date Sandoval Luis MD [address] [place] [address] PCP - General 11/05/11 Anna Caballero, [facility] [address] [place] [address] Line Supervisor 06/16/18 08/13/18 Brandt Orellana, SAFETY DEPOSIT BOXES CUSTODIAN [address] [place] [address] Line Supervisor 06/16/18 08/13/18 aTbby Ortiz, [place] [address] [place] [address] Nurse Practitioner Internal Medicine 06/16/18 08/13/18 documented as of this encounter
--- OUTSIDE RECORDS SUMMARY | 2025-08-13 13:26 | XMS_ITS | Clinical Summary ---
Author Organization [facility] [employer] Address [address] [place] [address] Care Team Providers Care Magnetic Prospecting Supervisor Name Role Phone Stewart Dominguez MD Primary Care Provider [phone] Source Comments [facility] [employer]non-owned Affiliates and Associated Physician Practices is amultiple site organization consisting of ambulatory clinics and hospital sitesin [place], [place], [place] and [place]. This disclosure is being madepursuant to the Care Everywhere program and may not contain all information available regarding this patient. Last updated 18.[facility] [employer] 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 SELF PAY NO INSURANCE Member Subscriber Plan / Payer (Ef fective for All Dates) Name:Satish Tapia Member ID:Not on file Relation to Subscriber:Not on file Name:SATISH TAPIA Subscriber ID:Not on file (Home) Address: [address] [place] [id number] Payer ID:Not on file Group ID:Not on file Type:Self Pay Address: [facility] Care Teams Magnetic Prospecting Supervisor Relationship Specialty Start Date End Date Stewart Dominguez MD [address] [place] [address] PCP - General 04/22/12
--- OUTSIDE RECORDS SUMMARY | 2025-08-13 13:26 | XMS_ITS | Encounter Summary ---
Author Organization [facility] Facility Care Team Providers Care Air Carrier Inspector Name Role Phone Sandoval Luis MD Primary Care Provider Anna Caballero TEXTURE ARTIST Unavailable [phone] Brandt Orellana TELECOMMUNICATIONS ADMINISTRATOR Unavailable [phone] Tabby Ortiz DNP Unavailable [phone] Encounter Details Date Type Department Care Team (Latest Contact Info) Description 05/29/2016 Orders Only [facility] CLINCONV ProviderCed MD [address] [place] [address] Social History Tobacco Use Types Packs/Day Years Used Date Smoking Tobacco: Some Days Cigarettes Last attempted to quit: 10/07/1984 Alcohol Use Standard Drinks/Week Comments Yes 0 (1 standard drink = 0.6 oz pur e alcohol) Sex and Gender Information Value Date Recorded Sex Assigned at Not on file Legal Sex Male 10:26 PM MUNICIPAL SERVICES MANAGER Gender Identity Male 01/13/2020 10:39 AM [...] on filedocumented in this encounter Care Teams Air Carrier Inspector Relationship Specialty Start Date End Date Sandoval Luis MD [address] [place] [address] PCP - General 11/05/11 Anna Caballero, [facility] [address] [place] [address] Insulation Board Coater Operator 06/16/18 08/13/18 Brandt Orellana, SARAH [address] [facility] [address] [place] [address] Insulation Board Coater Operator 06/16/18 08/13/18 Tabby Ortiz DNP [address] [place] [address] Nurse Practitioner Internal Medicine 06/16/18 08/13/18 documented as of this encounter
--- OUTSIDE RECORDS SUMMARY | 2025-08-13 13:26 | XMS_ITS | Encounter Summary ---
Author Organization [facility] Facility Care Team Providers Care Physical Metallurgist Name Role Phone Sandoval Luis MD Primary Care Provider Anna Caballero LAMINATED PLASTICS ASSEMBLER AND GLUER Unavailable [phone] Brandt Orellana MATERIAL CREW SUPERVISOR Unavailable [phone] Tabby Ortiz DNP Unavailable [phone] Encounter Details Date Type Department Care Team (Latest Contact Info) Description 05/31/2016 Orders Only [facility] CLINCONV ProviderCed MD [address] [place] [address] Social History Tobacco Use Types Packs/Day Years Used Date Smoking Tobacco: Some Days Cigarettes Last attempted to quit: 10/07/1984 Alcohol Use Standard Drinks/Week Comments Yes 0 (1 standard drink = 0.6 oz pur e alcohol) Sex and Gender Information Value Date Recorded Sex Assigned at Not on file Legal Sex Male 10:26 PM HOURLY CAREGIVER Gender Identity Male 01/13/2020 10:39 AM CDT [...] on filedocumented in this encounter Care Teams Physical Metallurgist Relationship Specialty Start Date End Date Sandoval Luis MD [address] [place] [address] PCP - General 11/05/11 Anna Caballero, [facility] [address] [place] [address] Welder Fitter Helper 06/16/18 08/13/18 Brandt Orellana, SARAH [address] [facility] [address] [place] [address] Welder Fitter Helper 06/16/18 08/13/18 Tabby Ortiz DNP [address] [place] [address] Nurse Practitioner Internal Medicine 06/16/18 08/13/18 documented as of this encounter
--- OUTSIDE RECORDS SUMMARY | 2025-08-13 13:26 | XMS_ITS | Encounter Summary ---
Author Organization [facility] Facility Care Team Providers Care Paper Cleaner Name Role Phone Sandoval Luis MD Primary Care Provider Anna Caballero BUILDING MAINTENANCE WORKER Unavailable [phone] Brandt Orellana AIRCRAFT ENGINE ASSEMBLER Unavailable [phone] Tabby Ortiz DNP Unavailable [phone] Encounter Details Date Type Department Care Team (Latest Contact Info) Description 05/30/2016 Orders Only [facility] CLINCONV ProviderCed MD [address] [place] [address] Social History Tobacco Use Types Packs/Day Years Used Date Smoking Tobacco: Some Days Cigarettes Last attempted to quit: 10/07/1984 Alcohol Use Standard Drinks/Week Comments Yes 0 (1 standard drink = 0.6 oz pur e alcohol) Sex and Gender Information Value Date Recorded Sex Assigned at Not on file Legal Sex Male 10:26 PM DRAFTER ASSISTANT Gender Identity Male 01/13/2020 10:39 AM [...] on filedocumented in this encounter Care Teams Paper Cleaner Relationship Specialty Start Date End Date Sandoval Luis MD [address] [place] [address] PCP - General 11/05/11 Anna Caballero, [facility] [address] [place] [address] Deli Manager 06/16/18 08/13/18 Brandt Orellana, AIRCRAFT ENGINE ASSEMBLER [address] [place] [address] Deli Manager 06/16/18 08/13/18 Tabby Ortiz, [place] [address] [place] [address] Nurse Practitioner Internal Medicine 06/16/18 08/13/18 documented as of this encounter
--- OUTSIDE RECORDS SUMMARY | 2025-08-13 13:26 | XMS_ITS | Encounter Summary ---
Author Organization [facility] Healthcare Address [address] [place] [address] Care Team Providers Care Clinical Assistant Professor Name Role Phone Sandoval Luis MD Primary Care Provider Anna Caballero GARNETT FIXER Unavailable [phone] Brandt Orellana MACHINE WOODWORKING SANDER Unavailable [phone] Tabby Ortiz DNP Unavailable [phone] Encounter Details Date Type Department Care Team (Late st Contact Info) Description 03/04/2018 Orders Only [facility] [address] [place] [address] Scanning, Provider Social History Tobacco Use Types Packs/Day Years Used Date Smoking Tobacco: Former Smokeless Tobacco: Never Alcohol Use Standard Drinks/Week Comments Yes 0 (1 standard drink = 0.6 oz pur e alcohol) Sex and Gender Information Value Date Recorded Sex Assigned at Not on file Legal Sex Male 10:26 PM PRESSER MACHINE Gender Identity Male 01/13/2020 10:39 AM CDT [...] on filedocumented in this encounter Care Teams Clinical Assistant Professor Relationship Specialty Start Date End Date Sandoval Luis MD [address] [place] [address] PCP - General 11/05/11 Anna Caballero, [facility] [address] [place] [address] Senior Production Planner 06/16/18 08/13/18 Brandt Orellana, MACHINE WOODWORKING SANDER [address] [facility] [address] [place] [address] Senior Production Planner 06/16/18 08/13/18 Tabby Ortiz, GIDE[place] [address] [facility] [address] [place] [address] Nurse Practitioner Internal Medicine 06/16/18 08/13/18 documented as of this encounter
--- OUTSIDE RECORDS SUMMARY | 2025-08-13 13:26 | XMS_ITS | Encounter Summary ---
Author Organization [facility] Address [address] [place] [address] Care Team Providers Care Mill Control Operator Name Role Phone Stewart Dominguez MD Primary Care Provider Encounter Details Date Type Department Care Team (Late st Contact Info) Description 11/04/2018 Lab Requisition [facility] Care DermPath Lab [address] [place] [address] Norah Sanchez MD [address] [facility] [address] [place] [address] Social History Tobacco Use Types Packs/Day Years Used Date Smoking Tobacco: Never Assessed Sex and Gender Information Value Date Recorded Sex Assigned at Not on file Legal Sex Male 5:49 PM ECONOMICS DEPARTMENT CHAIR Gender Identity Not on file Sexual Orientation Not on file documented as of this encounter Plan of Treatment Not on file documented as of this encounter Procedures Procedure Name Priority Date/Time Associated Diagnosis Comments DERMATOPATH TECHNICAL REPORT Routine 11/03/2018 12:00 AM ECONOMICS DEPARTMENT CHAIR documented in this encounter Results * DERMATOPATH TECHNICAL REPORT (11/03/2018 12:00 AM ECONOMICS DEPARTMENT CHAIR) Case Report Dermatopathology Report Case: [id number] Authorizing Provider: Norah Sanchez MD Collected: 11/03/2018 12:00 AM Pathologist: Wei Cao MD Received: 11/04/2018 06:58 AM Specimens: A) - Skin, left nose B) - Skin, right ordoñez 9 5:25 PM ECONOMICS DEPARTMENT CHAIR DERMATOPATHOLOGY LABORATORY Clinical History A: R/O BCC. [place] papule. B: R/O NMSC vs stasis. Crusted pink plaque. 9 5:25 PM ECONOMICS DEPARTMENT CHAIR DERMATOPATHOLOGY LABORATORY Gross Description Specimen A: Received is one formalin filled container labeled with the patient's name and designated left nose. The specimen consists of a shave measuring [id number]. Jar 0. Specimen B: Received is one formalin filled container labeled with the patient's name and designated right ordoñez. The specimen consists of a shave measuring [id number]. Jar 0. [facility] Dermatopathology Laboratory performed the technical component only. 9 5:25 PM [facility] DERMATOPATHOLOGY LABORATORY Embedded Images 5:25 PM [facility] DERMATOPATHOLOGY LABORATORY DISCLAIMER An external and internal positive and negative controls are appropriate for the histochemical, immunohistochemical and immunofluorescence stain(s) in this case (if any), except where stated explicitly. The performance characteristics of the stain(s) cited in this report were developed and its performance characteristic determined by the Dermatopathology Laboratory at [facility], directed by Dr. Steven Cao. These tests need not be, and therefore are not, approved by the [place] Food and Drug Administration. The tests are used for clinical purposes. 9 5:25 PM [facility] DERMATOPATHOLOGY LABORATORY at [address] ECONOMICS DEPARTMENT CHAIR Pathology/Cytology TISSUE SPECIMEN FROM SKIN / Unknown 11/03/2018 11/04/2018 6:58 AM ECONOMICS DEPARTMENT CHAIR Miscellaneous samples (specimen) TISSUE SPECIMEN FROM SKIN / Unknown 11/03/2018 11/04/2018 6:58 AM ECONOMICS DEPARTMENT CHAIR us Norah Sanchez MD LAB - PATHOLOGY/CYTOLOGY ORD ERABLES Final Result DERMATOPATHOLOGY LABORATORY [facility] - Department of Dermatology [address], 5th [place] [address], [facility] [phone] documented in this encounter Visit Diagnoses Not on filedocumented in this encounter Care Teams Mill Control Operator Relationship Specialty Start Date End Date Stewart Dominguez MD [address] [place] [address] PCP - General 04/22/12 documented as of this encounter
--- OUTSIDE RECORDS SUMMARY | 2025-08-13 13:26 | XMS_ITS | Encounter Summary ---
Author Organization [facility] Address [address] [place] [address] Care Team Providers Care Handy Worker Name Role Phone Stewart Dominguez MD Primary Care Provider Encounter Details Date Type Department Care Team (Late st Contact [facility]) Description 07/08/2024 Lab Requisition [facility] - DermPath Lab [address] [facility] [place] [phone] Norah Sanchez MD [address] [facility] [address] [place] [address] Social History Tobacco Use Types Packs/Day Years Used Date Smoking Tobacco: Never Assessed Sex and Gender Information Value Date Recorded Sex Assigned at Not on file Legal Sex Male 5:49 PM FIRESTOP/CONTAINMENT WORKER Gender Identity Not on file Sexual Orientation Not on file documented as of this encounter Plan of Treatment Not on file documented as of this encounter Procedures Procedure Name Priority Date/Time Associated Diagnosis Comments DERMATOPATHOLOGY Routine 07/08/2024 1:42 PM CDT documented in this encounter Results * DERMATOPATHOLOGY (07/08/2024 1:42 PM CDT) Case Report Dermatopathology Report Case: [id number] Authorizing Provider: Norah Sanchez MD Collected: 07/08/2024 01:42 PM Ordering Location: [facility] Physician [facility] - Received: 07/09/2024 03:55 PM DermPath [...] DERMATOPATHOLOGY LABORATORY at 1414 CDT Clinical History [place] papule r/o BCC 2:14 PM CDT DERMATOPATHOLOGY [...] determined by the Dermatopathology Laboratory at [facility], directed by Dr. Steven Cao. These tests need not be, and therefore are not, approved by the [place] Food and Drug Administration. The tests are used for clinical purposes. Billing Codes Specimen Charges Stain Charges 93227 [address] 1 1 2:14 PM CDT DERMATOPATHOLOGY LABORATORY Embedded Images 2:14 PM CDT DERMATOPATHOLOGY LABORATORY Pathology/Cytology TISSUE SPECIMEN FROM SKIN / Unknown 07/08/2024 1:42 PM CDT 07/09/2024 3:55 PM CDT Miscellaneous samples (specimen) TISSUE SPECIMEN FROM SKIN / Unknown 07/08/2024 1:42 PM CDT 07/09/2024 3:55 PM CDT us Norah Sanchez MD LAB - PATHOLOGY/CYTOLOGY ORD ERABLES Final Result DERMATOPATHOLOGY LABORATORY [facility] - Department of Dermatology [facility] Medicine [address] [place] [address], [address] [phone] documented in this encounter Visit Diagnoses Not on filedocumented in this encounter Care Teams Handy Worker Relationship Specialty Start Date End Date Stewart Dominguez MD [address] [place] [address] PCP - General 04/22/12 documented as of this encounter
--- OUTSIDE RECORDS SUMMARY | 2025-08-13 13:26 | XMS_ITS | Encounter Summary ---
Author Organization [facility] Healthcare Address [address] [place] [address] Care Team Providers Care Web Mobile Designer Name Role Phone Sandoval Luis MD Primary Care Provider Anna Caballero CRATE ICER Unavailable [phone] Brandt Orellana CHART READER Unavailable [phone] Tabby Ortiz DNP Unavailable [phone] Encounter Details Date Type Department Care Team (Late st Contact Info) Description 01/15/2018 Orders Only [facility] Health Information Management [address] [place] [address] Scanning, Provider Social History Tobacco Use Types Packs/Day Years Used Date Smoking Tobacco: Former Alcohol Use Standard Drinks/Week Comments Yes 0 (1 standard drink = 0.6 oz pur e alcohol) Sex and Gender Information Value Date Recorded Sex Assigned at Not on file Legal Sex Male 10:26 PM SAP GATHERER Gender Identity Male 01/13/2020 10:39 AM CDT [...] on filedocumented in this encounter Care Teams Web Mobile Designer Relationship Specialty Start Date End Date Sandoval Luis MD [address] [place] [address] PCP - General 11/05/11 Anna Caballero, [facility] [address] [place] [address] Car Changer 06/16/18 08/13/18 Brandt Orellana, CHART READER [address] [facility] [address] [place] [address] Car Changer 06/16/18 08/13/18 Tabby Ortiz, GIDE[place] [address] [facility] [address] [place] [address] Nurse Practitioner Internal Medicine 06/16/18 08/13/18 documented as of this encounter
--- OUTSIDE RECORDS SUMMARY | 2025-08-13 13:26 | XMS_ITS | Clinical Summary ---
Author Organization [facility] [facility] Address [address] [place] [address] Care Team Providers Care Grooming Salon Manager Name Role Phone Sandoval Luis MD Primary Care Provider [phone] Allergies Active Allergy Reactions Criticality Noted Date [...] 9 Active azelastine-flut icasone (Dymista) 137-50 mcg/spray Edgar, Non-Aerosol [The details of the medication are [...] on file Legal Sex Male 11:09 AM PEDORTHIST Gender Identity Not on file Sexual Orientation [...] VACCINE (#1) 2025 06/20/2020, 2013 Care Teams Grooming Salon Manager Relationship Specialty Start Date End Date Sandoval Luis MD [address] [id number] PCP - General Family Practice 10/21/19
--- OUTSIDE RECORDS SUMMARY | 2025-08-13 13:26 | XMS_ITS | Clinical Summary ---
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 Place 1 [...] (05/20/2018): Added automatically from request for surgery [id number] Chronic diastolic CHF (congestive heart failure) 03/17/2018 [...] artery disease of n ative artery of solomon heart with stable angina pectoris 03/16/2016 Overview (01/11/2017): CAD in solomon artery Assessment & Plan (02/03/2019 5:55 PM [...] 07/25/2020 01/23/2022 Coronary artery disease invo lving solomon coronary artery of solomon heart without angina pectoris 05/20/2018 01/07/2019 Overview (05/20/2018): Added automatically from request for surgery [id number] History of placement of sten t for [...] Luke Tapia Coronary artery disease Father Luke Lopez pj Nettielizbeth Coronary artery disease; Cause of : Coronary artery disease Hearing loss Father Luke Tapia Heart attack Father Luke Sheffieldryandago Heart disease Father Luke Sheffieldlizbeth Alcohol abuse Maternal Grandfather Stew Fofana Arthritis Mother Lorrainejosette Tapia Depression Mother Lorraine Nettielizbeth Diabetes Mother Lorraine Nettielizbeth Memory loss Mother Lorraine Tapia Miscarriages / Stillbirths Mother Lorraine Tapia Other Mother Lorraine Tapia Macular Dege neration , DM; Cause of : Macular Degeneration , DM Vision loss Mother Lorraine Tapia Cancer Paternal Grandfather Andrea Huizar Obesity Paternal Grandfather Andrea Huizar Alzheimer's disease Paternal Grandmother Padmini mosley Memory loss Paternal Grandmother Padmini Huizar Relation [...] = 0.6 oz pur e alcohol) rarely [employer] [facility] Utilities Answer Date Recorded In the past 12 months has [email or web address] electric, gas, oil, or water [employer] threatened to shut off services in your [...] How often do you attend chur or baptist services? More than 4 times per year 03/09/2024 Do you belong to any clubs o r organizations such as religious groups, unions, fraternal or athletic groups, or [...] on file Legal Sex Male 10:26 PM OPTICAL LABORATORY MANAGER Gender Identity Male 01/13/2020 10:39 AM [...] Depression Screening 11/12/2024 11/12/2023 eGFR 03/11/2025 03/11/2024, 01/2024, 03/09/2024, Additional history exists Fall Risk [...] home TTW Case Management No Anna Caballero, PENCILLER Note: Problem: Ability to self-manage CHF Interventions: [...] pain TTW Case Management No Anna Caballero LCSW Note: Problem: Chest Pain Interventions: - Assess [...] AMI TTW Case Management No Anna Caballero LCSW Note: Problem: Worsening Symptoms- AMI Interventions: - [...] catheterization TTW Case Management No Anna Caballero LCSW Note: Problem: Knowledge deficit r/t cath/ stent [...] or provider Medical Devices Implanted Type Area Distance Education Director Device Identifier Shelf Expiration Date Model / Serial / Lot [employer] Simplex P Full Dose Radiopaque Preblend Cement Bone Tobramycin 6197-9-001 - [id number] Implanted:Qty: 1 on 03/06/2024 by Neva Morgan MD at [facility] Bone Cement Right: Hip [employer] [id number] 05/06/202597- / / [id number] [employer] Simplex P Full Dose Radiopaque Preblend Cement Bone Tobramycin 6197-9- - [id number] Implanted:Qty: 1 on 03/06/2024 by Neva Morgan MD at [facility] Bone Cement Right: Hip [employer] [id number] 06/06/202597- / / [id number] [employer] Simplex P Full Dose Radiopaque Preblend Cement Bone Tobramycin 6197-9- - [id number] Implanted:Qty: 1 on 03/06/2024 by Neva Morgan MD at [facility] Bone Cement Right: Hip [employer] [id number] 05/06/202597- / / [id number] [employer] Simplex P Full Dose Radiopaque Preblend Cement Bone Tobramycin 6197-9-001 - [id number] Implanted:Qty: 1 on 03/06/2024 by Neva Morgan MD at [facility] Bone Cement Right: Hip [employer] [id number] 05/06/202597 / / [id number] [employer] Jonathan [id number] Synergy 3.5mm 32mm 144cm Radiopaque 1 Access Port Inflation Lumen - [id number] Implanted:Qty: 1 on 05/23/2018 by Javier Darden MD at [facility] Scientific Jonathan 11/19/2018 [id number] / / [id number] [employer] [facility] [id number] Synergy 3.5mm 12mm 144cm Radiopaque 1 Access Port Inflation Lumen - [id number] Implanted:Qty: 1 on 05/23/2018 by Javier Darden MD at [facility] [employer] [facility] 01/27/2020 [id number] / / [id number] [facility] [employer] [id number] Angio-Seal Vip Bondek-Plus 6fr .035in 70cm Hemostatic Latex Free - [id number] Implanted:Qty: 1 on 05/23/2018 [facility] [employer] 02/03/2019 [id number] / / [id number] [employer] [id number] Commander Garrett 3 Atrion 14fr Transcatheter Introducer Balloon - [id number] Implanted:Qty: 1 on 07/24/2018 by Javier Darden MD at [facility] [employer] 08/23/2019 [id number] / / [employer] 50mm 28mm Cement Constrained Hip 1mm .072in Offset Liner [id number] - [id number] Implanted:Qty: 1 on 03/06/2024 by Neva Morgan MD at [facility] Right: Hip [employer] [id number] 01/04/2025 [id number] / / [id number] [employer] Simplex P Full Dose Radiopaque Preblend Cement Bone Tobramycin 6197-9-001 - [id number] Implanted:Qty: 1 on 03/06/2024 by Neva Morgan MD at [facility] Right: Hip [employer] [id number] 05/06/2025 6197-9-001 / / [id number] [employer] Hip 5mm Offset Whitefish C Taper Sleeve Adapter Sterile Latex Free 19-0005t - [id number] Implanted:Qty: 1 on 03/06/2024 by Neva Morgan MD at [facility] Right: Hip [employer] [id number] 01/30/2028 19-0005T / / [id number] [employer] 28mm Hip [place] Taper Head Femoral Biolox Delta 6519-1-028 - [id number] Implanted:Qty: 1 on 03/06/2024 by Neva Morgan MD at [facility] Right: Hip [employer] [id number] 06/05/2025 6519-1-028 / / [id number] Explanted Type Area Distance Education Director Device Identifier Shelf Expiration Date Model / Serial / Lot [employer] Trident 42mm 28mm Constrain Hip 0d F Insert Acetabular Uhmwpe [id number] - [id number] Explanted:Qty: 1 on 03/06/2024 at [facility] Right: Hip [employer] [id number] 09/06/2028 [id number] / / [id number] Synthes 4mm 6mm 55mm Small Hexagonal Socket Cancellous Full Thread Screw 206.055 - [id number] Explanted:Qty: 1 on 03/06/2024 by Neva Morgan MD at [facility] Right: Hip Synthes I 206.055 / / Synthes 4mm 6mm 30mm Small Hexagonal Socket Cancellous Full Thread Screw 206.030 - [id number] Explanted:Qty: 1 on 03/06/2024 by Neva Morgan MD at [facility] Right: Hip Synthes I 206.030 / / [employer] Hip 5mm Offset Whitefish C Taper Sleeve Adapter Sterile Latex Free -4t - [id number] Explanted:Qty: 1 on 03/06/2024 at [facility] Right: Hip [employer] [id number] 05/03/2025-0005T / / [id number] [employer] 28mm Hip [place] Taper Head Femoral [employer] Delta 6519-1-028 - [id number] Explanted:Qty: 1 on 03/06/2024 at [facility] Right: Hip [employer] [id number] 10/25/2026 6519-1-02 8 / [id number] Procedures Procedure Name Priority Date/Time Associated Diagnosis Comments LIPID PANEL Routine 08/11/2024 3:56 PM OPTICAL LABORATORY MANAGER EGFR Routine 03/11/2024 11:31 PM CDT from Last 3 Months or Most Recently Relevant to Health Maintenance Results * Lipid panel (08/11/2024 3:56 PM OPTICAL LABORATORY MANAGER) SCRIBED Cholesterol, Total 158 0 - 200 EXTERNAL LAB SCRIBED HDL 62 40 - 100 EXTERNAL LAB SCRIBED LDL 77 0 - 100 EXTERNAL LAB SCRIBED Triglycerides 106 0 - 150 EXTERNAL LAB Blood us Historical Provider MD LAB BLOOD ORDERABLES Edit ed Result - [...] LAB BLOOD ORDERABLES F inal Result [facility] Department [place] [address] from Last 3 Months or Most Recently Relevant to Health Maintenance Insurance MEDICARE [facility] FEDERAL MEDICARE [facility] MEDICARE [facility] Advance Directives For more information, please contact: [phone] Documents on File Type Date Recorded Patient Plant Physiology Teacher Expl anation ADVANCE DIRECTIVE 09/11/2013 12:00 AM ELISSA CHOWDHURY WILL ADVANCE DIRECTIVE 09/11/2013 12:00 AM CATIA R OF TIRE INSTALLER FINANCIAL/MEDICAL * Full Code (Latest Code Status on File) Date Activated Date Inactivated Comments 03/06/2024 5:28 PM 03/12/2024 10:27 PM * Full Code Date Activated Date Inactivated Comments 06/18/2018 2:56 PM 07/24/2018 5:29 AM * Full Code Date Activated Date Inactivated Comments 06/18/2018 10:05 AM 06/19/2018 3:31 PM Care Teams Biogeographer Relationship Specialty Start Date End Date Sandoval Luis MD [address] [place] [address] PCP - General 11/05/11
--- OUTSIDE RECORDS SUMMARY | 2025-08-13 13:26 | XMS_ITS | Encounter Summary ---
Author Organization [facility] Facility Care Team Providers Care Scientist/Engineer Name Role Phone Sandoval Luis MD Primary Care Provider Anna Caballero SLATE MIXER Unavailable [phone] Brandt Orellana REAL ESTATE ADMINISTRATOR Unavailable [phone] Tabby Ortiz DNP Unavailable [phone] Encounter Details Date Type Department Care Team (Latest Contact Info) Description 06/13/2016 Orders Only [facility] CLINCONV ProviderCed MD [address] [place] [address] Social History Tobacco Use Types Packs/Day Years Used Date Smoking Tobacco: Some Days Cigarettes Last attempted to quit: 10/07/1984 Alcohol Use Standard Drinks/Week Comments Yes 0 (1 standard drink = 0.6 oz pur e alcohol) Sex and Gender Information Value Date Recorded Sex Assigned at Not on file Legal Sex Male 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 Gender Identity Male 01/13/2020 10:39 AM CDT Sexual Orientation Straight 01/13/2020 10 :39 AM CDT documented as of this encounter Functional Status documented as of this encounter Plan of [...] on filedocumented in this encounter Care Teams Scientist/Engineer Relationship Specialty Start Date End Date Sandoval Luis MD [address] [place] [address] PCP - General 11/05/11 Anna Caballero, [facility] [address] [place] [address] Certified Orthotist Practice Manager 06/16/18 08/13/18 Brandt Orellana, REAL ESTATE ADMINISTRATOR [address] [place] [address] Certified Orthotist Practice Manager 06/16/18 08/13/18 Tabby Ortiz, [place] [address] [place] [address] Nurse Practitioner Internal Medicine 06/16/18 08/13/18 documented as of this encounter
[2025-08-13 13:30] VITALS: BP 131/63; PULSE 84; RESP 16; TEMP 37.1; O2SAT 98
--- NOTE | 2025-08-13 15:30 | ED_ITS ---
HPI - Fall General Chief Complaint: Fall <Raquel Deng PA-C - Last Filed: 08/13/25 15:47> Stated Complaint: fall <LUIS Jimenez Last Filed: 08/13/25 15:47> Time Seen by Provider: 08/13/25 15:30 <Raquel Deng PA-C - Last Filed: 08/13/25 15:47> Focused HPI: Patient is an 85-year-old male who presents the ED with report of a fall. Reports he was using his walker and attempted to grab for something that was out of his reach. Fell forward. Hit his head on the ground. Denied LOC. Denies head or neck pain, dizziness. Complains of pain to his right anterior chest. Pain worse with deep breathing. Does feel mildly short of breath. Denies abdominal, back pain. Patient is not on any anticoagulation. GENERAL: Elderly, obese with BMI of 31.1, mildly uncomfortable. HEAD: Normocephalic, atraumatic. CHEST: Clear to auscultation. ?No respiratory distress. TTP over R anterior chest wall, no crepitus/swelling/bruising appreciated HEART: Regular rate and rhythm.? ABD: No significant tenderness MSK: Minimal tenderness along lower cervical /upper thoracic region, no palpable bony deformities. No lumbar spinal tenderness. NEURO: ?Alert and oriented x3. Patient screened in triage and initial orders placed.? ?Additional care and disposition to be based upon?diagnostic testing and treatment. <Raquel Deng PA-C - Last Filed: 08/13/25 15:47> Source: patient <Raquel Deng PA-C - Last Filed: 08/13/25 15:47> Mode of arrival: ambulatory <LUIS Jimenez Last Filed: 08/13/25 15:47> EMS <Jacinda Sullivan MD - Last Filed: 08/13/25 20:44> Limitations: no limitations <LUIS Jimenez Last Filed: 08/13/25 15:47> History of Present Illness HPI Narrative: Agree with the above with the following additions/corrections: [id number] male presents after a ground fall. He resides at home. He uses a walker to ambulate. He did hit his head and knows this because he has abrasion although he denies any head neck or back pain. His only complaint is right-sided chest pain worse with deep breaths. Not on anticoagulation, only aspirin. Complaining of mild shortness of breath. Wears hearing aids bilaterally. Pain 03/16 after receiving [place] after MSE. Recently prescribed antibiotics for a pneumonia and due to finish this course on Saturday although he does not know if this was diagnosed based on symptoms alone or x-ray/imaging. He has received care though [facility] though that was awhile ago; much of his other care has been through [facility] including Dr Rojo, an orthopedic surgeon who performed his hip replacement surgery. <Jacinda Sullivan MD - Last Filed: 08/13/25 20:44> Related Data Home Medications: Home Medications ?Medication ?Instructions ?Recorded ?Confirmed ?Last Taken ?Type cholecalciferol (vitamin D3) 125 5,000 unit PO DAILY 1 10/18/18 08/11/25 05/06/25 History mcg (5,000 unit) tablet timolol maleate 0.25 % eye drops 1 drop ophthalmic (ey e) Q12H 10/28/19 08/11/25 05/06/25 History vitamin B complex (B 1 tablet PO DAILY 10/28/19 1 10/11/24 05/06/25 History Complex-Vitamin B12 tablet) aspirin 81 mg tablet,delayed 81 mg PO DAILY 06/05/21 1 10/11/24 05/06/25 History release tacrolimus 0.1 % topical ointment 1 applic topical ALL LY 01/09/22 08/11/25 05/06/25 History triamcinolone acetonide 0.1 % 1 applic topical DAILY 0 01/09/22 08/11/25 05/06/25 History topical cream ferrous sulfate, dried 160 mg (50 320 mg PO DAILY 04/0708/11/25 05/06/25 History mg iron) tablet,extended release metoprolol succinate 25 mg 25 mg PO DAILY 05/23/2502/28 Unknown History tablet,extended release 24 hr <Raquel Deng PA-C - Last Filed: 08/13/25 15:47> Allergies/Adverse Reactions: Allergies Allergy/AdvReac Type Severity Reaction Status Date / Time MUSCLE RELAXERS Allergy Severe PARALYSES Uncoded 08/11/25 11:38 DIAPHRAGM <Raquel Deng PA-C - Last Filed: 08/13/25 15:47> [facility] Past Medical History Medical History: Medical History (Updated 08/13/25 @ 20:41 by Jacinda Sullivan MD) Right hand dominant Transient ischemic attack numbness on the right side of the body and slurring of speech Diabetic polyneuropathy Dark stools Colitis Cauda equina syndrome Benign essential tremor Nasal bone fracture 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 Lumbar spondylosis BCC (basal cell carcinoma of skin) Complex sleep apnea syndrome Adenomatous colon polyp Peptic ulcer disease Diarrhea Gastric ulcer GIB (gastrointestinal bleeding) Symptomatic anemia History of transcatheter aortic valve replacement (TAVR) Essential tremor Anxiety Skin cancer Shingles Gallbladder disease Hemorrhoids Ulcer Diverticulosis Pneumonia Sleep apnea Afib HLD (hyperlipidemia) PVD (peripheral vascular disease) CAD (coronary artery disease) CHF (congestive heart failure) Myocardial infarct Anemia Atherosclerotic heart disease of [place] coronary artery without angina pectoris Benign prostatic hyperplasia with lower urinary tract symptoms Chronic kidney disease, stage III (moderate) DM renal manif type II Glaucoma Hy ht/kd NOS I-IV w/o hf Hypertensive heart disease without heart failure Idiopathic peripheral neuropathy Insomnia Mixed hyperlipidemia Nonrheumatic aortic valve stenosis MARI (obstructive sleep apnea) <Raquel Deng PA-C - Last Filed: 08/13/25 15:47> Surgical History Surgical History: Surgical History H/O bilateral inguinal hernia repair 07/2024 Dr. Earnest Gonzales History of revision of total replacement of right hip joint (~03/12/24) H/O lumbosacral spine surgery H/O neck surgery C3-4, C4-5, C5-6 anterior cervical discectomy, decompression of spinal cord and nerve roots, C3-6 fusion Status post surgical removal of malignant neoplasm of skin Hx of cholecystectomy History of lumbar surgery History of hemorrhoidectomy History of appendectomy History of tonsillectomy Status post total hip replacement, bilateral History of coronary artery stent placement x4 S/P TAVR (transcatheter aortic valve replacement) <Raquel Deng PA-C - Last Filed: 08/13/25 15:47> Family History Family History: Family History Grandparent Family history of tuberculosis Family history of alcoholism Carcinoma of colon Family history of dementia Mother Family history of glaucoma, Onset Age: 94 Family history of diabetes mellitus in first degree relative Family history of dementia, Onset Age: 94 Diabetes mellitus, Onset Age: 94 Family history of arthritis, Onset Age: 94 Father Carcinoma of colon Family history of kidney stones, Onset Age: 86 Family history of congestive heart failure, Onset Age: 86 Sibling Family history of kidney stones Family history of diabetes mellitus in first degree relative Family history of pancreatic cancer Other Asthma Family history of cardiovascular disease Family history of hearing loss Family history of osteoporosis <Raquel Deng PA-C - Last Filed: 08/13/25 15:47> Social History Social History: Social History Social History: Mr. Tapia lives at home with his in [place], [place]. 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 He wishes to be a full code and has designated his , Rosette Tapia, as his surrogate decision maker. He is a former 23 pack-year smoker and quit smoking in 1984. He reports infrequent social alcohol use and denies other illicit substance use. Smoking packs per day: 0 Smoking cigarettes per day: 0.0 Years smoked: 23 Smoking pack-years: 0.00 Tobacco type: cigarettes and pipe Second hand tobacco smoke exposure: No Smoking end date: 10/07/84 Alcohol intake: never Alcohol use details: one or two a month Substance use: never Substance use type: does not use Do You Feel Safe in your Home?: Yes Lack of Transportation: YES Lack of Food: Never True Current Housing: Decline to Answer Concerned About Future Housing: Decline to Answer Difficulty Paying Gas/Electric Bills: Decline to Answer Difficulty Paying for Meds: Decline to Answer Currently Unemployed: Decline to Answer Education: Decline to Answer Difficulty w/ Childcare or Family Care: Decline to Answer Living arrangements: with family Occupation/Education: retired Gender identity (if verbalized by the patient): Male Sexual Orientation (if Verbalized by the Patient): Straight or Heterosexual Spiritual care concerns: No <Raquel Deng PA-C - Last Filed: 08/13/25 15:47> Exam 2 Narrative: GENERAL: Well-appearing, well-nourished HEAD: Normocephalic, atraumatic. EYES: Non injected, non icteric ENT: Nares clear, no rhinorrhea or epistaxis. Gross auditory acuity intact though assisted with bilateral hearing aids. NECK: Supple. No meningismus. CHEST: Speaking in full sentences. No respiratory distress. Lungs clear bilaterally. TTP right chest. HEART: Regular rate and rhythm. . ABDOMEN: Soft, nondistended. No rigidity or guarding. Not peritoneal EXTREMITIES: Normal range of motion. SKIN: Warm, dry NEURO: No focal deficits. Alert and oriented. Answering questions. Following commands. Normal speech without aphasia or dysarthria. PSYCH: Normal mood and affect. <Jacinda Sullivan MD - Last Filed: 08/13/25 20:44> Course Vital Signs Vital signs: Vital Signs Temperature 98.7 F 08/13/25 13:30 Pulse Rate 84 08/13/25 13:30 Respiratory Rate 16 08/13/25 13:30 Blood Pressure 131/63 08/13/25 13:30 Pulse Oximetry 98 08/13/25 13:30 Temperature 97.7 F 08/13/25 16:56 Pulse Rate 89 08/13/25 19:19 Respiratory Rate 19 08/13/25 19:19 Blood Pressure 136/68 08/13/25 19:19 Pulse Oximetry 97 08/13/25 19:19 Oxygen Delivery Room Air 08/13/25 16:56 <Raquel Deng PA-C - Last Filed: 08/13/25 15:47> Vital Signs Temperature 98.7 F 08/13/25 13:30 Pulse Rate 84 08/13/25 13:30 Respiratory Rate 16 08/13/25 13:30 Blood Pressure 131/63 08/13/25 13:30 Pulse Oximetry 98 08/13/25 13:30 Temperature 97.7 F 08/13/25 16:56 Pulse Rate 89 08/13/25 19:19 Respiratory Rate 19 08/13/25 19:19 Blood Pressure 136/68 08/13/25 19:19 Pulse Oximetry 97 08/13/25 19:19 Oxygen Delivery Room Air 08/13/25 16:56 <Jacinda Sulilvan MD - Last Filed: 08/13/25 20:44> MDM - Fall MDM Narrative Medical decision making narrative: MSE by [facility] in triage. <Raquel Deng PA-C - Last Filed: 08/13/25 15:47> MSE by [facility] in triage. Patient presents after a ground level fall. Uses a walker to ambulate. Complaining of right-sided rib pain. In the emergency department they are afebrile with vital signs within normal limits. Patient will require trauma transfer especially as he is geriatric trauma in the setting of his 4 rib fractures. Spoke with ED physician at [facility], Dr Gonzalez at 17:30. Currently in the black in terms of accepting status. Patient can be accepted but this is a delayed acceptance and can not transport yet. Status is re-evaluated every 4 hours and they will let us know about a confirmed acceptance. Given patient stable and likely admission for geriatric trauma is likely for pain control, trauma surgery will be contacted to discuss potential direct admit under them in the interim/instead. Isolated azotemia, chronic from previous. Macrocytic anemia stable from previous. Trauma surgery attending Dr Lebron accepted patient as a direct admit at 18:42 for geriatric trauma. Pending a bed though patient is high priority given silver- trauma with q2 hour reassessments of their bed status. He is noted to desaturate on my repeat assessment, 88% and 84% at bedside but then to 96% even before O2 applied via nasal cannula. Patient's pain 6/10. Morphin ordered, 2mg. He does ask I call his . I updated her and she verifies understanding via phone at 7:35pm. <Jacinda Sullivan MD - Last Filed: 08/13/25 20:44> Differential Diagnosis Differential diagnosis: Likely other (Intracranial hemorrhage, abrasion, rib fracture(s); hemothorax, pneumothorax; pulmonary contusion) <Jacinda Sullivan MD - Last Filed: 08/13/25 20:44> Lab Data Attestation: I reviewed the patient's lab results. <Jacinda Sullivan MD - Last Filed: 08/13/25 20:44> Result diagrams: 08/13/25 17:35 08/13/25 17:35 <Raquel Deng PA-C - Last Filed: 08/13/25 15:47> Labs: Lab Results 08/13/25 08/13/25 Range/Units 17:35 20:19 WBC 7.4 (4.5-10.0) K/mm3 RBC 2.95 L (4.6-6.20) M/mm3 Hgb 9.3 L (14.0-18.0) g/dL Hct 30.0 L (42.0-52.0) % MCV 101.7 H (80-100) fl MCH 31.5 (26-34) pg MCHC 31.0 L (32-36) g/dl RDW 15.1 H (11.5-14.5) % Plt Count 200 (150-375) k/mm3 MPV 9.0 (7.4-10.4) fl Immature Gran % (Auto) 0.5 (0-0.5) % Neut % (Auto) 72.4 (45.5-73.1) % Lymph % (Auto) 13.8 L (18.3-44.2) % [place] % (Auto) 7.4 (2.6-8.5) % Eos % (Auto) 5.5 H (0-4.4) % Baso % (Auto) 0.4 (0.2-1.2) % Lymph # (Auto) 1.02 (0.9-3.2) K/mm3 [place] # (Auto) 0.6 (0.1-0.6) K/mm3 Eos # (Auto) 0.4 H (0-0.3) K/mm3 Baso # (Auto) 0.0 (0.0-0.1) K/mm3 Abs Immat Gran (auto) 0.04 H (0.00-0.031) K/mm3 Absolute Neuts (auto) 5.3 (1.3-6.7) K/mm3 Absolute Nucleated RBC 0.000 (0.0-0.012) K/mm3 Nucleated RBC % 0.0 (0.0-0.2) % PT 15.0 H (11.1-14.7) Seconds INR 1.2 APTT 31.5 (22.3-36.8) Seconds Sodium 137 (137-145) mmol/L Potassium 4.4 (3.4-5.0) mmol/L Chloride 103 (98-107) mmol/L Carbon Dioxide 28 (22-30) mmol/L Anion Gap 6 (4-12) mmol/L BUN 39 H D (9-20) mg/dL Creatinine 1.30 (0.7-1.3) mg/dL Estim Creat Clear Calc 39 ml/min Estimated GFR 52 L (59 - ) Glucose 93 (65-110) mg/dL Calcium 9.4 (8.4-10.2) mg/dL Total Bilirubin 0.5 (0.2-1.3) mg/dL AST 41 (17-59) U/L ALT 30 (6-50) U/L Alkaline Phosphatase 46 (38-126) U/L Total Protein 7.3 (6.3-8.2) g/dL Albumin 4.0 (3.5-5.1) g/dL Urine Color Yellow (Yellow) Urine Appearance Clear (Clear) Urine pH 6.0 (5.0-9.0) Ur Specific [place] > 1.045 H (1.001-1.035) Urine Protein Trace (Negative) mg/dL Urine Glucose (UA) Negative (Negative) mg/dL Urine Ketones Negative (Negative) mg/dL Ur Blood (Man) Negative (Negative) Urine Nitrate Negative (Negative) Urine Bilirubin Negative (Negative) Urine Urobilinogen 0.2 (<2.0) mg/dL Leukocyte Esterase Rfl Negative (Negative) HELLEN/UL Urine RBC 0-2 (0-2) /hpf Urine WBC 0-5 (0-3) /hpf Ur Squamous Epith Cells None seen (Few) /hpf Urine Bacteria None seen /hpf Urine Casts 0-2 <Raquel Deng PA-C - Last Filed: 08/13/25 15:47> Lab Results 08/13/25 08/13/25 Range/Units 17:35 20:19 WBC 7.4 (4.5-10.0) K/mm3 RBC 2.95 L (4.6-6.20) M/mm3 Hgb 9.3 L (14.0-18.0) g/dL Hct 30.0 L (42.0-52.0) % MCV 101.7 H (80-100) fl MCH 31.5 (26-34) pg MCHC 31.0 L (32-36) g/dl RDW 15.1 H (11.5-14.5) % Plt Count 200 (150-375) k/mm3 MPV 9.0 (7.4-10.4) fl Immature Gran % (Auto) 0.5 (0-0.5) % Neut % (Auto) 72.4 (45.5-73.1) % Lymph % (Auto) 13.8 L (18.3-44.2) % [place] % (Auto) 7.4 (2.6-8.5) % Eos % (Auto) 5.5 H (0-4.4) % Baso % (Auto) 0.4 (0.2-1.2) % Lymph # (Auto) 1.02 (0.9-3.2) K/mm3 [place] # (Auto) 0.6 (0.1-0.6) K/mm3 Eos # (Auto) 0.4 H (0-0.3) K/mm3 Baso # (Auto) 0.0 (0.0-0.1) K/mm3 Abs Immat Gran (auto) 0.04 H (0.00-0.031) K/mm3 Absolute Neuts (auto) 5.3 (1.3-6.7) K/mm3 Absolute Nucleated RBC 0.000 (0.0-0.012) K/mm3 Nucleated RBC % 0.0 (0.0-0.2) % PT 15.0 H (11.1-14.7) Seconds INR 1.2 APTT 31.5 (22.3-36.8) Seconds Sodium 137 (137-145) mmol/L Potassium 4.4 (3.4-5.0) mmol/L Chloride 103 (98-107) mmol/L Carbon Dioxide 28 (22-30) mmol/L Anion Gap 6 (4-12) mmol/L BUN 39 H D (9-20) mg/dL Creatinine 1.30 (0.7-1.3) mg/dL Estim Creat Clear Calc 39 ml/min Estimated GFR 52 L (59 - ) Glucose 93 (65-110) mg/dL Calcium 9.4 (8.4-10.2) mg/dL Total Bilirubin 0.5 (0.2-1.3) mg/dL AST 41 (17-59) U/L ALT 30 (6-50) U/L Alkaline Phosphatase 46 (38-126) U/L Total Protein 7.3 (6.3-8.2) g/dL Albumin 4.0 (3.5-5.1) g/dL Urine Color Yellow (Yellow) Urine Appearance Clear (Clear) Urine pH 6.0 (5.0-9.0) Ur Specific [place] > 1.045 H (1.001-1.035) Urine Protein Trace (Negative) mg/dL Urine Glucose (UA) Negative (Negative) mg/dL Urine Ketones Negative (Negative) mg/dL Ur Blood (Man) Negative (Negative) Urine Nitrate Negative (Negative) Urine Bilirubin Negative (Negative) Urine Urobilinogen 0.2 (<2.0) mg/dL Leukocyte Esterase Rfl Negative (Negative) HELLEN/UL Urine RBC 0-2 (0-2) /hpf Urine WBC 0-5 (0-3) /hpf Ur Squamous Epith Cells None seen (Few) /hpf Urine Bacteria None seen /hpf Urine Casts 0-2 <Jacinda Sullivan MD - Last Filed: 08/13/25 20:44> Imaging Data Radiologist's impression: Impressions Head CT 08/13/25 16:33 IMPRESSION: 1. No acute intracranial hemorrhage. No mass effect. 2. Probable chronic ischemic white matter disease. Chest CT 08/13/25 16:36 IMPRESSION: 1. Minimally displaced slightly comminuted comminuted fractures of posterior right ribs 4, 5, and 6 with possible nondisplaced fracture of rib 7. 2. Atelectatic changes but no hemothorax or pneumothorax. Cervical Spine CT 08/13/25 16:38 IMPRESSION: 1. No compression fracture in the cervical spine. 2 .Anterior spinal fusion of C2, C3, C4 and C5. Interbody fusion devices at the C3-C4, C4-C5 and C5-C6 levels. 3. Limited study as above. If symptoms persist or worsen, an MRI of the cervical spine is recommended. <Jacinda Sullivan MD - Last Filed: 08/13/25 20:44> Discharge Plan Discharge Clinical Impression: Azotemia, Anemia, macrocytic Fall Qualifiers: Encounter type: initial encounter Qualified Code(s): W19.XXXA - Unspecified fall, initial encounter Multiple closed fractures of ribs of right side Qualifiers: Encounter type: initial encounter Qualified Code(s): S22.41XA - Multiple fractures of ribs, right side, initial encounter for closed fracture <LUIS Jimenez Last Filed: 08/13/25 15:47> Patient Disposition: [facility] <LUIS Jimenez Last Filed: 08/13/25 15:47> Condition: Stable <LUIS Jimenez Filed: 08/13/25 15:47> Additional Instructions: If symptoms persist or worsen, an MRI of the cervical spine is recommended. Your PCP can help arrange this. <LUIS Jimenez Filed: 08/13/25 15:47> Patient Language: Greek <LUIS Jimenez Last Filed: 08/13/25 15:47> Prescriptions: No Action cholecalciferol (vitamin D3) 5,000 unit tablet 5,000 unit PO DAILY timolol maleate 0.25 % drops 1 drop EACH EYE Q12H vitamin B complex [B Complex-Vitamin B12] Tablet 1 tablet PO DAILY aspirin 81 mg tablet,delayed release (DR/EC) 81 mg PO DAILY triamcinolone acetonide 0.1 % cream 1 applic topical DAILY tacrolimus 0.1 % ointment 1 applic topical DAILY duloxetine 60 mg capsule,delayed release(DR/EC) 60 mg PO DAILY Qty: 90 4RF gabapentin 600 mg tablet See Rx Instructions .ROUTE .COMPLEX Qty: 360 4RF Dose Instruction: Take 1 tablet by mouth 4 times daily Rx Instructions: Take 1 tablet by mouth 4 times daily primidone 250 mg tablet 250 mg PO QHS Qty: 90 4RF mirtazapine [Remeron] 15 mg tablet 15 mg PO QHS Qty: 90 2RF furosemide 20 mg tablet 20 mg PO DAILY Qty: 30 0RF amoxicillin-pot clavulanate 875-125 mg tablet 1 tablet PO Q12H 7 Days Qty: 14 0RF azithromycin 250 mg tablet See Rx Instructions PO .COMPLEX Qty: 6 0RF Rx Instructions: For 250 mg dose pack: take 500 mg today (day 1), then 250 mg for 4 days (days 2-5) PO ipratropium bromide 21 mcg (0.03 %) spray,non-aerosol 1 - 2 spray intranasal BID Qty: 30 2RF Rx Instructions: administer into each nostril metoprolol succinate 25 mg tablet extended release 24 hr 25 mg PO DAILY ferrous sulfate, dried 160 mg (50 mg iron) tablet extended release 320 mg PO DAILY cetirizine [Zyrtec] 10 mg tablet 10 mg PO DAILY PRN (Reason: allergy symptoms) Qty: 90 3RF lisinopril 10 mg tablet See Rx Instructions .ROUTE .COMPLEX Qty: 90 2RF Dose Instruction: Take 1 tablet by mouth once daily Rx Instructions: Take 1 tablet by mouth once daily tamsulosin 0.4 mg capsule See Rx Instructions .ROUTE .COMPLEX Qty: 90 2RF Dose Instruction: Take 1 capsule by mouth once daily Rx Instructions: Take 1 capsule by mouth once daily atorvastatin 40 mg tablet See Rx Instructions .ROUTE .COMPLEX Qty: 90 3RF Dose Instruction: Take 1 tablet by mouth once daily Rx Instructions: Take 1 tablet by mouth once daily doxycycline hyclate 100 mg capsule 100 mg PO DAILY Qty: 90 2RF carbamazepine [Epitol] 200 mg tablet See Rx Instructions .ROUTE .COMPLEX Qty: 90 2RF Dose Instruction: TAKE 1 TABLET BY MOUTH AT BEDTIME Rx Instructions: TAKE 1 TABLET BY MOUTH AT BEDTIME magnesium oxide 400 mg (241.3 mg magnesium) tablet 400 mg PO DAILY Qty: 30 5RF famotidine 40 mg tablet 40 mg PO DAILY 30 Days Qty: 30 11RF fenofibrate 160 mg tablet See Rx Instructions .ROUTE .COMPLEX Qty: 90 3RF Dose Instruction: Take 1 tablet by mouth once daily Rx Instructions: Take 1 tablet by mouth once daily ezetimibe 10 mg tablet See Rx Instructions .ROUTE .COMPLEX Qty: 90 2RF Dose Instruction: Take 1 tablet by mouth once daily Rx Instructions: Take 1 tablet by mouth once daily diazepam 10 mg tablet 10 mg PO DAILY PRN (Reason: anxiety) Qty: 30 0RF hydrocodone-acetaminophen 10-325 mg tablet 1 tablet PO Q6H PRN (Reason: pain) Qty: 60 0RF <BALDEMAR JimenezC - Last Filed: 08/13/25 15:47> Follow-up/Referrals: Sandoval Luis MD [Primary Care Provider, [facility]] <Raquel Deng PA-C - Last Filed: 08/13/25 15:47>
[2025-08-13] MEDS: HYDROcodone/acetaminophen (*CRX) 5-325 MG TABLET 1 TAB PO (15:52)
[2025-08-13 16:56] VITALS: BP 124/69; PULSE 82; RESP 17; TEMP 36.5; O2SAT 97
--- OUTSIDE RECORDS SUMMARY | 2025-08-13 17:14 | XMS_ITS | Encounter Summary ---
Author Organization [facility] Address [facility] [place] [address] Care Team Providers Care Stereotype Caster Name Role Phone Sandoval Luis MD Primary Care Provider [phone] Encounter Details Date Type Department Care Team (Late st Contact Info) Description 07/17/2024 Prep for Procedure [facility] [place] [address] Earnest Gonzales MD [address] [place] [address], [address] [place] [id number] Social History Tobacco Use Types Packs/Day [...] materials from doctor or pharmacy Never 09/20/2023 [facility] Utilities Answer Date Recorded In the [...] move on to questions 3-9 0 08/16/2022 [facility] - Occupational Stress [...] place to sleep or slept in a prison (including now)? No 08/26/2023 Sex and Gender Information Value Date Recorded Sex Assigned at Male 08/14/2023 3:20 PM CARPET JACK Legal Sex Male 7:28 PM CDT Gender Identity Male 08/14/2023 3:20 PM CARPET JACK Sexual Orientation Straight 08/14/2023 3: 20 PM CARPET JACK documented as of this encounter Functional Status [...] Assessment Author Status No 07/17/2024 6:52 PM Melisas Cat RN Active * Because of a [...] 9:00 AM Blanca Carrizales RN Active * [place] Suicide Severity Rating Scale (Screener/Recent Self-Report) Question [...] st Contact Info) Description 08/16/2025 1:45 PM CARPET JACK Appointment [facility] [address] [place] [address] Bekah Mosley, DPT [address] [place] [address] Hazel Joseph DPM [address] [place] [address] 08/19/2025 2:00 PM CARPET JACK Appointment [facility] [address] [place] [address] Bekah Mosley, DPT [address] [place] [address] EniokrisHazel lawrence, DPM [address] [place] [address] 08/23/2025 1:00 PM CARPET JACK Appointment [facility] [address] [place] [address] Bekah Mosley, DPT [address] [place] [address] EniokelvinHazel rajput, DPM [address] [place] [address] 08/26/2025 1:00 PM CARPET JACK Appointment [facility] [address] [place] [address] Hazel Joseph, DPM [address] [place] [address] Katty Haley, TOW DRIVER 08/31/2025 11:15 AM CARPET JACK Appointment [facility] [address] [place] [address] Bekah Mosley DPT [address] [place] [address] Hazel Jsoeph, DPM [address] [place] [address] 09/06/2025 10:00 AM CARPET JACK Office Visit [facility] [place] [facility] [address] [address] [address] [place] [address] [place] [address] 09/06/2025 11:00 AM CARPET JACK Appointment [facility] [address] [place] [address] Bekah Mosley DPT [address] [place] [address] Eniomirtha Hazel, DPM [address] [place] [address] 09/09/2025 11:00 AM CARPET JACK Appointment [facility] [address] [place] [address] Bekah Mosley DPT [address] [place] [address] EniomirthaHazel, DPM [address] [place] [address] 09/14/2025 11:15 AM CARPET JACK Appointment [facility] [address] [place] [address] Bekah Mosley, DPT [address] [place], [place] [id number] Hazel Joseph, DPM [address] [place], [place] [id number] 09/17/2025 11:15 AM CARPET JACK Appointment [facility] [address] [place] [address] Hazel Joseph, DPM [address] [place] [address] Bekah Mosley, DPT [address] [place] [address] 09/27/2025 10:15 AM CARPET JACK Office Visit [facility] - [address] [phone] [facility] [id number] [place] [address] documented as of this encounter Goals Goal Patient Goal Type Associated Problems Recent Progress Patient-Stated? Author Patient will return to prior living situation and remain independent in ADLs upon discharge from hospital Lifestyle Tegan Walton RN documented as of this encounter Results * (ABNORMAL) BASIC METABOLIC PANEL (07/17/2024 8:09 AM CDT) GLUCOSE 114(H) 70 - 99 MG/DL 07/17/2024 8:[address] [facility] BUN 36(H) 7 - 18 MG/DL 07/17/2024 8:[address] [facility] CREATININE S/P/B 1.26 0.7 - 1.3 MG/DL 07/17/2024 8:[address] [facility] SODIUM S/P/B 140 136 - 145 MMOL/L 07/17/2024 8:[address] [facility] POTASSIUM S/P/B 4.6 3.5 - 5.1 MMOL/L 07/17/2024 8:[address] [facility] CHLORIDE S/P/B 110 97 - 115 MMOL/L 07/17/2024 8:[address] [facility] CO2 29.0 21 - 32 MMOL/L 07/17/2024 8:[address] [facility] CALCIUM S/P/B 9.8 8.5 - 10.1 MG/DL 07/17/2024 8:[address] [facility] ANION GAP 1.0(L) 2 - 10 MMOL/L 07/17/2024 8:[address] [facility] BUN CREATININE RATIO 28.6(H) 6 - 26 07/17/2024 8:[address] [facility] GFR ESTIMATE 56(L) >90 ML/MIN/1.7 3 M2 07/17/2024 8:[address] [facility] Comment: NOTE: eGFR is not calculated for patients <18 years of age or gender unknown. This is an estimated GFR calculation using the new CKD EPI creatinine equation without race and so does not require a correction factor for race. This estimated GFR should not be used for calculating drug doses. 07/17/2024 8:09 AM CDT Brigida Shoemaker [facility] Final R esult [facility] [address] [place] [address], [place] [phone] * (ABNORMAL) CBC W/DIFF AUTOMATED (07/17/2024 8:09 AM CDT) [facility] WBC 4.86 4.5 - 11.0 x10'3/uL 07/17/2024 8:[address] [facility] RBC 3.44(L) 4.70 - 6.10 x10'6/uL 07/17/2024 8:[address] [facility] HGB 10.6(L) 14.0 - 18.0 G/DL 07/17/2024 8:[address] [facility] HCT 33.3(L) 43.0 - 54.0 % 07/17/2024 8:[address] [facility] MCV 96.8(H) 80.0 - 94.0 FL 07/17/2024 8:[address] [facility] MCH 30.8 27.0 - 31.0 PG 07/17/2024 8:[address] [facility] MCHC 31.8(L) 32.0 - 36.0 G/DL 07/17/2024 8:[address] [facility] RDW 14.7(H) 11.5 - 14.5 % 07/17/2024 8:[address] [facility] PLT 199 130 - 400 x10'3/uL 07/17/2024 8:[address] [facility] MPV 9.6 9.3 - 12.2 FL 07/17/2024 8:[address] [facility] DIFFERENTIAL TYPE AUTOMATED DIFFERENTIAL 07/17/2024 8:[address] [facility] NEUTROPHILS % 60.3 % 07/17/2024 8:[address] [facility] LYMPHOCYTES % 22.2 % 07/17/2024 8:[address] [facility] MONOCYTES % 10.9 % 07/17/2024 8:[address] [facility] EOSINOPHILS 6.0 % 07/17/2024 8:[address] [facility] BASOPHILS 0.4 % 07/17/2024 8:[address] [facility] IMMATURE GRANS % 0.2 % 07/17/20 8:[address] [facility] ABS. NEUTROPHILS 2.93 1.80 - 7.70 x10'3/uL 07/17/2024 8:[address] [facility] ABS. LYMPHOCYTES 1.08 1.00 - 4.80 x10'3/uL 07/17/2024 8:[address] [facility] ABS. MONOCYTES 0.53 0.30 - 0.82 x10'3/uL 07/17/2024 8:[address] [facility] ABS. EOSINOPHILS 0.29 0.04 - 0.54 x10'3/uL 07/17/2024 8:[address] [facility] ABS. BASOPHILS 0.02 0.01 - 0.08 x10'3/uL 07/17/2024 8:[address] [facility] ABS. IMMATURE GRANULOCYTES 0.01 0.00 - 0.49 x10'3/uL 07/17/2024 8:[address] [facility] 07/17/2024 8:09 AM CDT Brigida Shoemaker [facility] Final R esult [facility] [address] [place] [address], [place] [phone] documented in this encounter Visit Diagnoses Diagnosis Preoperative testing- Primary Preoperative examination, unspecified documented in this encounter Additional Health Concerns Infection Onset Date Last Indicated Resolved Time COVID-19 Rule Out 06/04/2025 06/04/2025 06/04/2025 1:29 PM CDT Respiratory Rule Out 06/04/2025 06/04/2025 025 1:36 PM CDT COVID-19 Rule Out 06/27/2025 06/27/2025 06/27/2025 1:49 PM CDT Respiratory Rule Out 06/27/2025 06/27/2025 025 1:50 PM CDT documented as of this encounter Care Teams Stereotype Caster Relationship Specialty Start Date End Date Sandoval Luis MD [address] [facility] [address] [place] [address] PCP - General FAMILY PRACTICE 10/23/19 documented as of this encounter
--- OUTSIDE RECORDS SUMMARY | 2025-08-13 17:14 | XMS_ITS | Clinical Summary ---
Author Organization [facility] [id number] [facility] Address [address] [place] [address] Care Team Providers Care Shoe Clerk Name Role Phone Sandoval Luis MD Primary Care Provider [phone] Allergies Active Allergy Reactions Criticality Noted Date [...] 9 Active azelastine-flut icasone (Dymista) 137-50 mcg/spray [place], Non-Aerosol [The details of the medication are [...] on file Legal Sex Male 11:09 AM [employer] Gender Identity Not on file Sexual Orientation [...] VACCINE (#1) 2025 06/20/2020, 2013 Care Teams Shoe Clerk Relationship Specialty Start Date End Date Sandoval Luis MD [address] [phone] PCP - General Family Practice 10/21/19
--- OUTSIDE RECORDS SUMMARY | 2025-08-13 17:14 | XMS_ITS | Clinical Summary ---
Author Organization [facility] Address [address] [place] [address] Care Team Providers Care Mule Rider Name Role Phone Sandoval Luis MD Primary Care Provider [phone] Allergies Active Allergy Reactions Criticality Noted Date Comments Cyclobenzaprine Other (see comment) Low 02/18/2018 All muscle relaxers relax the diaphragm All muscle relaxers relax the diaphragm ALL MUSCLE RELAXERS Medications atorvastatin 40 MG tabletIndicatio ns:Hyperlipidem ia Take 1 tablet (40 mg total) by mouth nightly. Indications: High Amount of Fats in the Blood 3 Active carBAMazepine 200 MG tabletIndicatio ns:Neuropathy Take 1 tablet (200 mg total) by mouth nightly. Indications: Nerve Disease 1 Active cetirizine 10 MG tabletIndicatio ns:Seasonal Allergy Take 1 tablet (10 mg total) by mouth daily. Indications: Seasonal Allergy 1 Active diazePAM 10 MG tabletIndicatio ns:Anxiety Take 1 tablet (10 mg total) by mouth daily as needed. Indications: Feeling Anxious 3 Active doxycycline hyclate 100 MG capsuleIndicati ons:Rosacea Take 1 capsule (100 mg total) by mouth daily. Indications: Rosacea 1 Active ezetimibe 10 MG tabletIndicatio ns:Hyperlipidem ia Take 1 tablet (10 mg total) by mouth daily. Indications: High Amount of Fats in the Blood 3 Active fenofibrate 160 MG tabletIndicatio ns:Hyperlipidem ia Take 1 tablet (160 mg total) by mouth nightly. Indications: High Amount of Fats in the Blood Active primidone 50 MG tabletIndicatio ns:Essential Tremor Take 2 tablets (100 mg total) by mouth 2 (two) times a day. Indications: Fine to Coarse Slow Tremor Affecting Head, Hands & Voice Take 2 tablets BID 1 Active timolol 0.5 % ophthalmic solutionIndicat ions:Glaucoma Place 1 drop into both eyes 2 (two) times daily. Indications: Glaucoma 3 Active B Complex-C Tab tabletIndicatio ns:Nutritional Support Take 1 tablet by mouth daily. Indications: Nutritional Support 3 Active vitamin D3, cholecalciferol , 5000 UNITS capsuleIndicati ons:Vitamin D Deficiency Take 1 capsule (125 mcg total) by mouth daily. Indications: Vitamin D Deficiency 3 Active nitroglycerin (NITROSTAT) 0.4 MG SL tabletIndicatio ns:Chest Pain Place 1 tablet (0.4 mg total) under the tongue every 5 (five) minutes as needed for Chest Pain. Indications: Chest Pain 2 Active ketoconazole (NIZORAL) 2 % shampooIndicati ons:Dry Scalp USE WASH DAILY 3 Active DULoxetine (CYMBALTA) 20 MG capsuleIndicati ons:Neuropathy Take 1 capsule (20 mg total) by mouth 2 (two) times daily. Indications: Nerve Disease 3 Active fluticasone propionate (FLONASE) 50 MCG/ACT nasal sprayIndication s:Seasonal Allergic Rhinitis 1 spray by Each Nostril route 2 (two) times daily. Indications: Hayfever 3 Active tamsulosin (FLOMAX) 0.4 MG CapIndications: Urinary retention Take 1 capsule (0.4 mg total) by mouth daily. Indications: Urinary retention Active magnesium oxide (MAG-OX) 400 (240 Mg) MG tabletIndicatio ns:Hypomagnesem ia Take 1 tablet (400 mg total) by mouth daily. 30 tablet 3 Active aspirin 81 MG chewable tabletIndicatio ns:Prophylaxis Chew 1 tablet (81 mg total) by mouth daily. Indications: Preventative Treatment 3 Active gabapentin (NEURONTIN) 600 MG tabletIndicatio ns:Pain Take 1 tablet (600 mg total) by mouth 4 (four) times daily. Indications: Pain 3 Active vitamin C (ASCORBIC ACID) 250 MG tabletIndicatio ns:Nutritional Support Take 2 tablets (500 mg total) by mouth daily. Indications: Nutritional Support 3 Active ferrous sulfate, 65 mg elemental, 325 (65 FE) MG tabletIndicatio ns:Anemia Take 1 tablet (325 mg total) by mouth daily with breakfast. Indications: Anemia 3 Active lisinopril (PRINIVIL) 20 MG tablet Take 1 tablet (20 mg total) by mouth daily. 4 Active HYDROcodone-binu taminophen (NORCO) 10-325 MG tablet Take 1 tablet by mouth every 6 (six) hours as needed for Pain. Active metoprolol succinate ER (TOPROL-XL) 25 MG 24 hr tablet Take 1 tablet (25 mg total) by mouth daily. Active furosemide (LASIX) 20 MG tablet Take 1 tablet (20 mg total) by mouth daily. 30 tablet 5 Active Active Problems Problem Noted Date Diagnosed Date Achilles tendinitis of left lower extremity 07/09 Pneumonia 05/16/2025 Hypoxia 07/17/2024 S/P revision of total hip 04/13/2024 Myofascial neck pain 01/10/2024 Recurrent falls 10/08/2023 Hypotension 08/26/2023 UTI (urinary tract infection) due to Enterococcu s 08/14/2023 Dysphagia 07/29/2023 S/P cervical spinal fusion 07/23/2023 Cervical myelopathy 07/23/2023 Bilateral knee pain 04/30/2023 Heterotopic ossification [...] is aware that I have COVID-19 Nisha Alanis MSN, BSN, RN 03/01/2023 Abnormal MRI, lumbar spine 02/28/2023 Myelopathy 02/28/2023 Radiculopathy, lumbar region 02/28/2023 Other intervertebral disc degeneration, lumbar r egion 02/28/2023 Falls frequently 02/28/2023 History of lumbar fusion 02/28/2023 History of lumbar laminectomy 02/28/2023 Recurrent posterior dislocation of hip, right Assessment & Plan (04/30/2023 12:30 PM CDT): Recurrent dislocations to the right hip. He has an appointment June 14 at [facility] to review. I would maintain the [...] I look forward to his consultation in [place]. History of TIA (transient ischemic attack) 02/04 Foraminal stenosis of lumbar region 08/19/2022 Assessment & Plan (08/19/2022 7:29 PM WEATHER STRIP MECHANIC): Severe foraminal stenosis noted at the level above the fusion. Bilateral lower extremity pain. Follow-up as needed. Referral to Dr. Estefani WRIGHT (cerebral vascular accident) 07/10/2022 Stroke 07/09/2022 TIA (transient ischemic attack) 07/09/2022 Fall in bathtub 10/29/2021 Assessment & Plan (10/29/2021 7:38 PM WEATHER STRIP MECHANIC): Is a latest fall in September but he also fell trimming the rosebushes and his head hit the house. Starting to feel like he has fair amount of weakness. History of total hip arthroplasty, right 021 Assessment & Plan (08/19/2022 7:29 PM WEATHER STRIP MECHANIC): No evidence of fracture, dislocation or subluxation. Well-seated and well positioned. No evidence of eccentric wear. Moderate heterotopic ossification. No evidence of dislocation or subluxation. Would not recommend heterotopic ossification debridement at this time. I believe most of the pain discomfort is probably coming from his spinal stenosis/foraminal stenosis Assessment & Plan (10/29/2021 7:40 PM WEATHER STRIP MECHANIC): Both total hips appear to be in good position and alignment. Continue with progressive range of motion and strengthening. Doubt that the fracture that was potentially described on an x-ray is renal looks more like heterotopic ossification. Assessment & Plan (09/17/2021 5:22 PM WEATHER STRIP MECHANIC): 2011 [facility]. Continue with progressive range of motion and strengthening per total hip arthroplasty protocol. Maintain hip precautions. Follow-up on a yearly basis Trochanteric bursitis of right hip 09/17/2021 Assessment & Plan (10/29/2021 7:39 PM WEATHER STRIP MECHANIC): Injections really did not give him the relief that he was looking for. Assessment & Plan (09/17/2021 5:22 PM WEATHER STRIP MECHANIC): We discussed risks, benefits and alternatives. Patient would like to have a steroid injection. Was done in the past at [facility]. 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 Coronary artery disease of n ative artery of [place] heart with stable angina pectoris 03/16/2016 Overview (03/21/2023): CAD in [place] artery Last Assessment & Plan: With history of coronary artery disease unable to proceed with any type of nonsteroidal anti-inflammatories. Patient is also on Plavix which is contraindicated Nonrheumatic aortic valve stenosis 03/16/2016 Overview (03/21/2023): Nonrheumatic aortic (valve) stenosis Last Assessment & Plan: Moderate aortic stenosis, very slight progression, no symptoms. F/u in 1 yr, obtain Echo after OV. Type 2 diabetes mellitus 03/16/2016 Overview (03/21/2023): Mixed hyperlipidemia due to type [...] 10/04/2023 Assessment & Plan (10/29/2021 7:39 PM WEATHER STRIP MECHANIC): Might consider repeat MRI for the lumbar spine at some point in time as well as EMG/NCV. He does have a appointment coming up with his neurologist. This may be better suited for him. Assessment & Plan (09/17/2021 5:24 PM WEATHER STRIP MECHANIC): History of 2 different back surgeries. Possibility of increased stenosis proximal. Encounters Date Type Department Care Team Description 08/13/2025 11:00 AM WEATHER STRIP MECHANIC Office Visit [facility] [place] [address] [place] [address] Malachi Garcia DPM Achilles Tendonitis (New pt left Achilles tenden/) 08/13/2025 Travel 08/10/2025 10:50 AM WEATHER STRIP MECHANIC - 08/10/2025 11:59 PM WEATHER STRIP MECHANIC Hospital Encounter [facility] Outpatient Rehab [address] [place] [address] Benson Joseph DPM Arentsen, Anita A, RESERVOIR ENGINEER Ankle/foot Pain Discharge Disposition: Home or Self Care (Routine Discharge) 08/10/2025 Travel 08/06/2025 10:24 AM CDT - 08/06/2025 11:59 PM CDT Hospital Encounter [facility] [address] [place] [address] Bekah Mosley, MARYURIT Benson Joseph, DPM Discharge Disposition: Home or Self Care (Routine Discharge) 08/06/2025 Travel 07/30/2025 1:00 PM CDT - 07/30/2025 11:59 PM CDT Hospital [place] [address] [place] [address] Adriana New PA-C Discharge Disposition: Home or Self Care (Routine Discharge) 07/30/2025 Travel 07/22/2025 12:58 PM CDT - 07/22/2025 11:59 PM CDT Hospital Encounter [facility] MRI [id number] [place] [address] Benson Joseph DPM Discharge Disposition: Home or Self Care (Routine Discharge) 07/22/2025 Travel 06/27/2025 12:53 PM CDT - 06/27/2025 4:20 PM CDT [facility] Emergency Room [id number] [place] [address] John Coffey MD Dizziness Discharge Disposition: Home or Self Care (Routine Discharge) 06/27/2025 Travel 06/10/2025 1:25 PM CDT - 06/10/2025 11:59 PM CDT Hospital Encounter [facility] Diagnostic Imaging [id number] [place] [address] Benson Joseph DPM Discharge Disposition: Home or Self Care (Routine Discharge) 06/10/2025 Travel 06/04/2025 12:18 PM CDT - 06/04/2025 5:00 PM CDT [facility] Emergency Room [address] [place] [address] Kavitha Argueta MD Hypotension Discharge Disposition: Home or Self Care (Routine Discharge) 06/04/2025 Travel 05/16/2025 12:23 AM CDT - 05/17/2025 1:33 PM CDT Hospital Encounter [facility] Med/Surg [id number] [place] [address] Lazaro Son MD Elayyan, Ibrahim B, MD Wolf, Brittany, PA-C Shortness Of Breath ; Dizziness Discharge Disposition: Home or Self Care (Routine Discharge) 05/16/2025 Travel from Last 3 Months Family History [...] from your doctor or pharmacy? Sometimes 05/16/2025 [employer] Answer Date Recorded In the past 12 months has [facility] [employer], oil, or water [employer] threatened to shut off services in your [...] week 05/16/2025 How often do you attend [facility] or judaism services? More than 4 times per year 05/16/2025 Do you belong to any clubs o r organizations such as denominational groups, unions, fraternal or athletic groups, or [...] move on to questions 3-9 0 08/16/2022 [facility] [place] of Occupat ional Health - Occupational Stress [...] No 05/16/2025 Housing Stability Vital Sign Answer Hogn e Recorded In the last 12 months, [...] place to sleep or slept in a alf (including now)? No 08/26/2023 Housing Stability Vital Sign Answer Hong e Recorded In the last 12 months, was t here a time when you were not able to pay the mortgage or rent on time? No 05/16/2025 In the past 12 months, how m any times have you moved where you were living? 1 05/16/2025 At any time in the past 12 m [facility], were you homeless or living in a alf (including now)? No 05/16/2025 Sex and Gender Information Value Date Recorded Sex Assigned at Male 08/14/2023 3:20 PM WEATHER STRIP MECHANIC Legal Sex Male 7:28 PM CDT Gender Identity Male 08/14/2023 3:20 PM WEATHER STRIP MECHANIC Sexual Orientation Straight 08/14/2023 3: 20 PM WEATHER STRIP MECHANIC Last Filed Vital Signs Vital Sign Reading Time Taken Comments Blood Pressure 125/77 08/13/2025 10:34 AM WEATHER STRIP MECHANIC Pulse 86 08/13/2025 10:34 AM WEATHER STRIP MECHANIC Temperature 36.2 C (97.2 F) 06/27/2025 1:18 PM CDT Respiratory Rate 18 08/13/2025 10:34 AM WEATHER STRIP MECHANIC Oxygen Saturation 98% 08/13/2025 10:34 AM WEATHER STRIP MECHANIC Inhaled Oxygen Concentration - - Weight 89.4 kg (197 lb) 08/13/2025 10:34 AM WEATHER STRIP MECHANIC Height 162.6 cm (5' 4) 08/13/2025 10:34 AM WEATHER STRIP MECHANIC Body Mass Index 33.81 08/13/2025 10:34 AM WEATHER STRIP MECHANIC Plan of Treatment Upcoming Encounters Date Type Department Care Team (Late st Contact Info) Description 08/16/2025 1:45 PM WEATHER STRIP MECHANIC Appointment [facility] [address] [place] [address] Bekah Mosley, DPT [address] [place] [address] Benson Joseph, DPM [address] [place] [address] 08/19/2025 2:00 PM WEATHER STRIP MECHANIC Appointment [facility] [address] [place] [address] Bekah Mosley, DPT [address] [place] [address] Benson Joseph, DPM [address] [place] [address] 08/23/2025 1:00 PM WEATHER STRIP MECHANIC Appointment [facility] [address] [place] [address] Bekah Mosley, DPT [address] [place] [address] Benson Joseph, DPM [address] [place] [address] 08/26/2025 1:00 PM WEATHER STRIP MECHANIC Appointment [facility] [address] [place] [address] Benson Joseph, DPM [address] [place] [address] Katty Haley, RESERVOIR ENGINEER 08/31/2025 11:15 AM WEATHER STRIP MECHANIC Appointment [facility] [address] [place] [address] Bekah Mosley DPT [address] [place] [address] Benson Joseph, DPM [address] [place] [address] 09/06/2025 10:00 AM WEATHER STRIP MECHANIC Office Visit [facility] Medical Group Orthopedic Surgery [facility] [address] [address] Epifanio Liu [address] [place] [address] 09/06/2025 11:00 AM WEATHER STRIP MECHANIC Appointment [facility] [address] [place] [address] Bekah Mosley DPT [address] [place] [address] Eniomirtha Benson, DPM [address] [place] [address] 09/09/2025 11:00 AM WEATHER STRIP MECHANIC Appointment [facility] [address] [facility] [place] [address] Bekah Mosley, DPT [address] [place] [address] Eniomirtha Benson, DPM [address] [place] [address] 09/14/2025 11:15 AM WEATHER STRIP MECHANIC Appointment [facility] [address] [place] [address] Bekah Mosley, DPT [address] [place] [address] Benson Joseph, DPM [address] [place] [address] 09/17/2025 11:15 AM WEATHER STRIP MECHANIC Appointment [facility] [address] [place] [address] Benson Joseph, DPM [address] [place], [place] [address] Bekah Mosley, DPT [address] [place] [address] 09/27/2025 10:15 AM WEATHER STRIP MECHANIC Office Visit [facility] [place] [id number] [place] [phone] [place] [address] [place] [address] Health Maintenance Due Date Last Done Comments ASCVD Statin 1940 Diabetes: Retinopathy Eye Exam 1957 Annual Medicare Wellness Visit 2004 RSV Immunization or 60+ Years (1 - 1-dose 75+ series) 2014 ASCVD LDL 07/10/2023 07/10/2022 PHQ-2 (Physician [place]) 10/07/2024 Lipid Panel 04/17/2025 04/17/2024, 10/0 01/2022, 07/31/2021 COVID-19 Vaccine (2024- season) 2025 07/18/2021, 01/03/2021, 12/13/2020 Influenza Adult (#1) 2025 07/25/2019, 07/15/2018, 08/09/2017, Additional history exists Hemoglobin A1C 11/17/2025 05/17/2025, 07/10/2022 DTaP, Tdap and Td Vaccines (2 - Td or Tdap) 12/28/2031 12/27/2021 Pneumococcal Vaccine: 50+ Years Completed 03/24/2018, 04/16/2017 Zoster Vaccines Completed 12/03/2019, 09/28/2019 Hepatitis A Vaccines Aged Out No long er eligible based on patient's age to complete this topic Meningococcal B Vaccine Aged Out No l onger eligible based on patient's age to complete this topic Meningococcal Vaccine Aged Out No rizwana vikram eligible based on patient's age to complete this topic RSV Immunizations Under 20 Months Aged Out No longer eligible based on patient's age to complete this topic Goals Goal Patient Goal Type Associated Problems Recent Progress Patient-Stated? Author Patient will return to prior living situation and remain independent in ADLs upon discharge from hospital Lifestyle No Tegan Raya RN Medical Devices Implanted Type Area Digital Camera Technician Device Identifier Shelf Expiration Date Model / Serial / Lot Bio Bone Putty Implanted:Qty: 1 on 07/23/2023 by Marshall Jara MD at [facility] Bone N/A: Spine Cervical 06/13/2024 [id number] / / [id number] Graft Infuse Bone Xsmall - [id number] Implanted:Qty: 1 on 07/23/2023 by Marshall Jara MD at [facility] Bone N/A: Spine Cervical [employer] 12/04/2024 [id number] / / [id number] C Mesh Progrip Self Fixating 15cm X 10cm Lap - [id number] Implanted:Qty: 1 on 07/17/2024 by Earnest Gonzales MD at [facility] Mesh Left: Inguinal [employer] [id number] 04/05/2027 [id number] / / [id number] Mesh Progrip Self Fixating 15cm X 10cm Lap - [id number] Implanted:Qty: 1 on 07/17/2024 by Earnest Gonzales MD at [facility] Mesh Right: Inguinal [employer] [id number] 01/04/2027 [id number] / / [id number] 63mm Plate Implanted:Qty: 1 on 07/23/2023 by Marshall Jara MD at [facility] Plate N/A: Spine Cervical [id number] / / 16 Mm Vst Screws Implanted:Qty: 8 on 07/23/2023 by Marshall Jara MD at [facility] Screw N/A: Spine Cervical [id number] / / Windsor Interbody System 6mm Implanted:Qty: 1 on 07/23/2023 by Marshall Jara MD at [facility] Spacer N/A: Spine Cervical [id number] 06/15/2028 [id number] / / [id number] Kit Aor Vlv 14fr Cmndr Garrett 3 Atrion 23mm Transcatheter Valve Implant Aorta [employer]NG [id number] / / [place] Interbody System Cervical Interbody Implanted:Qty: 1 on 07/23/2023 by Marshall Jara MD at [facility] N/A: Spine Cervical [id number] 08/12/[id number] / / [id number] Windsor Interbody System Cervical Interbody Implanted:Qty: 1 on 07/23/2023 by Marshall Jara MD at [facility] N/A: Spine Cervical [id number] 08/12/[id number] / / [id number] Explanted Type Area Digital Camera Technician Device Identifier Shelf Expiration Date Model / Serial / Lot Distration Pin 12mm - [id number] Explanted:Qty: 2 on 07/23/2023 by Marshall Jara MD at [facility] Pin N/A: Spine Cervical [facility] [id number] / / Procedures Procedure Name Priority Date/Time Associated Diagnosis Comments PET EYE TO THIGH [id number] Routine 07/30/2025 3:36 PM CDT Abnormal findings on diagnostic imaging of other abdominal regions, including retroperitoneum Other specified disorders of muscle Localized swelling, mass and lump, right lower limb Intra-abdominal and pelvic swelling, mass and lump, unspecified site CT CHEST HIGH RESOLUTION WO CON Routine 07/30/2025 1:32 PM CDT Abnormal findings on diagnostic imaging of other specified body structures Other disorders of lung MRI FOOT LT WO CON Routine 07/22/2025 3: 30 PM CDT Achilles tendinitis, left leg MRI ANKLE LT WO CON Routine 07/22/2025 2 :47 PM CDT Achilles tendinitis, left leg URINALYSIS, AUTO, COMPLETE STAT 06/27/2025 2:05 PM CDT ECG 12-LEAD Routine 06/27/2025 1:[address] HEAD WO CON STAT 06/27/2025 1:40 PM CDT XR CHEST PORTABLE STAT 06/27/2025 1:4 0 PM CDT INFLUENZA A & B STAT 06/27/2025 1:00 PM CDT CORONAVIRUS (COVID 19) STAT 1:00 PM CDT PRO-BRAIN NATRIURETIC PEPTIDE STAT 06/27/2025 1:00 PM CDT LACTIC ACID W REFLEX (SEPSIS) STAT 06/27/2025 1:00 PM CDT TROPONIN, QUANT STAT 06/27/2025 1:00 PM CDT COMPREHENSIVE METABOLIC PANEL STAT 06/27/2025 1:00 PM CDT CBC W/DIFF AUTOMATED STAT 06/27/2025 1:00 PM CDT XR FOOT STANDING LT 3V Routine 1:47 PM CDT Left foot pain XR CHEST PA+LAT STAT 06/04/2025 2:[address] ABD+PEL W CON STAT 06/04/2025 2:44 PM CDT URINALYSIS, AUTO, COMPLETE STAT 06/04/2025 1:56 PM CDT INFLUENZA A & B STAT 06/04/2025 1:07 PM CDT CORONAVIRUS (COVID 19) STAT 1:07 PM CDT LACTIC ACID W REFLEX (SEPSIS) STAT 06/04/2025 1:05 PM CDT ECG 12-LEAD Routine 06/04/2025 1:02 PM CDT TROPONIN, QUANT STAT 06/04/2025 12:27 PM CDT MAGNESIUM STAT 06/04/2025 12:27 PM CDT TSH W/REFLEX STAT 06/04/2025 12:27 PM CDT LIPASE STAT 06/04/2025 12:27 PM CDT COMPREHENSIVE METABOLIC PANEL STAT 06/04/2025 12:27 PM CDT CBC W/DIFF AUTOMATED STAT 06/04/2025 12:27 PM CDT BASIC METABOLIC PANEL Routine 05/17/2025 5:30 AM CDT THYROID STIM HORMONE TSH Routine 05/17/2025 5:30 AM CDT HEMOGLOBIN, GLYCOSYLATED Routine 05/17/2025 5:30 AM CDT MAGNESIUM Routine 05/17/2025 5:30 AM CDT CBC W/DIFF AUTOMATED Routine 05/17/2025 5:30 AM CDT PROCALCITONIN (PCT) Routine 05/16/2025 3 :06 AM CDT MAGNESIUM Routine 05/16/2025 3:06 AM CDT COMPREHENSIVE METABOLIC PANEL STAT 05/16/2025 3:06 AM CDT BLOOD GAS, ARTERIAL LAB STAT 05/16/2025 3:06 AM CDT CTA CHEST+CT ABD+PEL W CON STAT 05/16/2025 2:46 AM CDT CBC W/DIFF AUTOMATED STAT 05/16/2025 2:05 AM CDT XR CHEST PORTABLE STAT 05/16/2025 1:1 9 AM CDT URINALYSIS, AUTO, COMPLETE STAT 05/16/2025 1:06 AM CDT MAGNESIUM STAT 05/16/2025 12:50 AM CDT PRO-BRAIN NATRIURETIC PEPTIDE STAT 05/16/2025 12:50 AM CDT LACTIC ACID W REFLEX (SEPSIS) STAT 05/16/2025 12:50 AM CDT LIPASE STAT 05/16/2025 12:50 AM CDT CK (CPK) STAT 05/16/2025 12:50 AM CDT TROPONIN, QUANT STAT 05/16/2025 12:50 AM CDT COMPREHENSIVE METABOLIC PANEL STAT 05/16/2025 12:50 AM CDT D-DIMER, QUANTITATIVE STAT 05/16/2025 12:50 AM CDT PARTIAL THROMBOPLASTIN TIME,PTT STAT 05/16/2025 12:50 AM CDT PROTHROMBIN TIME, VENOUS STAT 05/16/2025 12:50 AM CDT ECG 12-LEAD Routine 05/16/2025 12:38 AM CDT LIPID PANEL Routine 07/10/2022 9:34 AM CDT from Last 3 Months or Most Recently Relevant to Health Maintenance Results * PET EYE TO THIGH [id number] (07/30/2025 3:36 PM CDT) Anatomical Region Laterality Modality Body Positron Emissio n Tomography (PET) 08/02/2025 10:4 6 AM CDT Impressions 08/02/2025 11:00 AM CDT IMPRESSION: 1. No abnormal FDG accumulation within the 3.5 x 3.1 x 16.6 cm partially calcified right iliopsoas mass visualized on CT. The absence of abnormal FDG uptake within this mass favors, but does not confirm, a benign etiology. A follow-up contrast-enhanced CT of the chest abdomen and pelvis in 3-6 months may be helpful for further evaluation. 2. Mild increased FDG accumulation corresponding to patchy regions of pulmonary opacification involving the posterior aspect of the right middle lobe and right lower lobe which are new compared to the 05/16/2025 CT study. The appearance of these patchy opacities and relatively mild degree of FDG uptake favor an infectious/inflammatory etiology. The above suggested follow-up contrast-enhanced CT of the chest, abdomen, and pelvis in 3-6 months may be helpful for further evaluation. 3. Mild nonfocal FDG uptake within a partially calcified prostate gland. This is nonspecific and may be either physiologic and/or secondary to inflammation. However, recommend correlation to PSA levels and consider further evaluation with ultrasound of the prostate if clinically warranted. 4. See body of report for further details, and additional findings on the CT portion of the study. Referred By: ADRIANA NEW Interpreted By: Sivakumar Powell MD, 08/02/2025 10:46 AM Narrative 08/02/2025 11:00 AM CDT [facility] [address] [place] [address] FDG-PET/CT Imaging Exam Date: 07/30/2025. Exam History: 85-year-old male with an indeterminate rounded partially calcified mass involving the right iliopsoas visualized on CT. Radiopharmaceutical: 11.2 mCi of F-18 fluorodeoxyglucose IV. Comparison: -CT chest without contrast dated 07/30/2025 at 1322 hours. -CT abdomen and pelvis with contrast dated 06/04/2025. -CTA chest and CT abdomen and pelvis with contrast dated 05/16/2025. Technique: After intravenous administration of F-18 fluorodeoxyglucose (FDG), noncontrast CT images were obtained for attenuation correction and for fusion with emission PET images. A dose lowering technique was used for this procedure, which may include, but is not limited to, dose reduction technique, automated exposure control, the use of iterative reconstruction, and ALARA (As Low As Reasonably Achievable) / Image Gently techniques. The noncontrast CT images are not of diagnostic quality and are not used to diagnose disease independently of the PET images. A series of overlapping emission PET images was then obtained 57 minutes after injection of the radiopharmaceutical. The patient's fasting blood glucose level, measured by glucometer before injection of FDG, was 101 mg/dl. The area imaged spanned the region from the skull base to the mid thighs. The mean hepatic SUV = 2.9 (recorded for it quality analyst purposes). FINDINGS: There is no abnormal FDG accumulation within the 3.5 x 3.1 x 16.6 cm partially calcified right iliopsoas mass visualized on CT. The absence of abnormal FDG uptake within this mass favors, but does not confirm, a benign etiology. A follow-up contrast-enhanced CT of the chest abdomen and pelvis in 3-6 months may be helpful for further evaluation. There is mild increased FDG accumulation corresponding to patchy regions of pulmonary opacification involving the posterior aspect of the right middle lobe and right lower lobe which are new compared to the 05/16/2025 CT study. The appearance of these patchy opacities and relatively mild degree of FDG uptake favor an infectious/inflammatory etiology. The above suggested follow-up contrast-enhanced CT of the chest, abdomen, and pelvis in 3-6 months may be helpful for further evaluation. There is nonfocal mild FDG uptake within a partially calcified prostate gland. This is nonspecific and may be either physiologic and/or secondary to inflammation. However, recommend correlation to PSA levels and consider further evaluation with ultrasound of the prostate if clinically warranted. There are are sites of uptake in a pattern consistent with degenerative inflammation involving the shoulders (right worse on left) and spine. Intraluminal uptake within several loops of bowel is most likely either physiologic or secondary to inflammation. Physiologically excreted FDG is visualized within the kidneys, ureters, and bladder. Additional findings on the CT portion the study include extensive streak artifact partially obscuring the oral cavity from the patient's dental amalgam; streak artifact from fixation hardware in the cervical and lumbar spine, as well as the patient's bilateral hip arthroplasties; cardiomegaly; prosthetic heart valve; extensive atherosclerotic calcification of the coronary arteries and aorta; post cholecystectomy clips in the gallbladder fossa; stable bilateral renal cysts; the above-mentioned partially calcified right iliopsoas mass without associated abnormal FDG uptake; colonic diverticulosis without findings to suggest acute diverticulitis, and 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 Procedure Note Sivakumar Powell MD - 08/02/2025 [facility] [id number] [place] [address] FDG-PET/CT Imaging Exam Date: 07/30/2025. Exam History: 85-year-old male with an indeterminate rounded partially calcified massinvolving the right iliopsoas visualized on CT. Radiopharmaceutical: 11.2 mCi of F-18 fluorodeoxyglucose IV. Comparison: -CT chest without contrast dated 07/30/2025 at 1322 hours. -CT abdomen and pelvis with contrast dated 06/04/2025. -CTA chest and CT abdomen and pelvis with contrast dated 05/16/2025. Technique: After intravenous administration of F-18 fluorodeoxyglucose (FDG),noncontrast CT images were obtained for attenuation correction and forfusion with emission PET images. A dose lowering technique was used forthis procedure, which may include, but is not limited to, dose reductiontechnique, automated exposure control, the use of iterativereconstruction, and ALARA (As Low As Reasonably Achievable) / Image Gentlytechniques. The noncontrast CT images are not of diagnostic quality andare not used to diagnose disease independently of the PET images. Aseries of overlapping emission PET images was then obtained 57 minutesafter injection of the radiopharmaceutical. The patient's fasting bloodglucose level, measured by glucometer before injection of FDG, was 101mg/dl. The area imaged spanned the region from the skull base to the midthighs. The mean hepatic SUV = 2.9 (recorded for quality controlpurposes). FINDINGS: There is no abnormal FDG accumulation within the 3.5 x 3.1 x 16.6 cmpartially calcified right iliopsoas mass visualized on CT. The absence ofabnormal FDG uptake within this mass favors, but does not confirm, abenign etiology. A follow-up contrast-enhanced CT of the chest abdomenand pelvis in 3-6 months may be helpful for further evaluation. There is mild increased FDG accumulation corresponding to patchy regionsof pulmonary opacification involving the posterior aspect of the rightmiddle lobe and right lower lobe which are new compared to the 05/16/2025 study. The appearance of these patchy opacities and relatively milddegree of FDG uptake favor an infectious/inflammatory etiology. The abovesuggested follow-up contrast-enhanced CT of the chest, abdomen, and pelvisin 3-6 months may be helpful for further evaluation. There is nonfocal mild FDG uptake within a partially calcified prostategland. This is nonspecific and may be either physiologic and/or secondaryto inflammation. However, recommend correlation to PSA levels andconsider further evaluation with ultrasound of the prostate if clinicallywarranted. There are are sites of uptake in a pattern consistent with degenerativeinflammation involving the shoulders (right worse on left) and spine.Intraluminal uptake within several loops of bowel is most likely eitherphysiologic or secondary to inflammation. Physiologically excreted FDG is visualized within the kidneys, ureters,and bladder. Additional findings on the CT portion the study include extensive streakartifact partially obscuring the oral cavity from the patient's dentalamalgam; streak artifact from fixation hardware in the cervical and lumbarspine, as well as the patient's bilateral hip arthroplasties;cardiomegaly; prosthetic heart valve; extensive atheroscleroticcalcification of the coronary arteries and aorta; post cholecystectomyclips in the gallbladder fossa; stable bilateral renal cysts; theabove-mentioned partially calcified right iliopsoas mass withoutassociated abnormal FDG uptake; colonic diverticulosis without findings tosuggest acute diverticulitis, and degenerative changes involving theshoulders and spine. IMPRESSION: 1. No abnormal FDG accumulation within the 3.5 x 3.1 x 16.6 cm partiallycalcified right iliopsoas mass visualized on CT. The absence of abnormalFDG uptake within this mass favors, but does not confirm, a benignetiology. A follow-up contrast- enhanced CT of the chest abdomen andpelvis in 3-6 months may be helpful for further evaluation. 2. Mild increased FDG accumulation corresponding to patchy regions ofpulmonary opacification involving the posterior aspect of the right middlelobe and right lower lobe which are new compared to the 05/16/2025 CTstudy. The appearance of these patchy opacities and relatively milddegree of FDG uptake favor an infectious/inflammatory etiology. The abovesuggested follow-up contrast-enhanced CT of the chest, abdomen, and pelvisin 3-6 months may be helpful for further evaluation. 3. Mild nonfocal FDG uptake within a partially calcified prostate gland.This is nonspecific and may be either physiologic and/or secondary toinflammation. However, recommend correlation to PSA levels and considerfurther evaluation with ultrasound of the prostate if clinicallywarranted. 4. See body of report for further details, and additional findings on theCT portion of the study. Referred By: ADRIANA NEW Interpreted By: Sivakumar Powell MD, 08/02/2025 10:46 AM us Adriana New PA-C PET Final Resu lt * CT CHEST HIGH RESOLUTION WO CON (07/30/2025 1:32 PM CDT) Anatomical Region Laterality Modality Chest Computed Tomogra phy 08/10/2025 10:2 0 AM WEATHER STRIP MECHANIC Impressions 08/10/2025 11:23 AM WEATHER STRIP MECHANIC IMPRESSION: 1. Infectious bronchiolitis with development of bronchopneumonia component, worsened since comparison 05/16/2025. Recommend follow-up in 4-12 weeks after appropriate treatment to exclude neoplasm and evaluate response to treatment. The attending radiologist has reviewed the image(s) and agrees with the content of this report. Ordered By: ADRIANA NEW Interpreted By: Milo Townsend MD, 08/10/2025 10:20 AM Narrative 08/10/2025 11:23 AM WEATHER STRIP MECHANIC [facility] [address] [facility]. [place] [id number] EXAMINATION: CT CHEST HIGH RESOLUTION WO CON EXAM TIME: 07/30/2025 1:20 PM HISTORY: Concern for pneumonia. Per chart review, weakness and fatigue. COMPARISON: Chest x-ray 06/27/2025. CTA chest abdomen pelvis 05/16/2025. TECHNIQUE: CT of the chest was performed without IV contrast with HRCT protocol. Sagittal and coronal reconstructions were performed. Dose reduction techniques were utilized, including but not limited to: dose reduction, automated exposure control, and/or the use of iterative reconstruction, in accordance with ALARA (As Low As Reasonably Achievable)/Image Gently principle. Marmolejo: (Series number / Image number) FINDINGS: BASE OF NECK: Artifact from anterior cervical fusion hardware. PULMONARY: Multifocal patchy groundglass and consolidative opacities greatest in the right mid and lower lungs. Multiple bilateral micronodules and tree-in-bud opacities, right greater than left. Few scattered calcified granulomas. No pleural effusions. No pneumothorax. HEART: Heart size is within normal limits. TAVR. Coronary calcifications. VASCULATURE: The thoracic aorta is normal in caliber. The pulmonary artery is within normal limits. Atherosclerotic aortic calcifications. LYMPHATIC: Anterior mediastinal lymph nodes measuring up to 9 mm (3/), likely reactive. UPPER ABDOMEN: Cholecystectomy. Partially visualized bilateral renal cysts. Renal artery calcifications. MUSCULOSKELETAL: Spondylosis. Partially visualized anterior cervical fusion. Partially visualized posterior lumbar fusion. No significant soft tissue abnormality is seen. Procedure Note Abran Wang MD - 08/10/2025 [facility] [address] [place] [address] EXAMINATION: CT CHEST HIGH RESOLUTION WO CON EXAM TIME: 07/30/2025 1:20 PM HISTORY: Concern for pneumonia. Per chart review, weakness and fatigue. COMPARISON: Chest x-ray 06/27/2025. CTA chest abdomen pelvis 05/16/2025. TECHNIQUE: CT of the chest was performed without IV contrast with HRCTprotocol. Sagittal and coronal reconstructions were performed. Dosereduction techniques were utilized, including but not limited to: dosereduction, automated exposure control, and/or the use of iterativereconstruction, in accordance with ALARA (As Low As ReasonablyAchievable)/Image Gently principle. [place]armolejo: (Series number / Image number) FINDINGS: BASE OF NECK: Artifact from anterior cervical fusion hardware. PULMONARY: Multifocal patchy groundglass and consolidative opacitiesgreatest in the right mid and lower lungs. Multiple bilateral micronodulesand tree-in-bud opacities, right greater than left. Few scatteredcalcified granulomas. No pleural effusions. No pneumothorax. HEART: Heart size is within normal limits. TAVR. Coronarycalcifications. VASCULATURE: The thoracic aorta is normal in caliber. The pulmonary arteryis within normal limits. Atherosclerotic aortic calcifications. LYMPHATIC: Anterior mediastinal lymph nodes measuring up to 9 mm (3/27),likely reactive. UPPER ABDOMEN: Cholecystectomy. Partially visualized bilateral renalcysts. Renal artery calcifications. MUSCULOSKELETAL: Spondylosis. Partially visualized anterior cervicalfusion. Partially visualized posterior lumbar fusion. No significant softtissue abnormality is seen. IMPRESSION: 1. Infectious bronchiolitis with development of bronchopneumoniacomponent, worsened since comparison 05/16/2025. Recommend follow-up in4-12 weeks after appropriate treatment to exclude neoplasm and evaluateresponse to treatment. The attending radiologist has reviewed the image(s) and agrees with thecontent of this report. Ordered By: ADRIANA NEW Interpreted By: Milo Townsend MD, 08/10/2025 10:20 AM us Adriana New PA-C CT Final Resu lt * MRI FOOT LT WO CON (07/22/2025 3:30 PM CDT) Anatomical Region Laterality Modality Foot Magnetic Resonan ce 08/03/2025 4:10 PM CDT Impressions 08/03/2025 4:37 PM CDT IMPRESSION: 1. Tendinosis of the Achilles with intrasubstance tearing at its lateral midportion and insertional aspects with findings of a paratenonitis. 2. Moderate tendinosis of the peroneus longus. Mild tendinosis of the posterior tibialis. 3. Otherwise limited examination due to motion degradation. Ordered By: BENSON JOSEPH Interpreted By: Dom Tiwari MD, 08/03/2025 4:10 PM Narrative 08/03/2025 4:37 PM CDT [facility] [address] [facility]. [place] [id number] EXAMINATION: MRI FOOT LT WO CON, MRI ANKLE LT WO CON DATE: 07/22/2025 1:47 PM HISTORY: 85-year-old male with Achilles tendinitis. COMPARISON: Left foot radiography 06/10/2025 TECHNIQUE: Multiplanar, multisequence MR imaging of the left ankle and left foot was performed according to routine protocol without complication. FINDINGS: Examination is degraded by patient motion, limiting sensitivity. There is expansion and increased signal within the distal Achilles tendon and paratenon relating to a combination of tendinosis and paratenonitis. The Achilles tendon measures 1.6 cm in AP dimension at its midportion (series 6 image 23). There is also intrasubstance tearing of the Achilles tendon both at its midportion and insertional aspects laterally (series 5 image 26). Anterior tendons are normal. Mild tendinosis of the posterior tibialis. Remaining posterior tendons appear grossly intact. There is moderate tendinosis of the peroneus longus (series 5 image 13). Peroneus brevis appears grossly intact. Tibiofibular, talofibular, and calcaneofibular ligaments appear grossly intact. Deltoid and spring ligamentous complexes appear grossly intact. Lisfranc ligament is intact. Remaining ligaments of the ankle and foot are inadequately assessed due to motion degradation. No acute fracture or destructive osseous lesion is identified. Normal marrow signal is preserved. Moderate osteoarthritis throughout the ankle, hindfoot, and midfoot. Small tibiotalar effusion. Physiologic volume of fluid throughout the subtalar joints. There is mild subcutaneous edema throughout the ankle and hindfoot. Procedure Note Dom Tiwari MD - 08/03/2025 [facility] [address] [place] [address] EXAMINATION: MRI FOOT LT WO CON, MRI ANKLE LT WO CON DATE: 07/22/2025 1:47 PM HISTORY: 85-year-old male with Achilles tendinitis. COMPARISON: Left foot radiography 06/10/2025 TECHNIQUE: Multiplanar, multisequence MR imaging of the left ankle andleft foot was performed according to routine protocol withoutcomplication. FINDINGS: Examination is degraded by patient motion, limiting sensitivity. There is expansion and increased signal within the distal Achilles tendonand paratenon relating to a combination of tendinosis and paratenonitis.The Achilles tendon measures 1.6 cm in AP dimension at its midportion(series 6 image 23). There is also intrasubstance tearing of the Achillestendon both at its midportion and insertional aspects laterally (series 5image 26). Anterior tendons are normal. Mild tendinosis of the posterior tibialis.Remaining posterior tendons appear grossly intact. There is moderatetendinosis of the peroneus longus (series 5 image 13). Peroneus brevisappears grossly intact. Tibiofibular, talofibular, and calcaneofibular ligaments appear grosslyintact. Deltoid and spring ligamentous complexes appear grossly intact.Lisfranc ligament is intact. Remaining ligaments of the ankle and foot areinadequately assessed due to motion degradation. No acute fracture or destructive osseous lesion is identified. Normalmarrow signal is preserved. Moderate osteoarthritis throughout the ankle,hindfoot, and midfoot. Small tibiotalar effusion. Physiologic volume offluid throughout the subtalar joints. There is mild subcutaneous edemathroughout the ankle and hindfoot. IMPRESSION: 1. Tendinosis of the Achilles with intrasubstance tearing at its lateralmidportion and insertional aspects with findings of a paratenonitis. 2. Moderate tendinosis of the peroneus longus. Mild tendinosis of theposterior tibialis. 3. Otherwise limited examination due to motion degradation. Ordered By: BENSON JOSEPH Interpreted By: Dom Tiwari MD, 08/03/2025 4:10 PM Benson Joseph [facility] MRI Final Result * MRI ANKLE LT WO CON (07/22/2025 2:47 PM CDT) Anatomical Region Laterality Modality Ankle Magnetic Resonan ce 08/03/2025 4:10 PM CDT Impressions 08/03/2025 4:37 PM CDT IMPRESSION: 1. Tendinosis of the Achilles with intrasubstance tearing at its lateral midportion and insertional aspects with findings of a paratenonitis. 2. Moderate tendinosis of the peroneus longus. Mild tendinosis of the posterior tibialis. 3. Otherwise limited examination due to motion degradation. Ordered By: BENSON JOSEPH Interpreted By: Dom Tiwari MD, 08/03/2025 4:10 PM Narrative 08/03/2025 4:37 PM CDT [facility] [address] [place] [address] EXAMINATION: MRI FOOT LT WO CON, MRI ANKLE LT WO CON DATE: 07/22/2025 1:47 PM HISTORY: 85-year-old male with Achilles tendinitis. COMPARISON: Left foot radiography 06/10/2025 TECHNIQUE: Multiplanar, multisequence MR imaging of the left ankle and left foot was performed according to routine protocol without complication. FINDINGS: Examination is degraded by patient motion, limiting sensitivity. There is expansion and increased signal within the distal Achilles tendon and paratenon relating to a combination of tendinosis and paratenonitis. The Achilles tendon measures 1.6 cm in AP dimension at its midportion (series 6 image 23). There is also intrasubstance tearing of the Achilles tendon both at its midportion and insertional aspects laterally (series 5 image 26). Anterior tendons are normal. Mild tendinosis of the posterior tibialis. Remaining posterior tendons appear grossly intact. There is moderate tendinosis of the peroneus longus (series 5 image 13). Peroneus brevis appears grossly intact. Tibiofibular, talofibular, and calcaneofibular ligaments appear grossly intact. Deltoid and spring ligamentous complexes appear grossly intact. Lisfranc ligament is intact. Remaining ligaments of the ankle and foot are inadequately assessed due to motion degradation. No acute fracture or destructive osseous lesion is identified. Normal marrow signal is preserved. Moderate osteoarthritis throughout the ankle, hindfoot, and midfoot. Small tibiotalar effusion. Physiologic volume of fluid throughout the subtalar joints. There is mild subcutaneous edema throughout the ankle and hindfoot. Procedure Note Dom Tiwari MD - 08/03/2025 [facility] [address] [facility] [place] [address] EXAMINATION: MRI FOOT LT WO CON, MRI ANKLE LT WO CON DATE: 07/22/2025 1:47 PM HISTORY: 85-year-old male with Achilles tendinitis. COMPARISON: Left foot radiography 06/10/2025 TECHNIQUE: Multiplanar, multisequence MR imaging of the left ankle andleft foot was performed according to routine protocol withoutcomplication. FINDINGS: Examination is degraded by patient motion, limiting sensitivity. There is expansion and increased signal within the distal Achilles tendonand paratenon relating to a combination of tendinosis and paratenonitis.The Achilles tendon measures 1.6 cm in AP dimension at its midportion(series 6 image 23). There is also intrasubstance tearing of the Achillestendon both at its midportion and insertional aspects laterally (series 5image 26). Anterior tendons are normal. Mild tendinosis of the posterior tibialis.Remaining posterior tendons appear grossly intact. There is moderatetendinosis of the peroneus longus (series 5 image 13). Peroneus brevisappears grossly intact. Tibiofibular, talofibular, and calcaneofibular ligaments appear grosslyintact. Deltoid and spring ligamentous complexes appear grossly intact.Lisfranc ligament is intact. Remaining ligaments of the ankle and foot areinadequately assessed due to motion degradation. No acute fracture or destructive osseous lesion is identified. Normalmarrow signal is preserved. Moderate osteoarthritis throughout the ankle,hindfoot, and midfoot. Small tibiotalar effusion. Physiologic volume offluid throughout the subtalar joints. There is mild subcutaneous edemathroughout the ankle and hindfoot. IMPRESSION: 1. Tendinosis of the Achilles with intrasubstance tearing at its lateralmidportion and insertional aspects with findings of a paratenonitis. 2. Moderate tendinosis of the peroneus longus. Mild tendinosis of theposterior tibialis. 3. Otherwise limited examination due to motion degradation. Ordered By: BENSON JOSEPH Interpreted By: Dom Tiwari MD, 08/03/2025 4:10 PM Benson Joseph [facility] MRI Final Result * URINALYSIS, AUTO, COMPLETE (06/27/2025 2:05 PM CDT) Only the most recent of3 resultswithin the time period is included. COLOR (U) YELLOW 06/27/2025 3:07 PM CDT [facility] TRANSPARENCY CLEAR 06/27/2025 3:07 PM CDT [facility] SPECIFIC GRAVITY (U) 1.015 1.000 - 1.030 06/27/2025 3:07 PM CDT [facility] U PH 6.0 5.0 - 9.0 06/27/2025 3:07 PM CDT [facility] LEUKOCYTES (U) NEGATIVE NEGATIVE 06/27/2025 3:07 PM CDT [facility] NITRITES NEGATIVE NEGATIVE 06/27/2025 3:07 PM CDT [facility] PROTEIN RANDOM (U) NEGATIVE NEGATIVE 06/27/2025 3:07 PM CDT [facility] GLUCOSE (U) NEGATIVE NEGATIVE 06/27/2025 3:07 PM CDT [facility] KETONES MG/DL (U) NEGATIVE NEGATIVE 06/27/2025 3:07 PM CDT [facility] BILIRUBIN (U) NEGATIVE NEGATIVE 06/27/2025 3:07 PM CDT [facility] BLOOD (U) NEGATIVE NEGATIVE 06/27/2025 3:07 PM CDT [facility] WBC/HPF NONE SEEN 0 - 5 /HPF 06/27/2025 3:07 PM CDT [facility] RBC/HPF NONE SEEN 0 - 5 /HPF 06/27/2025 3:07 PM CDT [facility] EPI/HPF FEW /HPF 06/27/2025 3:07 PM CDT [facility] URINE SPECIMEN OBTAINED BY CLEAN CATCH PROCEDURE / Unknown 06/27/2025 2:05 PM CDT us John Coffey MD URINE ORDERABLES Final Result [facility] [address] [place] [address], [place] [phone] * ECG 12 lead (06/27/2025 1:46 PM CDT) Only the most recent of3 resultswithin the time period is included. 06/27/2025 1:46 PM CDT Narrative [facility] ([facility]) RAD - 06/30/2025 8:39 AM CDT [facility] Test Date: 2025-06-27 Pat Name: SATISH TAPIA Department: 85 Room: [place] [address] Gender: Male [employer]: : 1940 Requested By: JOHN COFFEY Order Number: [id number] Luis MD: Dain Valles Measurements Intervals [place] Rate: 76 P: 87 MI: 302 QRS: -46 QRSD: 152 T: 107 QT: 436 QTc: 490 Interpretive Statements SINUS RHYTHM WITH SINUS ARRHYTHMIA WITH FIRST DEGREE AV BLOCK LEFT AXIS DEVIATION [QRS AXIS < -30] LEFT BUNDLE BRANCH BLOCK [120+ ms QRS DURATION, 80+ ms Q/S IN V1/V2, 85+ ms R IN I/aVL/V5/V6] Compared to ECG 06/04/2025 13:02:16 No significant changes Procedure Note Dain Valles MD - 06/30/[address]25 [facility] [facility] Test Date: 2025-06-27 Pat Name: SATISH TAPIA Department: 85 Room: [place] [address] Gender: Male Product T[employer]: : 1940 Requested By: JOHN COFFEY Order Number: [id number] Reading MD: Dain Valles Measurements Intervals [place] Rate: 76 P: 87 MI: 302 QRS: -46 QRSD: 152 T: 107 QT: 436 QTc: 490 Interpretive Statements SINUS RHYTHM WITH SINUS ARRHYTHMIA WITH FIRST DEGREE AV BLOCK LEFT AXIS DEVIATION [QRS AXIS < -30] LEFT BUNDLE BRANCH BLOCK [120+ ms QRS DURATION, 80+ ms Q/S IN V1/V2, 85+ms R IN I/aVL/V5/V6] Compared to ECG 06/04/2025 13:02:16 No significant changes us John Coffey MD ECG ORDERABLES Final Result [facility] ([facility]) RAD * CT HEAD WO CON (06/27/2025 1:40 PM CDT) Anatomical Region Laterality Modality Head Computed Tomogra phy 06/27/2025 1:49 PM CDT Impressions 06/27/2025 1:50 PM CDT IMPRESSION: Stable head CT with senescent changes. No acute findings Ordered By: JOHN COFFEY Interpreted By: Cm Del Cid MD, 06/27/2025 1:49 PM Narrative 06/27/2025 1:50 PM CDT [facility] [address] [place] [id number] CT HEAD WITHOUT CONTRAST Exam date: 06/27/2025 1:49 PM Clinical history: Injury, pain Technique: 3 mm collimated axial images of the head were obtained without contrast. A dose lowering technique was used for this procedure, which may include, but is not limited to, dose reduction technique, automated exposure control, the use of iterative reconstruction, and ALARA (As Low As Reasonably Achievable) / Image Gently techniques. Comparison: November 04, 2024 FINDINGS: Images of the head demonstrate no evidence of acute or chronic intracranial hemorrhage. No masses or mass effects are seen. The ventricles and sulci are symmetric but enlarged consistent with diffuse global atrophy. This is unchanged from previous. There is no evidence of midline shift. Chronic small vessel ischemic changes are again noted in the periventricular white matter. These remain stable. No extra-axial fluid collections are noted. The basilar cisterns are widely patent. The cerebellum is unchanged Bone windows reveal the paranasal sinuses and mastoid air cells to appear clear. There is no evidence of fracture. Procedure Note Cm Del Cid MD - 06/27/2025 [facility] [address] [place] [address] CT HEAD WITHOUT CONTRAST Exam date: 06/27/2025 1:49 PM Clinical history: Injury, pain Technique: 3 mm collimated axial images of the head were obtained withoutcontrast. A dose lowering technique was used for this procedure, which mayinclude, but is not limited to, dose reduction technique, automatedexposure control, the use of iterative reconstruction, and ALARA (As LowAs Reasonably Achievable) / Image Gently techniques. Comparison: November 04, 2024 FINDINGS: Images of the head demonstrate no evidence of acute or chronicintracranial hemorrhage. No masses or mass effects are seen. Theventricles and sulci are symmetric but enlarged consistent with diffuseglobal atrophy. This is unchanged from previous. There is no evidence ofmidline shift. Chronic small vessel ischemic changes are again noted inthe periventricular white matter. These remain stable. No extra- axialfluid collections are noted. The basilar cisterns are widely patent. Thecerebellum is unchanged Bone windows reveal the paranasal sinuses and mastoid air cells to appearclear. There is no evidence of fracture. IMPRESSION: Stable head CT with senescent changes. No acute findings Ordered By: JOHN COFFEY Interpreted By: Cm Del Cid MD, 06/27/2025 1:49 PM John Coffey MD CT Final Result * XR CHEST PORTABLE (06/27/2025 1:40 PM CDT) Only the most recent of2 resultswithin the time period is included. Anatomical Region Laterality Modality Chest Radiographic Akila ging 06/27/2025 1:48 PM CDT Impressions 06/27/2025 1:49 PM CDT IMPRESSION: Stable chest Ordered By: JOHN COFFEY Interpreted By: Cm Del Cid MD, 06/27/2025 1:48 PM Narrative 06/27/2025 1:49 PM CDT [address] [place] [address] SINGLE VIEW OF THE CHEST Clinical history: Weakness Comparison: June 04, 2025 A single view of the chest demonstrates the cardiac silhouette to be normal in size and appears stable. A TAVR prosthesis remains in stable, satisfactory position. The pulmonary vessels are normally distributed. The Lungs are clear. No consolidations or effusions are seen. Procedure Note Cm Del Cid MD - 06/27/2025 [facility] [id number] [place] [address]. [place] [id number] SINGLE VIEW OF THE CHEST Clinical history: Weakness Comparison: June 04, 2025 A single view of the chest demonstrates the cardiac silhouette to benormal in size and appears stable. A TAVR prosthesis remains in stable,satisfactory position. The pulmonary vessels are normally distributed. TheLungs are clear. No consolidations or effusions are seen. IMPRESSION: Stable chest Ordered By: JOHN COFFEY Interpreted By: Cm Del Cid MD, 06/27/2025 1:48 PM John Coffey MD GENERAL IMAGING Final Result * LACTIC ACID W REFLEX (SEPSIS) (06/27/2025 1:00 PM CDT) Only the most recent of3 resultswithin the time period is included. [facility] LACTIC ACID VENOUS 0.8 0.4 - 2.0 MMOL/L 06/27/2025 1:43 PM CDT [facility] 06/27/2025 1:00 PM CDT John Coffey MD LABORATORY Final Result [facility] [address] [place] [id number], * CORONAVIRUS (COVID-19) MOLECULAR (06/27/2025 1:00 PM CDT) Only the most recent of2 resultswithin the time period is included. [facility] CORONAVIRUS SARS COV 2 RNA NEGATIVE NEGATIVE 06/27/2025 1:49 PM CDT [facility] Comment: NEGATIVE RESULTS DO NOT RULE OUT COVID 19 AND SHOULD NOT BE USED THE SOLE BASIS FOR TREATMENT OR PATIENT MANAGEMENT DECISIONS, INCLUDING INFECTION CONTROL DECISIONS. NEGATIVE RESULTS SHOULD BE CONSIDERED IN THE CONTEXT OF A PATIENT'S RECENT EXPOSURES, HISTORY AND THE PRESENCE OF CLINICAL SIGNS AND SYMPTOMS CONSISTENT WITH COVID 19. THE ID NOW COVID-19 2.0 TEST HAS BEEN AUTHORIZED BY THE FDA UNDER EAU FOR USE BY AUTHORIZED LABORATORIES. PERFORMED BY NUCLEIC ACID AMPLIFICATION FOR MOLECULAR QUALITATIVE DETECTION OF SARS-COV-2. SPECIMEN TYPE NASAL 06/27/2025 1:21 PM CDT [facility] NASOPHARYNGEAL SWAB / Unknown 06/27/2025 1:00 PM CDT us John Coffey MD MICROBIOLOGY - GENERAL ORDERABLE S Final Result Performing Organization Address City/[facility]/ZIP Co de Phone Number [facility] [address] [place] [address], [place] [phone] * (ABNORMAL) PRO-BRAIN NATRIURETIC PEPTIDE (06/27/2025 1:00 PM CDT) Only the most recent of2 resultswithin the time period is included. PRO-B TYPE NATRIURETIC PEPTIDE 1,008(H) <450 PG/ML 06/27/2025 1:43 PM CDT [facility] Comment: CUT POINTS ESTABLISHED BY [employer]NATIONAL [employer] ON NT PROBNP (ICON) STUDY (2006). AGE INDEPENDENT: <300 PG/ML HAS A 99% NEGATIVE PREDICTIVE VALUE FOR EXCLUDING ACUTE CHF <50 YEARS: >450 PG/ML IS CONSISTENT WITH ACUTE CHF 50-75 YEARS: >900 PG/ML IS CONSISTENT WITH ACUTE CHF >75 YEARS: >1800 PG/ML IS CONSISTENT WITH ACUTE CHF IN PATIENTS WITH RENAL INSUFFICIENCY (GFR <60), >1200 PG/ML YIELDS A DIAGNOSTIC SENSITIVITY AND SPECIFICITY OF 89% AND 72% FOR ACUTE CHF. 06/27/2025 1:00 PM CDT us John Coffey MD LABORATORY Final Result Performing Organization Address City/[facility]/ZIP Co de Phone Number [facility] [address] [place] [address], [place] [phone] * INFLUENZA A & B (06/27/2025 1:00 PM CDT) Only the most recent of2 resultswithin the time period is included. SPECIMEN TYPE NASOPHARYNX 06/27/2025 1:25 PM CDT [facility] INFLUENZA A NEGATIVE NEGATIVE 06/27/2025 1:50 PM CDT [facility] INFLUENZA B NEGATIVE NEGATIVE 06/27/2025 1:50 PM CDT [facility] NASAL STRUCTURE / Unknown 06/27/2025 1:00 PM CDT us John Coffey MD MICROBIOLOGY - GENERAL ORDERABLE S Final Result [facility] [address] [place] [address], [place] [phone] * (ABNORMAL) COMPREHENSIVE METABOLIC PANEL (06/27/2025 1:00 PM CDT) Only the most recent of4 resultswithin the time period is included. GLUCOSE 94 70 - 99 MG/DL 06/27/2025 1:43 PM CDT [facility] BUN 58(H) 7 - 18 MG/DL 06/27/2025 1:43 PM CDT [facility] CREATININE S/P/B 1.27 0.7 - 1.3 MG/DL 06/27/2025 1:43 PM CDT [facility] SODIUM S/P/B 137 136 - 145 MMOL/L 06/27/2025 1:43 PM CDT [facility] POTASSIUM S/P/B 5.1 3.5 - 5.1 MMOL/L 06/27/2025 1:43 PM CDT [facility] CHLORIDE S/P/B 104 100 - 108 MMOL/L 06/27/2025 1:43 PM CDT [facility] CO2 26.5 21 - 32 MMOL/L 06/27/2025 1:43 PM CDT [facility] CALCIUM S/P/B 9.4 8.5 - 10.1 MG/DL 06/27/2025 1:43 PM [facility] BILIRUBIN TOTAL S/P/B 0.3 0.2 - 1.2 MG/DL 06/27/2025 1:43 PM [facility] TOTAL PROTEIN S/P/B 7.0 6.4 - 8.2 G/DL 06/27/2025 1:43 PM [facility] ALBUMIN S/P/B 3.4 3.4 - 5.0 G/DL 06/27/2025 1:43 PM [facility] AST 30 15 - 37 U/L 06/27/2025 1:43 PM [facility] ALT 27 16 - 60 U/L 06/27/2025 1:43 PM [facility] ALKALINE PHOSPHATASE S/P/B 45(L) 50 - 136 U/L 06/27/2025 1:43 PM [facility] ANION GAP 6.5 5 - 15 MMOL/L 06/27/2025 1:43 PM [facility] BUN CREATININE RATIO 45.7(H) 6 - 26 06/27/2025 1:43 PM [facility] A/G RATIO 0.9(L) 1.0 - 2.0 RATIO 06/27/2025 1:43 PM [facility] GFR ESTIMATE 55(L) >90 ML/MIN/1.7 3 M2 06/27/2025 1:43 PM [facility] Comment: NOTE: eGFR is not calculated for patients <18 years of age. This is an estimated GFR calculation using the new CKD EPI creatinine equation without race and so does not require a correction factor for race. This estimated GFR should not be used for calculating drug doses. 06/27/2025 1:00 PM CDT John Coffey MD LABORATORY Final Result [facility] [address] [place] [address], * (ABNORMAL) CBC W/DIFF AUTOMATED (06/27/2025 1:00 PM CDT) Only the most recent of4 resultswithin the time period is included. WBC 7.62 4.4 - 11.0 x10'3/uL 06/27/2025 1:29 PM CDT [facility] RBC 2.79(L) 4.50 - 5.90 x10'6/uL 06/27/2025 1:29 PM CDT [facility] HGB 9.1(L) 14.0 - 17.5 G/DL 06/27/2025 1:29 PM CDT [facility] HCT 28.8(L) 41.5 - 50.4 % 06/27/2025 1:29 PM CDT [facility] MCV 103.2(H) 80.0 - 96.0 FL 06/27/2025 1:29 PM CDT [facility] MCH 32.6(H) 26.5 - 31.4 PG 06/27/2025 1:29 PM CDT [facility] MCHC 31.6(L) 31.9 - 34.8 G/DL 06/27/2025 1:29 PM CDT [facility] RDW 15.9(H) 12.3 - 14.3 % 06/27/2025 1:29 PM CDT [facility] PLT 207 151 - 353 x10'3/uL 06/27/2025 1:29 PM CDT [facility] MPV 9.6(L) 9.7 - 11.9 FL 06/27/2025 1:29 PM CDT [facility] RBC MORPHOLOGY NORMAL 06/27/2025 1:29 PM CDT [facility] PLT MORPH. NORMAL 06/27/2025 1:29 PM CDT [facility] WBC MORPHOLOGY NORMAL 06/27/2025 1:29 PM CDT [facility] LYMPHOCYTES % 15.7(L) 15.8 - 45.0 % 06/27/2025 1:29 PM CDT [facility] NEUTROPHILS % 71.3 42.1 - 71.9 % 06/27/2025 1:29 PM CDT [facility] MONOCYTES % 9.3 5.7 - 12.5 % 06/27/2025 1:29 PM CDT [facility] EOSINOPHILS 3.0 0.0 - 5.6 % 06/27/2025 1:29 PM CDT [facility] BASOPHILS 0.3 0.0 - 1.3 % 06/27/2025 1:29 PM CDT [facility] ABS. NEUTROPHILS 5.43 1.40 - 6.00 x10'3/uL 06/27/2025 1:29 PM CDT [facility] IMMATURE GRANS % 0.4 0.0 - 0.5 % 06/27/2025 1:29 PM CDT [facility] ABS. LYMPHOCYTES 1.20 0.80 - 4.70 x10'3/uL 06/27/2025 1:29 PM CDT [facility] 06/27/2025 1:00 PM CDT us John Coffey MD LABORATORY Final Result [facility] [address] [place] [address], * TROPONIN, QUANT (06/27/2025 1:00 PM CDT) Only the most recent of3 resultswithin the time period is included. TROPONIN I HIGH SENSITIVITY 41 0 - 75 ng/L 06/27/2025 1:40 PM CDT [facility] Comment: HIGH DOSES OF BIOTIN, TROPONIN-SPECIFIC AUTOANTIBODIES, AND ANTIBODY THERAPY CONTAINING HAMA MAY INTERFERE WITH THIS TEST RESULT. CORRELATION TO CLINICAL HISTORY AND PRESENTATION RECOMMENDED. 06/27/2025 1:00 PM CDT us John Coffey MD LABORATORY Final Result [facility] [address] [place] [address], [place] [phone] * XR FOOT STANDING LT 3V (06/10/2025 1:47 PM CDT) Anatomical Region Laterality Modality Foot Radiographic Akila ging 06/10/2025 3:07 PM CDT Impressions 06/10/2025 3:11 PM CDT IMPRESSION: No acute osseous abnormality.. Specifically no distinct acute abnormality of the calcaneus Ordered By: BENSON JOSEPH Interpreted By: Johanna Torrez, 06/10/2025 3:07 PM Narrative 06/10/2025 3:11 PM CDT [facility] [address] [facility] [place] [address] IMAGING STUDIES: XR FOOT STANDING LT 3V DATE: 06/10/2025 1:32 PM CLINICAL HISTORY: left foot pain . Trauma to heel 6 days prior to exam. COMPARISON: September 20, 2020 FINDINGS: Three view foot demonstrates no evidence of acute fracture, dislocation or osseous erosion. Osteopenia limits exam Mild scattered degenerative change. No radiopaque foreign bodies or soft tissue abnormalities. . Stable moderate sized plantar calcaneal spur. Procedure Note Josh Torrez MD - 06/10/2025 [facility] [address] [facility]. [place] [id number] IMAGING STUDIES: XR FOOT STANDING LT 3V DATE: 06/10/2025 1:32 PM CLINICAL HISTORY: left foot pain . Trauma to heel 6 days prior toexam. COMPARISON: September 20, 2020 FINDINGS: Three view foot demonstrates no evidence of acute fracture, dislocation orosseous erosion. Osteopenia limits exam Mild scattered degenerative change. No radiopaque foreign bodies or softtissue abnormalities. . Stable moderate sized plantar calcaneal spur. IMPRESSION: No acute osseous abnormality.. Specifically no distinct acute abnormality of the calcaneus Ordered By: BENSON JOSEPH Interpreted By: Johanna Torrez, 06/10/2025 3:07 PM Benson Joseph DPM GENERAL IMAGING Final Result * XR CHEST PA+LAT (06/04/2025 2:59 PM CDT) Anatomical Region Laterality Modality Chest Radiographic Akila ging 06/04/2025 3:00 PM CDT Impressions 06/04/2025 3:00 PM CDT IMPRESSION: Stable chest, no acute findings Ordered By: KAVITHA ARGUETA Interpreted By: Cm Del Cid MD, 06/04/2025 3:00 PM Narrative 06/04/2025 3:00 PM CDT [facility] [address] [place] [id number] 2 VIEWS OF THE CHEST Clinical history: Fatigue Comparison: May 16, 2025 2 views of the chest demonstrate the cardiac silhouette to be normal in size and appears stable. A TAVR prosthesis remains in stable, satisfactory position. The pulmonary vessels are normally distributed. The Lungs are clear. No consolidations or effusions are seen. Procedure Note Cm Del Cid MD - 06/04/2025 [facility] [address] [facility] [address] 2 VIEWS OF THE CHEST Clinical history: Fatigue Comparison: May 16, 2025 2 views of the chest demonstrate the cardiac silhouette to be normal insize and appears stable. A TAVR prosthesis remains in stable, satisfactoryposition. The pulmonary vessels are normally distributed. The Lungs areclear. No consolidations or effusions are seen. IMPRESSION: Stable chest, no acute findings Ordered By: KAVITHA ARGUETA Interpreted By: Cm Del Cid MD, 06/04/2025 3:00 PM us Kavitha Argueta MD GENERAL IMAGING Final Resu lt * CT ABD+PEL W IV CON ONLY (06/04/2025 2:44 PM CDT) Anatomical Region Laterality Modality Abdomen Computed Tomogra phy 06/04/2025 4:01 PM CDT Impressions 06/04/2025 4:09 PM CDT IMPRESSION: No acute findings. Referred By: Interpreted By: Stew Louis MD, 06/04/2025 4:01 PM Narrative 06/04/2025 4:09 PM CDT [facility] [address] [place] [address] EXAM: CT ABD+PEL W CON DATE: 06/04/2025 COMPARISON: 05/16/2025 INDICATION: Left upper abdominal tenderness TECHNIQUE: Postcontrast imaging with 75 cc intravenous Isovue-370 right antecubital fossa. A dose lowering technique was used for this procedure, which may include, but is not limited to, dose reduction technique, automated exposure control, iterative reconstruction, ALARA (As Low As Reasonably Achievable), or Image Gently techniques. FINDINGS: Mild ill-defined groundglass and alveolar densities in the lung bases. Minimal improvement over previous. Coronary artery calcifications. Normal enhancement of the liver, spleen, adrenal glands, and pancreas. Cholecystectomy with no bile duct dilation. Normal enhancement of the kidneys. Distal ureters are obscured by streak artifact, but there are no findings for urinary tract obstruction. Visualized portions of the urinary bladder are normal. Multiple kidney cysts. Moderate rectal stool volume. Mild diverticulosis of the distal large bowel. The appendix is not visualized. Stomach is poorly distended and grossly normal. No bowel obstruction. No inflammatory changes in the upper abdominal fat. Diffuse arterial calcifications. Bilateral renal artery stenosis. No aneurysm of the aorta. Partially calcified right iliopsoas mass is unchanged. Osteopenia, diffuse degenerative disc disease, and multilevel lumbar spinal fusion. Bilateral hip replacements. Procedure Note Stew Louis MD - 06/04/2025 [facility] [address] [place] [address] EXAM: CT ABD+PEL W CON DATE: 06/04/2025 COMPARISON: 05/16/2025 INDICATION: Left upper abdominal tenderness TECHNIQUE: Postcontrast imaging with 75 cc intravenous Isovue-370 rightantecubital fossa. A dose lowering technique was used for this procedure, which may include,but is not limited to, dose reduction technique, automated exposurecontrol, iterative reconstruction, ALARA (As Low As ReasonablyAchievable), or Image Gently techniques. FINDINGS: Mild ill-defined groundglass and alveolar densities in the lungbases. Minimal improvement over previous. Coronary arterycalcifications. Normal enhancement of the liver, spleen, adrenal glands, and pancreas.Cholecystectomy with no bile duct dilation. Normal enhancement of thekidneys. Distal ureters are obscured by streak artifact, but there are nofindings for urinary tract obstruction. Visualized portions of theurinary bladder are normal. Multiple kidney cysts. Moderate rectal stool volume. Mild diverticulosis of the distal largebowel. The appendix is not visualized. Stomach is poorly distended andgrossly normal. No bowel obstruction. No inflammatory changes in theupper abdominal fat. Diffuse arterial calcifications. Bilateral renal artery stenosis. Noaneurysm of the aorta. Partially calcified right iliopsoas mass isunchanged. Osteopenia, diffuse degenerative disc disease, and multilevel lumbarspinal fusion. Bilateral hip replacements. IMPRESSION: No acute findings. Referred By: Interpreted By: Stew Louis MD, 06/04/2025 4:01 PM us Kavitha Argueta MD CT Final Resu lt * TSH W/REFLEX (06/04/2025 12:27 PM CDT) TSH 0.993 0.358 - 3.74 uIU/ML 06/04/2025 1:44 PM CDT [facility] Comment: HIGH DOSES OF BIOTIN MAY INTERFERE WITH THIS TEST RESULT. CORRELATION TO CLINICAL HISTORY AND PRESENTATION RECOMMENDED. FREE T4 NOT INDICATED 06/04/2025 12:2 7 PM CDT us Kavitha Argueta MD LABORATORY Final Resu lt Performing Organization Address City/[facility]/ZIP Co de Phone Number [facility] [address] [place] [address], [place] [phone] * (ABNORMAL) MAGNESIUM (06/04/2025 12:27 PM CDT) Only the most recent of4 resultswithin the time period is included. MAGNESIUM 1.3(L) 1.8 - 2.4 MG/DL 06/04/2025 1:44 PM CDT [facility] 06/04/2025 12:2 7 PM CDT us Kavitha Argueta MD LABORATORY Final Resu lt [facility] [address] [place] [address], [place] [phone] * LIPASE (06/04/2025 12:27 PM CDT) Only the most recent of2 resultswithin the time period is included. LIPASE 71 16 - 77 UNITS/L 06/04/2025 1:44 PM CDT [facility] 06/04/2025 12:2 7 PM CDT us Kavitha Argueta MD LABORATORY Final Resu lt [facility] [address] [place] [address], [place] [phone] * (ABNORMAL) HEMOGLOBIN, GLYCATED (05/17/2025 5:30 AM CDT) HGB A1C 6.1(H) <5.7 % 05/17/2025 6:45 AM CDT [facility] Comment: INCREASED RISK OF DIABETES <5.7% NON-DIABETES 5.7-6.4% INCREASED RISK FOR FUTURE DIABETES > OR = 6.5 CONSISTENT WITH DIABETES STANDARDS OF MEDICAL CARE IN DIABETES-2010 DIABETES CARE, 33(SUPP 1): S1-S61,2010 ESTIMATED AVG GLUCOSE 128 mg/dL 05/17/2025 6:45 AM CDT [facility] 05/17/2025 5:30 AM CDT us Domonique Carter MD LABORATORY Final Resul t Performing Organization Address [facility]/ZIP Co de Phone Number [facility] [address] [place] [address], [place] [phone] * (ABNORMAL) BASIC METABOLIC PANEL (05/17/2025 5:30 AM CDT) GLUCOSE 103(H) 70 - 99 MG/DL 05/17/2025 6:40 AM CDT [facility] BUN 47(H) 7 - 18 MG/DL 05/17/2025 6:40 AM CDT [facility] CREATININE S/P/B 1.33(H) 0.7 - 1.3 MG/DL 05/17/2025 6:40 AM CDT [facility] SODIUM S/P/B 141 136 - 145 MMOL/L 05/17/2025 6:40 AM CDT [facility] POTASSIUM S/P/B 4.5 3.5 - 5.1 MMOL/L 05/17/2025 6:40 AM CDT [facility] CHLORIDE S/P/B 104 100 - 108 MMOL/L 05/17/2025 6:40 AM CDT [facility] CO2 29.6 21 - 32 MMOL/L 05/17/2025 6:40 AM CDT [facility] CALCIUM S/P/B 9.4 8.5 - 10.1 MG/DL 05/17/2025 6:40 AM CDT [facility] ANION GAP 7.4 5 - 15 MMOL/L 05/17/2025 6:40 AM T [facility] BUN CREATININE RATIO 35.3(H) 6 - 26 05/17/2025 6:40 AM T [facility] GFR ESTIMATE 52(L) >90 ML/MIN/1.7 3 M2 05/17/2025 6:40 AM T [facility] Comment: NOTE: eGFR is not calculated for patients <18 years of age. This is an estimated GFR calculation using the new CKD EPI creatinine equation without race and so does not require a correction factor for race. This estimated GFR should not be used for calculating drug doses. 05/17/2025 5:30 AM CDT us Domonique Carter MD LABORATORY Final Resul t [facility] [address] [place] [address], [place] [phone] * THYROID STIM HORMONE, TSH (05/17/2025 5:30 AM CDT) TSH 0.984 0.358 - 3.74 uIU/ML 05/17/2025 6:40 AM CDT [facility] Comment: HIGH DOSES OF BIOTIN MAY INTERFERE WITH THIS TEST RESULT. CORRELATION TO CLINICAL HISTORY AND PRESENTATION RECOMMENDED. 05/17/2025 5:30 AM CDT Domonique Carter MD LABORATORY Final Resul t Performing Organization Address [facility]/ZIP Co de Phone Number [facility] [address] [place] [address], * PROCALCITONIN (PCT) (05/16/2025 3:06 AM CDT) PROCALCITONIN <0.05 0.00 - 0.25 NG/ML 05/16/2025 12:46 PM CDT [facility] Comment: PROCALCITONIN INTERPRETATION GUIDELINES LOWER RESPIRATORY TRACT INFECTIONS (LRTI): USE OF PCT IN INPATIENT OR EMERGENCY SITUATION INITIATION OF ANTIBIOTICS PCT VALUE INTERPRETATION <0.10 NG/ML ANTIBIOTIC THERAPY STRONGLY DISCOURAGED. 0.10-0.25 NG/ML ANTIBIOTIC THERAPY DISCOURAGED. 0.26-0.50 NG/ML ANTIBIOTIC THERAPY ENCOURAGED. >0.50 NG/ML ANTIBIOTIC THERAPY STRONGLY ENCOURAGED. DISCONTINUE ANTIBIOTICS PCT LESS THAN OR EQUAL TO 0.25 NG/ML OR DELTA PCT >80 PERCENT DELTA PCT= PCT(PEAK)-PCT(CURRENT)/PCT(PEAK)X100% STUDIES HAVE EVALUATED PCT PROTOCOLS IN THESE PATIENTS AND FOUND THAT FOR PATIENTS WHO ARE CLINICALLY STABLE AND ARE TREATED AT THE ED OR ARE HOSPITALIZED, THE INITIATION OF ANTIBIOTIC THERAPY SHOULD BE BASED ON CLINICAL GROUNDS AND A PCT VALUE OF GREATER THAN OR EQUAL TO 0.26 NG/ML. IF PCT REMAINS LOWER, ANTIBIOTICS CAN BE WITHHELD AND PATIENTS CAN BE REASSESSED CLINICALLY WITHOUT SAFETY CONCERNS. IF PATIENTS ARE CLINICALLY STABLE, AN ALTERNATIVE DIAGNOSIS SHOULD BE CONSIDERED. IF PATIENTS ARE UNSTABLE, THEN ANTIBIOTICS MAY BE CONSIDERED. IF PATIENTS DO NOT IMPROVE IN THE SHORT FOLLOW UP PERIOD OF 6 TO 12 HOURS, CLINICAL RE-EVALUATION AND RE-MEASUREMENT OF PCT IS RECOMMENDED. 05/16/2025 3:06 AM CDT Samanta Kirkland PA-C LABORATORY Final Result Performing Organization Address City/[facility]/ZIP Co de Phone Number [facility] [address] [address] [place] [address], [place] [phone] * (ABNORMAL) ARTERIAL BLOOD GAS (05/16/2025 3:06 AM CDT) PH ARTERIAL 7.40 7.35 - 7.45 05/16/2025 3:39 AM CDT [facility] PCO2 46.0(H) 35 - 45 MMHG 05/16/2025 3:39 AM CDT [facility] PO2 61.0(L) 83 - 108 MMHG 05/16/2025 3:39 AM CDT [facility] TOTAL CO2 ARTERIAL 29.9(H) 19.0 - 24.0 MMOL/L 05/16/2025 3:39 AM CDT [facility] BASE EXCESS 3.0 0 - 3 MMOL/L 05/16/2025 3:39 AM T [facility] O2 SATURATION 91(L) 94.0 - 98.0 % 05/16/2025 3:39 AM CDT [facility] BICARB ARTERIAL 28.5(H) 21.0 - 28.0 MMOL/L 05/16/2025 3:39 AM T [facility] CHERI TEST DRAWN FROM LEFT ARM 05/16/2025 3:39 AM CDT [facility] O2 ADMIN ARTERIAL ROOM AIR 05/16/2025 3:39 AM T [facility] DRAW SITE ARTERIAL DRAWN FROM LEFT WRIST 05/16/2025 3:39 AM T [facility] 05/16/2025 3:06 AM CDT Lazaro Son MD LABORATORY Final Result [facility] [address] [place] [address], * CTA CHEST+CT ABD+PEL W CON (05/16/2025 2:46 AM CDT) Anatomical Region Laterality Modality Abdomen, Chest Computed Tomogra phy 05/16/2025 2:58 AM CDT Impressions 05/16/2025 3:15 AM CDT IMPRESSION: 1. No definite pulmonary thromboembolic disease. 2. There are multiple tiny tree-in-bud pulmonary opacities within the right middle lobe, lingula, and the bilateral lower lobes. This is nonspecific but most suggestive of an infectious or inflammatory process. Bilateral aspiration pneumonitis is possible. Short interval CT chest follow-up in one month is recommended to ensure improvement/resolution. 3. There is edema or stranding adjacent to the kidneys bilaterally. This can be within normal limits but can also be seen with pyelonephritis. Clinical correlation with urinalysis is recommended. 4. There is a rounded soft tissue lesion or mass involving the right iliopsoas. This contains areas of internal calcification. This appears unchanged from the recent prior examination. This measures approximately 3.5 x 3.1 x 16.6 cm. A chronic hematoma is possible but mass/malignancy cannot be excluded. Chronic hematoma is favored. Further evaluation with PET/CT is recommended. Clinical correlation with the patient's history is recommended. 5. Colonic diverticulosis without secondary evidence of acute diverticulitis. Referred By: Interpreted By: Finn Butler DO, 05/16/2025 2:58 AM Narrative 05/16/2025 3:15 AM CDT [facility] [address] [place] [address] EXAMINATION: CTA chest pulmonary embolism, CT abdomen/pelvis with contrast HISTORY: Chest pain. Shortness of breath. Dizziness. Nausea. Recent colonoscopy. COMPARISON: CT abdomen/pelvis 02/25/2025. Chest x-ray 05/16/2025. CT 06/18/2018. TECHNIQUE: Axial CT images of the chest after the uneventful intravenous administration of 80 mL of Isovue-370 given through the left forearm. Sagittal and coronal reformatted image sets with thick section reformatted post processed 3-D/MIP images according to the pulmonary embolus protocol. Axial CT images of the abdomen and pelvis after the uneventful intravenous administration of 80 mL of Isovue-370 given through the left forearm. Sagittal and coronal reformatted image sets. A dose lowering technique was used for this procedure, which may include, but is not limited to, dose reduction technique, automated exposure control, the use of degenerative reconstruction, and ALARA/image gently techniques. Any follow-up recommendations contained in this report for incidentally detected pulmonary nodules were made according to current recommended guidelines based at a minimum on nodule size AND patient risk factors. FINDINGS: Vascular: There is suboptimal opacification of the pulmonary arteries which limits evaluation. The main pulmonary artery is normal caliber. No definite areas of pulmonary thromboembolic disease are identified. The subsegmental pulmonary arteries are not well evaluated related to the suboptimal opacification. No evidence of right heart strain. There is atherosclerotic calcification of the aorta which remains normal caliber. There are coronary artery calcifications. Chest: The heart is mildly enlarged. No pericardial effusion. No mediastinal or hilar lymphadenopathy. No evidence of pneumomediastinum. There is no axillary lymphadenopathy. No acute appearing extrathoracic soft tissue abnormalities. There is dependent atelectasis within the lungs bilaterally. There are multiple tiny tree-in-bud opacities within the right middle lobe, lingula, and the bilateral lower lobes. This is nonspecific but most suggestive of an infectious or inflammatory process. Bilateral aspiration pneumonitis is possible. Short interval CT chest follow-up in one month is recommended to ensure improvement/resolution. This is technically indeterminate. No acute focal airspace consolidation. No pleural effusion or pneumothorax. Abdomen/pelvis: The liver is normal in size and contour. No evidence of hepatic mass. The gallbladder is surgically absent. There is no biliary ductal dilatation. No acute-appearing pancreatic abnormalities. The spleen is normally sized. There is contrast phase related heterogeneous enhancement of the spleen. No adrenal masses. The kidneys enhance symmetrically. No hydronephrosis or nephrolithiasis. There is edema or stranding adjacent to the kidneys bilaterally. This can be within normal limits but can also be seen with pyelonephritis. Clinical correlation with urinalysis is recommended. Stable simple benign bilateral renal cysts, no imaging follow-up is necessary per consensus criteria. The abdominal aorta is normal caliber. There is diffuse atherosclerotic vascular disease. No retroperitoneal lymphadenopathy. No ascites or free intraperitoneal air. There is no bowel obstruction. There is colonic diverticulosis without secondary evidence of acute diverticulitis. No visible colonic or enteric inflammatory changes. There is a moderate stool burden. No acute appearing gastric abnormalities. No free pelvic fluid. No bladder wall thickening. There are pelvic phleboliths. There is extensive metallic streak artifact across the pelvis which limits detailed evaluation. There is a rounded soft tissue lesion or mass involving the right iliopsoas, axial series 9 image 105. This contains areas of internal calcification. This appears unchanged from the prior examination. This measures approximately 3.5 x 3.1 x 16.6 cm. A chronic hematoma is possible but mass/malignancy cannot be excluded. Chronic hematoma is favored. Clinical correlation with the patient's history is recommended. Further evaluation with PET/CT is recommended. Osseous: There are bilateral hip arthroplasties. There are multisite degenerative changes throughout the spine and the pelvis. There is surgical hardware within the lumbar spine. Procedure Note Finn Butler, - 05/16/2025 [facility] [address] [facility]. [place] [id number] EXAMINATION: CTA chest pulmonary embolism, CT abdomen/pelvis with contrast HISTORY: Chest pain. Shortness of breath. Dizziness. Nausea. Recentcolonoscopy. COMPARISON: CT abdomen/pelvis 02/25/2025. Chest x-ray 05/16/2025. CT 06/18/2018. TECHNIQUE: Axial CT images of the chest after the uneventful intravenousadministration of 80 mL of Isovue-370 given through the left forearm.Sagittal and coronal reformatted image sets with thick section reformattedpost processed 3-D/MIP images according to the pulmonary embolusprotocol. Axial CT images of the abdomen and pelvis after the uneventful intravenousadministration of 80 mL of Isovue-370 given through the left forearm.Sagittal and coronal reformatted image sets. A dose lowering technique was used for this procedure, which may include,but is not limited to, dose reduction technique, automated exposurecontrol, the use of degenerative reconstruction, and ALARA/image gentlytechniques. Any follow-up recommendations contained in this report for incidentallydetected pulmonary nodules were made according to current recommendedguidelines based at a minimum on nodule size AND patient risk factors. FINDINGS: Vascular: There is suboptimal opacification of the pulmonary arterieswhich limits evaluation. The main pulmonary artery is normal caliber. Nodefinite areas of pulmonary thromboembolic disease are identified. Thesubsegmental pulmonary arteries are not well evaluated related to thesuboptimal opacification. No evidence of right heart strain. There isatherosclerotic calcification of the aorta which remains normal caliber.There are coronary artery calcifications. Chest: The heart is mildly enlarged. No pericardial effusion. Nomediastinal or hilar lymphadenopathy. No evidence of pneumomediastinum.There is no axillary lymphadenopathy. No acute appearing extrathoracicsoft tissue abnormalities. There is dependent atelectasis within the lungs bilaterally. There aremultiple tiny tree-in-bud opacities within the right middle lobe, lingula,and the bilateral lower lobes. This is nonspecific but most suggestive ofan infectious or inflammatory process. Bilateral aspiration pneumonitisis possible. Short interval CT chest follow-up in one month isrecommended to ensure improvement/resolution. This is technicallyindeterminate. No acute focal airspace consolidation. No pleuraleffusion or pneumothorax. Abdomen/pelvis: The liver is normal in size and contour. No evidence ofhepatic mass. The gallbladder is surgically absent. There is no biliaryductal dilatation. No acute-appearing pancreatic abnormalities. Thespleen is normally sized. There is contrast phase related heterogeneousenhancement of the spleen. No adrenal masses. The kidneys enhance symmetrically. No hydronephrosis or nephrolithiasis.There is edema or stranding adjacent to the kidneys bilaterally. This canbe within normal limits but can also be seen with pyelonephritis.Clinical correlation with urinalysis is recommended. Stable simple benignbilateral renal cysts, no imaging follow-up is necessary per consensuscriteria. The abdominal aorta is normal caliber. There is diffuse atheroscleroticvascular disease. No retroperitoneal lymphadenopathy. No ascites or free intraperitoneal air. There is no bowel obstruction.There is colonic diverticulosis without secondary evidence of acutediverticulitis. No visible colonic or enteric inflammatory changes.There is a moderate stool burden. No acute appearing gastricabnormalities. No free pelvic fluid. No bladder wall thickening. There are pelvicphleboliths. There is extensive metallic streak artifact across thepelvis which limits detailed evaluation. There is a rounded soft tissue lesion or mass involving the rightiliopsoas, axial series 9 image 105. This contains areas of internalcalcification. This appears unchanged from the prior examination. Thismeasures approximately 3.5 x 3.1 x 16.6 cm. A chronic hematoma ispossible but mass/malignancy cannot be excluded. Chronic hematoma isfavored. Clinical correlation with the patient's history is recommended.Further evaluation with PET/CT is recommended. Osseous: There are bilateral hip arthroplasties. There are multisitedegenerative changes throughout the spine and the pelvis. There issurgical hardware within the lumbar spine. IMPRESSION: 1. No definite pulmonary thromboembolic disease. 2. There are multiple tiny tree-in-bud pulmonary opacities within theright middle lobe, lingula, and the bilateral lower lobes. This isnonspecific but most suggestive of an infectious or inflammatory process.Bilateral aspiration pneumonitis is possible. Short interval CT chestfollow-up in one month is recommended to ensure improvement/resolution. 3. There is edema or stranding adjacent to the kidneys bilaterally. Thiscan be within normal limits but can also be seen with pyelonephritis.Clinical correlation with urinalysis is recommended. 4. There is a rounded soft tissue lesion or mass involving the rightiliopsoas. This contains areas of internal calcification. This appearsunchanged from the recent prior examination. This measures approximately3.5 x 3.1 x 16.6 cm. A chronic hematoma is possible but mass/malignancycannot be excluded. Chronic hematoma is favored. Further evaluation withPET/CT is recommended. Clinical correlation with the patient's history isrecommended. 5. Colonic diverticulosis without secondary evidence of acutediverticulitis. Referred By: Interpreted By: Finn Butler DO, 05/16/2025 2:58 AM Lazaro Son MD CT Final Result * (ABNORMAL) PARTIAL THROMBOPLASTIN TIME,PTT (05/16/2025 12:50 AM CDT) PTT 19.2(L) 25.1 - 36.5 SEC 05/16/2025 1:19 AM CDT [facility] 05/16/2025 12:5 0 AM CDT us Lazaro Son MD LABORATORY Final Result Performing Organization Address [facility]/ZIP Co de Phone Number [facility] [address] [place] [address], [place] [phone] * (ABNORMAL) PROTIME/INR, VENOUS (05/16/2025 12:50 AM CDT) PROTIME 13.0(H) 9.1 - 12.4 SEC 05/16/2025 1:19 AM CDT [facility] INR 1.1 05/16/2025 1:19 AM CDT [facility] Comment: Recommend INR ranges for Oral Anticoagulant Therapy: Mechanical Cardiac Values 2.5-3.5 All others indication 2.0-3.0 05/16/2025 12:5 0 AM CDT us Lazaro Son MD LABORATORY Final Result Performing Organization Address [facility] Co de Phone Number [facility] [address] [place] [address], [place] [phone] * (ABNORMAL) D-DIMER, QUANTITATIVE (05/16/2025 12:50 AM CDT) D-DIMER 570(H) 0 - 500 ng{FEU}/mL 05/16/2025 1:19 AM CDT [facility] Comment: D-Dimer values less than or equal to 500 ng/mL FEU have a negative predictive value of >95% for exclusion of deep vein thrombosis and pulmonary embolism. In patients over 50 (who tend to have higher normal baseline D-Dimer values), recent studies suggest age-adjusted D-Dimer cutoff values (calculated as: age [years] x 10 ng/mL) result in equivalent outcomes and no additional false negative findings. 05/16/2025 12:5 0 AM CDT us Lazaro Son MD LABORATORY Final Result [facility] [address] [place] [address], [place] [phone] * CK (CPK) (05/16/2025 12:50 AM CDT) CPK 81 39 - 308 U/L 05/16/2025 9:58 AM CDT [facility] Comment:CORRECTED ON 05/16 A T 0958: PREVIOUSLY REPORTED 115 05/16/2025 12:5 0 AM CDT us Lazaro Son MD LABORATORY Edited Result - Final Performing Organization Address [facility]/ZIP Co de Phone Number [facility] [address] [place] [address], [place] [phone] * LIPID PANEL (07/10/2022 9:34 AM CDT) CHOLESTEROL 171 <200 MG/DL 07/10/2022 10:44 AM CDT [facility] TRIGLYCERIDES 102 <150 MG/DL 07/10/2022 10:44 AM CDT [facility] HDL 61 >40.0 MG/DL 07/10/2022 10:44 AM CDT [facility] LDL (CALCULATED) 90 <100 MG/DL 07/10/20 10:44 AM CDT [facility] NON HDL CHOLESTEROL 110 <130 MG/DL 07/10 10:44 AM CDT [facility] CHOL/HDL RATIO 2.8 0.0 - 4.5 07/10/2022 10:44 AM CDT [facility] VLDL CALCULATION 20 5 - 55 MG/DL 07/10/2022 10:44 AM CDT [facility] LIPID INTERPRETATION 07/10/2022 10:44 AM CDT [facility] Comment: [facility] CON[facility]ENS[facility] REPORT RECOMMENDATIONS: ADULT CHILD LOW RISK: CHOLESTEROL <200 <170 TRIGLYCERIDE <150 --- HDL >=60 --- LDL <100 <110 BORDERLINE: CHOLESTEROL 200-239 170-199 TRIGLYCERIDE 150-199 --- HDL 40-59 --- LDL 100-159 110-129 HIGH RISK: CHOLESTEROL >=240 >=200 TRIGLYCERIDE >=200 --- HDL <40 --- LDL >=160 >=130 07/10/2022 9:34 AM CDT Michelle Franco MD LABORATORY Final Re sult [facility] [address] [place] [address], from Last 3 Months or Most Recently Relevant to Health Maintenance Insurance MEDICARE [facility] Advance Directives * Full Code (Latest Code Status on File) Date Activated Date Inactivated Comments 05/16/2025 4:42 AM 05/17/2025 3:42 PM * Full Code Date Activated Date Inactivated Comments 07/17/2024 7:23 PM 07/19/2024 1:14 PM * Full Code Date Activated Date Inactivated Comments 09/11/2023 2:18 PM 11/23/2023 8:54 PM * Full Code Date Activated Date Inactivated Comments 08/26/2023 4:37 PM 08/27/2023 2:50 PM * Full Code Date Activated Date Inactivated Comments 08/21/2023 4:34 PM 08/23/2023 8:33 AM Care Teams Mule Rider Relationship Specialty Start Date End Date Sandoval Luis MD [address] [place] [address] PCP - General FAMILY PRACTICE 10/23/19
--- OUTSIDE RECORDS SUMMARY | 2025-08-13 17:14 | XMS_ITS | Clinical Summary ---
Author Organization [facility] Address [address] [place] [address] Care Team Providers Care Client Engagement Specialist Name Role Phone Stewart Dominguez MD Primary Care Provider [phone] Source Comments [facility],non-owned Affiliates and Associated Physician Practices is amultiple site organization consisting of ambulatory clinics and hospital sitesin [place], [place], [place] and [place]. This disclosure is being madepursuant to the Care Everywhere program and may not contain all information available regarding this patient. 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 Gender Identity Not on file Sexual Orientation [...] age to complete this topic [place] [address] MEDICARE [facility] SELF PAY NO INSURANCE Member Subscriber Plan / Payer (Ef fective for All Dates) Name:Satish Tapia Member ID:Not on file Relation to Subscriber:Not on file Name:SATISH TAPIA Subscriber ID:Not on file (Home) Address: [address] [place] [id number] Payer ID:Not on file Group ID:Not on file Type:Self Pay Address: [facility] Care Teams Client Engagement Specialist Relationship Specialty Start Date End Date Stewart Dominguez MD [address] [place] [address] PCP - General 04/22/12
--- OUTSIDE RECORDS SUMMARY | 2025-08-13 17:15 | XMS_ITS | Encounter Summary ---
Author Organization [facility] Address [facility] [place] [address] Care Team Providers Care Assistant To The Ceo Name Role Phone Sandoval Luis MD Primary Care Provider [phone] Encounter Details Date Type Department Care Team (Late st Contact Info) Description 07/19/2023 Prep for Procedure [facility] Pre-Admission Testing [place], [place] [id number] Marshall Jara MD [address] [place], [place] [id number] Social History Tobacco Use Types Packs/Day Years [...] move on to questions 3-9 0 08/16/2022 [facility] - Occupational Stress Questionnaire Answer Date Recorded [...] place to sleep or slept in a residential (including now)? No 07/23/2023 Sex and Gender Information Value Date Recorded Sex Assigned at Male 08/14/2023 3:20 PM GEOGRAPHY FACULTY MEMBER Legal Sex Male 7:28 PM CDT Gender Identity Male 08/14/2023 3:20 PM GEOGRAPHY FACULTY MEMBER Sexual Orientation Straight 08/14/2023 3: 20 PM GEOGRAPHY FACULTY MEMBER documented as of this encounter Functional Status * Are you deaf or do you have serious difficulty hearing Answer Date of Assessment Author Status No 04/15/2023 9:23 AM Indu Luna RN Active * Are you blind or do you have serious difficulty seeing, even when wearing glasses? Answer Date of Assessment Author Status No 04/15/2023 9:23 AM Indu Luna RN Active * Do you have serious difficulty walking or climbing stairs? Answer Date of Assessment Author Status No 04/15/2023 9:23 AM Indu Luna RN Active * Do you have difficulty dressing or bathing? Answer Date of Assessment Author Status No 04/15/2023 9:23 AM Indu Luna RN Active * Because of a physical, mental, or emotional condition, do you have difficulty doing errands alone such as visiting a doctor's office or shopping? Answer Date of Assessment Author Status No 04/15/2023 9:23 AM Indu Luna RN Active documented as of this encounter Mental Status * Because of a physical, mental, or emotional condition, do you have serious difficulty concentrating, remembering, or making decisions? Answer Entry Date Author Status No 04/15/2023 9:23 AM Indu Luna RN Active documented in this encounter Plan of Treatment Upcoming Encounters Date Type Department Care Team (Late st Contact Info) Description 08/16/2025 1:45 PM GEOGRAPHY FACULTY MEMBER Appointment [facility] [address] [place] [address] Bekah Mosley, DPT [address] [place] [address] Hazel Joseph, DPM [address] 2 [place] [address] 08/19/2025 2:00 PM GEOGRAPHY FACULTY MEMBER Appointment [facility] [address] [place] [address] Bekah Mosley, DPT [address] [place] [address] Hazel Joseph, DPM [address] 2 [place] [address] 08/23/2025 1:00 PM GEOGRAPHY FACULTY MEMBER Appointment [facility] [address] [place] [address] Bekah Mosley, DPT [address] [place] [address] Hazel Joseph, DPM [address] 2 [place] [address] 08/26/2025 1:00 PM GEOGRAPHY FACULTY MEMBER Appointment [facility] [address] [place] [address] Hazel Joseph, DPM [address] [place] [address] Katty Haley, ELECTRONIC GAMING DEVICE SUPERVISOR 08/31/2025 11:15 AM GEOGRAPHY FACULTY MEMBER Appointment [facility] [address] [place] [address] Bekah Mosley, DPT [address] [place] [address] Hazel Joseph, DPM [address] 2 [place] [address] 09/06/2025 10:00 AM GEOGRAPHY FACULTY MEMBER Office Visit [facility] Orthopedic Surgery - [place] [address] [address] [address] [place] [address] [place] [address] 09/06/2025 11:00 AM GEOGRAPHY FACULTY MEMBER Appointment [facility] [address] [place] [address] Bekah Mosley, DPT [address] [place] [address] Hazel Joseph, DPWei [address] 2 [place] [address] 09/09/2025 11:00 AM GEOGRAPHY FACULTY MEMBER Appointment [facility] [address] [place] [address] Bekah Mosley, DPT [address] [place] [address] Hazel Joseph, DPWei [address] [place] [address] 09/14/2025 11:15 AM GEOGRAPHY FACULTY MEMBER Appointment [facility] [address] [place] [address] Bekah Mosley, DPT [address] [place] [address] Hazel Joseph, DPM [address] 2 [place] [address] 09/17/2025 11:15 AM GEOGRAPHY FACULTY MEMBER Appointment [facility] [address] [place], [place] [address] Hazel Joseph, DPM [address] [place] [address] Bernabe Mosleyjaquelin Carvajal, DPT [address] [place] [address] 09/27/2025 10:15 AM GEOGRAPHY FACULTY MEMBER Office Visit [facility] [address] [address] Malachi Garcia [facility] [address] [place] [address] documented as of this encounter Goals Goal Patient Goal Type Associated Problems Recent Progress Patient-Stated? Author Patient will return to prior living situation and remain independent in ADLs upon discharge from hospital Lifestyle No Tegan Raya, RN documented as of this encounter Results * URINALYSIS WI REFLEX TO CULTURE (07/11/2023 1:09 PM CDT) COLOR (U) YELLOW 07/11/2023 3:07 PM CDT [facility] TRANSPARENCY CLEAR 07/11/2023 3:07 PM CDT [facility] SPECIFIC GRAVITY (U) 1.020 1.000 - 1.030 07/11/2023 3:07 PM CDT [facility] U PH 6.0 5.0 - 9.0 07/11/2023 3:07 PM CDT [facility] LEUKOCYTES (U) NEGATIVE NEGATIVE 07/11/2023 3:07 PM CDT [facility] NITRITES NEGATIVE NEGATIVE 07/11/2023 3:07 PM CDT [facility] PROTEIN RANDOM (U) NEGATIVE NEGATIVE 07/11/2023 3:07 PM CDT [facility] GLUCOSE (U) NEGATIVE NEGATIVE 07/11/2023 3:07 PM CDT [facility] KETONES MG/DL (U) NEGATIVE NEGATIVE 07/11/2023 3:07 PM CDT [facility] BILIRUBIN (U) NEGATIVE NEGATIVE 07/11/2023 3:07 PM CDT [facility] BLOOD (U) NEGATIVE NEGATIVE 07/11/2023 3:07 PM CDT [facility] WBC/HPF 0-5 0 - 5 /HPF 07/11/2023 3:07 PM T [facility] RBC/HPF NONE SEEN 0 - 5 /HPF 07/11/2023 3:07 PM CDT [facility] EPI/HPF RARE /HPF 07/11/2023 3:07 PM CDT [facility] CULTURE & SENSITIVITY INDICATED? SPECIMEN SETUP FOR CULTURE 07/11/2023 3:07 PM T [facility] URINE SPECIMEN OBTAINED BY CLEAN CATCH PROCEDURE / Unknown 07/11/2023 1:09 PM CDT us Marshall Jara MD URINE ORDERABLES Final Resu lt [facility] [address] [place] [address], [place] [phone] documented in this encounter Visit Diagnoses Diagnosis Cervical spondylosis with radiculopathy- Primary Cervical spondylosis with myelopathy Myelopathy ([facility]HCC) Unspecified disease of spinal cord Multiple-type hyperlipidemia Other and unspecified hyperlipidemia Chronic diastolic CHF (congestive heart failure) ([facility]) Chronic diastolic heart failure 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 Essential hypertension Unspecified essential hypertension 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 ([facility]) Nonrheumatic aortic valve stenosis Aortic valve disorders Severe aortic stenosis Aortic valve disorders Premature atrial contraction Supraventricular premature beats S/P drug eluting coronary stent placement S/P TAVR (transcatheter aortic valve replacement) Type 2 diabetes mellitus ([facility]) Type II or unspecified type diabetes mellitus without mention of complication, not stated as uncontrolled Pelvic obliquity Acquired deformity of pelvis CVA (cerebral vascular accident) ([facility]) Unspecified cerebral artery occlusion with cerebral infarction TIA (transient ischemic attack) Unspecified transient cerebral ischemia Stroke ([facility]) Unspecified cerebral artery occlusion with cerebral infarction Spinal stenosis of lumbar region with neurogenic claudication Spinal stenosis, lumbar region, with neurogenic claudication Iron deficiency anemia due to chronic blood loss 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 ([facility]) H/O gastric ulcer Personal history of other diseases of digestive system COVID-19 documented in this encounter Additional Health Concerns Infection Onset Date Last Indicated Resolved Time COVID-19 Rule Out 08/17/2023 08/17/2023 08/17/2023 11:41 AM GEOGRAPHY FACULTY MEMBER COVID-19 Rule Out 06/04/2025 06/04/2025 06/04/2025 1:29 PM CDT Respiratory Rule Out 06/04/2025 06/04/2025 025 1:36 PM CDT COVID-19 Rule Out 06/27/2025 06/27/2025 06/27/2025 1:49 PM CDT Respiratory Rule Out 06/27/2025 06/27/2025 025 1:50 PM CDT documented as of this encounter Care Teams Assistant To The Ceo Relationship Specialty Start Date End Date Sandoval Luis MD [address] [facility] [address] [place] [address] PCP - General FAMILY PRACTICE 10/23/19 documented as of this encounter
--- OUTSIDE RECORDS SUMMARY | 2025-08-13 17:15 | XMS_ITS | Encounter Summary ---
Author Organization [facility] Address [address] [place] [address] Care Team Providers Care Die Polisher Name Role Phone Stewart Dominguez MD Primary Care Provider [phone] Encounter Details Date Type Department Care Team (Late st Contact [facility]) Description 07/08/2024 Lab Requisition [facility] - DermPath Lab [address] [facility], [place] [address] Norah Sanchez MD [address] [facility] 3 [place] [address] Social History Tobacco Use Types Packs/Day Years Used Date Smoking Tobacco: Never Assessed Sex and Gender Information Value Date Recorded Sex Assigned at Not on file Legal Sex Male 5:49 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 Gender Identity Not on file Sexual Orientation Not on file documented as of this encounter Plan of Treatment Not on file documented as of this encounter Procedures Procedure Name Priority Date/Time Associated Diagnosis Comments DERMATOPATHOLOGY Routine 07/08/2024 1:42 PM CDT documented in this encounter Results * DERMATOPATHOLOGY (07/08/2024 1:42 PM CDT) Case Report Dermatopathology Report Case: [id number] Authorizing Provider: Norah Sanchez MD Collected: 07/08/2024 01:42 PM Ordering Location: [facility] Physician [facility] - Received: 07/09/2024 03:55 PM DermPath [...] DERMATOPATHOLOGY LABORATORY at 1414 CDT Clinical History [place] papule r/o BCC 2:14 PM CDT DERMATOPATHOLOGY [...] characteristic determined by the Dermatopathology Laboratory at [facility], directed by Dr. Steven Cao. These tests need not be, and therefore are not, approved by the [place] Food and Drug Administration. The tests are used for clinical purposes. Billing Codes Specimen Charges Stain Charges 13396 72202 1 1 2:14 PM CDT DERMATOPATHOLOGY LABORATORY Embedded Images 2:14 PM CDT DERMATOPATHOLOGY LABORATORY Pathology/Cytology TISSUE SPECIMEN FROM SKIN / Unknown 07/08/2024 1:42 PM CDT 07/09/2024 3:55 PM CDT Miscellaneous samples (specimen) TISSUE SPECIMEN FROM SKIN / Unknown 07/08/2024 1:42 PM CDT 07/09/2024 3:55 PM CDT us Norah Sanchez MD LAB - PATHOLOGY/CYTOLOGY ORD ERABLES Final Result DERMATOPATHOLOGY LABORATORY [facility] - Department of Dermatology [facility] Medicine [address] [place] [address], [address] [phone] documented in this encounter Visit Diagnoses Not on filedocumented in this encounter Care Teams Die Polisher Relationship Specialty Start Date End Date Stewart Dominguez MD [address] [place] [address] PCP - General 04/22/12 documented as of this encounter
--- OUTSIDE RECORDS SUMMARY | 2025-08-13 17:15 | XMS_ITS | Encounter Summary ---
Author Organization [facility] Address [facility] [place] [address] Care Team Providers Care Maritime Guard Name Role Phone Sandoval Luis MD Primary Care Provider [phone] Encounter Details Date Type Department Care Team (Latest Contact Info) Description 08/13/2025 Travel Social History Tobacco Use Types Packs/Day Years [...] from your doctor or pharmacy? Sometimes 05/16/2025 C Utilities Answer Date Recorded In the past 12 months has th e [employer], gas, oil, or water cicayda threatened to shut off services in your [...] week 05/16/2025 How often do you attend chur or pentecostal services? More than 4 times per year 05/16/2025 Do you belong to any clubs o r organizations such as christianity groups, unions, fraternal or athletic groups, or [...] move on to questions 3-9 0 08/16/2022 [facility] - Occupational Stress Questionnaire Answer Date Recorded [...] place to sleep or slept in a correction (including now)? No 08/26/2023 Housing Stability Vital Sign Answer Hong e Recorded In the last 12 months, was t here a time when you were not able to pay the mortgage or rent on time? No 05/16/2025 In the past 12 months, how m any times have you moved where you were living? 1 05/16/2025 At any time in the past 12 m [place], were you homeless or living in a correction (including now)? No 05/16/2025 Sex and Gender Information Value Date Recorded Sex Assigned at Male 08/14/2023 3:20 PM ANIMAL TRAINER Legal Sex Male 7:28 PM CDT Gender Identity Male 08/14/2023 3:20 PM ANIMAL TRAINER Sexual Orientation Straight 08/14/2023 3: 20 PM ANIMAL TRAINER documented as of this encounter Functional Status * Are you deaf or do you have serious difficulty hearing Answer Date of Assessment Author Status No 05/16/2025 5:03 AM CDT Lucho Meyer R N Active * Are you blind or do you have serious difficulty seeing, even when wearing glasses? Answer Date of Assessment Author Status Yes 05/16/2025 5:03 AM DHAVALT Lucho Meyer RN Active * Do you have serious [...] Assessment Author Status No 05/16/2025 5:03 AM CDLucho Rosas R N Active documented as of this encounter Mental Status * Because of a physical, mental, or emotional condition, do you have serious difficulty concentrating, remembering, or making decisions? Answer Entry Date Author Status No 05/16/2025 5:03 AM CDLucho Rosas R N Active documented in this encounter Plan of Treatment Upcoming Encounters Date Type Department Care Team (Late st Contact Info) Description 08/16/2025 1:45 PM ANIMAL TRAINER Appointment [facility] Outpatient Rehab [address] [place], [place] [address] Bekah Mosley, DPT [address] [place] [address] Hazel Joseph, MARIA ELENA [address] 2 [place] [address] 08/19/2025 2:00 PM ANIMAL TRAINER Appointment [facility] Outpatient Rehab [address] [place] [address] Bekah Mosley, DPT [address] [place] [address] Hazel Joseph, DPM [address] 2 [place] [address] 08/23/2025 1:00 PM ANIMAL TRAINER Appointment [facility] Outpatient Rehab [address] [place] [address] Bekah Mosley, DPT [address] [place] [address] Eniomirtha Hazel, DPM [address] 2 [place] [address] 08/26/2025 1:00 PM ANIMAL TRAINER Appointment [facility] Outpatient Rehab [address] [place] [address] Hazel Joseph, DPM [address] 2 [place] [address] Katty Haley, MECHANICAL ENERGY ENGINEER 08/31/2025 11:15 AM ANIMAL TRAINER Appointment [facility] Outpatient Rehab [address] [place] [address] Bekah Mosley, DPT [address] [place] [address] EniokelvinHazel rajput, DPM [address] 2 [place] [address] 09/06/2025 10:00 AM ANIMAL TRAINER Office Visit [facility] Orthopedic Surgery - [place] [address] [address] [address] [place] [address] [place] [address] 09/06/2025 11:00 AM ANIMAL TRAINER Appointment [facility] Outpatient Rehab [address] [place] [address] Bekah Moslye, DPT [address] [place] [address] Hazel Joseph, DPM [address] 2 [place] [address] 09/09/2025 11:00 AM ANIMAL TRAINER Appointment [facility] Outpatient Rehab [address] [place] [address] Bekah Mosley DPT [address] [facility] [place] [address] Hazel Joseph, DP [address] 2 [place] [address] 09/14/2025 11:15 AM ANIMAL TRAINER Appointment [facility] Outpatient Rehab [address] [place] [address] Bekah Mosley DPT [address] [facility] [place] [address] Hazel Joseph, DPM [address] 2 [place] [address] 09/17/2025 11:15 AM ANIMAL TRAINER Appointment [facility] [address] [place] [address] Hazel Joseph, DPM [address] [facility] [address] [place] [address] Bekah Mosley, DPT [address] [place] [address] 09/27/2025 10:15 AM ANIMAL TRAINER Office Visit [facility] - [place] [address] [place] [address] Malachi Garcia DPM [address] [place] [address] documented as of this encounter Goals Goal Patient Goal Type Associated Problems Recent Progress Patient-Stated? Author Patient will return to prior living situation and remain independent in ADLs upon discharge from hospital Lifestyle No Tegan Raya, RN documented as of this encounter Visit Diagnoses Not on filedocumented in this encounter Care Teams Maritime Guard Relationship Specialty Start Date End Date Sandoval Luis MD [address] [facility] [address] [place] [address] PCP - General FAMILY PRACTICE 10/23/19 documented as of this encounter
--- OUTSIDE RECORDS SUMMARY | 2025-08-13 17:15 | XMS_ITS | Encounter Summary ---
Author Organization [facility] Address [address] [facility] [place] [address] Care Team Providers Care Pals Specialist Name Role Phone Stewart Dominguez MD Primary Care Provider [phone] Encounter Details Date Type Department Care Team (Late st Contact Info) Description 11/04/2018 Lab Requisition [facility] Care DermPath Lab [address] [facility] [place] [address] Norah Sanchez MD [address] 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 Gender Identity Not on file Sexual Orientation Not on file documented as of this encounter Plan of Treatment Not on file documented as of this encounter Procedures Procedure Name Priority Date/Time Associated Diagnosis Comments DERMATOPATH TECHNICAL REPORT Routine 11/03/2018 12:00 AM MOLDER FOAM RUBBER documented in this encounter Results * DERMATOPATH TECHNICAL REPORT (11/03/2018 12:00 AM MOLDER FOAM RUBBER) Case Report Dermatopathology Report Case: [id number] Authorizing Provider: Norah Sanchez MD Collected: 11/03/2018 12:00 AM Pathologist: Wei Cao MD Received: 11/04/2018 06:58 AM Specimens: A) - Skin, left nose B) - Skin, right ordoñez 9 5:25 PM MOLDER FOAM RUBBER DERMATOPATHOLOGY LABORATORY Clinical History A: R/O BCC. [place] papule. B: R/O NMSC vs stasis. Crusted pink plaque. 9 5:25 PM MOLDER FOAM RUBBER DERMATOPATHOLOGY LABORATORY Gross Description Specimen A: Received is one formalin filled container labeled with the patient's name and designated left nose. The specimen consists of a shave measuring [id number]. Jar 0. Specimen B: Received is one formalin filled container labeled with the patient's name and designated right ordoñez. The specimen consists of a shave measuring [id number]. Jar 0. [facility] Dermatopathology Laboratory performed the technical component only. 9 5:25 PM [facility] DERMATOPATHOLOGY LABORATORY Embedded Images 5:25 PM [facility] DERMATOPATHOLOGY LABORATORY DISCLAIMER An external and internal positive and negative controls are appropriate for the histochemical, immunohistochemical and immunofluorescence stain(s) in this case (if any), except where stated explicitly. The performance characteristics of the stain(s) cited in this report were developed and its performance characteristic determined by the Dermatopathology Laboratory at [facility], directed by Dr. Steven Cao. These tests need not be, and therefore are not, approved by the [place] Food and Drug Administration. The tests are used for clinical purposes. 9 5:25 PM [facility] DERMATOPATHOLOGY LABORATORY at [address] MOLDER FOAM RUBBER Pathology/Cytology TISSUE SPECIMEN FROM SKIN / Unknown 11/03/2018 11/04/2018 6:58 AM MOLDER FOAM RUBBER Miscellaneous samples (specimen) TISSUE SPECIMEN FROM SKIN / Unknown 11/03/2018 11/04/2018 6:58 AM MOLDER FOAM RUBBER us Norah Sanchez MD LAB - PATHOLOGY/CYTOLOGY ORD ERABLES Final Result DERMATOPATHOLOGY LABORATORY [facility] - Department of Dermatology [address] [facility], 5th [place] [address], [facility] [phone] documented in this encounter Visit Diagnoses Not on filedocumented in this encounter Care Teams Pals Specialist Relationship Specialty Start Date End Date Stewart Dominguez MD [address] [place] [address] PCP - General 04/22/12 documented as of this encounter
--- OUTSIDE RECORDS SUMMARY | 2025-08-13 17:16 | XMS_ITS | Encounter Summary ---
Author Organization [facility] Care Team Providers Care Put In Beat Adjuster Name Role Phone Sandoval Luis MD Primary Care Provider Anna Caballero LEGAL STENOGRAPHER Unavailable [phone] Brandt Orellana EQUIPMENT OPERAT0R Unavailable [phone] Tabby Ortiz DNP Unavailable [phone] Encounter Details Date Type Department Care Team (Latest Contact Info) Description 06/13/2016 Orders Only [facility] CLINCONV ProviderCed MD [address] [place] [address] Social History Tobacco Use Types Packs/Day Years Used Date Smoking Tobacco: Some Days Cigarettes Last attempted to quit: 10/07/1984 Alcohol Use Standard Drinks/Week Comments Yes 0 (1 standard drink = 0.6 oz pur e alcohol) Sex and Gender Information Value Date Recorded Sex Assigned at Not on file Legal Sex Male 10:26 PM CONTINGENTS SUPERVISOR Gender Identity Male 01/13/2020 10:39 AM [...] on filedocumented in this encounter Care Teams Put In Beat Adjuster Relationship Specialty Start Date End Date Sandoval Luis MD [address] [place] [address] PCP - General 11/05/11 nAna Caballero, [facility] [address] [place] [address] Plugger Worker 06/16/18 08/13/18 Brandt Orellana, EQUIPMENT OPERAT0R [address] [place] [address] Plugger Worker 06/16/18 08/13/18 Tabby Ortiz, [place] [address] [address] [place] [address] Nurse Practitioner Internal Medicine 06/16/18 08/13/18 documented as of this encounter
--- OUTSIDE RECORDS SUMMARY | 2025-08-13 17:16 | XMS_ITS | Encounter Summary ---
Author Organization [facility] Facility Care Team Providers Care Felt Cutting Machine Operator Name Role Phone Sandoval Luis MD Primary Care Provider Anna Caballero SHED HAND Unavailable [phone] Brandt Orellana LEAD CUSTODIAN Unavailable [phone] Tabby Ortiz DNP Unavailable [phone] Encounter Details Date Type Department Care Team (Latest Contact Info) Description 05/31/2016 Orders Only [facility] CLINCONV ProviderCed MD [address] [place] [address] Social History Tobacco Use Types Packs/Day Years Used Date Smoking Tobacco: Some Days Cigarettes Last attempted to quit: 10/07/1984 Alcohol Use Standard Drinks/Week Comments Yes 0 (1 standard drink = 0.6 oz pur e alcohol) Sex and Gender Information Value Date Recorded Sex Assigned at Not on file Legal Sex Male 10:26 PM VAULT KEEPER Gender Identity Male 01/13/2020 10:39 AM CDT [...] on filedocumented in this encounter Care Teams Felt Cutting Machine Operator Relationship Specialty Start Date End Date Sandoval Luis MD [address] [place] [address] PCP - General 11/05/11 Anna Caballero, [facility] [address] [place] [address] Processing Engineer 06/16/18 08/13/18 Brandt Orellana, SARAH [address] [facility] [address] [place] [address] Processing Engineer 06/16/18 08/13/18 Tabby Ortiz DNP [address] [place] [address] Nurse Practitioner Internal Medicine 06/16/18 08/13/18 documented as of this encounter
--- OUTSIDE RECORDS SUMMARY | 2025-08-13 17:16 | XMS_ITS | Encounter Summary ---
Author Organization [facility] Facility Care Team Providers Care Studio Data Analyst Name Role Phone Sandoval Luis MD Primary Care Provider Anna Caballero HAIR TINTER Unavailable [phone] Brandt Orellana ORACLE SOA CONSULTANT Unavailable [phone] Tabby Ortiz DNP Unavailable [phone] Encounter Details Date Type Department Care Team (Latest Contact Info) Description 05/30/2016 Orders Only [facility] CLINCONV ProviderCed MD [address] [place] [address] Social History Tobacco Use Types Packs/Day Years Used Date Smoking Tobacco: Some Days Cigarettes Last attempted to quit: 10/07/1984 Alcohol Use Standard Drinks/Week Comments Yes 0 (1 standard drink = 0.6 oz pur e alcohol) Sex and Gender Information Value Date Recorded Sex Assigned at Not on file Legal Sex Male 10:26 PM WELFARE SPECIALIST Gender Identity Male 01/13/2020 10:39 AM CDT [...] on filedocumented in this encounter Care Teams Studio Data Analyst Relationship Specialty Start Date End Date Sandoval Luis MD [address] [place] [address] PCP - General 11/05/11 Anna Caballero, [facility] [address] [place] [address] Yarn Weight And Strength Tester 06/16/18 08/13/18 Brandt Orellana, ORACLE SOA CONSULTANT [address] [place] [address] Yarn Weight And Strength Tester 06/16/18 08/13/18 Tabby Ortiz, [place] [address] [place] [address] Nurse Practitioner Internal Medicine 06/16/18 08/13/18 documented as of this encounter
--- OUTSIDE RECORDS SUMMARY | 2025-08-13 17:16 | XMS_ITS | Encounter Summary ---
Author Organization [facility] Facility Care Team Providers Care Budder Name Role Phone Sandoval Luis MD Primary Care Provider Anna Caballero COMPUTERIZED MILL RECORDER Unavailable [phone] Brandt Orellana RADIO RECORDER Unavailable [phone] Tabby Ortiz DNP Unavailable [phone] Encounter Details Date Type Department Care Team (Latest Contact Info) Description 05/29/2016 Orders Only [facility] CLINCONV ProviderCed MD [address] [place] [address] Social History Tobacco Use Types Packs/Day Years Used Date Smoking Tobacco: Some Days Cigarettes Last attempted to quit: 10/07/1984 Alcohol Use Standard Drinks/Week Comments Yes 0 (1 standard drink = 0.6 oz pur e alcohol) Sex and Gender Information Value Date Recorded Sex Assigned at Not on file Legal Sex Male 10:26 PM STEAM BONE PRESS TENDER Gender Identity Male 01/13/2020 10:39 AM [...] on filedocumented in this encounter Care Teams Budder Relationship Specialty Start Date End Date Sandoval Luis MD [address] [place] [address] PCP - General 11/05/11 Anna Caballero, [facility] [address] [place] [address] Architectural Representative 06/16/18 08/13/18 Brandt Orellana, SARAH [address] [facility] [address] [place] [address] Architectural Representative 06/16/18 08/13/18 Tabby Ortiz DNP [address] [place] [address] Nurse Practitioner Internal Medicine 06/16/18 08/13/18 documented as of this encounter
--- OUTSIDE RECORDS SUMMARY | 2025-08-13 17:17 | XMS_ITS | Clinical Summary ---
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 Place 1 [...] (05/20/2018): Added automatically from request for surgery [id number] Chronic diastolic CHF (congestive heart failure) 03/17/2018 [...] artery disease of n ative artery of nikolski heart with stable angina pectoris 03/16/2016 Overview (01/11/2017): CAD in nikolski artery Assessment & Plan (02/03/2019 5:55 PM [...] 07/25/2020 01/23/2022 Coronary artery disease invo lving nikolski coronary artery of nikolski heart without angina pectoris 05/20/2018 01/07/2019 Overview (05/20/2018): Added automatically from request for surgery [id number] History of placement of sten t for [...] = 0.6 oz pur e alcohol) rarely [employer] Answer Date Recorded In the past 12 months has [employer] Private electric, gas, oil, or water [employer] threatened to shut off services in your [...] How often do you attend chur or catholic services? More than 4 times per year 03/09/2024 Do you belong to any clubs o r organizations such as bahai groups, unions, fraternal or athletic groups, or [...] time in the past 12 m [place], were you homeless or living in a care home (including now)? No 03/09/2024 Personal Safety Answer Date Recorded Have you ever been in or are you currently in a harmful physical or emotional relationship or is someone making you feel afraid or unsafe? 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 Gender Identity Male 01/13/2020 10:39 AM [...] home TTW Case Management No Anna Caballero, INFORMATION SERVICES CONSULTANT Note: Problem: Ability to self-manage CHF Interventions: [...] or provider Medical Devices Implanted Type Area Supervisor Rides Device Identifier Shelf Expiration Date Model / Serial / Lot [employer] Simplex P Full Dose Radiopaque Preblend Cement Bone Tobramycin 6197-9-001 - [id number] Implanted:Qty: 1 on 03/06/2024 by Neva Morgan MD at [facility] Bone Cement Right: Hip [employer] [id number] 05/06/202597- / / [id number] [employer] Simplex P Full Dose Radiopaque Preblend Cement Bone Tobramycin 6197-9- - [id number] Implanted:Qty: 1 on 03/06/2024 by Neva Morgan MD at [facility] Bone Cement Right: Hip [employer] [id number] 06/06/202597- / / [id number] [employer] Simplex P Full Dose Radiopaque Preblend Cement Bone Tobramycin 6197-9- - [id number] Implanted:Qty: 1 on 03/06/2024 by Neva Morgan MD at [facility] Bone Cement Right: Hip [employer] [id number] 05/06/202597- / / [id number] [employer] Simplex P Full Dose Radiopaque Preblend Cement Bone Tobramycin 6197-9-001 - [id number] Implanted:Qty: 1 on 03/06/2024 by Neva Morgan MD at [facility] Bone Cement Right: Hip [employer] [id number] 05/06/202597 / / [id number] Keyword [employer] [id number] Synergy 3.5mm 32mm 144cm Radiopaque 1 Access Port Inflation Lumen - [id number] Implanted:Qty: 1 on 05/23/2018 by Javier Darden MD at [facility] Scientific Jonathan 11/19/2018 [id number] / / [id number] David [employer] [facility] [id number] Synergy 3.5mm 12mm 144cm Radiopaque 1 Access Port Inflation Lumen - [id number] Implanted:Qty: 1 on 05/23/2018 by Javier Darden MD at [facility] [employer]ig[employer] [facility] 01/27/2020 [id number] / / [id number] [facility] [id number] Angio-Seal Vip Bondek-Plus 6fr .035in 70cm Hemostatic Latex Free - [id number] Implanted:Qty: 1 on 05/23/2018 [facility] [employer] 02/03/2019 [id number] / / [id number] [employer] [id number] Commander Garrett 3 Atrion 14fr Transcatheter Introducer Balloon - [id number] Implanted:Qty: 1 on 07/24/2018 by Javier Darden MD at [facility] [employer] 08/23/2019 [id number] / / [employer] 50mm 28mm Cement Constrained Hip 1mm .072in Offset Liner [id number] - [id number] Implanted:Qty: 1 on 03/06/2024 by Neva Morgan MD at [facility] Right: Hip [employer] [id number] 01/04/2025 [id number] / / [id number] [employer] Simplex P Full Dose Radiopaque Preblend Cement Bone Tobramycin 6197-9-001 - [id number] Implanted:Qty: 1 on 03/06/2024 by Neva Morgan MD at [facility] Right: Hip [employer] [id number] 05/06/2025 6197-9-001 / / [id number] [employer] Hip 5mm Offset [place] C Taper Sleeve Adapter Sterile Latex Free 19-0005t - [id number] Implanted:Qty: 1 on 03/06/2024 by Neva Morgan MD at [facility] Right: Hip [employer] [id number] 01/30/2028 19-0005T / / [id number] [employer] 28mm Hip [place] Taper Head Femoral Biolox Delta 6519-1-028 - [id number] Implanted:Qty: 1 on 03/06/2024 by Neva Morgan MD at [facility] Right: Hip [employer] [id number] 06/05/2025 6519-1-028 / / [id number] Explanted Type Area Supervisor Rides Device Identifier Shelf Expiration Date Model / Serial / Lot [employer] [place] [employer] Trident 42mm 28mm Constrain Hip 0d F Insert Acetabular Uhmwpe [id number] - [id number] Explanted:Qty: 1 on 03/06/2024 at [facility] Right: Hip [employer] [id number] 09/06/2028 [id number] / / [id number] Synthes 4mm 6mm 55mm Small Hexagonal Socket Cancellous Full Thread Screw 206.055 - [id number] Explanted:Qty: 1 on 03/06/2024 by Neva Morgan MD at [facility] Right: Hip Synthes I 206.055 / / Synthes 4mm 6mm 30mm Small Hexagonal Socket Cancellous Full Thread Screw 206.030 - [id number] Explanted:Qty: 1 on 03/06/2024 by Neva Morgan MD at [facility] Right: Hip Synthes I 206.030 / / [employer] Hip 5mm Offset [place] C Taper Sleeve Adapter Sterile Latex Free -4t - [id number] Explanted:Qty: 1 on 03/06/2024 at [facility] Right: Hip [employer] [id number] 05/03/2025-0005T / / [id number] [employer] 28mm Hip [place] Taper Head Femoral Biolox Delta 6519-1-028 - [id number] Explanted:Qty: 1 on 03/06/2024 at [facility] Right: Hip [employer] [id number] 10/25/2026 6519-1-02 8 / [id number] Procedures Procedure Name Priority Date/Time Associated Diagnosis Comments LIPID PANEL Routine 08/11/2024 3:56 PM PRECISION INSTRUMENT MAKER EGFR Routine 03/11/2024 11:31 PM CDT from Last 3 Months or Most Recently Relevant to Health Maintenance Results * Lipid panel (08/11/2024 3:56 PM PRECISION INSTRUMENT MAKER) SCRIBED Cholesterol, Total 158 0 - [...] ORDERABLES F inal Result [facility] Department [place] [address] from Last 3 Months or Most Recently Relevant to Health Maintenance Insurance MEDICARE [facility] FEDERAL MEDICARE [facility] TRADITIONAL MEDICARE [facility] Advance Directives For more information, please contact: [phone] Documents on File Type Date Recorded Patient Multi Punch Operator Expl anation ADVANCE DIRECTIVE 09/11/2013 12:00 AM ELISSA CHOWDHURY WILL ADVANCE DIRECTIVE 09/11/2013 12:00 AM CATIA R OF [facility] FINANCIAL/MEDICAL * Full Code (Latest Code Status on File) Date Activated Date Inactivated Comments 03/06/2024 5:28 PM 03/12/2024 10:27 PM * Full Code Date Activated Date Inactivated Comments 06/18/2018 2:56 PM 07/24/2018 5:29 AM * Full Code Date Activated Date Inactivated Comments 06/18/2018 10:05 AM 06/19/2018 3:31 PM Care Teams Pe Manager Relationship Specialty Start Date End Date Sandoval Luis MD [address] [place] [address] PCP - General 11/05/11
--- OUTSIDE RECORDS SUMMARY | 2025-08-13 17:17 | XMS_ITS | Encounter Summary ---
Author Organization [facility] Healthcare Address [address] [place] [address] Care Team Providers Care Supervisor Boilermaking Shop Name Role Phone Sandoval Luis MD Primary Care Provider Anna Caballero BARREL DRILLER Unavailable [phone] Brandt Orellana FRANCHISE BUSINESS CONSULTANT Unavailable [phone] Tabby Ortiz DNP Unavailable [phone] Encounter Details Date Type Department Care Team (Late st Contact Info) Description 01/15/2018 Orders Only [facility] Health Information Management [address] [place] [address] Scanning, Provider Social History Tobacco Use Types Packs/Day Years Used Date Smoking Tobacco: Former Alcohol Use Standard Drinks/Week Comments Yes 0 (1 standard drink = 0.6 oz pur e alcohol) Sex and Gender Information Value Date Recorded Sex Assigned at Not on file 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 Gender Identity Male 01/13/2020 10:39 AM CDT [...] filedocumented in this encounter Care Teams Supervisor Boilermaking Shop Relationship Specialty Start Date End Date Sandoval Luis MD [address] [place] [address] PCP - General 11/05/11 Anna Caballero, [facility] [address] [place] [address] Orthopedic Shoe Fitter 06/16/18 08/13/18 Brandt Orellana, FRANCHISE BUSINESS CONSULTANT [address] [facility] [address] [place] [address] Orthopedic Shoe Fitter 06/16/18 08/13/18 Tabby Ortiz, [place] [address] [facility] [address] [place] [address] Nurse Practitioner Internal Medicine 06/16/18 08/13/18 documented as of this encounter
--- OUTSIDE RECORDS SUMMARY | 2025-08-13 17:17 | XMS_ITS | Encounter Summary ---
Author Organization [facility] Healthcare Address [address] [place] [address] Care Team Providers Care Attorney General Name Role Phone Sandoval Luis MD Primary Care Provider Anna Caballero IMAGING NURSE Unavailable [phone] Brandt Orellana NIGHT FILLER Unavailable [phone] Tabby Ortiz DNP Unavailable [phone] Encounter Details Date Type Department Care Team (Late st Contact Info) Description 03/04/2018 Orders Only [facility] Health Information Management [address] [place] [address] Scanning, Provider Social History Tobacco Use Types Packs/Day Years Used Date Smoking Tobacco: Former Smokeless Tobacco: Never Alcohol Use Standard Drinks/Week Comments Yes 0 (1 standard drink = 0.6 oz pur e alcohol) Sex and Gender Information Value Date Recorded Sex Assigned at Not on file 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 Gender Identity Male 01/13/2020 10:39 AM CDT [...] on filedocumented in this encounter Care Teams Attorney General Relationship Specialty Start Date End Date Sandoval uLis MD [address] [place] [address] PCP - General 11/05/11 Anna Caballero, [facility] [address] [place] [address] Supervisor Winter 06/16/18 08/13/18 Brandt Orellana, NIGHT FILLER [address] [facility] [address] [place] [address] Supervisor Winter 06/16/18 08/13/18 Tabby Ortiz, [place] [address] [facility] [address] [place] [address] Nurse Practitioner Internal Medicine 06/16/18 08/13/18 documented as of this encounter
--- OUTSIDE RECORDS SUMMARY | 2025-08-13 17:17 | XMS_ITS | Encounter Summary ---
Author Organization [facility] Facility Care Team Providers Care Stars Specialist Name Role Phone Sandoval Luis MD Primary Care Provider Anna Caballero CLINICAL DIETETIC TECHNICIAN Unavailable [phone] Brandt Orellana PRODUCTION PAINTER Unavailable [phone] Tabby Ortiz DNP Unavailable [phone] Encounter Details Date Type Department Care Team (Latest Contact Info) Description 05/28/2016 Orders Only [facility] CLINCONV ProviderCed MD [address] [place] [address] Social History Tobacco Use Types Packs/Day Years Used Date Smoking Tobacco: Some Days Cigarettes Last attempted to quit: 10/07/1984 Alcohol Use Standard Drinks/Week Comments Yes 0 (1 standard drink = 0.6 oz pur e alcohol) Sex and Gender Information Value Date Recorded Sex Assigned at Not on file 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 Sex Male 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 Gender Identity Male 01/13/2020 10:39 AM CDT [...] on filedocumented in this encounter Care Teams Stars Specialist Relationship Specialty Start Date End Date Sandoval Luis MD [address] [place] [address] PCP - General 11/05/11 Anna Caballero, [facility] [address] [place] [address] Cloth Shrinker 06/16/18 08/13/18 Brandt Orellana, PRODUCTION PAINTER [address] [place] [address] Cloth Shrinker 06/16/18 08/13/18 Tabby Ortiz, [place] [address] [place] [address] Nurse Practitioner Internal Medicine 06/16/18 08/13/18 documented as of this encounter
[2025-08-13 17:44] LABS: Hematocrit 30.0 % (42.0-52.0); Hemoglobin 9.3 g/dL (14.0-18.0); Immature Granulocyte Percent A 0.5 % (0-0.5); Lymphocytes Absolute Auto 1.02 K/mm3 (0.9-3.2); Mean Corpuscular HGB Conc 31.0 g/dl (32-36); Mean Corpuscular Hemoglobin 31.5 pg (26-34); Mean Corpuscular Volume 101.7 fl (80-100); Nucleated Red Blood Cells Absolute Auto 0.000 K/mm3 (0.0-0.012); Nucleated Red Blood Cells Perc 0.0 % (0.0-0.2); Platelet Count Result 200 k/mm3 (150-375); Red Blood Count 2.95 M/mm3 (4.6-6.20); White Blood Count 7.4 K/mm3 (4.5-10.0)
[2025-08-13 17:57] LABS: Alanine Aminotransferase 30 U/L (6-50); Albumin Level 4.0 g/dL (3.5-5.1); Alkaline Phosphatase 46 U/L (38-126); Anion Gap 6 mmol/L (4-12); Aspartate Amino Transferase 41 U/L (17-59); Bilirubin,Total 0.5 mg/dL (0.2-1.3); Blood Urea Nitrogen 39 mg/dL (9-20); Calcium 9.4 mg/dL (8.4-10.2); Carbon Dioxide 28 mmol/L (22-30); Chloride 103 mmol/L (98-107); Estimated CRCL calculation 39 ml/min; Estimated Glomerular Filt Rate 52; Glucose 93 mg/dL (65-110); INR 1.2; Partial Thromboplastin Time 31.5 Seconds (22.3-36.8); Potassium 4.4 mmol/L (3.4-5.0); Prothrombin Time 15.0 Seconds (11.1-14.7); Sodium 137 mmol/L (137-145); Total Protein 7.3 g/dL (6.3-8.2)
[2025-08-13 19:19] VITALS: BP 136/68; PULSE 89; RESP 19; O2SAT 97
[2025-08-13] MEDS: MORPHINE SULFATE (*CRX) 4 MG/ML INJ 2 MG IV PUSH (19:54)
[2025-08-13 20:36] LABS: Add Urine Microscopic? YES; Appearance Urine Clear (Clear); Glucose Urine UA Negative (Negative); Leukocyte Esterase Ur Negative LEU/UL (Negative); Nitrate Urine Negative (Negative); Non Pathogenic Casts 0-2; Specific Grav Ur > 1.045 (1.001-1.035)
[2025-08-14] MEDS: HYDROmorphone HCL INJ (*CRX) 1 MG/ML SYR 0.5 MG IV PUSH (02:08)
[2025-08-19 08:37] LABS: Estimated CRCL calculation 39 ml/min; Estimated Glomerular Filt Rate 52
== END 2025-08-14 04:22 | disposition short-term general hospital (02) ==
PROVIDERS: Emergency Provider Student in an Organized Health Care Education/Training Program; PCP Family Medicine
DX: S22.41XA Multiple fractures of ribs, right side, initial encounter for closed fracture (principal); D53.9 Nutritional anemia, unspecified; R79.89 Other specified abnormal findings of blood chemistry; E11.22 Type 2 diabetes mellitus with diabetic chronic kidney disease; I13.0 Hypertensive heart and chronic kidney disease with heart failure and stage 1 through stage 4 chronic kidney disease, or unspecified chronic kidney disease; N18.30 Chronic kidney disease, stage 3 unspecified; I50.9 Heart failure, unspecified; I25.10 Atherosclerotic heart disease of native coronary artery without angina pectoris; I25.2 Old myocardial infarction; I35.0 Nonrheumatic aortic (valve) stenosis; E11.42 Type 2 diabetes mellitus with diabetic polyneuropathy; E11.51 Type 2 diabetes mellitus with diabetic peripheral angiopathy without gangrene; I73.9 Peripheral vascular disease, unspecified; Z95.2 Presence of prosthetic heart valve; E78.2 Mixed hyperlipidemia; N40.1 Benign prostatic hyperplasia with lower urinary tract symptoms; G47.33 Obstructive sleep apnea (adult) (pediatric); F41.9 Anxiety disorder, unspecified; Z98.1 Arthrodesis status; Z96.643 Presence of artificial hip joint, bilateral; Z95.5 Presence of coronary angioplasty implant and graft; Z85.828 Personal history of other malignant neoplasm of skin; Z87.01 Personal history of pneumonia (recurrent); Z86.0101 Personal history of adenomatous and serrated colon polyps; Z87.891 Personal history of nicotine dependence; W18.39XA Other fall on same level, initial encounter
CPT/HCPCS: 36415; 70450; 71260; 72125; 80053; 81001; 82565; 85025; 85610; 85730; 96374; 96375; 99285; A9270; J1171; J2270; Q9967